=== PATIENT | female | born 1985 ===

== ENCOUNTER 2024-10-15 10:06 | Outpatient (AMB) | payer MEDICAID, SELFPAY ==
--- NOTE | 2024-10-15 10:27 | A.SPINEOV_ITS ---
Vital Signs 10/15/24 10:37 Height 5 ft Weight 273 lb BMI 53.3 Intake Visit Reasons: LBP Intake Note: Ms. Varela is here today c/o low back pain that radiates down the right leg. Transportation [employer] Internship Required: No Allergies Penicillins Allergy (Severe, Verified 10/15/24 10:38) Hives tramadol Allergy (Severe, Verified 10/15/24 10:38) Vomiting Physical Exam Vital Signs: BMI result Body Mass Index 53.3 Assessment & Plan Assessment & Plan (1) Degeneration of lumbar intervertebral disc: Code(s): M51.369 - Other intervertebral disc degeneration, lumbar region without mention of lumbar back pain or lower extremity pain Category: Medical Plan Dear Dr. Colindres, Thank you for referring Flaca to our office today. She is a pleasant 38-year-old female who comes in today for evaluation of severe low back pain and shooting pain into her bilateral lower extremities. She reports this has been ongoing since about 2018, denies any known inciting initial incident for the pain. She reports that she was informed that she had a disc herniation back in 2018, for which she was offered surgery by Dr. Cole at [facility]. She reports that unfortunately despite surgical attempts to solve her problem, she continued to have the same pain that she had prior to surgery. She now states that the pain has worsened to the point where she is in constant 10/10 pain throughout the day. When asked which is worse her back pain or leg pain, she states they are both severe and feel like they are all part of the same pain. When describing her pain she runs her hand over her low back, and down the posterior aspect of her right leg terminating near the mid gastrocnemius. She also reports that she has left lateral thigh pain that feels like it starts in her left hip and shoots down her left lateral thigh. She denies any numbness/tingling/burning associated with the pain She states that remaining in one position for too long (e.g. sitting for a prolonged period of time) will worsen her pain until she makes a positional change. She is unable to identify anything that helps to alleviate her pain. She has been to physical therapy multiple times in an effort to treat this problem, however PT seems to only worsen her pain. She did attempt cortisone injections at [facility] in the past, and states that they were not helpful at all for her pain. She is currently taking Tylenol, ibuprofen, and gabapentin in an effort to help treat her pain, but states she gets little to no relief from these medications. She denies any saddle anesthesia or bowel/bladder incontinence. PMH: Migraines with aura, GERD, HSV 1, hidradenitis suppurativa, PTSD, anxiety, history of L4-[address] Cole. Recent surgery 09/18/2024 to remove a segment of hidradenitis suppurativa from her right inner thigh. Social hx: The patient smokes 1/2 pack cigarettes per day. Denies any other substance use. Medications: Albuterol, betamethasone, cholecalciferol, clobetasol, diclofenac, Depakote, doxepin, fluticasone, guaifenesin, hydrocortisone, hydroxyzine, lidocaine patches, naratriptan, pantoprazole, prazosin, magnesium oxide, vitamin B2, sennosides, triamcinolone, ibuprofen, meloxicam, cyclobenzaprine. Allergies: PCN, Tramadol Physical exam: The patient has about 4/5 strength with right-sided iliopsoas testing. The rest of her strength testing is 5/5, however she does elicit pain to full strength testing on examination. She has no significant sensational deficits on exam. Her reflexes are 2+ intact diffusely. She ambulates very slowly, but does not appear to have an antalgic or spastic gait. (-) bilateral straight leg raise, (-) Richardson's, (-) clonus. Imaging review: MRI of the lumbar spine completed here at [facility] shows disc degeneration at L4-5 with Modic endplate changes. There is moderate-severe bilateral foraminal stenosis at this level. There is evidence of a previous surgical defect at L4-5. Impression: Flaca is a pleasant 38-year-old female who comes in today for evaluation of low back pain and shooting pain into her bilateral lower extremities, right-sided worse than left. She has a pertinent past medical history of previous lumbar spine surgery at L4-5 back in 2018. Her symptoms did not resolve or improve after surgery. I sent her for a set of flexion/extension x-rays to evaluate for any listhesis or movement of the L4-5 segment during this visit. It does not appear that this segment is mobile. My initial thought is that a lumbar decompression at L4-5 may help to relieve the compression on the exiting nerve roots at this level and help to mitigate some of her leg symptoms, however given that she has a component of severe low back pain I think that lumbar fusion at L4-5 may be more appropriate, even though the patient is fairly young for this procedure. I would like to review her case with the attending neurosurgeon Dr. Hunt, and will call her next week with a surgical decision. Thank you for allowing us to care for your patient. The total time spent with this visit with this patient was 45 minutes reviewing history, physical exam, MRI imaging review, and implementation of treatment plan or further diagnostic testing Demario Hunt MD,PhD [facility] Orders: Orders XR lumbar spine 4V min Today M54.50 - Low back pain, unspecified Coding Level of Care Code New Pt Level 4 (11423) Diagnoses Degeneration of lumbar intervertebral disc M51.369
[2024-10-15 10:37] VITALS: BMI 53.3
--- OUTSIDE RECORDS SUMMARY | 2024-10-15 11:01 | XMS_ITS | Encounter Summary ---
Author Organization [facility], Address [address] [place] [address] Phone Care Team Providers Care Clear Coat Sprayer Name Role Phone Naa Colindres MD Primary Care Provider [phone] Encounter Details Date Type Department Care Team (Late st Contact Info) Description 12/08/2022 Documentation Only [facility], - Megan [address] [facility] [address] [place] [address] Lis Mcdonald, OFFICE MACHINE MECHANIC [address] [place] [address] [phone] Social History Tobacco Use Types Packs/Day Years Used Date Smoking Tobacco: Never Assessed Comments Unknown Sex and Gender Information Value Date Recorded Sex Assigned at Not on file Legal Sex Female 3:16 PM EDT Gender Identity Not on file Sexual Orientation Not on file documented as of this encounter Plan of Treatment Not on file documented as of this encounter Visit Diagnoses Not on filedocumented in this encounter Care Teams Clear Coat Sprayer Relationship Specialty Start Date End Date Naa Colindres MD [address] [place] [address] PCP - General Family Medicine 03/17/23 documented as of this encounter"
== END 2024-10-15 11:11 | disposition home or self-care (01) ==
LOC: HO.HNS 10:09
PROVIDERS: PCP Family Medicine; Referring Provider Family Medicine; Visit Provider Physician Assistant
DX: M51.369 Other intervertebral disc degeneration, lumbar region without mention of lumbar back pain or lower extremity pain (principal)
CPT/HCPCS: 99204

== ENCOUNTER 2024-10-15 10:06 | Outpatient (REF) | payer MEDICAID, SELFPAY ==
--- NOTE | ~2024-10-15 | XR_ITS ---
EXAMINATION: XR LUMBAR SPINE 4 OR MORE VIEWS HISTORY: M54.50 - Low back pain, unspecified COMPARISON: There are no prior studies for comparison. FINDINGS: AP, and neutral, flexion, and extension lateral views of the lumbar spine are submitted. Osseous mineralization is normal. Five nonrib-bearing lumbar vertebral bodies are identified, maintaining normal height without evidence of fracture or spondylolisthesis. There is mild rotatory levoscoliosis. There is moderate degenerative disc disease at the L4-5 level with disc space narrowing. Anterior spurring is also seen at this level. The remaining intervertebral disc spaces are maintained. There is no abnormal motion with flexion or extension. The visualized paraspinal soft tissues are unremarkable. XR/XR lumbar spine 4V min IMPRESSION: Mild rotatory levoscoliosis. Moderate degenerative disc disease at L4-5. No abnormal motion with flexion or extension. Electronically signed by: Tariq Garcia MD 10/16/2024 07:18 AM EDT
== END 2024-10-15 10:07 | disposition home or self-care (01) ==
LOC: HO.HOSX 10:06
PROVIDERS: PCP Family Medicine; Referring Provider Family Medicine; Visit Provider Physician Assistant
DX: M51.360 Other intervertebral disc degeneration, lumbar region with discogenic back pain only (principal)
CPT/HCPCS: 72110; 99212

== ENCOUNTER → 2024-10-15 11:14 | Outpatient (BNV) | payer MEDICAID, SELFPAY | PROVIDERS: PCP Family Medicine; Referring Provider Family Medicine; Visit Provider Radiology Diagnostic Radiology | DX: M51.360 Other intervertebral disc degeneration, lumbar region with discogenic back pain only (principal) | CPT/HCPCS: 72110 ==

== ENCOUNTER → 2024-11-27 11:31 | Outpatient (BNV) | payer MEDICAID, SELFPAY | PROVIDERS: Admitting Provider Neurological Surgery; Visit Provider Internal Medicine | DX: Z01.810 Encounter for preprocedural cardiovascular examination (principal) | CPT/HCPCS: 93010 ==

== ENCOUNTER 2024-12-11 06:20 | Inpatient (IN) | payer MEDICAID, SELFPAY ==
--- NOTE | 2024-11-27 | ECG_ITS ---
Test Reason : PREOP Blood Pressure : */* mmHG Vent. Rate : 68 BPM Atrial Rate : 68 BPM P-R Int : 128 ms QRS Dur : 86 ms QT Int : 398 ms P-R-T Axes : 16 66 35 degrees QTcB Int : 423 ms Normal sinus rhythm Normal ECG No previous ECGs available Referred By: Natali Adames Electronically Signed By: RAYMON MANRIQUEZ
[2024-11-27 10:21] VITALS: BP 119/72; PULSE 80; RESP 20; O2SAT 98; BMI 37.9
--- NOTE | 2024-11-27 10:44 | HO.ANESPROP2 ---
Documented by User: Natali Adames NP 11/28/24 10:04 HPI - Anesthesia Eval Consult details Narrative: 39 yr old female for L4-5 Oblique Lumbar Interbody Fusion. No CP/SOB; activity limited 2/2 back pain. No recent illness. Asthma: well-controlled, prn albuterol. H/O PTSD 2/2 restraint on face, anticipate difficulty masking/emergence from anesthesia PMFSH Active Problems Active Problems: All Active Problems Degeneration of lumbar intervertebral disc (Acute) Lumbago (Acute) Past Medical History Medical History Hidradenitis suppurativa Asthma Fibromyalgia Peptic ulcer Depression PTSD (post-traumatic stress disorder) Anxiety GERD (gastroesophageal reflux disease) Migraines Functional capacity: independent ambulation Patient : No Family History Family history of problems with anesthesia: No Surgical History Surgical History History of esophagogastroduodenoscopy (EGD) H/O colonoscopy History of surgery on lower extremity History of back surgery History of Problems with Anesthesia: No Social History Social History Are you a primary career information specialist to a significant other at home: No Do you 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 If so, by whom?: No Spiritual Healthcare Practices: no Episcopal Healthcare Practices: no Cultural Healthcare Practices: no Are you DNR?: No Advance Directives: No (states mother is primary contact) Advance Directives on File: No Patient : No FDLMP: 11/18/24 : No Poor oral hygiene: No Meds Allergies Allergy/AdvReac Type Severity Reaction Status Date / Time Penicillins Allergy Severe Hives Verified 10/15/24 10:38 tramadol Allergy Severe Vomiting Verified 10/15/24 10:38 Home Medications ?Medication ?Instructions ?Recorded ?Confirmed ?Last Taken ?Type albuterol sulfate 90 mcg/actuation 2 puff inhalation Q6H PRN wheezing 11/26/24 11/26/24 Unknown History aerosol inhaler (Ventolin HFA) cholecalciferol (vitamin D3) 125 125 mcg PO DAILY 11/26/24 11/26/24 Unknown History mcg (5,000 unit) capsule cyclobenzaprine 10 mg tablet 10 mg PO BEDTIME 11/26/24 11/26/24 Unknown History divalproex 250 mg tablet,delayed 500 mg PO BEDTIME 11/26/24 11/26/24 Unknown History release doxepin 10 mg capsule 10 mg PO BEDTIME 11/26/24 11/26/24 Unknown History gabapentin 300 mg capsule 600 mg PO TID 11/26/24 11/27/24 Unknown History hydroxyzine pamoate 25 mg capsule 25 mg PO TID PRN Anxiety 11/26/24 11/26/24 Unknown History ibuprofen 800 mg tablet 800 mg PO Q8H PRN Pain 11/26/24 11/27/24 10/17/24 History meloxicam 7.5 mg tablet 7.5 mg PO DAILY 11/26/24 11/27/24 10/17/24 History pantoprazole 40 mg tablet,delayed 40 mg PO QAM 11/26/24 11/26/24 Unknown History release prazosin 1 mg capsule 1 mg PO BEDTIME 11/26/24 11/26/24 Unknown History rizatriptan 10 mg disintegrating 10 mg PO ONCE PRN Migraine Headache 11/26/24 11/26/24 Unknown History tablet topiramate 100 mg tablet 100 mg PO BEDTIME 11/26/24 11/26/24 Unknown History Exam Height,Weight and Vital Signs: Height 5 ft 11 in Weight 123.377 kg Last Vital Signs Pulse 80 11/27/24 10:21 Resp 20 11/27/24 10:21 BP 119/72 11/27/24 10:21 Pulse Ox 98 11/27/24 10:21 O2 Del Method Room Air 11/27/24 10:21 Pertinent Lab Results Pertinent Lab Results: Lab Results 11/27/24 11/27/24 Range/Units 11:19 11:29 WBC 9.8 (4.8-10.8) X10*3/uL RBC 4.60 (4.20-5.50) X10*6/uL Hgb 14.4 (12.0-16.0) g/dl Hct 42.9 (37.0-47.0) % MCV 93.3 (80.0-98.0) fL MCH 31.3 (27.0-33.0) pg MCHC 33.6 (31.0-35.0) g/dl RDW 13.3 (11.0-16.0) % Plt Count 325 (160-400) X10*3/uL MPV 12.1 (9.4-12.3) fL Absolute Nucleated RBC 0.000 (0.0-0.012) X10*3/uL Nucleated RBC % (auto) 0.0 (0.0-0.2) /100WBC Sodium 142 (135-145) mmol/L Potassium 4.3 (3.3-5.1) mmol/L Chloride 107 (96-108) mmol/L Carbon Dioxide 28 (22-29) mmol/L Anion Gap 11 L (12-20) BUN 10 (9-16) mg/dL Creatinine 0.69 (0.5-1.4) mg/dL Estim Creat Clear Calc 157.1 Estimated GFR > 60 Random Glucose 94 (60-115) mg/dL Estimat Average Glucose 108 mg/dL Hemoglobin A1c % 5.4 (<6.0) % Calcium 9.3 (8.4-10.2) mg/dL Blood Type A Negative Antibody Screen NEGATIVE Narrative Narrative: EKG 11/27/24 Vent. Rate : 68 BPM Atrial Rate : 68 BPM P-R Int : 128 ms QRS Dur : 86 ms QT Int : 398 ms P-R-T Axes : 16 66 35 degrees QTcB Int : 423 ms Normal sinus rhythm Normal ECG No previous ECGs available Airway Mallampati Class: III TM Dist: >3cm Neck ROM: Full Loose/Missing/Broken Teeth: Lower (right molar, wisdom M) Heart: RRR Lungs: clear to auscultation b/l Assessment and Plan Final Anesthetic Review Family History of Problems with Anesthesia: No History of Problems with Anesthesia: No Documented by User: Karin Churchill MD 12/11/24 07:28 PMFSH Past Medical History Medical History Hidradenitis suppurativa Asthma Fibromyalgia Peptic ulcer Depression PTSD (post-traumatic stress disorder) Anxiety GERD (gastroesophageal reflux disease) Migraines Surgical History Surgical History History of esophagogastroduodenoscopy (EGD) H/O colonoscopy History of surgery on lower extremity History of back surgery Social History Social History Are you a primary career information specialist to a significant other at home: No Do you 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 If so, by whom?: No Spiritual Healthcare Practices: no Episcopal Healthcare Practices: no Cultural Healthcare Practices: no Are you DNR?: No Advance Directives: No (states mother is primary contact) Advance Directives on File: No Patient : No FDLMP: 11/18/24 : No Poor oral hygiene: No Meds Allergies Allergy/AdvReac Type Severity Reaction Status Date / Time Penicillins Allergy Severe Hives Verified 10/15/24 10:38 tramadol Allergy Severe Vomiting Verified 10/15/24 10:38 Home Medications ?Medication ?Instructions ?Recorded ?Confirmed ?Last Taken ?Type albuterol sulfate 90 mcg/actuation 2 puff inhalation Q6H PRN wheezing 11/26/24 11/26/24 Unknown History aerosol inhaler (Ventolin HFA) cholecalciferol (vitamin D3) 125 125 mcg PO DAILY 11/26/24 11/26/24 Unknown History mcg (5,000 unit) capsule cyclobenzaprine 10 mg tablet 10 mg PO BEDTIME 11/26/24 11/26/24 Unknown History divalproex 250 mg tablet,delayed 500 mg PO BEDTIME 11/26/24 11/26/24 Unknown History release doxepin 10 mg capsule 10 mg PO BEDTIME 11/26/24 11/26/24 Unknown History gabapentin 300 mg capsule 600 mg PO TID 11/26/24 11/27/24 Unknown History hydroxyzine pamoate 25 mg capsule 25 mg PO TID PRN Anxiety 11/26/24 11/26/24 Unknown History ibuprofen 800 mg tablet 800 mg PO Q8H PRN Pain 11/26/24 11/27/24 10/17/24 History meloxicam 7.5 mg tablet 7.5 mg PO DAILY 11/26/24 11/27/24 10/17/24 History pantoprazole 40 mg tablet,delayed 40 mg PO QAM 11/26/24 11/26/24 Unknown History release prazosin 1 mg capsule 1 mg PO BEDTIME 11/26/24 11/26/24 Unknown History rizatriptan 10 mg disintegrating 10 mg PO ONCE PRN Migraine Headache 11/26/24 11/26/24 Unknown History tablet topiramate 100 mg tablet 100 mg PO BEDTIME 11/26/24 11/26/24 Unknown History Exam Airway Loose/Missing/Broken Teeth: No Assessment and Plan Assessment Anesthesia Assessment: Anesthesia Plan Discussed and Chart Reviewed Final Anesthetic Review NPO: Yes ASA Class: II Final Preanesthetic Review: Meds/Allgs Chart Reviewed, Consent Obtained/Reviewed and Anes Risks/Benef Reviewed Patient Risk: Low Procedure Risk: Intermediate Anesthetic Plan Anesthetic Plan: GA Disposition: Standard PACU
[2024-11-27 12:03] LABS: Hematocrit 42.9 % (37.0-47.0); Hemoglobin 14.4 g/dl (12.0-16.0); Mean Corpuscular HGB Conc 33.6 g/dl (31.0-35.0); Mean Corpuscular Hemoglobin 31.3 pg (27.0-33.0); Mean Corpuscular Volume 93.3 fL (80.0-98.0); NRBC Abs Auto 0.000 X10*3/uL (0.0-0.012); NRBC Pct Auto 0.0 /100WBC (0.0-0.2); Platelet Count 325 X10*3/uL (160-400); Red Blood Count 4.60 X10*6/uL (4.20-5.50); White Blood Count 9.8 X10*3/uL (4.8-10.8)
[2024-11-27 12:26] LABS: Hemoglobin A1C 132.4258 umol/L; Total Hemoglobin (HGBA1C) 3741.1756 umol/L
[2024-11-27 12:29] LABS: Anion Gap 11 (12-20); Blood Urea Nitrogen 10 mg/dL (9-16); Calcium 9.3 mg/dL (8.4-10.2); Carbon Dioxide 28 mmol/L (22-29); Chloride 107 mmol/L (96-108); Creatinine Clr Calc Pharmacy 157.1; Estimated Glomerular Filt Rate > 60; Potassium 4.3 mmol/L (3.3-5.1); Sodium 142 mmol/L (135-145)
[2024-12-11] VITALS (17 sets, daily range): BP systolic 100–146; BP diastolic 52–94; PULSE 70–87; RESP 16–20; TEMP 36.2–36.8; O2SAT 93–99; BMI 38.1
--- NOTE | ~2024-12-11 | FL_ITS ---
EXAMINATION: FL GUIDANCE ONLY HISTORY: L4-5 OLIF COMPARISON: Correlation is made with plain films of the lumbar spine dated 10/15/2024. TECHNIQUE: Fluoroscopy time: 1.51 minutes. Cumulative Dose: 110.593 mGy. DAP: 40.816 mGym2 Images: 3. FINDINGS: Discopathy spot films of the lumbar spine demonstrate posterior fusion of L4 and L5 with pedicle screws, spinal stabilization rods, and an intervertebral spacer. FL/FL guidance in OR IMPRESSION: Fluoroscopy during procedure. Please see procedure report for additional information. Electronically signed by: Tariq Garcia MD 12/11/2024 10:24 AM EDT
--- OUTSIDE RECORDS SUMMARY | 2024-12-11 06:24 | XMS_ITS | Encounter Summary ---
Author Organization [employer] Address [address] [facility] [address] [place] [address] Care Team Providers Care Heel Lift Gouger Name Role Phone Naa Colindres MD Primary Care Provider [phone] Reason for Visit * Reason Comments Med Change Request Encounter Details Date Type Department Care Team (Late st Contact Info) Description 03/31/2023 Refill [facility] [address] [place] [address] Naa Colindres MD [address] [place] [address] Fibromyalgia Social History Tobacco Use Types Packs/Day Years Used Date Smoking Tobacco: Every Day Cigarettes Depression Answer Date Recorded Patient Health Questionnaire-9 Score 24 09/24/2022 Housing Stability Answer Date Recorded What is your housing situation today? I have kathleen garcia 03/01/[address] you li ve. Do you have problems with any of the following? None of the above 03/01/2023 Food Insecurity Answer Date Recorded Within the past 12 months, y ou worried that your food would run out before you got money to buy more: Often true 03/01/2023 Within the past 12 months,th e food you bought just didn't last and you didn't have enough money to get more: Often true Transportation Answer Date Recorded In the past 12 months, has l ack of transportation kept you from medical appts, meetings, work or from getting things needed for daily living? No 03/01/2023 Utilities Answer Date Recorded In the past 12 months, has t he electric, gas, oil or water company threatened to shut off services in your home? No 03/01/2023 Depression Answer Date Recorded Patient Health Questionnaire-2 Score 6 09/24/2022 Comments No Sex and Gender Information Value Date Recorded Sex Assigned at Female 08/26/2022 3:32 PM EDT Legal Sex Female 3:28 PM EDT Gender Identity Female 08/26/2022 3:32 PM EDT Sexual Orientation Straight 08/26/2022 3: 32 PM EDT documented as of this encounter Plan of Treatment Upcoming Encounters Date Type Department Care Team (Late st Contact Info) Description 12/25/2024 8:30 AM EDT Clinical Support [facility] N[facility] [address] [place] [address] Annabel Lopez, RD [address] [place] [address] 01/25/2025 2:00 PM EDT Office Visit [facility] MED[facility] [address] [place] [address] Jodi Miller MD [address] [place] [address] documented as of this encounter Visit Diagnoses Diagnosis Fibromyalgia Unspecified myalgia and myositis documented in this encounter Additional Health Concerns Assessment Noted Time PHQ-9 Depression Total Score: 24 023 10:06 AM EDT documented as of this encounter Care Teams Heel Lift Gouger Relationship Specialty Start Date End Date Naa Colindres MD [address] [place] [address] PCP - General Family Medicine 09/03/22 documented as of this encounter
--- OUTSIDE RECORDS SUMMARY | 2024-12-11 06:24 | XMS_ITS | Encounter Summary ---
Author Organization [facility], Address [address] [place] [address] Phone Care Team Providers Care Trimmer Press Clippings Name Role Phone Naa Colindres MD Primary Care Provider [phone] Encounter Details Date Type Department Care Team (Late st Contact Info) Description 12/08/2022 Documentation Only [facility], - Megan [address] [facility] [address] [place] [address] Lis Mcdonald, CANE FLUME FEEDING MACHINE OPERATOR [address] [place] [address] [phone] Social History Tobacco Use Types Packs/Day Years [...] on filedocumented in this encounter Care Teams Trimmer Press Clippings Relationship Specialty Start Date End Date Naa Colindres MD [address] [place] [address] PCP - General Family Medicine 03/17/23 documented as of this encounter
--- OUTSIDE RECORDS SUMMARY | 2024-12-11 06:24 | XMS_ITS | Clinical Summary ---
Author Organization [facility] Address [address] [place] [phone] Phone Care Team Providers Care Pediatric Nurse Practitioner Name Role Phone Naa Colindres MD Primary Care Provider Allergies Active Allergy Reactions Criticality Noted Date Comments Penicillins Hives Medium 04/24/2017 Tramadol GI Upset Low 06/17/2017 Medications * This document contains information received from the source organization and may not represent a complete record from that organization. lidocaine (LIDODERM) 5 % Place 2 patches onto the skin daily. Remove & Discard patch within 12 hours or as directed by 60 patch 04/29/20 17 Active ibuprofen (ADVIL,MOTRIN) 800 MG tablet Take 800 mg by mouth 2 (two) times a day. Active diclofenac sodium (VOLTAREN) 1 % Gel Apply 2 g topically 4 (four) times a day as needed (back/leg pain). Active albuterol 90 mcg/actuation inhaler Inhale 2 puffs into the lungs every 4 (four) hours. 1 Inhaler 06/01/19 20 Active hydrocortisone 1 % ointmentIndication s:Vaginitis and vulvovaginitis Apply small amount to affected area twice daily as needed itching 28 g 09/18/19 20 Active sucralfate (CARAFATE) 1 gram tablet Take 1 tablet by mouth 4 (four) times a day. 11/20/19 22 Active fluticasone propionate (FLONASE) 50 mcg/actuation nasal spray SPRAY 1 SPRAY BY INTRANASAL ROUTE EVERY DAY 12/12/19 22 Active butalbital-acetami nophen-caffeine (FIORICET, ESGIC) 50-325-40 mg per tablet Take 1 tablet by mouth every 6 (six) hours as needed for headache. 20 tablet 05/18/19 23 Active metoclopramide HCl (REGLAN) 10 MG tablet Take 1 tablet (10 mg total) by mouth 4 (four) times a day as needed (headache). 12 tablet 05/21/19 23 Active hydrOXYzine (VISTARIL) 25 MG capsule Take 25 mg by mouth nightly at bedtime. 09/04/19 23 Active prazosin (MINIPRESS) 1 MG capsule Take 1 mg by mouth. 09/04/19 23 Active omeprazole (PRILOSEC) 20 MG capsule TAKE 1 CAPSULE TWICE A DAY BY ORAL ROUTE DIRECTED 09/24/19 22 Active PEG 400-propylene glycol (SYSTANE) 0.4-0.3 % Drop INSTILL 1-2 DROPS INTO EACH EYE 4 TIMES PER DAY 07/02/19 23 Active nicotine (NICODERM CQ) 14 mg/24 hr APPLY 1 PATCH DAILY TO SKIN 08/29/19 23 Active valACYclovir (VALTREX) 500 MG tablet Take 500 mg by mouth as needed. 09/04/19 23 Active clobetasol (TEMOVATE) 0.05 % cream APPLY A THIN LAYER TO THE AFFECTED AREA(S) ONCE DAILY 08/11/19 23 Active ondansetron (ZOFRAN-ODT) 8 MG disintegrating tabletIndications: Intractable migraine without aura and with status migrainosus Take 1 tablet (8 mg total) by mouth every 8 (eight) hours as needed for nausea. 20 tablet 5 09/17/19 23 Active ascorbic acid, vitamin C, (VITAMIN C) 500 MG tablet Take 500 mg by mouth daily. Active SUMAtriptan (IMITREX) 50 MG tablet Take 50 mg by mouth once as needed for migraine. Can repeat dose in 2 hours if needed. Do not exceed 2 doses in a 24 hour period. Max dose 200mg/ day Active gabapentin (NEURONTIN) 300 MG capsule Take 300 mg by mouth 3 (three) times a day. 600 mg in am, 600 mg afternoon, 300 mg evening Active meloxicam (MOBIC) 7.5 MG tablet TAKE 1 TABLET (7.5 MG) BY MOUTH IN THE MORNING 07/25/19 24 Active docusate sodium (COLACE) 100 MG capsule TAKE 1 CAPSULE BY MOUTH TWICE A DAY 60 capsule 6 05/14/20 24 Active cholecalciferol (VITAMIN D3) 5,000 unit capsule Take 1 capsule (5,000 Units total) by mouth daily. 90 capsule 1 07/27/19 25 Active Additional Information Patient not taking.Reported on 10/15/2024 celecoxib (CELEBREX) 200 MG capsule take 1 capsule by mouth 2 times daily. Active cyclobenzaprine (FLEXERIL) 10 MG tablet take 1 tablet by mouth everyday at bedtime Active doxepin (SINEQUAN) 10 MG capsule Take 10 mg by mouth. 05/14/20 24 Active ibuprofen (ADVIL,MOTRIN) 800 MG tablet Take 1 tablet (800 mg total) by mouth every 6 (six) hours as needed for pain (specific location in comments). 30 tablet 09/19/19 25 Active oxyCODONE 5 MG immediate release tablet Take 1 tablet (5 mg total) by mouth every 4 (four) hours as needed for pain (specific location in comments). Partial fill ok 15 tablet 09/19/19 25 Active cholecalciferol (VITAMIN D3) 5,000 unit capsuleIndications :Chronic right-sided low back pain with right-sided sciatica,Vitamin D insufficiency,Troc hanteric bursitis of left hip,Chronic fatigue,NSAID long-term use Take 1 capsule (5,000 Units total) by mouth daily. 90 capsule 1 10/03/19 25 Active divalproex (DEPAKOTE) [address] tabletIndications: Intractable migraine without aura and with status migrainosus Take 1 tablet (250 mg total) by mouth nightly at bedtime. 30 tablet 10/03/19 25 Active topiramate (TOPAMAX) 100 MG tabletIndications: Intractable migraine without aura and with status migrainosus,PTSD (post-traumatic stress disorder) Take 1 tablet (100 mg total) by mouth nightly at bedtime. 30 tablet 11 10/03/19 25 Active rizatriptan (MAXALT-SEARCH ENGINE OPTIMIZER) 10 MG disintegrating tabletIndications: Intractable migraine without aura and with status migrainosus Take 1 tablet (10 mg total) by mouth as needed for migraine. May repeat in 2 hours if needed. Do not exceed 20mg in a day. 9 tablet 11 10/03/19 25 Active triamcinolone acetonide 0.1 % ointment Apply topically 2 (two) times a day. 60 g 10/03/19 25 Active clindamycin (CLEOCIN T) 1 % lotion Apply topically 2 (two) times a day. APPLY TO AFFECTED AREA 60 mL 11 10/03/19 25 Active lidocaine 5 % ointmentIndication s:Vulvar lesion,Foreign body in right foot, initial encounter Apply to affected area 3-4 times a day as needed. 35.44 g 10/03/19 25 Active betamethasone, augmented, (DIPROLENE) 0.05 % ointment Apply topically 2 (two) times a day. Apply to inflamed lesions in armpit or groin. Use for no more than 5 days per month. 45 g 3 10/03/19 25 Active chlorhexidine (HIBICLENS) 4 % external liquid Apply topically daily. Use wash daily in shower on areas of HS lesions 236 mL 3 10/03/19 25 Active secukinumab (COSENTYX PEN, 2 PENS,) 150 mg/mL subcutaneous pen injection Inject 2 mL (300 mg total) under the skin every 14 (fourteen) days. 4 mL 10/03/19 25 Active clindamycin (CLEOCIN) 300 MG capsule Take 1 capsule (300 mg total) by mouth 3 (three) times a day. 120 capsule 5 10/03/19 25 Active lidocaine-prilocai ne (EMLA) cream Apply topically as needed (for surgical site). Apply to surgical derooing site 1 hour before procedure and cover with saran wrap 30 g 10/03/19 25 Active acetaminophen (TYLENOL) 500 MG tablet Take 2 tablets (1,000 mg total) by mouth every 8 (eight) hours as needed for pain (specific location in comments). 30 tablet 10/03/19 25 Active HYDROcodone-acetam inophen (NORCO) 5-325 mg per tablet TAKE 1 TABLET BY MOUTH AT BEDTIME FOR 5 DAYS 10/06/19 25 Active galcanezumab-gnlm (EMGALITY SYRINGE) 120 mg/mL subcutaneous syringeIndications :Intractable migraine without aura and with status migrainosus Inject 1 mL (120 mg total) under the skin every 30 (thirty) days. 1 mL 11 10/16/19 25 Active Active Problems Problem Noted Date Diagnosed Date Trochanteric bursitis of left hip 07/25/2024 Patchy loss of hair 07/25/2024 NSAID long-term use 07/25/2024 Assessment & Plan (07/25/2024 3:00 PM EDT): Take the lowest dose, with least frequency, for shortest time. Remember to take it always with food. Favor topical over oral preparations. Trichomoniasis 07/17/2024 Overview (07/17/2024): With sxs, test pos at PCP's from last week Assessment & Plan (07/17/2024 2:59 PM EST): Discussed, Rx sent 7 days metronidazole Vitamin D deficiency, unspecified 09/23/2023 Assessment & Plan (09/23/2023 7:39 AM EDT): Serum level requested to guide proper dosing of vitamin D supplementation. Fibromyalgia 09/21/2023 Assessment & Plan (07/25/2024 3:01 PM EDT): We discussed the diagnosis of fibromyalgia, its natural history, and treatment. Specifically, we discussed that treatment requires many interventions and recognition that we are often unable to get patients completely pain free. Management of fibromyalgia requires patient engagement to address any underlying depression, anxiety, or sleep disorder. Further, patients are encouraged to engage in regular physical activity. Some studies have suggested that Darío Chi is effective. Other physical activity may including water-based aerobics, walking, biking, gentle yoga, swimming, Pilates etc. In terms of pharmacotherapy, there are many options, including tricyclic antidepressants, duloxetine, gabapentin or pregabalin, and cyclobenzaprine as well as other similar medications to those listed. In this case, the patient might try to focus on nonpharmacologic modalities such as mindfulness approach as described in the book written by Dr Gautam King Full catastrophe living due to multiple medications intolerances and polypharmacy. Assessment & Plan (09/23/2023 7:38 AM EDT): We discussed the diagnosis of fibromyalgia, its natural history, and treatment. Specifically, we discussed that treatment requires many interventions and recognition that we are often unable to get patients completely pain free. Management of fibromyalgia requires patient engagement to address any underlying depression, anxiety, or sleep disorder. Further, patients are encouraged to engage in regular physical activity. Some studies have suggested that Darío Chi is effective. Other physical activity may including water-based aerobics, walking, biking, gentle yoga, swimming, Pilates etc. In terms of pharmacotherapy, there are many options, including tricyclic antidepressants, duloxetine, gabapentin or pregabalin, and cyclobenzaprine as well as other similar medications to those listed. In this case, the patient might try to focus on nonpharmacologic modalities such as mindfulness approach as described in the book written by Dr Gautam King Full catastrophe living due to multiple medications intolerances and polypharmacy. Class 2 severe obesity due t o excess calories with serious comorbidity and body mass index (BMI) of 37.0 to 37.9 in adult 09/21/2023 Assessment & Plan (09/23/2023 7:39 AM EDT): Continue diligent portion control particularly in view of gaining 3 pounds from 265 on 05/31/2022 up to 268 today. Limit concentrated sugars, saturated fats and calories in the diet. Keep well-hydrated. If unable to achieve expected goal consider formal dietary/nutritional support. Chronic fatigue 09/21/2023 Assessment & Plan (07/25/2024 3:01 PM EDT): Balance rest and activity. Keep well-hydrated. Avoid falls, injuries, overuse, sick contacts. Keep up-to-date on age-appropriate screenings and preventive strategies. Continue gentle, regular exercise routine. Follow principles of sleep hygiene. Work on complete smoking cessation. Keep engaged in regular hobbies/favorite activities. Assessment & Plan (09/23/2023 7:40 AM EDT): Balance rest and activity. Keep well-hydrated. Avoid falls, injuries, overuse, sick contacts. Keep up-to-date on age-appropriate screenings and preventive strategies. Continue gentle, regular exercise routine. Follow principles of sleep hygiene. Work on complete smoking cessation. Keep engaged in regular hobbies/favorite activities. Gastroesophageal reflux disease without esophagi tis 05/31/2022 Assessment & Plan (09/23/2023 7:35 AM EDT): Avoid late, large, spicy meals. Keep headboard elevated at 45 angle for nighttime. Carefully continue sucralfate 1 tablet 4 times daily and omeprazole 20 mg daily as prescribed. Follow-up with PCP and segmental wall installer as scheduled Assessment & Plan (06/01/2022 10:38 AM EST): Avoid late, large, spicy meals. Keep headboard elevated at 45 angle for nighttime. With history of stomach ulcers and ongoing cigarette smoking she is at an increased risk for another GI bleed therefore I urged her to limit or avoid if possible frequent and high doses of NSAIDs use. Favor topical over the oral products with addition of nonpharmacologic measures such as warmth, gentle massage, gentle stretching etc. Hidradenitis suppurativa 02/08/2022 Assessment & Plan (07/25/2024 3:01 PM EDT): Continue Cosentyx 300 mg every 14 days as prescribed by treating electronic warfare operator at [facility] & close follow-up as scheduled. Assessment & Plan (09/23/2023 7:31 AM EDT): Continue Cosentyx 300 mg every 14 days as prescribed by treating electronic warfare operator at [facility] & close follow-up as scheduled. Assessment & Plan (06/01/2022 10:38 AM EST): Continue close follow-up with treating electronic warfare operator as scheduled. Chronic neck pain 01/22/2022 Assessment & Plan (01/22/2022 11:34 PM EDT): Use warm pack versus warm shower prior to gentle ROM and muscle stretching exercises as tolerated. She may benefit from warm packs followed by topical products such as Arnica, Biofreeze, Aspercreme, Voltaren, Blue emu etc. versus medicated patches such as Salonpas or IcyHot patch 2-3 times daily and if needed at bedtime x 3 weeks Chronic right-sided low back pain with right-terra ed sciatica 01/22/2022 Assessment & Plan (07/25/2024 3:01 PM EDT): Due to her reported love of swimming in her teens I suggested her warm pool therapy [facility] in [place] versus [facility] versus [facility]. Due to her overwhelming headache, facial and right-sided body weakness she is afraid of continuing pool therapy worrying about possible seizure disorder. Gentle, regular core muscle strengthening exercises after warm pack or warm shower in chair or on the yoga mat Assessment & Plan (09/23/2023 7:28 AM EDT): Due to her reported love of swimming in her teens I suggested her warm pool therapy [facility] in [place] versus [facility] versus [facility]. Due to her overwhelming headache, facial and right-sided body weakness she is afraid of continuing pool therapy worrying about possible seizure disorder. Gentle, regular core muscle strengthening exercises after warm pack or warm shower in chair or on the yoga mat Assessment & Plan (06/01/2022 10:32 AM EST): Due to her reported love of swimming in her teens I suggested her warm pool therapy [facility] in [place] versus [facility] versus [facility]. Due to her overwhelming headache, facial and right-sided body weakness she is afraid of continuing pool therapy worrying about possible seizure disorder. Gentle, regular core muscle strengthening exercises after warm pack or warm shower in chair or on the yoga mat Assessment & Plan (01/22/2022 11:26 PM EDT): On clinical exam exhibits today signs of possible radiculopathy with positive straight leg raise test despite reassuring lumbar spine MRI from 02/23/2021. Due to her reported love of swimming in her teens I suggested her warm pool therapy [facility] in [place] versus [facility] versus [facility] Intractable migraine with aura without status mi grainosus 01/22/2022 Assessment & Plan (07/25/2024 3:01 PM EDT): Continue keeping a diary of her headaches, episodes of shooting pains and accompanying/modifying factors, severity of pain, location, length of episode and her way of managing it. Continue close follow-up with neurologist as scheduled. Assessment & Plan (09/23/2023 7:29 AM EDT): Continue keeping a diary of her headaches, episodes of shooting pains and accompanying/modifying factors, severity of pain, location, length of episode and her way of managing it. Continue close follow-up with neurologist as scheduled. Assessment & Plan (06/01/2022 10:34 AM EST): I have previously asked her to keep a diary of her headaches, episodes of shooting pains and accompanying/modifying factors, severity of pain, location, length of episode and her way of managing it. I requested release of most recent PCP evaluations for review. She would benefit from formal neurological evaluation and work-up Assessment & Plan (01/22/2022 11:28 PM EDT): I have asked her to keep a diary of her headaches, episodes of shooting pains and accompanying/modifying factors, severity of pain, location, length of episode and her way of managing it. If symptoms appear improved would suggest formal neurological evaluation and work-up History of stomach ulcers 01/22/2022 Assessment & Plan (01/22/2022 11:29 PM EDT): I reviewed with her need for working on complete smoking cessation EMBER that puts her at an increased risk of bleeding from stomach or duodenal ulcers. Avoid spicy and acidic food products. Optimize her stress management strategies. Vitamin D insufficiency 01/22/2022 Assessment & Plan (07/25/2024 2:51 PM EDT): Found with low vitamin D at 26 (30-60) on labs from 01/22/2022-needs vitamin D supplementation to bring it into sufficient range: 40-45 ng/ml. Assessment & Plan (06/01/2022 10:30 AM EST): Found with low vitamin D at 26 (30-60) on labs from 01/22/2022-needs vitamin D supplementation to bring it into sufficient range: 40-45 ng/ml. Assessment & Plan (01/22/2022 11:23 PM EDT): Serum level requested to make sure that she does not have insufficiency that would require additional supplementation to bring it into optimal range: 40-45 ng/ml. Tobacco dependence 12/01/2020 Assessment & Plan (07/25/2024 3:00 PM EDT): I have spent at least 3 minutes on encouraging her to work on complete smoking cessation by reducing number of cigarettes smoked daily by focusing on her goal to improve her health every possible way. I have reviewed with her that ongoing cigarette smoking increases her risk of developing lung cancer, bladder cancer, cervical cancer, stroke and heart attack to name a few. She would benefit from cigarette smoking cessation specialist advice. I provided her with free telephonic service for cigarette smoking cessation: [id number] Assessment & Plan (09/23/2023 7:27 AM EDT): I have spent at least 3 minutes on encouraging her to work on complete smoking cessation by reducing number of cigarettes smoked daily by focusing on her goal to improve her health every possible way. I have reviewed with her that ongoing cigarette smoking increases her risk of developing lung cancer, bladder cancer, cervical cancer, stroke and heart attack to name a few. She would benefit from cigarette smoking cessation specialist advice. I provided her with free telephonic service for cigarette smoking cessation: [id number]-[id number]-NOW Assessment & Plan (06/01/2022 10:41 AM EST): I have spent at least 3 minutes on encouraging her to work on complete smoking cessation by reducing number of cigarettes smoked daily by focusing on her goal to improve her health every possible way. She admitted that she was not ready on initial visit but today is willing to reconsider efforts on complete cigarette smoking cessation. Have reviewed with her that ongoing cigarette smoking increases her risk of developing lung cancer, bladder cancer, cervical cancer, stroke and heart attack to name a few. She would benefit from cigarette smoking cessation specialist advice. Assessment & Plan (01/22/2022 11:31 PM EDT): I have spent at least 3 minutes on encouraging her to work on complete smoking cessation by reducing number of cigarettes smoked daily by focusing on her goal to improve her health every possible way. She admits that she is not ready at the moment but I encouraged her to reconsider that approach explained to her that it increases her risk of developing lung cancer, bladder cancer, cervical cancer, stroke and heart attack to name a few. She would benefit from cigarette smoking cessation specialist advice. HNP (herniated nucleus pulposus), lumbar 019 Lumbosacral radiculopathy at L4 09/19/2018 High risk human papilloma cervical smear 018 Overview (07/18/2017): 2018, with negative PAP. Needs cotesting in 1 year Assessment & Plan (09/18/2019 9:53 AM EDT): Advised patient she is overdue for repeat cotesting. She does not believe repeat screening was done at PCP/[facility]. We will add her to recall list when resuming normal office scheduling. PTSD (post-traumatic stress disorder) 04/28/2017 Assessment & Plan (01/22/2022 11:29 PM EDT): Very close follow-up with personal psychotherapist Resolved Problems Problem Noted Date Diagnosed Date Resolved Date Tinnitus of left ear 05/31/2022 025 Assessment & Plan (06/01/2022 10:35 AM EST): Keep a diary of episodes with modifying factors. If increasing frequency and/or severity of episodes consider formal ENT specialist consultation Right facial numbness 05/31/20222024 Assessment & Plan (06/01/2022 10:36 AM EST): Track severity, length, pending symptoms and frequency of episodes to look for patterns. Weakness 05/31/2022 09/14/2024 Assessment & Plan (06/01/2022 10:42 AM EST): May need formal evaluation to discern true weakness from weakness secondary to pain. Vulvar ulcer 02/01/2022 12/17/2022 Overview (02/01/2022): Pain and a blister noted for 1 week. Exam reveals a tiny 1 to 2 mm very painful ulceration or erosion upper inner left Assessment & Plan (02/01/2022 5:37 PM EDT): HSV test sent, possible this represents herpes so Valtrex prescription was sent in. Discussed that if this is positive, it is not always known when HSV was actually acquired as 1 can have a first episode months to even years after acquisition. Pain of right mastoid 01/22/20222024 Assessment & Plan (01/22/2022 11:24 PM EDT): Mostly occurring with abduction of her right arm and right elbow extension? Referred pain. Obesity due to excess calories 01/22/2022 06/01/2022 Class 2 severe obesity due t o excess calories with serious comorbidity and body mass index (BMI) of 36.0 to 36.9 in adult 01/22/2022 Assessment & Plan (06/01/2022 10:27 AM EST): Focus on diligent portion control since she has gained 13 pounds since initial visit on 01/22/2022: From 252 lbs up to 265 lbs today . Limit concentrated sugars, saturated fats and calories in the diet. Keep well-hydrated. If unable to achieve expected goal consider formal dietary/nutritional support. Assessment & Plan (01/22/2022 11:36 PM EDT): Diligent portion control. Limit concentrated sugars, saturated fats and calories in the diet. Keep well-hydrated. If unable to achieve expected goal consider formal dietary/nutritional support. Pelvic pain 12/01/2020 12/17/2022 Left ovarian cyst 12/01/2020 02/01/2022 Overview (12/01/2020): 09/01/2020 [facility] US shows a 2cm simple left PARA-ovarian cyst Assessment & Plan (02/01/2022 5:35 PM EDT): Not seen on subsequent ultrasound Assessment & Plan (12/01/2020 2:20 PM EDT): 09/01/2020 [facility] US shows a 2cm simple left PARA-ovarian cyst Not something that generally needs followup if asymptomatic Right lower quadrant pain 12/24/2018 Assessment & Plan (12/24/2018 8:07 PM EDT): C/O recent RLQ pain x 2 wks. Feels like cramping pain but is not just when she has menses. Does not feel worse with movement or sex. Not tender to touch. Denies N/V/D/C, fever/chills. Does have a h/o ovarian cyst. A: New onset RLQ pain Mild tenderness with bimanual, no guarding, no CMT P: D/t H/o ovarian cyst and tenderness, will order Pelvic U/S Vaginal odor 08/11/2018 12/17/2022 Assessment & Plan (12/24/2018 8:03 PM EDT): Warren c/o vaginal odor and increased yellow discharge for 2 wks. Was sexually active with her bf, who she has just broken up with d/t infidelity Wants to be tested for STI A: Bacterial Vaginosis At risk for STI P: Rx Metrogel for BV STI testing ordered Vulvar lesion 08/11/2018 12/17/2022 Dysmenorrhea 06/17/2017 09/14/2024 Abnormal uterine bleeding (AUB) 06/17/2017 09/14/2024 Weight gain 06/17/2017 09/14/2024 Severe major depression with out psychotic features 04/25/2017 04/26/2017 Severe major depression 04/25/201704/15 Encounters Date Type Department Care Team Description 11/08/2024 Orders Only [facility] [address] [place] [id number] ProviderWojciech MD 10/15/2024 2:00 PM EDT Office Visit [facility] [address] [place] [address] Sundar Vázquez MD Intractable migraine without aura and with status migrainosus (Primary Dx); Bilateral hand numbness 10/15/2024 Telephone [facility] [address] [place] [address] Sundar Vázquez MD 10/11/2024 [facility]ill [facility] [facility] [address] [place] [id number] Marie Nixon MD Med Change Request 09/18/2024 4:00 PM EDT Office Visit [facility] [address] [place] [id number] Marie Nixon MD Hidradenitis suppurativa (Primary Dx); Alopecia areata 09/18/2024 Refill [facility] [address] [place] [id number] Oliva Nieto, manager of software development Refill 09/17/2024 Documentation [facility] [address] [place] [id number] Gilbert Meyer [facility] 09/14/2024 11:00 AM EDT Office Visit [facility] [address] [place] [address] [place] [phone] Jennifer Locke MD No problem, feared complaint unfounded (Primary Dx) from Last 3 Months Immunizations Immunization Administration Dates Next Due Influenza Quadrivalent Preservative Free IM 02/13,04/25/2018,04/28/2017 Influenza Quadrivalent w/ Preservative IM 2016 Rho (D) Immune Globulin 09/12/2019 Tdap 09/21/2017 Family History Medical History Relation Comments No Known Problems Daughter No Known Problems Father No Known Problems Mother Relation Status Comments Daughter Father Mother Alive Social History Tobacco Use Types Packs/Day Years Used Date Smoking Tobacco: Every Day Cigarettes 0.3 8.6 Started: 2016 Smokeless Tobacco: Never Alcohol Use Standard Drinks/Week Comments No 0 (1 standard drink = 0.6 oz pur e alcohol) Education Answer Date Recorded Are you interested in more education? Not on padma e 09/10/2022 Are you concerned about learning? Not on file 09/10/2022 No 09/10/2022 No 09/10/2022 Digital Access Answer Date Recorded No 10/08/2022 No 10/08/2022 Reliable internet access at home? Not on file 10/08/2022 Device with a working camera? 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 Not on file Not on file Not on file Last Filed Vital Signs Vital Sign Reading Time Taken Comments Blood Pressure 130/76 09/14/2024 11:01 AM EDT Pulse 83 07/25/2024 2:28 PM EDT Temperature 36.6 C (97.8 F) 08/16/2023 4:09 PM EDT Respiratory Rate 18 08/02/2023 9:45 AM EDT Oxygen Saturation 96% 07/25/2024 2:28 PM EDT Inhaled Oxygen Concentration - - Weight 120.7 kg (266 lb) 09/14/2024 11:01 AM EDT Height 180.3 cm (5' 11 ) 09/14/2024 11:01 AM EDT Body Mass Index 37.1 09/14/2024 11:01 AM EDT Plan of Treatment Upcoming Encounters Date Type Department Care Team (Late st Contact Info) Description 01/03/2025 1:15 PM EDT Office Visit [facility] [address] [facility] [address] [place] [address] Marie Nixon MD [address] [place] [address] [email or web address] 01/28/2025 10:00 AM EDT Office Visit [facility] [address] [place] [address] Nancy Baptiste MD [address] [facility], [address] [place] [address] [email or web address] 04/15/2025 2:00 PM EST Office Visit [facility] [address] [place] [address] Sundar Vázquez MD [address] [place] [address], [address] [place] [address] [email or web address] Health Maintenance Due Date Last Done Comments VALPROIC ACID (DEPAKENE) LEVEL 1984 DEPRESSION SCREENING 1996 PNEUMOCOCCAL VACCINES (0-49 years) (1 of 2 - PCV) 10/17/2003 COVID-19 VACCINE ( season) 2024 06/02/2021, 10/23/2020, 10/02/2020 MAMMOGRAM 2024 PAP SMEAR 02/17/2025 02/17/2022, 06/2017, 06/17/2017 SMOKING Hx and SMOKELESS TOBACCO SCREENING 07/25/2025 07/25/2024 SCREENING FOR DIABETES 07/26/2027 07/25/2024, 2023 Adult Td,Tdap Booster 09/22/2027 09/21/2017 HEPATITIS C SCREENING Completed 08/06/2024 , 09/21/2023, 12/09/2022, Additional history exists HIV ONE-TIME SCREENING (18-65 YEARS) Completed 08/06/2024 HEPATITIS A VACCINES Aged Out No long er eligible based on patient's age to complete this topic HIB VACCINES Aged Out No longer eligi ble based on patient's age to complete this topic MENINGOCOCCAL VACCINES (ACWY) Aged Out No longer eligible based on patient's age to complete this topic MENINGOCOCCAL VACCINES (B) Aged Out N o longer eligible based on patient's age to complete this topic Medical Devices Not on file Procedures Procedure Name Priority Date/Time Associated Diagnosis Comments EXTERNAL EEG/EMG/ENG Routine 11/08/2024 3:16 PM EDT DERMATOPATHOLOGY Routine 09/18/2024 12:0 0 AM EDT HEPATITIS C ANTIBODY, QUALITATIVE Routine 08/06/2024 2:09 PM EDT Vaginal irritation PAP TEST Routine 02/17/2022 12:00 AM EDT from Last 3 Months or Most Recently Relevant to Health Maintenance Results * Outside Neurology (11/08/2024 3:16 PM EDT) Anatomical Region Laterality Modality Other us Historical Provider NEUROLOGY ORDERABLES Priscilla zarate Result * Dermatopathology (09/18/2024 12:00 AM EDT) 09/18/2024 09/19/2024 Narrative [facility] - 09/20/2024 4:05 PM EDT CASE: [id number] PATIENT: WARREN VARELA Date: 1985 Sex: Female [facility] Department of Pathology [address] [place], [place] [address]IA License No.: [id number] Coremaker: Dr. Polo Leone M.D., Ph.D. Physician: MARIE NIXON MD Procedure Date: 09/18/2024 Pathologist: Morenita Singh M.D. PATHOLOGIC DIAGNOSIS: A. SKIN, RIGHT THIGH, EXCISION: Dermal fibrosis with chronic inflammation with sinus tract formation, consistent with hidradenitis suppurativa in the appropriate clinical setting. CLINICAL DATA: History: Hidradenitis suppurativa. Operation: Excision. Clinical Diagnosis: See above. TISSUE SUBMITTED: A/1. Skin, R thigh GROSS DESCRIPTION: The specimen is received in 1 part, labeled with the patient's name and medical record number. Part A received in formalin labeled Skin, R thigh consists of multiple irregular brown skin excisions (ranging from 0.9 x 0.2 cm, excised to a depth of 0.4 cm-1.7 x 1.0 cm, excised to a depth of 0.3 cm). The fragments are inked and serially sectioned to reveal linares-white edematous soft tissue. Group Director Experience sections are submitted. A1: 2 fragments. Dictated by: Shazia Hurley By his/her signature below, the senior physician certifies that he/she personally conducted a microscopic examination ( gross only exam if so stated) of the described specimen(s) and rendered or confirmed the diagnosis(es) related thereto. Final Diagnosis by Morenita Singh M.D., Electronically signed on September at 04:05:14PM us Marie Nixon MD PATHOLOGY ORDERABLES Priscilla l Result [facility] [address] [place] [id number] * Hepatitis C antibody, qualitative (08/06/2024 2:09 PM EDT) HCV NON-REACTIV E NON-REACTI VE [facility] Blood 08/06/2024 2:09 PM EDT 08/06/2024 2:13 PM EDT Aurea Graf [facility] BLOOD ORDERABLE S Final Result Performing Organization Address [facility] Co de Phone Number [address] [address] * Pap Smear (02/17/2022 12:00 AM EDT) 02/17/2022 02/18/2022 9:4 8 AM EDT Narrative SEE NARRATIVE - 02/24/2022 12:53 PM EDT [address] [address] Watershed Engineer: Chrystal Hartley MD IT DATA ARCHITECT Cytology Report FINAL DIAGNOSIS A. PAP SMEAR (SUREPATH) CE: SPECIMEN ADEQUACY: Satisfactory for evaluation; transformation zone present. INTERPRETATION: NEGATIVE FOR INTRAEPITHELIAL LESION OR MALIGNANCY. Electronically Signed Out By: JANNETTE Mart(ASCP) The Pap test is a screening test primarily for squamous cancers and precursors and has associated false-negative and false-positive results. New technologies such as liquid-based preparations may decrease but will not eliminate all false-negative results. Regular sampling and follow-up of unexplained clinical signs and symptoms are recommended to minimize false negative results. PROCEDURES/ADDENDA HPV Testing (Requested) Ordered Date: 02/18/2022 A. PAP SMEAR (SUREPATH) CE: Human Papilloma Virus Test Negative for high-risk human papillomavirus types 16, 18, 45 and the Other high risk probe set (Includes 31, 33, 35, 39, 51, 52, 56, 58, 59, 66, 68) by ORDISSIMO Onclarity HR-HPV analysis. Clinical correlation is advised. This HPV test was performed at [facility], [address] [place] [address]. This test has been FDA approved for SurePath cervical cytology specimens. The accuracy and precision of this test for all other specimen sources has been verified in the Cytopathology Laboratory of the [facility] and has not been cleared or approved by the U.S. Food and Drug Administration. Clinical correlation is advised. CLINICAL HISTORY Date of Last Menstrual Period: 01-31-2022 Other Clinical Conditions: Screening Pap SPECIMEN SOURCE A: PAP SMEAR (SUREPATH) CE Patient Name: WARREN VARELA : 1985 (Age: 36) Sex: F Institution: [facility] Location: [facility] Date of Collection: 02/17/2022 Date of Reported: 02/24/2022 12:53 Results to: Rinku Waterman MD Rinku Waterman MD CYTOLOGY ORDERABLES Final Result SEE NARRATIVE from Last 3 Months or Most Recently Relevant to Health Maintenance Insurance [facility] [address] [place] [address] [place] [address] [place] [address] [place] [address] C3 A[employer] [facility] C3 ACO Advance Directives For more information, please contact: [phone] (9AM - 5PM [facility], Tuesday-Tuesday) * Full Code (Latest Code Status on File) Date Activated Date Inactivated Comments 07/28/2023 1:27 PM Question Answer Comments Code Status Confirmed With: Patient * Full Code (Presumed) Date Activated Date Inactivated Comments 09/19/2018 6:01 PM 09/20/2018 3:00 PM * Full Code (Presumed) Date Activated Date Inactivated Comments 04/25/2017 6:46 PM 04/28/2017 5:50 PM Care Teams Pediatric Nurse Practitioner Relationship Specialty Start Date End Date Naa Colindres MD [address] [place] [address] [email or web address] PCP - General Family Medicine 08/16/23 Additional Source Comments The information contained in this document represents components of the legal health record. It is not the complete legal health record.[facility]
[2024-12-11 06:55] LABS: UPreg QC Valid YES
--- NOTE | 2024-12-11 07:03 | MHC.SHP ---
Pre-Procedural Eval Section A - 24 Hr Update-Section A only Date of Service: 12/11/24 The patient is an INPATIENT: No Changes since office visit: No Cold of Flu in the past 2 weeks, No New Medical Problems, No Changes in Medication and No Patient answered all questions The patient has been examined within 24 hours of the surgical procedure. The History & Physical has been completed within 30 days and I have reviewed it.: No Section B - Complete if H&P > 30 days Chief Complaint: S/P L4-5 OLIF Allergies: Allergies Allergy/AdvReac Type Severity Reaction Status Date / Time Penicillins Allergy Severe Hives Verified 10/15/24 10:38 tramadol Allergy Severe Vomiting Verified 10/15/24 10:38 Review of Systems Sugical H&P ROS: Negative: Constitution, Cardiovascular, Respiratory, Neurological, Psychiatric, Hem-Onc, Allergic/Immunologic, Gastrointestinal, Genitourinary, Musculoskeletal, Integumentary, Endocrine and Eyes/Ears/Nose/Throat Exam Surgical H&P Exam: Normal: HEENT, Normal: Heart, Normal: Lungs, Normal: Extremities, Normal: Abdomen, Normal: Skin and Normal: Neurological (awake, alert,oriented x 3 ) Plan Diagnosis/Plan: Unchanged L4-5 oblique lumbar interbody fusion Time Spent With Patient Time: Total time managing care of this patient today _5___ minutes.
--- NOTE | 2024-12-11 07:03 | PHA.MEDREC ---
Pharmacy Consult ? Medication Reconciliation Pharmacy has completed the medication reconciliation. Reviewed med rec done by nursing.
[2024-12-11] MEDS: vancomycin/NS 2,000 MG/500 ML PLAST..BAG 250 MG IV (07:27)
[2024-12-11] MEDS: Lactated Ringers 1,000 ML 100 ML IVCONT (07:27)
--- NOTE | 2024-12-11 09:50 | P.OP_ITS ---
Operative Note Operative Note Date of Service: 12/11/24 Narrative: Preop Diagnosis: 1.) Lumbar degenerative disc disease L4-5 2.) Chronic back pain and radiculopathy Procedure: 1) L4-5 discectomy, arthrodesis and implantation cage through an anterolateral, retroperitoneal approach 2) L4-5 posterior instrumented fusion 3) allograft 4) Injection of 10 cc of Exparel at the transverse process for a muscular erector spinae block and additional Exparel in paravertebral tissue for postop management Consent Informed Consent was obtained for this operation. I have explained the nature, purpose and benefits of the operation. I have discussed the risks and benefit of the operation including possible complications or adverse events with patient/family. Alternative(s) were discussed with the patient with their relative benefits and risks as well as the consequences of not accepting the operation were included in obtaining consent. Surgeon: ALANIS SARMIENTO MD, PHD Procedure Assisted By: roni Mccallum Description of Procedure This patient is suffering from intractable low back pain. She had a previous lumbar decompression done another institution. Imaging reviews severe degenerative disc disease L4-5 with a near collapse of the disc space. The patient was offered an oblique lumbar interbody fusion L4-5. The procedure and complications were explained. The patient was consented. The patient was brought to the operating room and endotracheally intubated. The patient was turned in a lateral position with the left side up. Prep and drape was done followed by timeout. A small incision was made in the left lower abdominal quadrant. The muscle fascia was opened after which the 3 muscle layer was split to enter the retroperitoneal space. Dilators were docked in the anterior one third of the L4- 5 disc space followed by a retractor. The retractor was opened. The L4-5 disc space was exposed. An annulotomy was done after which an elevator Hadley was used to release the disc material from its endplates and to perforate the contralateral side. A partial discectomy was done. An 7 mm, 8 mm and 10 mm with 6 degree lordosis height trial implant was inserted. The discectomy was completed. The endplates were prepared. An 10 x 45 mm with 6 degree lordosis 4 web cage filled with allograft was inserted into the disc space under fluoroscopic guidance. This resulted in judaism of the disc height. The retractor was removed. Hemostasis was done. The incision was closed in 2 layers. Steri-Strips used to approximate incision. An OpSite with Tegaderm was used to cover the incision. This marked first part of the procedure. The patient was turned prone on the Regino spine table. 2C arms were installed for fluoroscopy. Prep and drape was done followed by a second timeout. Injection of 10 cc of Exparel at the bilateral L4 transverse processi for a muscular erector spinae block. Two paramedian incisions were made lateral from the L4 and L5 pedicles. The muscle fascia was opened after which the muscle layer was split bluntly to expose the posterolateral gutter. The following steps were taken. A pediguard tap was used to create a transpedicular trajectory into the vertebral body. A K wire was placed. A specially designed instrument was advanced over the K wire to decorticate the posterolateral gutter in preparation for the posterolateral fusion. A pedicle screw was advanced over the K wire and the K wire was removed. The steps were done for the bilateral L4 and L5 pedicles. A total of 4 screws were placed with a diameter of 6.5 x 45 mm. Pedicle screws were connected with 50 mm matthew bilaterally and locked down with locking caps. The extension towers w ere removed. The posterolateral gutter was filled with allograft to complete the posterolateral L4-5 fusion Hemostasis was done and the incision was closed in 2 layers. Steri-Strips were used to approximate the incision. An OpSite with tegaderm was used to cover the incision. All sponge and needle counts were correct. Patient was extubated and transferred in stable is to recovery room. Anesthesia: General Estimated Blood Loss (ml): 25 Duration of Surgery: 2 hours Complications: None Postoperative Plan: Admit to inpatient for clinical observation
[2024-12-11] MEDS: oxyCODONE HCl Immed Release 5 MG TABLET 10 MG PO ×3 (12:33→22:44)
[2024-12-12 03:05] VITALS: BP 103/52; PULSE 80; RESP 20; TEMP 36.6; O2SAT 97
[2024-12-12] MEDS: oxyCODONE HCl Immed Release 5 MG TABLET 10 MG PO ×2 (04:31→10:13)
[2024-12-12 07:30] VITALS: BP 96/52; PULSE 68; RESP 18; TEMP 36; O2SAT 98
[2024-12-12 08:37] VITALS: PULSE 68; O2SAT 98
--- NOTE | 2024-12-12 09:07 | HO.POSTANES ---
Post Anesthesia Evaluation Post Anesthesia Evaluation Date of Service: 12/12/24 Vital Signs: Vital Signs Temp Pulse Resp BP Pulse Ox O2 Del Method 12/12/24 08:37 68 98 12/12/24 07:30 96.8 F 68 18 96/52 L 98 Room Air 12/12/24 03:05 97.8 F 80 20 103/52 L 97 Room Air Anesthesia: General Mental Status: Awake Pain Control: Satisfactory Nausea/Vomiting: None Hydration: Adequate Anesthesia-Related Issues: No Anes. Related Issues
--- NOTE | 2024-12-12 09:22 | MHC.CM.PN ---
pt lives alone her mother is staying with her temporarily, pt to be dcd with killian avery per physical therapy receoeoemdation pt is dcd today
--- NOTE | 2024-12-12 09:46 | HO.NEURO.PN ---
Neurosurgery Operative Note Date of Service: 12/12/24 Narrative: Postop day 1. L4-5 oblique lumbar interbody fusion Patient reports back pain, no lower extremity symptoms. She has been up out of bed, she has been voiding and tolerating a diet. No abdominal pain, nausea vomiting etc.. Afebrile, vital signs stable Physical exam: Patient is awake alert oriented no acute distress, she is able to independently sit up at the edge of the bed while we examined her. Her wounds are clean and dry no signs of hematoma. Abdomen is obese soft nondistended nontender. Lower extremity strength is full. Impression: Postop day 1. L4-5 oblique lumbar interbody fusion, clinically doing well, patient reports pain in her back but to observation she is able to sit up at the edge of the bed independently it looks very comfortable in the plan will be to discharge her home today. She needs to see physical therapy before she had leads but I do not anticipate this being a problem. We can coordinate services for her if needed. Patient seen at bedside with Dr. Hunt.
--- NOTE | 2024-12-12 09:48 | W.MHC.F2F ---
Service Date Service Date: 12/12/24 Encounter Date of encounter: 12/12/24 Reasons for Services Signs and symptoms assessed: Evaluation of postoperative lumbar fusion. Reason for penitentiary: neurological assessment, wound care and postoperative assessment and/or care Reason for physical therapy: home safety and mobility, therapeutic exercises and gait/transfer training Homebound: Leaving the home is medically contraindicated at this time without the asist of a device and/or another person due th the listed conditions above and below. Reason homebound: unsteady gait / fall risk, pain with ambulation and pain with transfers Certification: Based on the above findings, I certify that this patient is confined to the home and needs intermittent penitentiary care, physical therapy and/or speech therapy, or continues to need occupational therapy. The patient is under my care, and I have initiated the establishment of the plan of care. The patient will be followed by a physician who will periodically review the plan of care. Time Spent With Patient Time: Total time managing care of this patient today __6__ minutes.
--- NOTE | 2024-12-12 09:49 | P.DS_ITS ---
DS: Providers Provider Date of Service: 12/11/24 Date of admission: 12/11/24 06:20 Date of discharge: 12/12/24 Primary care physician: None Physician Admitting clinician: Chuckie Hunt DS: Diagnosis Discharge Diagnosis (1) Degeneration of lumbar intervertebral disc: Status: Acute DS: Summary Hospital Course Hospital Course: Patient was admitted for elective lumbar fusion surgery. Underwent a procedure without complication. The patient was transferred to the postoperative care unit and then subsequently up to the 3rd floor where she would be going to recovery. Patient was dealing with postoperative pain which was treated with IV Dilaudid, oxycodone, Robaxin, IV Tylenol as well as IV Toradol. She got the 1st postoperative night without any significant issues other than just trying to manage pain control. She is allowed to get up move around, had no major issues there other than just pain with mobilization. Neurologically intact. Voiding okay and tolerating a diet. Patient was seen on postop day 1. And felt to be safe to be discharged and was sent home in stable condition. Patient was given discharge instructions and activity guidelines postoperatively. She will follow up in the office in 3 weeks. She may require VNA or PT services at home to assist with mobilization and postoperative care. Time Attestation Total time managing care of this patient today: 6 mintues. Discharge Coordination Time (in mins): 5 Quality: Safe Use of Opioids Does Pt have an Active Cancer Diagnosis on the Problem List?: No Quality: Stroke Does the patient have a stroke diagnosis?: No Physical Exam Vital Signs: Vital Signs: Last Vital Signs Temp 96.8 F 12/12/24 07:30 Pulse 68 12/12/24 08:37 Resp 18 12/12/24 07:30 BP 96/52 L 12/12/24 07:30 Pulse Ox 98 12/12/24 08:37 O2 Del Method Room Air 12/12/24 07:30 O2 Flow Rate 4 12/11/24 10:35 BMI result Body Mass Index 38.1 Discharge Plan Discharge Anticipated Discharge Date/Time: 12/12/24 09:51 Patient Disposition: Home Health Service Discharge Diagnosis: Status post lumbar fusion L4-5 Referrals: [facility] [Other] - 1 Week Physician,None [Primary Care Provider, Medical] - 1 Week Discharge Medications: New oxycodone 5 mg tablet See Rx Instructions .ROUTE .COMPLEX PRN (Reason: pain) Qty: 40 0RF Rx Instructions: 1-2 tabs po q4 hours prn pain; Partial Fill upon patient request. docusate sodium [Colace] 100 mg capsule 100 mg PO BID Qty: 20 0RF cyclobenzaprine 10 mg tablet 10 mg PO Q8H Qty: 30 2RF Continued divalproex 250 mg tablet,delayed release (DR/EC) 500 mg PO BEDTIME ibuprofen 800 mg tablet 800 mg PO Q8H PRN (Reason: Pain) prazosin 1 mg capsule 1 mg PO BEDTIME doxepin 10 mg capsule 10 mg PO BEDTIME meloxicam 7.5 mg tablet 7.5 mg PO DAILY rizatriptan 10 mg tablet,disintegrating 10 mg PO ONCE PRN (Reason: Migraine Headache) pantoprazole 40 mg tablet,delayed release (DR/EC) 40 mg PO QAM albuterol sulfate [Ventolin HFA] 90 mcg/actuation HFA aerosol inhaler 2 puff inhalation Q6H PRN (Reason: wheezing) topiramate 100 mg tablet 100 mg PO BEDTIME cholecalciferol (vitamin D3) 125 mcg (5,000 unit) capsule 125 mcg PO DAILY gabapentin 300 mg capsule 600 mg PO TID hydroxyzine pamoate 25 mg Capsule 25 mg PO TID PRN (Reason: Anxiety) Discontinued cyclobenzaprine 10 mg tablet 10 mg PO BEDTIME Discharge Orders: Discharge Order (Routine); Ordered 12/12/24 Ordered By: Alberto Peacock Diet: Advance to usual diet Activity on Discharge: As tolerated Stand Alone Forms: Patient Portal Discharge page Print Language: Estonian Activity Restrictions/Additional Instructions: After your spinal surgery we ask you to observe the following restrictions/guidelines: Activity: It is normal to feel some discomfort as you increase your activity, but that will improve with time. We ask you avoid heavy lifting or acitivities that cause pain. As a general rule, 8lbs is a safe limit for lifting right after surgery. Walk as much as you feel comfortable but not to exhaustion. You will feel extra tired the first few days after surgery. Stay well hydrated. It is OK to walk up and down stairs You may return to driving when you are off narcotics (such as vicodin, oxycodone, dilaudid, etc), and you are back to normal functional capacity. If you have any concerns please check with office before driving. Return to work is specific to each patient and each surgery, so please speak with your doctor/PA at first follow up. Please bring paperwork such as FMLA at that time if you need it filled out. Medications: For optimum pain control, it is best to start with a combination of 500 mg of Tylenol every 4 hours with 600 mg of Motrin every 8 hours, and use narcotics as needed in between for breakthrough pain. We will give you a short supply of narcotics after surgery (usually one weeks worth). If you need more please call the office but do not use more than prescribed. You will need to give our office 48 hours notice if you need narcotics refilled and we do not fill narcotics on weekends or evenings. If you are on a narcotic, it is a good idea to take a stool softener such as colace or senna to avoid constipation If you take blood thinner such as aspirin, Plavix, Coumadin, Effient, Eliquis etc for conditions such as Afib, DVT, Pulmonary embolus, coronary disease, stents etc please speak with your surgeon about specific details as to when you can resume these medications. You can resume NSAIDs on post op day 1 (eg: Motrin, Naproxen, etc). Follow up: Please call the office, , after surgery to arrange a 3 week follow up for wound check. Wound Care: You may remove your dressing on the first day after surgery. ?You may ?leave open to air. Please do not remove the steri strips underneath. they will fall off on their own in one week. IT IS NORMAL FOR THE WOUND TO OOZE OR BE BLOODY FOR A FEW DAYS AFTER SURGERY. ?IF THIS HAPPENS JUST PLACE NEW DRESSING OVER IT TO AVOID STAINING CLOTHES. You may shower on post op day # 1 We ask that you do not let the water soak the wound. If it does get wet, just towel dry lightly. Please do not scrub your incision or place any type of chemical/ointment on the wound. No tub baths, pools or jacuzzis for one month. If you have any leaking or redness from your wound, or fevers, please call office Care Plan Goals: Discharge home Health Concerns: None Plan of Treatment: Discharge home Assessment: Stable
== END 2024-12-12 10:58 | disposition home health service (06) | DRG 304 ==
LOC: HO.SSSA 06:22 → HO.S3 10:27
PROVIDERS: Admitting Provider Neurological Surgery; PCP Family Medicine; Visit Provider Neurological Surgery
PROC: 0SG00A0 Fusion of Lumbar Vertebral Joint with Interbody Fusion Device, Anterior Approach, Anterior Column, Open Approach (ICD-10-PCS; principal; 2024-12-11 07:30)
DX: M51.16 Intervertebral disc disorders with radiculopathy, lumbar region (principal); Z79.899 Other long term (current) drug therapy
CPT/HCPCS: 36415; 80048; 81025; 83036; 85027; 86850; 86900; 86901; 93005; 97162; 97530; C1713; C1889; J0131; J0665; J0666; J1100; J1171; J1885; J2003; J2250; J2405; J2704; J3010; J3373; J3374; L8699

== ENCOUNTER → 2024-12-11 06:20 | Outpatient (BNV) | payer MEDICAID, SELFPAY | PROVIDERS: Admitting Provider Neurological Surgery; Visit Provider Neurological Surgery | DX: M51.369 Other intervertebral disc degeneration, lumbar region without mention of lumbar back pain or lower extremity pain (principal); Z48.89 Encounter for other specified surgical aftercare | CPT/HCPCS: 20930; 22558; 22612; 22840; 22853; 99024; 99499; G0180 ==

== ENCOUNTER 2024-12-20 14:00 | Outpatient (AMB) | payer MEDICAID, SELFPAY ==
--- NOTE | 2024-12-20 13:59 | HO.SPINEOV ---
Intake Visit Reasons: Wound check Intake Note: Ms. Varela is here today for a wound check after surgery. Doughnut Batter Mixer Required: No Allergies Penicillins Allergy (Severe, Verified 10/15/24 10:38) Hives tramadol Allergy (Severe, Verified 10/15/24 10:38) Vomiting Assessment & Plan Assessment & Plan (1) Lumbago: Code(s): M54.50 - Low back pain, unspecified Category: Medical Plan Procedure: L4-5 GREG Thayer is a pleasant 39 y/o female who comes in today as an acute postop add on visit after calling the clinic to report worsening pain at incision site accompanied by redness and draining. I had her booked same day for evaluation / wound check. She reports that she is concerned that there may be an issue with her lateral incision site, she notices some staining on Steri-Strips. She also reports that she was concerned that the Steri-Strips seem like they are beginning to fall off. In addition to this she wished to discuss her constipation during this visit, stating that since beginning her narcotic pain medication she has had fairly severe constipation despite docusate sodium prescription that was sent in for her by LINDY Peacock. She also was transition to hydromorphone which she states she took 1 dose of and was unable to tolerate as it made her feel intoxicated. She has only been taking the oxycodone, which she is about to be out of. On examination today, the patient ambulates well with the assistance of a walker. Her lateral and posterior incision sites show no signs of drainage, erythema, or edema. Steri-Strips were still sitting over the incision sites, and were removed during this visit. The incisions appear well approximated and well healing. I advised the patient that she can leave her incisions open to air. I sent in a prescription for MiraLax to be taken daily alongside the docusate sodium. I also refilled her docusate sodium in oxycodone prescriptions. I would like to follow up with her again routinely for her 1st postoperative visit. Demario Hunt MD,PhD [facility] Medications: New polyethylene glycol 3350 (Miralax) 17 grams PO DAILY 119 grams 0RF constipation prophylaxis Refilled docusate sodium (Colace) 100 mg PO BID 20 caps 0RF oxycodone 1-2 tabs po q4 hours prn pain; Partial Fill upon patient request. 40 tabs 0RF pain Coding Level of Care Code Global (40667) Diagnoses Lumbago M54.50
--- OUTSIDE RECORDS SUMMARY | 2024-12-20 14:12 | XMS_ITS | Encounter Summary ---
Author Organization [employer] Address [address] [place] [address] Care Team Providers Care Gin Inspector Name Role Phone Naa Colindres MD Primary Care Provider [phone] DavitatumReji Reason for Visit * Reason Comments Med Change Request Encounter Details Date Type Department Care Team (Late st Contact Info) Description 03/31/2023 Refill [facility] [address] [place] [address] Naa Colindres MD [address] [place] [address] Fibromyalgia Social History Tobacco Use Types Packs/Day [...] Description 12/25/2024 8:30 AM EDT Clinical Support [facility] NUTRITION [address] [place] [address] [place] [address] 01/25/2025 2:00 PM EDT Office Visit [facility] MEDICAL [address] [place] [address] Jodi Miller MD [address] [place] [address] documented as of this encounter Visit Diagnoses Diagnosis Fibromyalgia Unspecified myalgia and myositis documented in this encounter Additional Health Concerns Assessment Noted Time PHQ-9 Depression Total Score: 24 023 10:06 AM EDT documented as of this encounter Care Teams Gin Inspector Relationship Specialty Start Date End Date Naa Colindres MD [address] [place] [address] PCP - General Family Medicine 09/03/22 Reji Cedillo 12/12/24 documented as of this encounter
--- OUTSIDE RECORDS SUMMARY | 2024-12-20 14:12 | XMS_ITS | Encounter Summary ---
Author Organization [facility], Address [address] [place] [address] Phone Care Team Providers Care Boat Hoist Operator Helper Name Role Phone Naa Colindres MD Primary Care Provider [phone] Encounter Details Date Type Department Care Team (Late st Contact Info) Description 12/08/2022 Documentation Only [facility], - Megan [facility] [address] [place] [address] Lis Mcdonald, TELEGRAPH REPEATER TECHNICIAN [address] [place] [address] [phone] Social History Tobacco Use Types Packs/Day Years [...] on filedocumented in this encounter Care Teams Boat Hoist Operator Helper Relationship Specialty Start Date End Date Naa Colindres MD [address] [place] [address] PCP - General Family Medicine 03/17/23 documented as of this encounter
--- OUTSIDE RECORDS SUMMARY | 2024-12-20 14:12 | XMS_ITS | Clinical Summary ---
Author Organization [facility] Address [address] [address] Phone Care Team Providers Care Police Liaison Name Role Phone Naa Colindres MD Primary [...] hours or as directed by 60 patch 017 Active ibuprofen (ADVIL,MOTRIN) 800 MG tablet Take 800 mg by mouth 2 (two) times a day. Active diclofenac sodium (VOLTAREN) 1 % Gel Apply 2 g topically 4 (four) times a day as needed (back/leg pain). Active albuterol 90 mcg/actuation inhaler Inhale 2 puffs into the lungs every 4 (four) hours. 1 Inhaler 020 Active hydrocortisone 1 % ointmentIndicatio ns:Vaginitis and vulvovaginitis Apply small amount to affected area twice daily as needed itching 28 g 020 Active sucralfate (CARAFATE) 1 gram tablet Take 1 tablet by mouth 4 (four) times a day. 022 Active fluticasone propionate (FLONASE) 50 mcg/actuation nasal spray SPRAY 1 SPRAY BY INTRANASAL ROUTE EVERY DAY Active butalbital-acetam inophen-caffeine (FIORICET, ESGIC) 50-325-40 mg per tablet Take 1 tablet by mouth every 6 (six) hours as needed for headache. 20 tablet 023 Active metoclopramide HCl (REGLAN) 10 MG tablet Take 1 tablet (10 mg total) by mouth 4 (four) times a day as needed (headache). 12 tablet 023 Active hydrOXYzine (VISTARIL) 25 MG capsule Take 25 mg by mouth nightly at bedtime. 023 Active prazosin (MINIPRESS) 1 MG capsule Take 1 mg by mouth. 023 Active omeprazole (PRILOSEC) 20 MG capsule TAKE 1 CAPSULE TWICE A DAY BY ORAL ROUTE DIRECTED Active PEG 400-propylene glycol (SYSTANE) 0.4-0.3 % Drop INSTILL 1-2 DROPS INTO EACH EYE 4 TIMES PER DAY Active nicotine (NICODERM CQ) 14 mg/24 hr APPLY 1 PATCH DAILY TO SKIN Active valACYclovir (VALTREX) 500 MG tablet Take 500 mg by mouth as needed. Active clobetasol (TEMOVATE) 0.05 % cream APPLY A THIN LAYER TO THE AFFECTED AREA(S) ONCE DAILY 023 Active ondansetron (ZOFRAN-ODT) 8 MG disintegrating tabletIndications :Intractable migraine without aura and with status migrainosus Take 1 tablet (8 mg total) by mouth every 8 (eight) hours as needed for nausea. 20 tablet 5 023 Active ascorbic acid, vitamin C, (VITAMIN C) [...] (7.5 MG) BY MOUTH IN THE MORNING Active docusate sodium (COLACE) 100 MG capsule TAKE 1 CAPSULE BY MOUTH TWICE A DAY 60 capsule 6 Active cholecalciferol (VITAMIN D3) 5,000 unit capsule Take 1 capsule (5,000 Units total) by mouth daily. 90 capsule 1 Active Additional Information Patient not taking.Reported on 10/15/2024 celecoxib (CELEBREX) 200 MG capsule take 1 capsule by mouth 2 times daily. Active cyclobenzaprine (FLEXERIL) 10 MG tablet take 1 tablet by mouth everyday at bedtime Active doxepin (SINEQUAN) 10 MG capsule Take 10 mg by mouth. Active ibuprofen (ADVIL,MOTRIN) 800 MG tablet Take 1 tablet (800 mg total) by mouth every 6 (six) hours as needed for pain (specific location in comments). 30 tablet Active oxyCODONE 5 MG immediate release tablet Take 1 tablet (5 mg total) by mouth every 4 (four) hours as needed for pain (specific location in comments). Partial fill ok 15 tablet Active cholecalciferol (VITAMIN D3) 5,000 unit capsuleIndication s:Chronic right-sided low back pain with right-sided sciatica,Vitamin D insufficiency,Tro chanteric bursitis of left hip,Chronic fatigue,NSAID long-term use Take 1 capsule (5,000 Units total) by mouth daily. 90 capsule 1 Active divalproex (DEPAKOTE) [address] tabletIndications :Intractable migraine without aura and with status migrainosus Take 1 tablet (250 mg total) by mouth nightly at bedtime. 30 tablet Active topiramate (TOPAMAX) 100 MG tabletIndications :Intractable migraine without aura and with status migrainosus,PTSD (post-traumatic stress disorder) Take 1 tablet (100 mg total) by mouth nightly at bedtime. 30 tablet Active rizatriptan (MAXALT-WIND ENERGY SYSTEMS INSTALLER) 10 MG disintegrating tabletIndications :Intractable migraine without aura and with status migrainosus Take 1 tablet (10 mg total) by mouth as needed for migraine. May repeat in 2 hours if needed. Do not exceed 20mg in a day. 9 tablet 11 Active triamcinolone acetonide 0.1 % ointment Apply topically 2 (two) times a day. 60 g Active clindamycin (CLEOCIN T) 1 % lotion Apply topically 2 (two) times a day. APPLY TO AFFECTED AREA 60 mL Active lidocaine 5 % ointmentIndicatio ns:Vulvar lesion,Foreign body in right foot, initial encounter Apply to affected area 3-4 times a day as needed. 35.44 g Active betamethasone, augmented, (DIPROLENE) 0.05 % ointment Apply topically 2 (two) times a day. Apply to inflamed lesions in armpit or groin. Use for no more than 5 days per month. 45 g 3 Active secukinumab (COSENTYX PEN, 2 PENS,) 150 mg/mL subcutaneous pen injection Inject 2 mL (300 mg total) under the skin every 14 (fourteen) days. 4 mL Active clindamycin (CLEOCIN) 300 MG capsule Take 1 capsule (300 mg total) by mouth 3 (three) times a day. 120 capsule 5 Active lidocaine-priloca ine (EMLA) cream Apply topically as needed (for surgical site). Apply to surgical derooing site 1 hour before procedure and cover with saran wrap 30 g Active acetaminophen (TYLENOL) 500 MG tablet Take 2 tablets (1,000 mg total) by mouth every 8 (eight) hours as needed for pain (specific location in comments). 30 tablet Active HYDROcodone-aceta minophen (NORCO) 5-325 mg per tablet TAKE 1 TABLET BY MOUTH AT BEDTIME FOR 5 DAYS Active galcanezumab-gnlm (EMGALITY SYRINGE) 120 mg/mL subcutaneous syringeIndication s:Intractable migraine without aura and with status migrainosus Inject 1 mL (120 mg total) under the skin every 30 (thirty) days. 1 mL 11 06/02/2 025 Active HIBICLENS 4 % external liquid APPLY TOPICALLY DAILY. USE WASH DAILY IN SHOWER ON AREAS OF LESIONS 236 mL 3 025 Active acetaminophen (TYLENOL) 650 MG CR tablet Take 650 mg by mouth every 8 (eight) hours as needed for pain (specific location in comments) (post operative ). 025 Active chlorhexidine (HIBICLENS) 4 % external liquid Apply topically daily. Use wash daily in shower on areas of HS lesions 236 mL 3 025 2024 Discontinued Active Problems Problem Noted Date Diagnosed Date [...] daily as prescribed. Follow-up with PCP and airport baggage screener as scheduled Assessment & Plan (06/01/2022 10:38 [...] every 14 days as prescribed by treating global head advertiser solutions at [facility] & close follow-up as scheduled. Assessment & Plan (09/23/2023 7:31 AM EDT): Continue Cosentyx 300 mg every 14 days as prescribed by treating global head advertiser solutions at [facility] & close follow-up as scheduled. Assessment & Plan (06/01/2022 10:38 AM EST): Continue close follow-up with treating global head advertiser solutions as scheduled. Chronic neck pain 01/22/2022 Assessment [...] suggested her warm pool therapy [facility] [place] versus [facility] versus rust. Due to her overwhelming headache, facial and [...] suggested her warm pool therapy [facility] [place] versus [facility] versus rust. Due to her overwhelming headache, facial and [...] suggested her warm pool therapy [facility] [place] versus [facility] versus rust. Due to her overwhelming headache, facial and [...] suggested her warm pool therapy [facility] [place] versus local [facility] versus local health club Intractable migraine with aura without status mi [...] free telephonic service for cigarette smoking cessation: 8-574-SUGV-NOW Assessment & Plan (09/23/2023 7:27 AM EDT): [...] free telephonic service for cigarette smoking cessation: 2-284-KVCX-NOW Assessment & Plan (06/01/2022 10:41 AM EST): [...] not believe repeat screening was done at [facility] We will add her to recall list [...] Encounters Date Type Department Care Team Description 12/20/2024 10:00 AM EDT Home Care Visit [facility] [address] [place] [phone] Natali Tillman, PT PT HOME VISIT 12/18/2024 2:00 PM EDT Home Care Visit [facility] [address] [place] [phone] Natali Tillman, PT PT HOME VISIT 12/14/2024 1:00 AM EDT Home Care Visit [facility] [address] [place] [phone] Gillian Demarco, PT PT HOME VISIT 12/13/2024 2:00 PM EDT Home Care Visit [facility] [address] [place] [phone] Gillian Demarco, PT PT OASIS START OF CARE (SOC) 12/13/2024 Plan of Care Documentation [facility] [address] [place] [address] 12/13/2024 Home Care Visit [facility] [address] [place] [address] Gillian Demarco, PT TELEPHONE ENCOUNTER 12/13/2024 Home Care Visit [facility] [address] [place] [phone] Gillian Demarco, PT TELEPHONE ENCOUNTER 12/12/2024 Orders Only [facility] [address] [place] [phone] Homehealth, Lenny Mullen MD 12/11/2024 Refill [facility] [address] [address] Silvina Nixon MD Medication Refill 11/08/2024 Orders Only [facility]ine [facility] [address] [place] [address] ProviderWojciech MD 10/15/2024 2:00 PM EDT Office Visit [facility] Neurology [address] [place] [address] Sundar Vázquez MD Intractable migraine without aura and with status migrainosus (Primary Dx); Bilateral hand numbness 10/15/2024 Telephone [facility] [address] [place] [address] Sundar Vázquez MD 10/11/2024 Refill [facility] [address] [place] [address] Silvina Nixon MD Med Change Request from Last 3 Months Immunizations Immunization Administration [...] drink = 0.6 oz pur e alcohol) Home Health Assessment: Transportation Answer Date Recorded Lack of Transportation (Medical) No 12/13/2024 Lack of Transportation (Non-Medical) No 12/13/2024 Patient Unable or Declines to Respond No 12/13/2024 Education Answer Date Recorded Are you interested [...] 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 Not on file Not on file Not on file Last Filed Vital Signs Vital Sign Reading Time Taken Comments Blood Pressure 112/60 12/20/2024 10:17 AM EDT Pulse 71 12/20/2024 10:17 AM EDT Temperature 36.2 C (97.1 F) 12/14/2024 1:03 PM EDT Respiratory Rate 14 12/14/2024 1:03 PM EDT Oxygen Saturation 98% 12/20/2024 10:17 AM EDT Inhaled Oxygen Concentration - - Weight 120.7 kg (266 lb) 09/14/2024 11:01 AM EDT Height 180.3 cm (5' 11 ) 09/14/2024 11:01 AM EDT Body Mass Index 37.1 09/14/2024 11:01 AM EDT Plan of Treatment Upcoming Encounters Date Type Department Care Team (Late st Contact Info) Description 12/25/2024 Home Care Visit [facility] [address] [place], [place] [phone] Natali Tillman, PT [address] [place] [address] [email or web address] 12/27/2024 Home Care Visit [facility] [address] [place], [place] [phone] Natali Tillman, PT [address] [place] [address] [email or web address] 12/31/2024 Home Care Visit [facility] [address] [place], [place] [phone] Natali Tillman, PT [address] [place] [address] [email or web address] 01/03/2025 1:15 PM EDT Office Visit [facility] [address] [place] [address] Silvina Nixon MD [address] [place] [address] [email or web address] 01/04/2025 Home Care Visit [facility] [address] [place] [phone] Natali Tillman, PT [address] [place] [address] [email or web address] 01/28/2025 10:00 AM EDT Office Visit [facility] [address] [place] [address] Nancy Baptiste MD [address] [facility], [address] [place] [address] 04/15/2025 2:00 PM EST Office Visit [facility] Neurology [address] [place] [address] Sundar Vázquez MD [address] [facility], [address]nd [place] [address] Health Maintenance Due Date Last Done Comments VALPROIC ACID (DEPAKENE) LEVEL 1985 DEPRESSION SCREENING 1996 PNEUMOCOCCAL VACCINES (0-49 years) (1 of 2 - PCV) 10/17/2003 COVID-19 VACCINE (2023- season) 2024 06/02/2021, 10/23/2020, 10/02/2020 MAMMOGRAM 2024 PAP SMEAR 02/17/2025 02/17/2022, 0206/2017, 06/17/2017 SMOKING Hx and SMOKELESS TOBACCO SCREENING [...] EXTERNAL EEG/EMG/ENG Routine 11/08/2024 3:16 PM EDT HEPATITIS C ANTIBODY, QUALITATIVE Routine 08/06/2024 2:09 PM EDT Vaginal irritation PAP TEST Routine 02/17/2022 12:00 AM EDT from Last 3 Months or Most Recently Relevant to Health Maintenance Results * Outside Neurology (11/08/2024 3:16 PM EDT) Anatomical Region Laterality Modality Other Historical Provider NEUROLOGY ORDERABLES Priscilla zarate Result * Hepatitis C antibody, qualitative (08/06/2024 2:09 PM EDT) HCV NON-REACTIV E NON-REACTI VE [facility] Blood 08/06/2024 2:09 PM EDT 08/06/2024 2:13 PM EDT us A[facility]a [facility] BLOOD ORDERABLE S Final Result [facility] [address] [place] [address] * Pap Smear (02/17/2022 12:00 AM EDT) 02/17/2022 02/18/2022 9:4 8 AM EDT Narrative SEE NARRATIVE - 02/24/2022 12:53 PM EDT [address] [address] Box Toe Flanger Stitchdowns: Chrystal Hartley MD HOSPITAL EDUCATION COORDINATOR Cytology Report FINAL DIAGNOSIS A. PAP SMEAR [...] 52, 56, 58, 59, 66, 68) by [facility] On[facility] HR-HPV analysis. Clinical correlation is advised. This HPV test was performed at [facility], [address] [place] [address]. This test has been FDA approved for [facility] cervical cytology specimens. The accuracy and precision of this test for all other specimen sources has been verified in the Cytopathology Laboratory of the [facility] and has not been cleared or approved by the U.S. Food and Drug Administration. Clinical correlation is advised. CLINICAL HISTORY Date of Last Menstrual Period: 01-31-2022 Other Clinical Conditions: Screening Pap SPECIMEN SOURCE A: PAP SMEAR (SUREPATH) CE Patient Name: WARREN VARELA : 1985 (Age: 36) Sex: F Institution: [facility] Location: [facility] Date of Collection: 02/17/2022 Date of Reported: 02/24/2022 12:53 Results to: Rinku Waterman MD Rinku Waterman MD CYTOLOGY ORDERABLES Final Result SEE NARRATIVE from Last 3 Months or Most Recently Relevant to Health Maintenance [place] [address] [place] [address] [place] [address] [place] [address] [employer] Advance Directives For more information, please contact: [phone] (9AM - 5PM Yak[facility], Tuesday-Tuesday) * Full Code (Latest Code Status on File) Date Activated Date Inactivated Comments 07/28/2023 1:27 PM Question Answer Comments Code Status Confirmed With: Patient * Full Code (Presumed) Date Activated Date Inactivated Comments 09/19/2018 6:01 PM 09/20/2018 3:00 PM * Full Code (Presumed) Date Activated Date Inactivated Comments 04/25/2017 6:46 PM 04/28/2017 5:50 PM Care Teams Police Liaison Relationship Specialty Start Date End Date Naa Colindres MD [address] [place] [address] [email or web address] PCP - General Family Medicine 08/16/23 Additional Source Comments The information contained in this document represents components of the legal health record. It is not the complete legal health record.[facility]
== END 2024-12-20 14:17 | disposition home or self-care (01) ==
LOC: HO.HNS 14:00
PROVIDERS: PCP Family Medicine; Visit Provider Physician Assistant
DX: M54.50 Low back pain, unspecified (principal)
CPT/HCPCS: 99024

== ENCOUNTER → 2024-12-20 14:00 | Outpatient (BNVA) | payer MEDICAID, SELFPAY | PROVIDERS: PCP Family Medicine; Visit Provider Physician Assistant | DX: M54.50 Low back pain, unspecified (principal) | CPT/HCPCS: 99212 ==

== ENCOUNTER 2025-01-01 13:17 | Outpatient (AMB) | payer MEDICAID, SELFPAY ==
--- NOTE | 2025-01-01 13:22 | HO.SPINEOV ---
Intake Visit Reasons: 1st post op Intake Note: Ms. Varela is here today for her 1st post op. 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 She is still having back discomfort but has for the most part weaned herself off narcotics. She has been taking Tylenol to help with the pain and oxycodone in the evenings. She has tried to increase her activity slowly but was a little hesitant with doing too much. She is having some aches and pains in the front of her legs as well. All things seemed a point in the right direction however, she is able to stand up on her own independently, she is using a walker but appears comfortable. Her wounds have all healed up beautifully. I suspect that she will only continue to improve with time. We discussed activity guidelines, restrictions and expectations. I refilled her oxycodone, sent in his script for 800 mg Motrin as well as gabapentin. We will see her back in 6 weeks with a set of x-rays. Alberto Hunt MD, PhD [facility] Orders: Orders XR lumbar spine 4V min Today M51.369 - Other intervertebral disc degeneration, lumbar region without mention of lumbar back pain or lower extremity pain Medications: New ibuprofen 800 mg PO Q8H 60 tabs 0RF oxycodone Partial Fill upon patient request. 5 mg PO .qhs PRN 10 tabs 0RF pain gabapentin 300 mg PO TID 90 caps 2RF Coding Level of Care Code Global (14686) Diagnoses Degeneration of lumbar intervertebral disc M51.369
--- OUTSIDE RECORDS SUMMARY | 2025-01-01 14:30 | XMS_ITS | Encounter Summary ---
Author Organization [employer] Address [address] [place] [address] Care Team Providers Care Tankman Name Role Phone Naa Colindres MD Primary Care Provider [phone] DavitatumReji Reason for Visit * Reason Comments Med Change Request Encounter Details Date Type Department Care Team (Late st Contact Info) Description 03/31/2023 Refill [facility] MEDICAL [address] [place] [address] Naa Colindres MD [address] [place] [address] Fibromyalgia Social History Tobacco Use Types Packs/Day [...] Care Team (Late st Contact Info) Description 01/25/2025 2:00 PM EDT Office Visit [facility] MED[facility] [address] [place] [address] Jodi Miller MD [address] [place] [address] documented as of this encounter Visit Diagnoses Diagnosis Fibromyalgia Unspecified myalgia and myositis documented in this encounter Additional Health Concerns Assessment Noted Time PHQ-9 Depression Total Score: 24 023 10:06 AM EDT documented as of this encounter Care Teams Tankman Relationship Specialty Start Date End Date Naa Colindres MD [address] [place] [address] PCP - General Family Medicine 09/03/22 Reji Cedillo 12/12/24 12/26/24 documented as of this encounter
--- OUTSIDE RECORDS SUMMARY | 2025-01-01 14:30 | XMS_ITS | Encounter Summary ---
Author Organization [facility], Address [address] [place] [address] Phone Care Team Providers Care Accelerator Operator Name Role Phone Naa Colindres MD Primary Care Provider [phone] Encounter Details Date Type Department Care Team (Late st Contact Info) Description 12/08/2022 Documentation Only [facility], - [address] [facility] [address] [place] [phone] Lis Mcdonald, CIVIL DRAFTING TECHNICIAN [address] [place] [phone] Social History Tobacco Use Types Packs/Day Years [...] on filedocumented in this encounter Care Teams Accelerator Operator Relationship Specialty Start Date End Date Naa Colindres MD [address] [place] [address] PCP - General Family Medicine 03/17/23 documented as of this encounter
--- OUTSIDE RECORDS SUMMARY | 2025-01-01 14:31 | XMS_ITS | Clinical Summary ---
Author Organization [email or web address] Address [address] [address] Phone Care Team Providers Care Unloader Name Role Phone Naa Colindres MD Primary Care Provider [phone] Allergies Active Allergy Reactions Criticality Noted Date [...] nightly at bedtime. 30 tablet Active rizatriptan (MAXALT-KNOBBER) 10 MG disintegrating tabletIndications :Intractable migraine without [...] daily as prescribed. Follow-up with PCP and director inbound sales as scheduled Assessment & Plan (06/01/2022 10:38 [...] every 14 days as prescribed by treating general production worker at [facility] & close follow-up as scheduled. Assessment & Plan (09/23/2023 7:31 AM EDT): Continue Cosentyx 300 mg every 14 days as prescribed by treating general production worker at [facility] & close follow-up as scheduled. Assessment & Plan (06/01/2022 10:38 AM EST): Continue close follow-up with treating general production worker as scheduled. Chronic neck pain 01/22/2022 Assessment [...] suggested her warm pool therapy [facility] [place] versus [facility] versus [facility]. Due to her overwhelming headache, facial and [...] suggested her warm pool therapy [facility] [place] versus [facility] versus [facility]. Due to her overwhelming headache, facial and [...] suggested her warm pool therapy [facility] [place] versus [facility] versus [facility]. Due to her overwhelming headache, facial and [...] suggested her warm pool therapy [facility] [place] versus local [facility] versus local health club Intractable migraine with [...] free telephonic service for cigarette smoking cessation: [id number]-NOW Assessment & Plan (09/23/2023 7:27 AM EDT): [...] free telephonic service for cigarette smoking cessation: [id number] Assessment & Plan (06/01/2022 10:41 AM EST): [...] not believe repeat screening was done at PCP/[facility]. We will add her to recall list [...] Encounters Date Type Department Care Team Description 12/31/2024 11:30 AM EDT Home Care Visit [facility] [address] [place] [phone] Natali Tillman, PT PT HOME VISIT 12/27/2024 11:30 AM EDT Home Care Visit [facility] [address] [place] [phone] Natali Tillman, PT PT HOME VISIT 12/25/2024 2:30 PM EDT Home Care Visit [facility] [address] [place] [phone] Natali Tillman, PT PT HOME VISIT 12/20/2024 10:00 AM EDT Home Care Visit [facility] [address] [place] [phone] Natali Tillman, PT PT HOME VISIT 12/18/2024 2:00 PM EDT Home Care Visit [facility] [address] [place] [phone] Natali Tillman, PT PT HOME VISIT 12/14/2024 1:00 AM EDT Home Care Visit [facility] [address] [place] [phone] Gillian Demarco, PT PT HOME VISIT 12/13/2024 2:00 PM EDT Home Care Visit [facility] [address] [place] [phone] Gillian Demarco, PT PT OASIS START OF CARE (SOC) 12/13/2024 Plan of Care Documentation [facility] [address] [place] [phone] 12/13/2024 Home Care Visit [facility] [address] [place] [phone] Gillian Demarco, PT TELEPHONE ENCOUNTER 12/13/2024 Home Care Visit [facility] [address] [place] [phone] Gillian Demarco, PT TELEPHONE ENCOUNTER 12/12/2024 Orders Only [facility] [address] [place] [phone] Homehealth, Interface MD Sebas 12/11/2024 Refill [facility] [address] [address] Silvina Nixon MD Medication Refill 11/08/2024 Orders Only [facility] [address] [place] [address] ProviderWojciech MD 10/15/2024 2:00 PM EDT Office Visit [facility] Neu[facility] [address] [place] [phone] Sundar Vázquez MD Intractable migraine without aura and with status migrainosus (Primary Dx); Bilateral hand numbness 10/15/2024 Telephone [facility] [address] [place] [phone] Sundar Vázquez MD 10/11/2024 Refill [facility] [address] [address] Silvina Nixon MD Med Change Request from [...] Tobacco: Every Day Cigarettes 0.3 8.6 Started: 2017 Smokeless Tobacco: Never Alcohol Use Standard Drinks/Week [...] 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 file Not on file Not on file Last Filed Vital Signs Vital Sign Reading Time Taken Comments Blood Pressure 128/80 12/31/2024 10:45 AM EDT Pulse 77 12/31/2024 10:45 AM EDT Temperature 36.2 C (97.1 F) 12/14/2024 1:03 PM EDT Respiratory Rate 14 12/14/2024 1:03 PM EDT Oxygen Saturation 99% 12/31/2024 10:45 AM EDT Inhaled Oxygen Concentration - - Weight 120.7 kg (266 lb) 09/14/2024 11:01 AM EDT Height 180.3 cm (5' 11 ) 09/14/2024 11:01 AM EDT Body Mass Index 37.1 09/14/2024 11:01 AM EDT Plan of Treatment Upcoming Encounters Date Type Department Care Team (Late st Contact Info) Description 01/04/2025 9:00 AM EDT Home Care Visit [facility] [address] [place] [phone] Natali Tillman, PT [address] [place] [address] [email or web address] 01/28/2025 10:00 AM EDT Office Visit [facility] Rheumatology [address] [place] [address] Nancy Baptiste MD [address] [place] [address], [address] [place] [address] 04/15/2025 2:00 PM EST Office Visit [facility] Neurology [address] [place] [address] Sundar Vázquez MD [address] [place] [address], [address] [place] [address] [email or web address] Health Maintenance Due Date Last Done Comments [...] Other us Historical Provider NEUROLOGY ORDERABLES Priscilla l Result * Hepatitis C antibody, qualitative (08/06/2024 2:09 PM EDT) HCV NON-REACTIV E NON-REACTI VE [facility] Blood 08/06/2024 2:09 PM EDT 08/06/2024 2:13 PM EDT Aurea Graf [facility] BLOOD ORDERABLE S Final Result Performing Organization Address City/State/[facility] Co de Phone Number [address] [address] * Pap Smear (02/17/2022 12:00 AM EDT) 02/17/2022 02/18/2022 9:4 8 AM EDT Narrative SEE NARRATIVE - 02/24/2022 12:53 PM EDT [address] [address] Qual Research Manager: Chrystal Hartley MD [employer] FLAVORER Cytology Report FINAL DIAGNOSIS A. PAP SMEAR [...] 52, 56, 58, 59, 66, 68) by CYP Design Onclarity HR-HPV analysis. Clinical correlation is advised. This HPV test was performed at [facility], [address] [place] [address]. This test has been FDA approved for [facility] cervical cytology specimens. The accuracy and precision of this test for all other specimen sources has been verified in the Cytopathology Laboratory of the [facility] and has not been cleared or approved by the U.S. Food and Drug Administration. Clinical correlation is advised. CLINICAL HISTORY Date of Last Menstrual Period: 01-31-2022 Other Clinical Conditions: Screening Pap SPECIMEN SOURCE A: PAP SMEAR (SUREPATH) CE Patient Name: WARREN BAIN : 1985 (Age: 36) Sex: F Institution: [facility] Location: [facility] Date of Collection: 02/17/2022 Date of Reported: 02/24/2022 12:53 Results to: Rinku Waterman MD Rinku Waterman MD CYTOLOGY ORDERABLES Final Result SEE NARRATIVE from Last 3 Months or Most Recently Relevant to Health Maintenance Insurance [facility] [address] [place] [address] [place] [address] C[employer] [facility] [address] [place] [address] [place] [address] C[employer] A[employer] Advance Directives For more information, please contact: [phone] (9AM - 5PM [facility], Tuesday-Tuesday) * Full Code (Latest Code Status on File) Date Activated Date Inactivated Comments 07/28/2023 1:27 PM Question Answer Comments Code Status Confirmed With: Patient * Full Code (Presumed) Date Activated Date Inactivated Comments 09/19/2018 6:01 PM 09/20/2018 3:00 PM * Full Code (Presumed) Date Activated Date Inactivated Comments 04/25/2017 6:46 PM 04/28/2017 5:50 PM Care Teams Unloader Relationship Specialty Start Date End Date Naa Colindres MD [address] [place] [address] [email or web address] PCP - General Family Medicine 08/16/23 Additional Source Comments The information contained in this document represents components of the legal health record. It is not the complete legal health record.[facility]
== END 2025-01-01 13:55 | disposition home or self-care (01) ==
LOC: HO.HNS 13:18
PROVIDERS: PCP Family Medicine; Visit Provider Physician Assistant
DX: M51.369 Other intervertebral disc degeneration, lumbar region without mention of lumbar back pain or lower extremity pain (principal)
CPT/HCPCS: 99024

== ENCOUNTER 2025-01-01 13:17 | Outpatient (REF) | payer MEDICAID, SELFPAY | END 2025-01-01 13:18 | disposition home or self-care (01) | LOC: HO.HOSX 13:17 | PROVIDERS: PCP Family Medicine; Visit Provider Physician Assistant | DX: Z48.89 Encounter for other specified surgical aftercare (principal); M51.369 Other intervertebral disc degeneration, lumbar region without mention of lumbar back pain or lower extremity pain; Z98.1 Arthrodesis status | CPT/HCPCS: 99212 ==

== ENCOUNTER 2025-01-26 13:15 | Emergency (ER) | payer MEDICAID, SELFPAY ==
--- OUTSIDE RECORDS SUMMARY | 2025-01-23 11:20 | XMS_ITS | Encounter Summary ---
Author Organization [employer] Address [address] [facility] 7t [place] [address] Care Team Providers Care Research Nurse Practitioner Name Role Phone Naa Colindres MD Primary Care Provider [phone] Reason for Referral * Imaging (Urgent) - Authorized Specialty Diagnoses / Procedures Referred By Contac t Referred To Contact Cardiology Diagnoses Localized swelling of left lower leg Procedures Vascular US lower extremity venous duplex left Naa Colindres MD [address] [place], [place] Phone: tel: fax: [facility] - Radiology [address] [place] [address] Phone: tel: fax: Referral ID Status Reason Start Date Expiration Date Visits Requested Visits Authorized [id number] Authorized Perform Procedure 01/23/2025 01/23/2026 1 1 Encounter Details Date Type Department Care Team (Late st Contact Info) Description 01/23/2025 11:20 AM EDT Office Visit [facility] [address] [place], [place] [phone] Naa Colindres MD [address] [place], [place] Class 2 severe obesity due to [...] with landlord. 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 Has gained 10 lbs since January 03, 2025, with current weight at 283 lbs. Attributes weight gain to fluid retention following surgery. Engaged in physical therapy for rehabilitation. Breastfeeding Peer Counselor recommended use of a heated pool for [...] was incomplete due to living in a snf. Scheduled tosee a administrative medical director on January 25, 2025. Sole income from [employer] for more than a year and a [...] index (BMI) of38.0 to 38.9 in adult ([facility]) - Hemoglobin A1c 489808; Future - Lipid Panel, Standard 77235; Future Localized swelling of left lower leg - D-Dimer, Quantitative [[id number]]; Future - Vascular US lower extremity venous [...] diabetes basedon prior A1c. - Referred to administrative medical director for dietary counseling. Advised to follow up with weight risk management intern for consideration of pharmacotherapy (phentermine). Ordered repeat [...] 11 Hibiclens 4 % external liquid HYDROcodone-acetaminophen ([place]) 5-325 MG tablet Take 2 tablets by [...] (vitamin B2) 100 mg tablet tablet rizatriptan SOCIAL ECONOMIST (Maxalt-SOCIAL ECONOMIST) 10 MG disintegrating tablet sennosides (Senna-Time) 8.6 [...] Description 02/16/2025 9:20 AM EDT Office Visit [facility] MED[facility] [address] [place] [address] Naa Colindres MD [address] [place] [address] 04/02/2025 10:30 AM EST Office Visit [facility] [address] [place] [address] Jodi Miller MD [address] [place] [address] documented as of this encounter Procedures Procedure Name Priority Date/Time Associated Diagnosis Comments D-DIMER, QUANTITATIVE Routine 01/24/2025 11:04 AM EDT Localized swelling of left lower leg HEMOGLOBIN A1C Routine 01/24/2025 11:04 AM EDT Class 2 severe obesity due to excess calories with serious comorbidity and body mass index (BMI) of 38.0 to 38.9 in adult ([facility]) LIPID PANEL, STANDARD Routine 01/24/2025 11:04 AM EDT Class 2 severe obesity due to excess calories with serious comorbidity and body mass index (BMI) of 38.0 to 38.9 in adult ([facility]) documented in this encounter Results * (ABNORMAL) Lipid Panel, Standard 74404 (01/24/2025 11:04 AM EDT) [facility] Cholesterol, Total 209(H) 100 - 199 mg/dL [facility] 1 Triglycerides 165(H) 0 - 149 mg/dL [facility] 1 HDL Cholesterol 53 >39 mg/dL [facility] 1 VLDL Cholesterol Juan 29 5 - 40 mg/dL [facility] 1 LDL Chol Calc (NIH) 127(H) 0 - 99 mg/dL [facility] 1 Blood Venous blood specimen / Unknown 01/24/2025 11:04 AM EDT 01/24/2025 Narrative Resulting Agency Comment Performed at: [address] [place] [address] [id number] Amortization Schedule Clerk: Sunshine Cardozo MD, Phone: [phone] Naa Colindres MD LAB BLOOD ORDERABLES Final Res ult Performing Organization Address [facility] Co de Phone Number [facility] * Hemoglobin A1c [id number] (01/24/2025 11:04 AM EDT) [facility] Hemoglobin A1c 5.6 4.8 - 5.6 % [facility] 1 Comment: Prediabetes: 5.7 - 6.4 Diabetes: >6.4 Glycemic control for adults with diabetes: <7.0 Blood Venous blood specimen / Unknown 01/24/2025 11:04 AM EDT 01/24/2025 Narrative Resulting Agency Comment Performed at: [address] [place] [address] [id number] Amortization Schedule Clerk: Sunshine Cardozo MD, Phone: [phone] Naa Colindres MD LAB BLOOD ORDERABLES Final Res ult Performing Organization Address [facility] Co de Phone Number [facility] 1 * (ABNORMAL) D-Dimer, Quantitative [[id number]] (01/24/2025 11:04 AM EDT) [facility] D-Dimer, Quantitative 0.96(H) 0.00 - 0.49 mg/L FEU [facility] 1 Comment: According to the assay substance abuse specialist's published package insert, a normal (<0.50 mg/L FEU) D-dimer result in conjunction with a non-high clinical probability assessment, excludes deep vein thrombosis (DVT) and pulmonary embolism (PE) with high sensitivity. D-dimer values increase with age and this can make VTE exclusion of an older population difficult. To address this, the [employer], based on best available [...] Agency Comment Performed at: 01 - [facility] [address] [id number] Amortization Schedule Clerk: Sunshine Cardozo MD, Phone: [phone] us Naa Colindres MD LAB BLOOD ORDERABLES Final Res ult [facility] 1 documented in this encounter Visit Diagnoses Diagnosis Class 2 severe obesity due to excess calories with serious comorbidity and body mass index (BMI) of 38.0 to 38.9 in adult (CMS/[facility])- Primary Localized swelling of left lower leg documented in this encounter Additional Health Concerns Assessment Noted Time PHQ-9 Depression Total Score: 24 023 10:06 AM EDT documented as of this encounter Care Teams Research Nurse Practitioner Relationship Specialty Start Date End Date Naa Colindres MD [address] [place] [address] PCP - General Family Medicine 09/03/22 documented as of this encounter
--- OUTSIDE RECORDS SUMMARY | 2025-01-25 14:00 | XMS_ITS | Encounter Summary ---
Author Organization [employer] Address [address] [facility] [address] [place] [address] Care Team Providers Care Deputy Chief Sheriff Name Role Phone Naa Colindres MD Primary Care Provider [phone] Reason for Visit * Reason Comments First Consultation on Weight Management Patient has an A1c done yesterday resulted @ 5.6% Encounter Details Date Type Department Care Team (Late st Contact Info) Description 01/25/2025 2:00 PM EDT Office Visit [facility] MEDICAL [address] [place] [address] Jodi Miller MD [address] [place] [address] Class 2 severe obesity due to excess calories with serious comorbidity and body mass index (BMI) of 36.0 to 36.9 in adult ([facility]) (Primary Dx); BMI 38.0-38.9,adult Social History Tobacco Use Types Packs/Day Years Used Date Smoking Tobacco: Every Day Cigarettes 0.3 19 Smokeless Tobacco: Never Tobacco Cessation:Ready to Q uit: Not Asked; Counseling Given: Not Answered Alcohol Use Standard Drinks/Week Comments Never 0 [...] Sign Reading Time Taken Comments Blood Pressure 112/86 01/25/2025 1:53 PM EDT Pulse 91 01/25/2025 1:53 PM EDT Temperature 36.4 C (97.5 F) 01/25/2025 1:53 PM EDT Respiratory Rate 16 01/25/2025 1:53 PM EDT Oxygen Saturation 98% 01/25/2025 1:53 PM EDT Inhaled Oxygen Concentration - - Weight 124 kg (273 lb) 01/25/2025 1:53 PM EDT Height 180.3 cm (5' 11 ) 01/25/2025 1:53 PM EDT Body Mass Index 38.08 01/25/2025 1:53 PM EDT documented in this encounter Progress Notes * Jodi Miller MD - 01/25/2025 2:00 PM EDT Subjective Flaca Varela is a 39 y.o. female who I am asked to see in consultation for evaluation and treatment of obesity. Patient cites self-image as reasons for wanting to lose weight. Obesity Medicine Specialist Credentials: [id number] expiration date: 05/15/2030 Start Date of Weight Management Program: 01/25/2025 Obesity History Highest adult weight: 283 Current weight: 273 BMI 39 Comorbidities: GERD High cholesterol: LDL 127, TG 165 A1C 5.6 Other Medical History: Migraines: on topiramate; still severe, will be starting emgality. Anxiety Back pain, s/p surgery Hydranenitis suppuritiva History of Weight Loss Efforts Previous Dietary trials currently is eating very healthy: stopped all fast food. Previous medications or surgery trials none but is on topamax for migraines! Behavior Modifications: BH referral initiated no, pt declines, has had had good luck with therapy in the past Nutrition referral initiated yes Exercise Counselling: no Current Eating Habits/Food recall Eating precipitated by stress? yes - Breakfast: eggs, ham; sometimes bread with cheese; coffee with a little sugar Lunch: sometimes skips or has a latish lunch, Tries to get healhty foods when they are out. Tries to get high protein, steak/mashed potatoes as an example. Does bear fruit in the air fryer. Dinner: depends, usually something light. Either cottage cheese and nuts. Drinks tea during the day bangle tea no sugar Does not drink soda. Drinks milk, tho cutting down Other Potential Contributing Factors Use of alcohol: average none drinks/week Use of medications that may cause weight gain none ROS: Having some leg swelling since the back surgery. Objective BP 112/86 (BP Location: Left arm, Patient Position: Sitting, BP Cuff Size: Large adult) Pulse 91 Temp 97.5 ??F (36.4 ??C) Resp 16 Ht 5' 11 (1.803 m) Wt 273 lb (124 kg) LMP 01/09/2025 (Approximate) SpO2 98% BMI 38.08 kg/m?? Visit Vitals BP 112/86 (BP Location: Left arm, Patient Position: Sitting, BP Cuff Size: Large adult) Pulse 91 Temp 97.5 ??F (36.4 ??C) Resp 16 Ht 5' 11 (1.803 m) Wt 273 lb (124 kg) LMP 01/09/2025 (Approximate) SpO2 98% BMI 38.08 kg/m?? OB Status Having periods Smoking Status Every Day BSA 2.49 m?? Waist circumference:54 in Neck Circumfrence:15 Body mass index is 38.08 kg/m??. Physical Exam Lab Review Lab Results Component Value Date HGBA1C 5.6 01/24/2025 No results found for: CHOL No results found for: HDL No results found for: LDLCALC Lab Results Component Value Date TRIG 165 (H) 01/24/2025 No results found for: GLUCOSE , CALCIUM , NA , K , CO2 , CL , BUN , CREATININE Assessment/Plan Obesity with BMI and comorbidities as noted above. 3. Diet interventions: low carb, reduce to 75 grams net carbs Risks of dieting were reviewed, including fatigue, temporary hair loss, gallstone formation, gout, and with very low calorie diets, electrolyte abnormalities, nutrient inadequacies, and loss of lean body mass. Proper food choices reviewed: yes Preparation techniques reviewed: yes Stimulus control to control unhealthy eating: yes Handouts given: fasting, healthy eating plan, and low carb tips emailed 4. Exercise intervention: Informal measures, e.g. taking stairs instead of elevator: no Formal exercise regimen: no 5. Other behavioral treatment: reduce self-blame! 6. Other treatment/medications: Medication: phentermine 8. Follow up: 8 weeks and as needed. Assessment/Plan Diagnoses and all orders for this visit: Class 2 severe obesity due to excess calories with serious comorbidity and body mass index (BMI) of36.0 to 36.9 in adult ([facility]) Comments: reviewed low carb diet in detail, calculating net carbs; briefly discussed intermittent fasting as well. Orders: - phentermine 15 MG capsule; Take 1 capsule (15 mg) by mouth before breakfast. BMI 38.0-38.9,adult Comments: an excellent candidate for phentermine given she is already on topamax. reviewed side effects; monitor BP, will have NV in [place]. Orders: - phentermine 15 MG capsule; Take 1 capsule (15 mg) by mouth before breakfast. * ALFREDO Hauser - 01/25/2025 2:00 PM EDT MD 15 WC 54 documented in this encounter Plan of Treatment Upcoming Encounters Date Type Department Care Team (Late st Contact Info) Description 02/16/2025 9:20 AM EDT Office Visit [facility] MED[facility] [address] [place] [address] Naa Colindres MD [address] [place] [address] 04/02/2025 10:30 AM EST Office Visit [facility] MED[facility] [address] [place] [address] Jodi Miller MD [address] [place] [address] documented as of this encounter Visit Diagnoses Diagnosis Class 2 severe obesity due to excess calories with serious comorbidity and body mass index (BMI) of 36.0 to 36.9 in adult ([facility])- Primary BMI 38.0-38.9,adult documented in this encounter Additional Health Concerns Assessment Noted Time PHQ-9 Depression Total Score: 24 023 10:06 AM EDT documented as of this encounter Care Teams Deputy Chief Sheriff Relationship Specialty Start Date End Date Naa Colindres MD [address] [place] [address] PCP - General Family Medicine 09/03/22 documented as of this encounter
--- NOTE | 2025-01-26 13:18 | ED.GENADULT ---
HPI - General Adult General Chief complaint: Back Pain/Injury Stated complaint: quest dvt sent from [facility] Time Seen by Provider: 01/26/25 13:33 History of Present Illness ED Provider: Rocío NIX narrative: The patient is a 39-year-old woman who had lumbar surgery with Dr. Hunt on December 12. She recovered well from the surgery but over the last several days has developed some swelling of her legs, the left more than the right. A few days ago she went to her primary care doctor's office and was found to have calf circumference discrepancy with the left leg being larger than the right. An outpatient D-dimer test was run which was elevated. The patient was advised to go to an emergency room because of this. Yesterday evening she went to the emergency room at [facility]. At the emergency room there she had a negative left leg DVT ultrasound. She also had a CT pulmonary angiogram that showed no obvious clot although there was some motion artifact. She had also complained of some left upper abdominal pain and so a CT of the abdomen and pelvis was also done. The preliminary reading on the CT of the abdomen and pelvis was negative. She was discharged from the emergency room at [facility] last night with no particular pathology found. This morning the CT of the abdomen and pelvis was over-read with the final reading that was read: Postoperative changes L4/5 level with a small subcutaneous abscess along the paraspinal musculature on the left. Because of this finding the patient was contacted this morning and advised to come to the emergency room here where she had had her surgery. The patient says that she has not had any fevers, sweats, chills recently. She has not had any worsening back pain of the site of her surgery. She has had some ongoing chronic pain since the surgery which she does not feel has changed significantly recently. The patient says that she also has some persistent left upper abdominal pain. She says that she had pain like this over a year ago and had an upper endoscopy. She says that she was told that she has a small hiatal hernia. She says that she has been on medication for stomach acid problems but is not currently on any medications because these prescriptions were not continued. Related Data Home Medications ?Medication ?Instructions ?Recorded ?Confirmed albuterol sulfate 90 mcg/actuation 2 puff inhalation Q6H PRN wheezing 11/26/24 11/26/24 aerosol inhaler (Ventolin HFA) cholecalciferol (vitamin D3) 125 125 mcg PO DAILY 11/26/24 11/26/24 mcg (5,000 unit) capsule divalproex 250 mg tablet,delayed 500 mg PO BEDTIME 11/26/24 11/26/24 release doxepin 10 mg capsule 10 mg PO BEDTIME 11/26/24 11/26/24 gabapentin 300 mg capsule 600 mg PO TID 11/26/24 11/27/24 hydroxyzine pamoate 25 mg capsule 25 mg PO TID PRN Anxiety 11/26/24 11/26/24 ibuprofen 800 mg tablet 800 mg PO Q8H PRN Pain 11/26/24 11/27/24 meloxicam 7.5 mg tablet 7.5 mg PO DAILY 11/26/24 11/27/24 pantoprazole 40 mg tablet,delayed 40 mg PO QAM 11/26/24 11/26/24 release prazosin 1 mg capsule 1 mg PO BEDTIME 11/26/24 11/26/24 rizatriptan 10 mg disintegrating 10 mg PO ONCE PRN Migraine Headache 11/26/24 11/26/24 tablet topiramate 100 mg tablet 100 mg PO BEDTIME 11/26/24 11/26/24 Previous Rx's ?Medication ?Instructions ?Recorded hydromorphone 2 mg tablet 2 mg PO Q6H PRN pain #16 tabs 12/14/24 docusate sodium 100 mg capsule 100 mg PO BID #20 caps 12/20/24 (Colace) polyethylene glycol 3350 17 17 g PO DAILY constipation 12/20/24 gram/dose oral powder (Miralax) prophylaxis #119 grams gabapentin 300 mg capsule 300 mg PO TID #90 caps 01/01/25 ibuprofen 800 mg tablet 800 mg PO Q8H #60 tabs 01/01/25 oxycodone 5 mg tablet 5 mg PO .qhs PRN pain #10 tabs 01/10/25 cyclobenzaprine 10 mg tablet 10 mg PO Q8H #30 tabs 01/15/25 famotidine 40 mg tablet 40 mg PO DAILY #30 tabs 01/26/25 sucralfate 1 gram tablet 1 g PO BID PRN upper abdominal 01/26/25 pain #60 tabs Allergies Allergy/AdvReac Type Severity Reaction Status Date / Time Penicillins Allergy Severe Hives Verified 01/26/25 13:21 tramadol Allergy Severe Vomiting Verified 01/26/25 13:21 Review of Systems Review of Systems: Yes all other systems are reviewed and are negative [facility] Past Medical History Medical History Hidradenitis suppurativa Asthma Fibromyalgia Peptic ulcer Depression PTSD (post-traumatic stress disorder) Anxiety GERD (gastroesophageal reflux disease) Migraines Surgical History History of esophagogastroduodenoscopy (EGD) H/O colonoscopy History of surgery on lower extremity History of back surgery Social History Social History Household Members: None Housing: Apartment Are you a primary medicare sales executive to a significant other at home: No Do you presently have visiting nurse or other home services: No Patient Tobacco Use Status: Current everyday Tobacco user Tobacco use type: Cigarette Cigarettes Per Day: 6 Years Smoked: 20 e-Cigarette/Vaping Use: Currently Using Second Hand Smoke Exposure: No Advance Directives: No Advance Directives Information Provided: No Do you have a plan to hurt others: No Plan service: No Physical Exam ED Vital Signs: Vital Signs - 24 hr 01/26/25 13:19 01/26/25 15:50 Temperature 98.2 F 98.8 F Pulse Rate 124 H 83 Respiratory Rate 18 18 Blood Pressure 134/81 119/70 Pulse Oximetry 98 98 Oxygen Delivery Method Room Air Room Air BMI result Body Mass Index 38.5 Const Other: The patient is awake, alert, pleasant, cooperative. She does not appear in overt distress or seem acutely ill. Orientation/consciousness: patient oriented x3 HENMT Other: The face is symmetrical. ?Mucous membranes moist. Eyes Other: Pupils are round equal, conjunctivae are clear, extraocular movements intact Neck Neck: Yes normal visual inspection, Yes full ROM and Yes no lymphadenopathy Cardio Rate: regular rate Rhythm: regular rhythm Heart sounds: S1 normal heart sound present and S2 normal heart sound present GI Other: Abdomen is soft and not significantly tender. Back/Spine/Pelvis Other: There are well-healed surgical scars in the lower back at around the L4-L5 level. There is no erythema or other signs of infection. There was no particular tenderness in the region of the scars. Skin Other: Skin is pale and unremarkable. Neuro General: patient oriented x3, tone normal, moves all extremities, no focal motor deficits and CN's II-XI intact bilaterally Extrem Other: There may be some mild bilateral lower extremity edema. This is not pitting edema. Feet are well-perfused. Course Course Course Narrative: Rapid medical examination performed in triage by Rosa Hilliard PA-C. Patient is a 39 year old assigned female at presenting to the emergency department with bilateral lower leg pain / swelling s/p spine surgery by Dr. Hunt. Detailed physical exam and review of systems are deferred to the access clinician. Labs ordered. development coach aware. Note: [facility] records printed. Medications Administered Discontinued Medications Generic Name Dose Route Start Last Admin Trade Name Freq PRN Reason Stop Dose Admin Sucralfate 2 gm 01/26/25 15:13 01/26/25 15:49 Sucralfate Oral Suspension 1 Gm/10 Ml Oral.Susp PO 01/26/25 15:14 2 gm ONCE ONE Administration Medical Decision Making Medical Decision Making [facility] Narrative: The patient is a 39-year-old woman who had back surgery about 6 weeks ago. Over the last several days she has developed swelling in her legs, the left more so than the right. Because of this she saw her PCP who ordered an outpatient D-dimer that was elevated. This prompted her to be sent to the emergency room at [facility] yesterday evening where she had a workup that included a negative DVT ultrasound of the left leg and also a CT pulmonary angiogram that showed no pulmonary embolism. In addition she has been complaining of some subacute left upper quadrant abdominal pain and a CT of the abdomen and pelvis has been done. This readings of the CTs last night were negative. This morning there was an over-read of the abdominal CT suggesting the possibility of an abscess in the lower back near the surgical site. This was a subcutaneous abscess, not an epidural abscess. Clinically the patient's history does not suggest that she has any kind of a wound infection or abscess. She has not been complaining of any back pain or particular new discomfort in the region of the surgical site. Additionally she has had no fever, sweats, chills. She has a normal white count and differential today. I contacted Dr. Hunt team about this case. We agreed that this does not seem to represent a definite surgical infection. The patient will therefore be discharged to follow up with Dr. Gilbert espinoza on Tuesday. With regard to the complaints of left upper abdominal pain she will be started on famotidine and sucralfate. Lab Data 01/26/25 Unknown 01/26/25 Unknown Labs: Lab Results 01/26/25 01/26/25 Range/Units 14:58 Unknown WBC 10.2 (4.8-10.8) X10*3/uL RBC 4.32 (4.20-5.50) X10*6/uL Hgb 13.4 (12.0-16.0) g/dl Hct 39.5 (37.0-47.0) % MCV 91.4 (80.0-98.0) fL MCH 31.0 (27.0-33.0) pg MCHC 33.9 (31.0-35.0) g/dl RDW 13.3 (11.0-16.0) % Plt Count 341 (160-400) X10*3/uL MPV 11.7 (9.4-12.3) fL Immature Gran % (Auto) 0.6 H (0.0-0.4) % Neut % (Auto) 71.5 (45-73) % Lymph % (Auto) 21.0 (20-40) % [place] % (Auto) 4.2 (2-11) % Eos % (Auto) 2.3 (0-4) % Baso % (Auto) 0.4 (0-2) % Lymph # (Auto) 2.1 (1.2-4.9) X10*3/uL [place] # (Auto) 0.4 (0.1-1.2) X10*3/uL Eos # (Auto) 0.2 (0.0-0.4) X10*3/uL Baso # (Auto) 0.0 (0.0-0.2) X10*3/uL Abs Immat Gran (auto) 0.06 H (0.00-0.03) X10*3/uL Absolute Neuts (auto) 7.3 (2.0-8.3) x10*3/uL Absolute Nucleated RBC 0.000 (0.0-0.012) X10*3/uL Nucleated RBC % (auto) 0.0 (0.0-0.2) /100WBC ESR 15 (0-20) MM/HR Sodium 140 (135-145) mmol/L Potassium 3.9 (3.3-5.1) mmol/L Chloride 104 (96-108) mmol/L Carbon Dioxide 25 (22-29) mmol/L Anion Gap 15 (12-20) BUN 12 (9-16) mg/dL Creatinine 0.84 (0.5-1.4) mg/dL Estim Creat Clear Calc 130.1 Estimated GFR > 60 Random Glucose 130 H (60-115) mg/dL Lactic Acid 1.7 (0.5-2.0) mmol/L Calcium 9.3 (8.4-10.2) mg/dL Total Bilirubin 0.4 (0.0-1.0) mg/dL AST 55 H (5-31) U/L ALT 101 H (0-31) U/L Alkaline Phosphatase 62 (39-117) U/L C-Reactive Protein 1.06 H (< or = 0.50) mg/dL Total Protein 6.9 (6.5-8.0) g/dL Albumin 4.0 (3.5-5.0) g/dL Lipase 26 (8-78) U/L Discharge Plan Discharge Clinical Impression: Abdominal pain Patient Disposition: Home, Self-Care Additional Instructions: I think it is very unlikely that the findings they were concerned about on the CAT scan you had yesterday represent an actual infection. I have discussed this with Dr. Hunt team. They want you to follow up in their clinic on Tuesday. Please call them early Tuesday morning to arrange this. I think that your abdominal pain may be related to a stomach acid problem. Please take the famotidine tablets once a day as prescribed. In addition you may use the sucralfate tablets up to 3 times a day as needed for discomfort. Some people crush the sucralfate and mix it with water to make a slurry. Some people find this is more effective. Also follow up with your primary care doctor. Return to the emergency room if significantly worse. Prescriptions: New famotidine 40 mg tablet 40 mg PO DAILY Qty: 30 0RF sucralfate 1 gram tablet 1 g PO BID PRN (Reason: upper abdominal pain) Qty: 60 0RF No Action hydromorphone 2 mg tablet 2 mg PO Q6H PRN (Reason: pain) Qty: 16 0RF Rx Instructions: Partial Fill upon patient request. oxycodone 5 mg tablet 5 mg PO .qhs PRN (Reason: pain) Qty: 10 0RF Rx Instructions: Partial Fill upon patient request. cyclobenzaprine 10 mg tablet 10 mg PO Q8H Qty: 30 2RF divalproex 250 mg tablet,delayed release (DR/EC) 500 mg PO BEDTIME ibuprofen 800 mg tablet 800 mg PO Q8H PRN (Reason: Pain) prazosin 1 mg capsule 1 mg PO BEDTIME doxepin 10 mg capsule 10 mg PO BEDTIME meloxicam 7.5 mg tablet 7.5 mg PO DAILY rizatriptan 10 mg tablet,disintegrating 10 mg PO ONCE PRN (Reason: Migraine Headache) pantoprazole 40 mg tablet,delayed release (DR/EC) 40 mg PO QAM albuterol sulfate [Ventolin HFA] 90 mcg/actuation HFA aerosol inhaler 2 puff inhalation Q6H PRN (Reason: wheezing) topiramate 100 mg tablet 100 mg PO BEDTIME cholecalciferol (vitamin D3) 125 mcg (5,000 unit) capsule 125 mcg PO DAILY gabapentin 300 mg capsule 600 mg PO TID hydroxyzine pamoate 25 mg Capsule 25 mg PO TID PRN (Reason: Anxiety) ibuprofen 800 mg tablet 800 mg PO Q8H Qty: 60 0RF gabapentin 300 mg capsule 300 mg PO TID Qty: 90 2RF polyethylene glycol 3350 [Miralax] 17 gram/dose powder 17 g PO DAILY Qty: 119 0RF docusate sodium [Colace] 100 mg capsule 100 mg PO BID Qty: 20 0RF Referrals: Naa Colindres MD [Primary Care Provider, Medical] Chuckie Hunt MD, PhD [Physician, Neuro Spine] Interventions: ED Discharge Assessment Last Done: 01/26/25 15:50 Print Language: [place]
[2025-01-26 13:19] VITALS: BP 134/81; PULSE 124; RESP 18; TEMP 36.8; O2SAT 98; BMI 38.5
--- OUTSIDE RECORDS SUMMARY | 2025-01-26 13:29 | XMS_ITS | Encounter Summary ---
Author Organization [employer] Address [address] [facility] [address] [place] [address] Care Team Providers Care Transmission Line Engineer Name Role Phone Naa Colindres MD Primary Care Provider [phone] DavitatumReji Reason for Visit * Reason Comments Med Change Request Encounter Details Date Type Department Care Team (Late st Contact Info) Description 03/31/2023 Refill [facility] MED[facility] [address] [place] [address] Naa Colindres MD [address] [place] [address] Fibromyalgia Social History Tobacco Use Types Packs/Day [...] Description 02/16/2025 9:20 AM EDT Office Visit [facility] MEDICAL [address] [place] [address] Naa Colindres MD [address] [place] [address] 04/02/2025 10:30 AM EST Office Visit [facility] MEDICAL [address] [place] [address] Jodi Miller MD [address] [place] [address] documented as of this encounter Visit Diagnoses Diagnosis Fibromyalgia Unspecified myalgia and myositis documented in this encounter Additional Health Concerns Assessment Noted Time PHQ-9 Depression Total Score: 24 023 10:06 AM EDT documented as of this encounter Care Teams Transmission Line Engineer Relationship Specialty Start Date End Date Naa Colindres MD [address] [place] [address] PCP - General Family Medicine 09/03/22 Reji Cedillo 12/12/24 12/26/24 documented as of this encounter
--- OUTSIDE RECORDS SUMMARY | 2025-01-26 13:29 | XMS_ITS | Encounter Summary ---
Author Organization [facility] [place], Address [address] [place] [address] Phone Care Team Providers Care Industrial Eng Name Role Phone Naa Colindres MD Primary Care Provider [phone] Encounter Details Date Type Department Care Team (Late st Contact Info) Description 12/10/2022 Documentation Only [facility] [place], [facility] Megan [address] [facility] [address] [place] [phone] Jeffery Tyler MD [address] [place] [address] [place] [phone] Social History Tobacco Use Types Packs/Day Years [...] on filedocumented in this encounter Care Teams Industrial Eng Relationship Specialty Start Date End Date Naa Colindres MD [address] [place] [address] PCP - General Family Medicine 03/17/23 documented as of this encounter
--- OUTSIDE RECORDS SUMMARY | 2025-01-26 13:29 | XMS_ITS | Encounter Summary ---
Author Organization [facility] [place], Address [address] [place] [address] Phone Care Team Providers Care Photogeologist Name Role Phone Naa Colindres MD Primary Care Provider [phone] Encounter Details Date Type Department Care Team (Late st Contact Info) Description 12/08/2022 Documentation Only [facility] [place], - Megan [address] [facility] [address] [place] [address] Lis Mcdonald, EMPLOYEE REPRESENTATIVE [address] [place] [phone] Social History Tobacco Use Types Packs/Day Years [...] on filedocumented in this encounter Care Teams Photogeologist Relationship Specialty Start Date End Date Naa Colindres MD [address] [place] [address] PCP - General Family Medicine 03/17/23 documented as of this encounter
--- OUTSIDE RECORDS SUMMARY | 2025-01-26 13:29 | XMS_ITS | Encounter Summary ---
Author Organization [facility] [place], Address [address] [place] [address] Phone Care Team Providers Care Aerographer Name Role Phone Naa Colindres MD Primary Care Provider [phone] Encounter Details Date Type Department Care Team (Late st Contact Info) Description 12/09/2022 Documentation Only [facility] [place], - Megan [address] [facility] [address] [place] [address] Lis Mcdonald, SWIMMING POOL SERVICE TECHNICIAN [address] [place] [phone] Social History Tobacco Use Types Packs/Day Years [...] on filedocumented in this encounter Care Teams Aerographer Relationship Specialty Start Date End Date Naa Colindres MD [address] [place] [address] PCP - General Family Medicine 03/17/23 documented as of this encounter
--- OUTSIDE RECORDS SUMMARY | 2025-01-26 13:29 | XMS_ITS | Encounter Summary ---
Author Organization [facility] [place], Address [address] [place] [address] Phone Care Team Providers Care Case Management Director Name Role Phone Naa Colindres MD Primary Care Provider [phone] Encounter Details Date Type Department Care Team (Late st Contact Info) Description 12/10/2022 Documentation Only [facility] [place], [facility] [address] [facility] [address] [place] [phone] Jeffery Tyler MD [address] [place] [address] [place] [phone] Social History Tobacco Use Types Packs/Day Years [...] on filedocumented in this encounter Care Teams Case Management Director Relationship Specialty Start Date End Date Naa Colindres MD [address] [place] [address] PCP - General Family Medicine 03/17/23 documented as of this encounter
--- OUTSIDE RECORDS SUMMARY | 2025-01-26 13:29 | XMS_ITS | Encounter Summary ---
Author Organization [facility] [place], Address [address] [place] [address] Phone Care Team Providers Care Draw Off Worker Name Role Phone Naa Colindres MD Primary Care Provider [phone] Encounter Details Date Type Department Care Team (Late st Contact Info) Description 12/09/2022 Documentation Only [facility] [place], [facility] Megan [address] [facility] [address] [place] [address] Jeffery Tyler MD [address] [place] [address] [place] [phone] Social History Tobacco Use Types Packs/Day Years [...] on filedocumented in this encounter Care Teams Draw Off Worker Relationship Specialty Start Date End Date Naa Colindres MD [address] [place] [address] PCP - General Family Medicine 03/17/23 documented as of this encounter
--- OUTSIDE RECORDS SUMMARY | 2025-01-26 13:29 | XMS_ITS | Encounter Summary ---
Author Organization [facility] [place], Address [address] [place] [address] Phone Care Team Providers Care Assembler Camper Name Role Phone Naa Colindres MD Primary Care Provider Encounter Details Date Type Department Care Team (Late st Contact Info) Description 12/10/2022 Documentation Only [facility] [place], [facility] Megan [address] [facility] [address] [place] [phone] Jeffery Tyler MD [address] [place] [address] [place] [phone] Social History Tobacco Use Types Packs/Day Years [...] on filedocumented in this encounter Care Teams Assembler Camper Relationship Specialty Start Date End Date Naa Colindres MD [address] [place] [address] PCP - General Family Medicine 03/17/23 documented as of this encounter
--- OUTSIDE RECORDS SUMMARY | 2025-01-26 13:29 | XMS_ITS | Encounter Summary ---
Author Organization [facility] [place], Address [address] [place] [address] Phone Care Team Providers Care Hospital Admissions Clerk Name Role Phone Naa Colindres MD Primary Care Provider [phone] Encounter Details Date Type Department Care Team (Late st Contact Info) Description 12/09/2022 Documentation Only [facility] [place], - Megan [address] [facility] [address] [place] [address] Lis Mcdonald, BATCH ATTENDANT [address] [place] [phone] Social History Tobacco Use Types Packs/Day Years [...] on filedocumented in this encounter Care Teams Hospital Admissions Clerk Relationship Specialty Start Date End Date Naa Colindres MD [address] [place] [address] PCP - General Family Medicine 03/17/23 documented as of this encounter
--- OUTSIDE RECORDS SUMMARY | 2025-01-26 13:29 | XMS_ITS | Encounter Summary ---
Author Organization [facility] [place], Address [address] [place] [address] Phone Care Team Providers Care Hoop Puncher Name Role Phone Naa Colindres MD Primary Care Provider [phone] Encounter Details Date Type Department Care Team (Late st Contact Info) Description 12/10/2022 Documentation Only [facility] [place], [facility] Megan [address] [facility] [address] [place] [phone] Jeffery Tyler MD [address] [place] [address] [place] [phone] Social History Tobacco Use Types Packs/Day Years [...] on filedocumented in this encounter Care Teams Hoop Puncher Relationship Specialty Start Date End Date Naa Colindres MD [address] [place] [address] PCP - General Family Medicine 03/17/23 documented as of this encounter
--- OUTSIDE RECORDS SUMMARY | 2025-01-26 13:30 | XMS_ITS | Encounter Summary ---
Author Organization [facility] Address [address] [place] [address] Phone Care Team Providers Care Quilt Maker Name Role Phone Tariq Yang MD Primary Care Provider [phone] Tariq Yang MD Unavailable + Taina Patel Primary Care Provider Jo Galan Primary Care Provider [phone] Janneth Waller DO Unavailable [phone] Tariq Yang MD Unavailable + Catalina Borden CANE BURNER Unavailable [email or web address] Brenda Gomez MD Unavailable [phone] Unknown, Unknown Primary Care Provider Lis Lobo NP Primary Care Pro vider Tariq Yang MD Unavailable + Brenda Gomez MD Unavailable [phone] Lsi Long RN Unavailable Naa Colindres MD Primary Care Provider [phone] Encounter Details Date Type Department Care Team (Late st Contact Info) Description 05/30/2017 Ancillary Orders [facility], X-Ray - [address] [place] [address] Piter Kendrick, DO [address] [place] [address] Cervicalgia Social History Tobacco Use Types Packs/Day Years Used Date Smoking Tobacco: Every Day Cigarettes Smokeless Tobacco: Never Comments:Pt refused counseli ng at this time Alcohol Use Standard Drinks/Week Comments No 0 (1 standard drink = 0.6 oz pur e alcohol) Comments Unknown Sex and Gender Information Value Date Recorded Sex Assigned at Female 05/23/2017 9:38 AM EST Legal Sex Female 3:20 PM EDT Gender Identity Female 05/23/2017 9:38 AM EST Sexual Orientation Straight 05/23/2017 9: 38 AM EST documented as of this encounter Plan of Treatment Upcoming Encounters Date Type Department Care Team (Late st Contact Info) Description 04/15/2025 2:00 PM EST Office Visit [facility] Neurology [address] [place] [address] Sundar Vázquez MD [address] [place] [address], 2nd [place] [address] 05/06/2025 9:00 AM EST Office Visit [facility] Rheumatology [address] [place] [address] Nancy Baptiste MD [address] [place] [address], [address] [place] [address] documented as of this encounter Results * XR CERVICAL SPINE 6 0R MORE VIEWS (05/30/2017 1:05 PM EST) Anatomical Region Laterality Modality C-spine Radiographic Nga ging 05/30/2017 1:32 PM EST Impressions 05/30/2017 1:33 PM EST No significant bony abnormality or evidence of instability. POS [id number] Narrative 05/30/2017 1:33 PM EST COMPARISON: None FINDINGS: Frontal, lateral, oblique, AP open mouth, and lateral flexion and extension views were obtained. No vertebral body fracture, subluxation, or evidence of instability. Intervertebral disc spaces are preserved in height. Neural foramina are grossly patent. Prevertebral soft tissues are within normal limits. Procedure Note Jeana Marin MD - 05/30/2017 COMPARISON: None FINDINGS: Frontal, lateral, oblique, AP open mouth, and lateral flexion andextension views were obtained. No vertebral body fracture, subluxation,or evidence of instability. Intervertebral disc spaces are preserved inheight. Neural foramina are grossly patent. Prevertebral soft tissuesare within normal limits. IMPRESSION: No significant bony abnormality or evidence of instability. POS [id number] Piter Kendrick DO IMG XR SPINE Final Result * XR LUMBOSACRAL SPINE MINIMUM 6 VIEWS, INCLUDES BENDING VIEWS (05/30/2017 1:03 PM EST) Anatomical Region Laterality Modality L-spine Radiographic Nga ging 05/30/2017 1:34 PM EST Impressions 05/30/2017 1:35 PM EST Minimal lower lumbar degenerative facet arthropathy without evidence of instability or other significant bony abnormality. POS [id number] Narrative 05/30/2017 1:35 PM EST COMPARISON: None FINDINGS: AP, lateral, oblique, and lateral flexion and extension views were obtained. No vertebral body fracture or subluxation are noted. Intervertebral disc spaces are preserved in height. No gross instability. No spondylolysis apparent. Minimal lower lumbar degenerative facet arthropathy. Procedure Note Jeana Marin MD - 05/30/2017 COMPARISON: None FINDINGS: AP, lateral, oblique, and lateral flexion and extension views wereobtained. No vertebral body fracture or subluxation are noted.Intervertebral disc spaces are preserved in height. No gross instability.No spondylolysis apparent. Minimal lower lumbar degenerative facetarthropathy. IMPRESSION: Minimal lower lumbar degenerative facet arthropathy without evidence ofinstability or other significant bony abnormality. POS [id number] us Piter Kendrick DO IMG XR SPINE Final Result documented in this encounter Visit Diagnoses Diagnosis Cervicalgia Cervicalgia Cervicalgia documented in this encounter Care Teams Quilt Maker Relationship Specialty Start Date End Date Tariq Yang MD [address] [place] [address] PCP - General Internal Medicine 05/30/17 06/01/18 Taina Patel PA [address] [place] [address] PCP - General Unknown Provider Specialty 06/02/18 09/19/18 Jo Galan PA [address] [place] [address] [email or web address] PCP - General 09/20/18 01/21/22 Lucita, MD Lucita PCP - General 01/22/22 01/26/22 Lis Mcdonald NP [address] [place] [phone] [email or web address] PCP - General Family Medicine 01/27/22 08/15/23 Naa Colindres MD [address] [place] [address] PCP - General Family Medicine 08/16/23 Tariq Yang MD [address] [place] [place] [address] [email or web address] Insurance Assigned Provider 09/17/17 10/20/19 Janneth Waller DO [address] [place] [address] [place] [address] Insurance Assigned Provider 10/20/19 03/22/20 Tariq Yang MD [address] [place] [place] [address] [email or web address] Insurance Assigned Provider 03/22/20 10/19/20 Catalina Borden LCSW [address] [place] [phone] [email or web address] [email or web address] Social Work 04/14/20 03/24/23 Brenda Gomez MD [address] [place] [address] [place] [address] [email or web address] Insurance Assigned Provider 10/19/20 06/19/22 Tariq Yang MD [address] [place] [place] [address] [email or web address] Insurance Assigned Provider 06/19/22 08/28/22 Brenda Gomez MD [address] [place] [address] [place] [address] [email or web address] Insurance Assigned Provider 08/28/22 01/22/23 Lis Long RN [address] [place] [address] [email or web address] [employer] Haul Driver 11/11/22 11/28/22 documented as of this encounter Additional Source Comments The information contained in this document represents components of the legal health record. It is not the complete legal health record.[facility]
--- OUTSIDE RECORDS SUMMARY | 2025-01-26 13:30 | XMS_ITS | Encounter Summary ---
Author Organization [facility] Address [address] [place] [address] Phone Care Team Providers Care Coal Handler Name Role Phone Tariq Yang MD Unavailable [phone] Taina Patel Primary Care Provider Jo Galan Primary Care Provider [phone] Janneth Waller DO Unavailable [phone] Tariq Yang MD Unavailable + Catalina Borden LEGAL NURSE CONSULTANT Unavailable [email or web address] Brenda Gomez MD Unavailable [phone] Unknown, Unknown Primary Care Provider Lis Lobo CAPTAIN ROOM SERVICE Primary Care Pro vider Tariq Yang MD Unavailable + Brenda Gomez MD Unavailable [phone] Lis Long RN Unavailable Naa Colindres MD Primary Care Provider [phone] Encounter Details Date Type Department Care Team (Late st Contact Info) Description 07/06/2018 Procedure Pass [facility], [address] [place] [address] Social History Tobacco Use Types Packs/Day Years Used Date Smoking Tobacco: Every Day Cigarettes Smokeless Tobacco: Never Comments:Pt refused counseli ng at this time Alcohol Use Standard Drinks/Week Comments No 0 (1 standard drink = 0.6 oz pur e alcohol) Comments No Sex and Gender Information Value Date Recorded Sex Assigned at Female 05/23/2017 9:38 AM EST Legal Sex Female 3:20 PM EDT Gender Identity Female 05/23/2017 9:38 AM EST Sexual Orientation Straight 05/23/2017 9: 38 AM EST 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 Not on file Not on file Not on file documented as of this encounter Plan of Treatment Upcoming Encounters Date Type Department Care Team (Late st Contact Info) Description 04/15/2025 2:00 PM EST Office Visit [facility] Neurology [address] [place] [address] [place] [address] Sundar Vázquez MD [address] [place] [address], 2[address] [place] [address] [email or web address] 05/06/2025 9:00 AM EST Office Visit [facility] Rheumatology [address] [place] [address] [place] [address] Nancy Baptiste MD [address] [place] [address], [address] [place] [address] [email or web address] documented as of this encounter Visit Diagnoses Not on filedocumented in this encounter Care Teams Coal Handler Relationship Specialty Start Date End Date Taina Patel PA [address] [place] [address] PCP - General Unknown Provider Specialty 06/02/18 09/19/18 Jo Galan PA [address] [place] [address] [email or web address] PCP - General 09/20/18 01/21/22 Unknown, Unknown, PCP - General 01/22/22 01/26/22 Lis Mcdonald NP [address] [place] [phone] [email or web address] PCP - General Family Medicine 01/27/22 08/15/23 Naa Colindres MD [address] [place] [address] [email or web address] PCP - General Family Medicine 08/16/23 Tariq Yang MD [address] [place] [address] [email or web address] Insurance Assigned Provider 09/17/17 10/20/19 Janneth Waller DO [address] [place] [address] [place] [address] Insurance Assigned Provider 10/20/19 03/22/20 Tariq Yang MD [address] [place] [address] Insurance Assigned Provider 03/22/20 10/19/20 Catalina Borden, [address] [address] [email or web address] [email or web address] Social Work 04/14/20 03/24/23 Brenda Gomez MD [address] [place] [address] [place] [address] [email or web address] Insurance Assigned Provider 10/19/20 06/19/22 Tariq Yang MD [address] [place] [address] [email or web address] Insurance Assigned Provider 06/19/22 08/28/22 Brenda Gomez MD [address] [place] [address] [place] [address] [email or web address] Insurance Assigned Provider 08/28/22 01/22/23 Lis Long RN [address] [place] [address] [email or web address] [email or web address] Claim Clinician 11/11/22 11/28/22 documented as of this encounter Additional Source Comments The information contained in this document represents components of the legal health record. It is not the complete legal health record.[facility]
--- OUTSIDE RECORDS SUMMARY | 2025-01-26 13:30 | XMS_ITS | Encounter Summary ---
Author Organization [facility] Address [address] [place] [address] Phone Care Team Providers Care Internet Researcher Name Role Phone Marciacarlos Catalina Masood CHIEF ADMINISTRATIVE OFFICER Unavailable [email or web address] Lis Mcdonald NP Primary Care Pro vider Naa Colindres MD Primary Care Provider Encounter Details Date Type Department Care Team (Latest Contact Info) Description 01/24/2023 Transcribe Orders Virtual Department [address] [place] [address] Alex Oseguera MD [address] [place] [address] [email or web address] Thoracic spine pain (Primary Dx) Social History Tobacco Use Types Packs/Day Years Used Date Smoking Tobacco: Every Day Cigarettes Smokeless Tobacco: Never Alcohol Use Standard Drinks/Week [...] 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 file Not on file Not on file documented as of this encounter Plan of Treatment Upcoming Encounters Date Type Department Care Team (Late st Contact Info) Description 04/15/2025 2:00 PM EST Office Visit [facility] Neurology [address] [place] [address] Sundar Vázquez MD [address] [place] [address], 2[address] [place] [address] 05/06/2025 9:00 AM EST Office Visit [facility] Rheumatology [address] [place] [address] Nancy Baptiste MD [address] [place] [address], [address] [place] [address] [email or web address] documented as of this encounter Results * XR THORACIC SPINE 3 VIEW (02/01/2023 8:40 AM EDT) Anatomical Region Laterality Modality T-spine Computed Radiogr aphy 02/04/2023 10:3 9 PM EDT Impressions 02/04/2023 10:40 PM EDT No significant change in the mild discogenic degenerative changes in the mid to upper thoracic spine. Narrative 02/04/2023 10:40 PM EDT XR THORACIC SPINE 3 VIEW COMPARISON: MRI THORACIC SPINE (NEURO) WITHOUT CONTRAST FINDINGS: ALIGNMENT: No spondylolisthesis. VERTEBRAE: Vertebral body heights preserved. DISCS: Disc height loss and endplate sclerosis and marginal osteophytes in the mid thoracic spine. FACETS: Facets normally aligned. PARASPINAL SOFT TISSUES: Within normal limits. Procedure Note Sha Shelton MD - 02/04/2023 XR THORACIC SPINE 3 VIEW COMPARISON: MRI THORACIC SPINE (NEURO) WITHOUT CONTRAST FINDINGS: ALIGNMENT: No spondylolisthesis. VERTEBRAE: Vertebral body heights preserved. DISCS: Disc height loss and endplate sclerosis and marginal osteophytes inthe mid thoracic spine. FACETS: Facets normally aligned. PARASPINAL SOFT TISSUES: Within normal limits. IMPRESSION: No significant change in the mild discogenic degenerative changes in themid to upper thoracic spine. Alex Oseguera MD IMG XR SPINE Final Result * XR LUMBOSACRAL SPINE 2-3 VIEWS (02/01/2023 8:38 AM EDT) Anatomical Region Laterality Modality L-spine Computed Radiogr aphy 02/04/2023 10:3 7 PM EDT Impressions 02/04/2023 10:39 PM EDT Similar moderate facet predominant lumbar spine degenerative change. Narrative 02/04/2023 10:39 PM EDT XR LUMBOSACRAL SPINE 2-3 VIEWS COMPARISON: MRI LUMBAR SPINE (NEURO) WITH AND WITHOUT CONTRAST ; XR LUMBOSACRAL SPINE 2-3 VIEWS FINDINGS: ALIGNMENT: No spondylolisthesis. VERTEBRAE: Vertebral body heights preserved. DISCS: Disc height loss and endplate sclerosis and marginal osteophytes at L4-5. FACETS: Facet arthropathy L3-S1. PARASPINAL SOFT TISSUES: Constipation. Mild sacroiliac joint bony proliferative change. Procedure Note Sha Shelton MD - 02/04/2023 XR LUMBOSACRAL SPINE 2-3 VIEWS COMPARISON: MRI LUMBAR SPINE (NEURO) WITH AND WITHOUT [id number]; XR LUMBOSACRAL SPINE 2-3 VIEWS FINDINGS: ALIGNMENT: No spondylolisthesis. VERTEBRAE: Vertebral body heights preserved. DISCS: Disc height loss and endplate sclerosis and marginal osteophytes atL4-5. FACETS: Facet arthropathy L3-S1. PARASPINAL SOFT TISSUES: Constipation. Mild sacroiliac joint bonyproliferative change. IMPRESSION: Similar moderate facet predominant lumbar spine degenerative change. Alex Oseguera MD IMG XR SPINE Final Result documented in this encounter Visit Diagnoses Diagnosis Thoracic spine pain- Primary Pain in thoracic spine Thoracic spine pain Pain in thoracic spine Thoracic spine pain Pain in thoracic spine documented in this encounter Care Teams Internet Researcher Relationship Specialty Start Date End Date Lis Mcdonald NP [address] [place] [address] [email or web address] PCP - General Family Medicine 01/27/22 08/15/23 Naa Colindres MD [address] [place] [address] [email or web address] PCP - General Family Medicine 08/16/23 Catalina Borden, CHIEF ADMINISTRATIVE OFFICER [address] [place] [address] i[employer] Social Work 04/14/20 03/24/23 documented as of this encounter Additional Source Comments The information contained in this document represents components of the legal health record. It is not the complete legal health record.[facility]
--- OUTSIDE RECORDS SUMMARY | 2025-01-26 13:30 | XMS_ITS | Encounter Summary ---
Author Organization [facility] Address [address] [place] [address] Phone Care Team Providers Care Cash Teller Name Role Phone Jo Galan Primary Care Provider [phone] Catalina Borden CAT TENDER Unavailable [email or web address] Brenda Gomez MD Unavailable [phone] Unknown, Unknown Primary Care Provider Lis Lobo BLADDER CLEANER Primary Care Pro vider Tariq Yang MD Unavailable [phone] Brenda Gomez MD Unavailable [phone] Lis Long RN Unavailable Naa Colindres MD Primary Care Provider + [phone] Reason for Referral * MRI/CAT Scan - Closed Specialty Diagnoses / Procedures Referred By Contac t Referred To Contact Radiology Diagnoses Intervertebral disc disorder with radiculopathy of lumbar region Procedures MRI Lumbar Spine Piter Kendrick DO Phone: tel: fax: [email or web address]:[email or web address] Referral ID Status Reason Start Date Expiration Date Visits Re quested Visits Authorized [id number] Closed 02/03/2021 11/20/2021 1 1 Encounter Details Date Type Department Care Team (Latest Contact Info) Description 02/03/2021 Transcribe Orders Virtual Department [address] [place] [address] Piter Kendrick, DO [address] [place] [address] [email or web address] Intervertebral disc disorder with radiculopathy of lumbar region (Primary Dx) Social History Tobacco Use Types [...] 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 Not on file Not on file documented as of this encounter Plan of Treatment Upcoming Encounters Date Type Department Care Team (Late st Contact Info) Description 04/15/2025 2:00 PM EST Office Visit [facility] Neurology [address] [place] [address] Sundar Vázquez MD [address] [place] [address], [address] [place] [address] 05/06/2025 9:00 AM EST Office Visit [facility] Rheumatology [address] [place] [address] Nancy Baptiste MD [address] [place] [address], [address] [place] [address] documented as of this encounter Results * MRI LUMBAR SPINE (NEURO) WITH AND WITHOUT CONTRAST (02/23/2021 2:27 PM EDT) Anatomical Region Laterality Modality L-spine Magnetic Resonan ce 02/23/2021 2:03 PM EDT Impressions 02/23/2021 2:36 PM EDT Interval L4-5 laminectomy and resolved small disc herniation. No new disc herniation, canal or neural foraminal stenosis. Narrative 02/23/2021 2:36 PM EDT COMPARISON: 07/17/2018. TECHNIQUE: Exam performed on a 1.5 Toshia high-field MRI scanner. Sagittal T1, T2 and STIR, axial T1 and T2 sequences were obtained with and without gadolinium. MRI LUMBAR SPINE FINDINGS: Mild decrease in the L4-5 disc space narrowing with persistent disc desiccation. No compression fractures. No malalignment. New mild degenerative endplate marrow edema at L4-5. No destructive or suspicious bone lesions. Conus terminates at T12-L1. Interval posterior subcutaneous scarring at L4-5. Additional findings: No incidental findings of concern. L1-L2: Unremarkable. L2-L3: Unremarkable. L3-L4: Stable mild facet arthropathy. L4-L5: Interval right hemilaminectomy. The small central disc herniation is no longer identified. There is postoperative posterior annulus enhancement and stable disc bulging. Stable mild facet arthropathy. L5-S1: Stable mild facet arthropathy. Procedure Note Ubaldo Baez MD - 02/23/2021 COMPARISON: 07/17/2018. TECHNIQUE: Exam performed on a 1.5 Toshia high-field MRI scanner. SagittalT1, T2 and STIR, axial T1 and T2 sequences were obtained with and withoutgadolinium. MRI LUMBAR SPINE FINDINGS: Mild decrease in the L4-5 disc space narrowing with persistent discdesiccation. No compression fractures. No malalignment. New milddegenerative endplate marrow edema at L4-5. No destructive or suspiciousbone lesions. Conus terminates at T12-L1. Interval posterior subcutaneousscarring at L4-5. Additional findings: No incidental findings of concern. L1-L2: Unremarkable. L2-L3: Unremarkable. L3-L4: Stable mild facet arthropathy. L4-L5: Interval right hemilaminectomy. The small central disc herniationis no longer identified. There is postoperative posterior annulusenhancement and stable disc bulging. Stable mild facet arthropathy. L5-S1: Stable mild facet arthropathy. IMPRESSION: Interval L4-5 laminectomy and resolved small disc herniation. No new discherniation, canal or neural foraminal stenosis. us Piterflor Kendrick DO IMG MR XSPECIALTY Final Resu lt documented in this encounter Visit Diagnoses Diagnosis Intervertebral disc disorder with radiculopathy of lumbar region- Primary Intervertebral disc disorder with radiculopathy of lumbar region documented in this encounter Care Teams Cash Teller Relationship Specialty Start Date End Date Jo Galan PA [address] [place] [address] [email or web address] PCP - General 09/20/18 01/21/22 Unknown, Lucita, PCP - General 01/22/22 01/26/22 Lis Mcdonald NP [address] [place] [address] [email or web address] PCP - General Family Medicine 01/27/22 08/15/23 Naa Colindres MD [address] [place] [address] PCP - General Family Medicine 08/16/23 Catalina Borden, CAT TENDER [address] [place] [address] [facility] Social Work 04/14/20 03/24/23 Brenda Gomez MD [address] [place] [address] [place] [address] [email or web address] Insurance Assigned Provider 10/19/20 06/19/22 Tariq Yang MD [address] [place] [address] [email or web address] Insurance Assigned Provider 06/19/22 08/28/22 Brenda Gomez MD [address] [place], [place] [address] [address] [email or web address] Insurance Assigned Provider 08/28/22 01/22/23 Lis Long RN [address] [place] [address] [email or web address] 11/11/22 11/28/22 documented as of this encounter Additional Source Comments The information contained in this document represents components of the legal health record. It is not the complete legal health record.[facility]
--- OUTSIDE RECORDS SUMMARY | 2025-01-26 13:30 | XMS_ITS | Encounter Summary ---
Author Organization [facility] Address [address] [place] [address] Phone Care Team Providers Care Warehousing Technician Name Role Phone Jo Galan Primary Care Provider [phone] Catalina Borden ADULT NURSE PRACTITIONER Unavailable [email or web address] Brenda Gomez MD Unavailable [phone] Unknown, Unknown Primary Care Provider Lis Lobo RESTAURANT MANAGER Primary Care Pro vider Tariq Yang MD Unavailable [phone] Brenda Gomez MD Unavailable [phone] Lis Long RN Unavailable Naa Colindres MD Primary Care Provider + [phone] Encounter Details Date Type Department Care Team (Late st Contact Info) Description 02/03/2021 Procedure Pass [address] [place] [address] Social History Tobacco Use Types Packs/Day Years [...] 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 Not on file Not on file documented as of this encounter Plan of Treatment Upcoming Encounters Date Type Department Care Team (Late st Contact Info) Description 04/15/2025 2:00 PM EST Office Visit [facility] Neurology [address] [place] [address] Sundar Vázquez MD [address] [place] [address], [address]nd [place] [address] 05/06/2025 9:00 AM EST Office Visit [facility] Rheumatology [address] [place] [address] Nancy Baptiste MD [address] [place] [address], [address] [place] [address] [email or web address] documented as of this encounter Visit Diagnoses Not on filedocumented in this encounter Care Teams Warehousing Technician Relationship Specialty Start Date End Date Jo Galan PA [address] [place] [address] [email or web address] PCP - General 09/20/18 01/21/22 Unknown, Lucita, PCP - General 01/22/22 01/26/22 Lis Mcdonald NP [address] [place] [address] [email or web address] PCP - General Family Medicine 01/27/22 08/15/23 Naa Colindres MD [address] [place] [address] PCP - General Family Medicine 08/16/23 Catalina Borden LCSW [address] [place] [address] [email or web address] Work 04/14/20 03/24/23 Brenda Gomez MD [address] [place] [address] [place] [address] [email or web address] Insurance Assigned Provider 10/19/20 06/19/22 Tariq Yang MD [address] [place] [address] [email or web address] Insurance Assigned Provider 06/19/22 08/28/22 Brenda Gomez MD [address] [place] [address] [place] [address] [email or web address] Insurance Assigned Provider 08/28/22 01/22/23 Lis Long RN [address] [place] [address] [employer] Warm In Worker 11/11/22 11/28/22 documented as of this encounter Additional Source Comments The information contained in this document represents components of the legal health record. It is not the complete legal health record.[facility]
--- OUTSIDE RECORDS SUMMARY | 2025-01-26 13:30 | XMS_ITS | Encounter Summary ---
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 file Not on file Not on file documented as of this encounter Plan of Treatment Upcoming Encounters Date Type Department Care Team (Late st Contact Info) Description 04/15/2025 2:00 PM EST Office Visit [facility] Neurology [address] [place] [address] Sundar Vázquez MD [address] [place] [address], 2[address] [place] [address] [email or web address] 05/06/2025 9:00 AM EST Office Visit [facility] Rheumatology [address] [place] [address] Nancy Baptiste MD [address] [place] [address], [address] [place] [address] [email or web address] documented as of this encounter Visit Diagnoses Diagnosis Foreign body in right foot, subsequent encounter- Primary documented in this encounter Care Teams School Treasurer Relationship Specialty Start Date End Date Lis Mcdonald NP [address] [place] [phone] [email or web address] PCP - General Family Medicine 01/27/22 08/15/23 Naa Colindres MD [address] [place] [address] [email or web address] PCP - General Family Medicine 08/16/23 documented as of this encounter Additional Source Comments The information contained in this document represents components of the legal health record. It is not the complete legal health record.[facility]
--- OUTSIDE RECORDS SUMMARY | 2025-01-26 13:30 | XMS_ITS | Encounter Summary ---
Author Organization [facility] Address [address] [place] [address] Phone Care Team Providers Care Sash Clamp Operator Name Role Phone Tariq Yang MD Primary Care Provider [phone] Tariq Yang MD Unavailable + Taina Patel Primary Care Provider Jo Galan Primary Care Provider [phone] Janneth Waller DO Unavailable + [phone] Tariq Yang MD Unavailable + Catalina Borden MANUFACTURING ENGINEERING TECHNICIAN Unavailable [email or web address] Brenda Gomez MD Unavailable + Unknown, Unknown Primary Care Provider Lis Lobo NP Primary Care Pro vider Tariq Yang MD Unavailable + Brenda Gomez MD Unavailable [phone] Lis Long RN Unavailable Naa Colindres MD Primary Care Provider [phone] Encounter Details Date Type Department Care Team (Late st Contact Info) Description 02/28/2018 Procedure Pass [facility], [facility] - [address] [place] [address] Social History Tobacco Use Types Packs/Day Years [...] 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 file Not on file Not on file documented as of this encounter Plan of Treatment Upcoming Encounters Date Type Department Care Team (Late st Contact Info) Description 04/15/2025 2:00 PM EST Office Visit [facility] Neurology [address] [place] [address] [place] [address] Sundar Vázquez MD [address] [place] [address], 2[address] [place] [address] 05/06/2025 9:00 AM EST Office Visit [facility] Rheumatology [address] [place] [address] [place] [address] Nancy Baptiste MD [address] [place] [address], [address] [place] [address] documented as of this encounter Visit Diagnoses Not on filedocumented in this encounter Care Teams Sash Clamp Operator Relationship Specialty Start Date End Date Tariq Yang MD [address] [place] [address] PCP - General Internal Medicine 05/30/17 06/01/18 Taina Patel PA [address] [place] [address] PCP - General Unknown Provider Specialty 06/02/18 09/19/18 Jo Galan PA [address] [place] [address] [email or web address] PCP - General 09/20/18 01/21/22 Unknown, MD Lucita PCP - General 01/22/22 01/26/22 Lis Mcdonald NP [address] [place] [address] [email or web address] PCP - General Family Medicine 01/27/22 08/15/23 Naa Colindres MD [address] [place] [address] [email or web address] PCP - General Family Medicine 08/16/23 Tariq Yang MD [address] [place] [address] [email or web address] Insurance Assigned Provider 09/17/17 10/20/19 Janneth Waller DO [address] [place], [place] [address], [place] Insurance Assigned Provider 10/20/19 03/22/20 Tariq Yang MD [address] [place] [address] [email or web address] Insurance Assigned Provider 03/22/20 10/19/20 Catalina Borden L[address] [address] [email or web address] Social Work 04/14/20 03/24/23 Brenda Gomez MD [address] [place] [address] [place] [address] [email or web address] Insurance Assigned Provider 10/19/20 06/19/22 Tariq Yang MD [address] [place] [address] [place] [address] [email or web address] Insurance Assigned Provider 06/19/22 08/28/22 Brenda Gomez MD [address] [place] [address] [place] [address] [email or web address] Insurance Assigned Provider 08/28/22 01/22/23 Lis Long, FLAVIA [address] [place] [address] [email or web address] [facility] Director Behavioral Health 11/11/22 11/28/22 documented as of this encounter Additional Source Comments The information contained in this document represents components of the legal health record. It is not the complete legal health record.[facility]
--- OUTSIDE RECORDS SUMMARY | 2025-01-26 13:30 | XMS_ITS | Clinical Summary ---
Author Organization [facility] Address [address] [address] Phone Care Team Providers Care [email or web address] Android Developer Name Role Phone Naa Colindres MD Primary [...] directed by 60 patch 04/29/20 17 Active diclofenac sodium (VOLTAREN) 1 % Gel [...] for headache. 20 tablet 05/18/19 23 Active hydrOXYzine (VISTARIL) 25 MG capsule [...] Active nicotine (NICODERM CQ) 14 mg/24 hr 08/29/19 23 Active valACYclovir (VALTREX) 500 MG [...] DAY 60 capsule 6 05/14/20 24 Active cyclobenzaprine (FLEXERIL) 10 MG tablet take [...] fill ok 15 tablet 09/19/19 25 Active Additional Information Patient taking differently:5 mg OralEvery 6 hours PRN, pain (specific location in comments), Partial fill ok, Reported on 01/03/2025 cholecalciferol (VITAMIN D3) 5,000 unit capsuleIndications :Chronic [...] at bedtime. 30 tablet 10/03/19 25 Active rizatriptan (MAXALT-LUMBER STRAIGHTENER) 10 MG disintegrating tabletIndications: Intractable migraine without aura and with status migrainosus Take 1 tablet (10 mg total) by mouth as needed for migraine. May repeat in 2 hours if needed. Do not exceed 20mg in a day. 9 tablet 10/03/19 25 Active triamcinolone acetonide 0.1 % ointment Apply topically 2 (two) times a day. 60 g 10/03/19 25 Active clindamycin (CLEOCIN T) 1 % lotion Apply topically 2 (two) times a day. APPLY TO AFFECTED AREA 60 mL 10/03/19 25 Active lidocaine 5 % ointmentIndication s:Vulvar lesion,Foreign body in right foot, initial encounter Apply to affected area 3-4 times a day as needed. 35.44 g 10/03/19 25 Active betamethasone, augmented, (DIPROLENE) 0.05 % ointment Apply topically 2 (two) times a day. Apply to inflamed lesions in armpit or groin. Use for no more than 5 days per month. 45 g 10/03/19 25 Active secukinumab (COSENTYX PEN, 2 PENS,) 150 mg/mL subcutaneous pen injection Inject 2 mL (300 mg total) under the skin every 14 (fourteen) days. 4 mL 10/03/19 Active Additional Information Patient taking differently:300 mg Subcutaneous Every 14 days,Indications: 01/03/25 on hold due to surgery, Reported on 01/03/2025 clindamycin (CLEOCIN) 300 MG capsule Take 1 capsule (300 mg total) by mouth 3 (three) times a day. 120 capsule 10/03/19 25 Active lidocaine-prilocai ne (EMLA) cream [...] HYDROcodone-acetam inophen (NORCO) 5-325 mg per tablet Take 2 tablets by mouth every 6 (six) hours as needed. 10/06/19 25 Active galcanezumab-gnlm (EMGALITY SYRINGE) 120 mg/mL subcutaneous syringeIndications :Intractable migraine without aura and with status migrainosus Inject 1 mL (120 mg total) under the skin every 30 (thirty) days. 1 mL 10/16/19 25 Active HIBICLENS 4 % external liquid APPLY TOPICALLY DAILY. USE WASH DAILY IN SHOWER ON AREAS OF LESIONS 236 mL 3 12/13/19 25 Active tiZANidine (ZANAFLEX) 4 MG tablet Take 4 mg by mouth nightly at bedtime as needed. 12/11/19 25 Active ibuprofen (ADVIL,MOTRIN) 800 MG tablet Take 800 mg by mouth 2 (two) times a day. Discontin ued(Dupli niles order) metoclopramide HCl (REGLAN) 10 MG tablet Take 1 tablet (10 mg total) by mouth 4 (four) times a day as needed (headache). 12 tablet 05/21/19 Discontin ued(No longer taking) cholecalciferol (VITAMIN D3) 5,000 unit capsule Take 1 capsule (5,000 Units total) by mouth daily. 90 capsule 1 07/27/19 Discontin ued(No longer taking) celecoxib (CELEBREX) 200 MG capsule take 1 capsule by mouth 2 times daily. Discontin ued(No longer taking) acetaminophen (TYLENOL) 650 MG CR tablet Take 650 mg by mouth every 8 (eight) hours as needed for pain (specific location in comments) (post operative ). 12/14/19 Discontin ued(No longer taking) Active Problems Problem Noted Date Diagnosed Date Use of opiates for therapeutic purposes 01/04/20 Assessment & Plan (01/03/2025 2:07 PM EDT): Take exactly as prescribed, try to limit frequency by employing non-for pharmacologic measures such as topical creams, warm packs, patches, regular relaxation/mediation/positive imagery sessions etc. Build up regular exercise routine up to the goal of 30-45 minutes daily. Monitor for increasing shortness of breath, reduced respiratory drive, increasing constipation Class 2 severe obesity due t o excess calories with serious comorbidity and body mass index (BMI) of 38.0 to 38.9 in adult 01/03/2025 Trochanteric bursitis of left hip 07/25/2024 Patchy loss of hair 07/25/2024 NSAID long-term use 07/25/2024 Assessment & Plan (01/03/2025 2:07 PM EDT): Take the lowest dose, with least frequency, for shortest time. Remember to take it always with food. Favor topical over oral preparations. Assessment & Plan (07/25/2024 3:00 PM EDT): [...] D supplementation. Fibromyalgia 09/21/2023 Assessment & Plan (01/03/2025 2:06 PM EDT): We discussed the diagnosis of [...] medications intolerances and polypharmacy. Assessment & Plan (07/25/2024 3:01 PM EDT): [...] without esophagi tis 05/31/2022 Assessment & Plan (01/03/2025 2:07 PM EDT): Avoid late, large, spicy meals. Keep headboard elevated at 45 angle for nighttime. Carefully continue sucralfate 1 tablet 4 times daily and omeprazole 20 mg daily as prescribed. Follow-up with PCP and applied exercise physiologist as scheduled Assessment & Plan (09/23/2023 7:35 AM EDT): Avoid late, large, spicy meals. Keep headboard elevated at 45 angle for nighttime. Carefully continue sucralfate 1 tablet 4 times daily and omeprazole 20 mg daily as prescribed. Follow-up with PCP and applied exercise physiologist as scheduled Assessment & Plan (06/01/2022 10:38 [...] etc. Hidradenitis suppurativa 02/08/2022 Assessment & Plan (01/03/2025 2:06 PM EDT): Continue Cosentyx 300 mg every 14 days as prescribed by treating preservative filler machine operator at [facility] & close follow-up as scheduled. Assessment & Plan (07/25/2024 3:01 PM EDT): Continue Cosentyx 300 mg every 14 days as prescribed by treating preservative filler machine operator at [facility] & close follow-up as scheduled. Assessment & Plan (09/23/2023 7:31 AM EDT): Continue Cosentyx 300 mg every 14 days as prescribed by treating preservative filler machine operator at [facility] & close follow-up as scheduled. Assessment & Plan (06/01/2022 10:38 AM EST): Continue close follow-up with treating preservative filler machine operator as scheduled. Chronic neck pain 01/22/2022 [...] right-terra ed sciatica 01/22/2022 Assessment & Plan (01/03/2025 2:06 PM EDT): Due to her reported love of swimming in her teens I suggested her warm pool therapy [facility] [place] versus [facility] versus [facility]. Due to her overwhelming headache, facial and right-sided body weakness she is afraid of continuing pool therapy worrying about possible seizure disorder. Gentle, regular core muscle strengthening exercises after warm pack or warm shower in chair or on the yoga mat Assessment & Plan (07/25/2024 3:01 PM EDT): Due to her reported love of swimming in her teens I suggested her warm pool therapy [facility] [place] versus [facility] versus [facility]. Due to her overwhelming headache, facial and [...] suggested her warm pool therapy [facility] [place] versus [facility] versus [facility]. Due to her overwhelming headache, facial and [...] suggested her warm pool therapy [facility] [place] versus [facility] versus [facility]. Due to her overwhelming headache, facial and [...] suggested her warm pool therapy [facility] [place] versus [facility] versus [facility] Intractable migraine with aura without status mi grainosus 01/22/2022 Assessment & Plan (01/03/2025 2:07 PM EDT): Continue keeping a diary of her headaches, episodes of shooting pains and accompanying/modifying factors, severity of pain, location, length of episode and her way of managing it. Continue close follow-up with neurologist as scheduled. Assessment & Plan (07/25/2024 3:01 PM EDT): [...] Vitamin D insufficiency 01/22/2022 Assessment & Plan (01/03/2025 2:06 PM EDT): Found with low vitamin D at 26 (30-60) on labs from 01/22/2022-needs vitamin D supplementation to bring it into sufficient range: 40-45 ng/ml. Assessment & Plan (07/25/2024 2:51 PM EDT): [...] free telephonic service for cigarette smoking cessation: 6-456-OYNO-NOW Assessment & Plan (09/23/2023 7:27 AM EDT): [...] free telephonic service for cigarette smoking cessation: 1-036-DLDA-NOW Assessment & Plan (06/01/2022 10:41 AM EST): [...] believe repeat screening was done at [facility] We will add her to recall list [...] of 36.0 to 36.9 in adult 01/22/2022 4 Assessment & Plan (06/01/2022 10:27 AM EST): [...] Encounters Date Type Department Care Team Description 01/04/2025 9:00 AM EDT Home Care Visit [facility] [address] [place] [address] Natali Tillman, PT PT OASIS DISCHARGE NON VISIT/TELEPHONE 01/03/2025 2:30 PM EDT Office Visit [facility] [address] [place] [address] Nancy Baptiste MD Chronic right-sided low back pain with right-sided sciatica (Primary Dx); Fibromyalgia; Vitamin D insufficiency; Hidradenitis suppurativa; Intractable migraine with aura without status migrainosus; Gastroesophageal reflux disease without esophagitis; NSAID long-term use; Use of opiates for therapeutic purposes; Tobacco dependence; Class 2 severe obesity due to excess calories with serious comorbidity and body mass index (BMI) of 38.0 to 38.9 in adult 12/31/2024 11:30 AM EDT [facility] [address] [place] [address] Natali Tillman, PT PT HOME VISIT 12/27/2024 11:30 AM EDT [facility] [address] [place] [address] Natali Tillman, PT PT HOME VISIT 12/25/2024 2:30 PM EDT Home [facility] [address] [place] [address] Natali Tillman, PT PT HOME VISIT 12/20/2024 10:00 AM EDT Home [facility] Visit [facility] [address] [place] [address] aNtali Tillman, PT PT HOME VISIT 12/18/2024 2:00 PM EDT [facility] [address] [place] [address] Natali Tillman, PT PT HOME VISIT 12/14/2024 1:00 AM EDT Home [facility] Visit [facility] [address] [place] [address] Gillian Demarco, PT PT HOME VISIT 12/13/2024 2:00 PM EDT Home Care Visit [facility] [address] [place] [phone] Gillian Demarco, PT PT OASIS START OF CARE (SOC) 12/13/2024 Plan of Care Documentation [facility] [address] [place] [phone] 12/13/2024 Home Care Visit [facility] [address] [place] [phone] Gillian Demarco, PT TELEPHONE ENCOUNTER 12/13/2024 Home Care Visit [facility] [address] [place] [phone] Gillian Demarco, PT TELEPHONE ENCOUNTER 12/12/2024 Orders Only [facility] [address] [place] [phone] Homehealth, Interface ProviderMD 12/11/2024 Refill [facility] [address] [address] Silvina Nixon MD Medication Refill 11/08/2024 Orders Only [facility] [address] [place] [address] Provider, MD Wojciech from Last 3 Months Immunizations Immunization Administration [...] Date Smoking Tobacco: Every Day Cigarettes 0.3 8.7 Started: 2016 Smokeless Tobacco: Never Alcohol Use Standard Drinks/Week Comments No 0 (1 standard drink = 0.6 oz pur e alcohol) Home Health Assessment: Transportation Answer Date Recorded Lack of Transportation (Medical) No 01/04/2025 Lack of Transportation (Non-Medical) No 01/04/2025 Patient Unable or Declines to Respond No 01/04/2025 Education Answer Date Recorded Are you interested [...] 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 file Not on file Last Filed Vital Signs Vital Sign Reading Time Taken Comments Blood Pressure 120/68 01/03/2025 2:27 PM EDT Pulse 88 01/03/2025 2:27 PM EDT Temperature 36.2 C (97.1 F) 12/14/2024 1:03 PM EDT Respiratory Rate 14 12/14/2024 1:03 PM EDT Oxygen Saturation 98% 01/03/2025 2:27 PM EDT Inhaled Oxygen Concentration - - Weight 123.8 kg (273 lb) 01/03/2025 2:27 PM EDT Height 180.3 cm (5' 11 ) 01/03/2025 2:27 PM EDT Body Mass Index 38.08 01/03/2025 2:27 PM EDT Plan of Treatment Upcoming Encounters Date Type Department Care Team (Late st Contact Info) Description 04/15/2025 2:00 PM EST Office Visit [facility] [address] [place] [address] [place] [address] Sundar Vázquez MD [address] [place] [address], [address] [place] [address] 05/06/2025 9:00 AM EST Office Visit [facility] [address] [place] [address] Nancy Baptiste MD [address] [facility], [address] [place] [address] [email or web address] Health Maintenance Due Date Last Done Comments VALPROIC ACID (DEPAKENE) LEVEL 1984 DEPRESSION SCREENING 1996 PNEUMOCOCCAL VACCINES (0-49 years) (1 of 2 - PCV) 10/17/2003 MAMMOGRAM 2024 INFLUENZA VACCINE (#1) 2024 9, 04/25/2018, 05/04/2017, Additional history exists COVID-19 VACCINE ( season) 2025 06/02/2021, 10/23/2020, 10/02/2020 PAP SMEAR 02/17/2025 02/17/2022, 06/2017, 06/17/2017 SMOKING Hx and SMOKELESS TOBACCO SCREENING 01/03/2026 01/03/2025 SCREENING FOR DIABETES 07/26/2027 07/25/2024, 2023 Adult [...] PM EDT) HCV NON-REACTIV E NON-REACTI VE [facility] Blood 08/06/2024 2:09 PM EDT 08/06/2024 2:13 PM EDT [facility] BLOOD ORDERABLE S Final Result Performing Organization Address City/State/[facility] Co de Phone Number [address] [address] * Pap Smear (02/17/2022 12:00 AM EDT) 02/17/2022 02/18/2022 9:4 8 AM EDT Narrative SEE NARRATIVE - 02/24/2022 12:53 PM EDT [address] [address] Reel Repairer: Chrystal Hartley MD LABOR[facility] Cytology Report FINAL DIAGNOSIS A. PAP SMEAR [...] 52, 56, 58, 59, 66, 68) by [place] [facility] HR-HPV analysis. Clinical correlation is advised. This HPV test was performed at [facility], [address] [place] [address]. This test has been FDA approved for [facility] cervical cytology specimens. The accuracy and precision of this test for all other specimen sources has been verified in the Cytopathology Laboratory of the [facility] and has not been cleared or approved by the U.S. Food and Drug Administration. Clinical correlation is advised. CLINICAL HISTORY Date of Last Menstrual Period: 01-31-2022 Other Clinical Conditions: Screening Pap SPECIMEN SOURCE A: PAP SMEAR (SUREPATH) CE Patient Name: WARREN VARELA : 1985 (Age: 36) Sex: F Institution: [facility] Location: [facility] Date of Collection: 02/17/2022 Date of Reported: 02/24/2022 12:53 Results to: Rinku Waterman MD Rinku Waterman MD CYTOLOGY ORDERABLES Final Result SEE NARRATIVE from Last 3 Months or Most Recently Relevant to Health Maintenance Insurance [facility] [address] [place] [address] [address] C3 ACO Advance Directives For more information, please contact: [phone] (9AM - 5PM [facility], Tuesday-Tuesday) * Full Code (Latest Code Status on File) Date Activated Date Inactivated Comments 07/28/2023 1:27 PM Question Answer Comments Code Status Confirmed With: Patient * Full Code (Presumed) Date Activated Date Inactivated Comments 09/19/2018 6:01 PM 09/20/2018 3:00 PM * Full Code (Presumed) Date Activated Date Inactivated Comments 04/25/2017 6:46 PM 04/28/2017 5:50 PM Care Teams J2Ee Android Developer Relationship Specialty Start Date End Date Naa Colindres MD [address] [place] [address] [email or web address] PCP - General Family Medicine 08/16/23 Additional Source Comments The information contained in this document represents components of the legal health record. It is not the complete legal health record.[facility]
--- OUTSIDE RECORDS SUMMARY | 2025-01-26 13:30 | XMS_ITS | Encounter Summary ---
Author Organization [employer] Address [address] [place] [address] Care Team Providers Care Color Control Supervisor Name Role Phone Naa Colindres MD Primary Care Provider [phone] [employer] Encounter Details Date Type Department Care Team (Late st Contact Info) Description 2024 Orders Only [facility] [address] [place] [address] Naa Colindres MD [address] [place] [address] Social History Tobacco Use Types Packs/Day Years [...] Description 02/16/2025 9:20 AM EDT Office Visit [facility] MEDICAL [address] [place] [address] Naa Colindres MD [address] [place] [address] 04/02/2025 10:30 AM EST Office Visit [facility] MEDICAL [address] [place] [address] Jodi Miller MD [address] [place] [address] documented as of this encounter Procedures Procedure Name Priority Date/Time Associated Diagnosis Comments XR LUMBAR SPINE COMPLETE 4+ VIEWS Routine 10/15/2024 9:58 AM EDT documented in this encounter Results * XR Lumbar Spine Complete 4+ Views (10/15/2024 9:58 AM EDT) Anatomical Region Laterality Modality Spine, L-spine Radiographic Nga ging us Naa Colindres MD IMG XR PROCEDURES Final Result documented in this encounter Visit Diagnoses Not on filedocumented in this encounter Additional Health Concerns Assessment Noted Time PHQ-9 Depression Total Score: 24 023 10:06 AM EDT documented as of this encounter Care Teams Color Control Supervisor Relationship Specialty Start Date End Date Naa Colindres MD [address] [place] [address] PCP - General Family Medicine 09/03/22 Reji Cedillo 12/12/24 12/26/24 documented as of this encounter
--- OUTSIDE RECORDS SUMMARY | 2025-01-26 13:30 | XMS_ITS | Encounter Summary ---
Author Organization [facility] Address [address] [place] [address] Phone Care Team Providers Care Financial Planning Assistant Name Role Phone Tariq Yang MD Primary Care Provider [phone] Tariq Yang MD Unavailable + Taina Patel PA Primary Care Provider Jo Galan Primary Care Provider +50 Janneth Waller DO Unavailable + 61 Tariq Yang MD Unavailable + Catalina Borden COMMERCIAL CONSTRUCTION SUPERINTENDENT Unavailable [email or web address] Brenda Gomez MD Unavailable + Unknown, Unknown Primary Care Provider Lis Lobo PATIENT ADVOCATE Primary Care Pro vider Tariq Yang MD Unavailable + Brenda Gomez MD Unavailable +03 Lis Long RN Unavailable Naa Colindres MD Primary Care Provider [phone] Encounter Details Date Type Department Care Team (Latest Contact Info) Description 10/20/2017 Ancillary Orders Virtual Department [address] [place] [address] Kendrick Piter Lenora, DO [address] [place] [address] [email or web address] Social History Tobacco Use Types Packs/Day Years [...] 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 on file Not on file Not on file documented as of this encounter Plan of Treatment Upcoming Encounters Date Type Department Care Team (Late st Contact Info) Description 04/15/2025 2:00 PM EST Office Visit [facility] Neurology [address] [place] [address] Sundar Vázquez MD [address] [place] [address], 2nd [place] [address] 05/06/2025 9:00 AM EST Office Visit [facility] Rheumatology [address] [place] [address] Nancy Baptiste MD [address] [place] [address], [address] [place] [address] documented as of this encounter Results * MRI LUMBAR SPINE (NEURO) WITHOUT CONTRAST (11/04/2017 2:19 PM EDT) Anatomical Region Laterality Modality L-spine Magnetic Resonan ce 11/04/2017 3:10 PM EDT Impressions 11/04/2017 3:19 PM EDT 1. Right subarticular disc extrusion at L4-L5. POS - [id number] Narrative 11/04/2017 3:19 PM EDT EXAM: MRI LUMBAR SPINE (NEURO) WITHOUT CONTRAST COMPARISON: Radiographs of the lumbar spine on May 30, 2017 HISTORY: MRI LUMBAR SPINE TECHNIQUE: Exam performed on a 1.5 Toshia high-field MRI scanner. Magnetic resonance imaging of the lumbar spine was performed WITHOUT injected contrast using standard department protocols. Sagittal T1, T2 and STIR, axial T1 and T2 sequences were obtained. FINDINGS: ALIGNMENT: Anatomic alignment is maintained. No anterior or posterior subluxations. VERTEBRAL BODIES: Vertebral body heights are maintained. Bone marrow signal pattern is within normal limits. INTERVERTEBRAL DISCS: Desiccation changes of L4-L5 disc without significant loss of height. Remainder discs show normal height and signal intensity. SPINAL CORD/CONUS: Included spinal cord has normal caliber and signal characteristics. The conus terminates normally at lower L1. Axial images were obtained from L2-L3 through L5-S1. Level by level analysis yields the following: L2-3: No disc herniation. No significant canal or neuroforaminal stenosis. L3-4: No disc herniation. No significant canal or neuroforaminal stenosis. L4-5: Right subarticular disc extrusion indents the anterior thecal sac and contacts the right L5 traversing nerve root. No significant canal or neuroforaminal stenosis. L5-S1: No disc herniation. No significant canal or neuroforaminal stenosis. OTHERS:Visualized portions of the retroperitoneal structures are grossly unremarkable. Posterior paraspinal soft tissues are unremarkable. Procedure Note Blanche Hart MD - 11/04/2017 EXAM: MRI LUMBAR SPINE (NEURO) WITHOUT CONTRAST COMPARISON: Radiographs of the lumbar spine on May 30, 2017 HISTORY: MRI LUMBAR SPINE TECHNIQUE: Exam performed on a 1.5 Toshia high-field MRI scanner. Magneticresonance imaging of the lumbar spine was performed WITHOUT injectedcontrast using standard department protocols. Sagittal T1, T2 and STIR,axial T1 and T2 sequences were obtained. FINDINGS: ALIGNMENT: Anatomic alignment is maintained. No anterior or posteriorsubluxations. VERTEBRAL BODIES: Vertebral body heights are maintained. Bone marrowsignal pattern is within normal limits. INTERVERTEBRAL DISCS: Desiccation changes of L4-L5 disc withoutsignificant loss of height. Remainder discs show normal height and signalintensity. SPINAL CORD/CONUS: Included spinal cord has normal caliber and signalcharacteristics. The conus terminates normally at lower L1. Axial images were obtained from L2-L3 through L5-S1. Level by levelanalysis yields the following: L2-3: No disc herniation. No significant canal or neuroforaminalstenosis. L3-4: No disc herniation. No significant canal or neuroforaminalstenosis. L4-5: Right subarticular disc extrusion indents the anterior thecal sacand contacts the right L5 traversing nerve root. No significant canal orneuroforaminal stenosis. L5-S1: No disc herniation. No significant canal or neuroforaminalstenosis. OTHERS:Visualized portions of the retroperitoneal structures are grosslyunremarkable. Posterior paraspinal soft tissues are unremarkable. IMPRESSION: 1. Right subarticular disc extrusion at L4-L5. POS - [id number] Piter Kendrick DO IMG MR XSPECIALTY Final Resu lt documented in this encounter Visit Diagnoses Diagnosis Lumbar radiculopathy Thoracic or lumbosacral neuritis or radiculitis, unspecified Lumbar radiculopathy Thoracic or lumbosacral neuritis or radiculitis, unspecified documented in this encounter Care Teams Financial Planning Assistant Relationship Specialty Start Date End Date Tariq Yang MD [address] [place] [address] PCP - General Internal Medicine 05/30/17 06/01/18 Taina Patel PA [address] [place] [address] PCP - General Unknown Provider Specialty 06/02/18 09/19/18 Jo Galan PA [address] [place] [address] [email or web address] PCP - General 09/20/18 01/21/22 Unknown, MD Lucita PCP - General 01/22/22 01/26/22 Lis Mcdonald NP [address] [place] [address] [email or web address] PCP - General Family Medicine 01/27/22 08/15/23 Naa Colindres MD [address] [place] [address] [email or web address] PCP - General Family Medicine 08/16/23 Tariq Yang MD [address] [place] [address] [email or web address] Insurance Assigned Provider 09/17/17 10/20/19 Janneth Waller DO [address] [place] [address] [place] [address] Insurance Assigned Provider 10/20/19 03/22/20 Tariq Yang MD [address] [place] [address] [email or web address] Insurance Assigned Provider 03/22/20 10/19/20 Catalina Borden, [address] [address] [email or web address] [facility] Social Work 04/14/20 03/24/23 Brenda Gomez MD [address] [place] [address] [place] [address] [email or web address] Insurance Assigned Provider 10/19/20 06/19/22 Tariq Yang MD [address] [place] [address] [email or web address] Insurance Assigned Provider 06/19/22 08/28/22 Brenda Gomez MD [address] [place], [place] [address] [address] [email or web address] Insurance Assigned Provider 08/28/22 01/22/23 Lis Long RN [address] [place] [address] [email or web address] Representative 11/11/22 11/28/22 documented as of this encounter Additional Source Comments The information contained in this document represents components of the legal health record. It is not the complete legal health record.[facility]
--- OUTSIDE RECORDS SUMMARY | 2025-01-26 13:30 | XMS_ITS | Encounter Summary ---
Author Organization [employer] Address [address] [place] [address] Care Team Providers Care Model And Mold Maker Name Role Phone Naa Colindres MD Primary Care Provider [phone] [employer] Encounter Details Date Type Department Care Team (Late st Contact Info) Description 04/20/2023 Orders Only [facility] [address] [place] [address] Naa Colindres MD [address] [place] [address] Social History Tobacco Use Types Packs/Day Years [...] Description 02/16/2025 9:20 AM EDT Office Visit [facility] MEDICAL [address] [place] [address] Naa Colindres MD [address] [place] [address] 04/02/2025 10:30 AM EST Office Visit [facility] MEDICAL [address] [place] [address] Jodi Miller MD [address] [place] [address] documented as of this encounter Procedures Procedure Name Priority Date/Time Associated Diagnosis Comments SURESWAB(R), VAGINOSIS/VAGINITIS PLUS Routine 06/23/2023 5:08 PM EST URINALYSIS, COMPLETE, WITH REFLEX TO CULTURE Routine 06/22/2023 2:[address] ABDOMEN PELVIS W CONTRAST Routine 04/03/2023 XR FOOT 3+ VIEWS RIGHT Routine 04/03/2023 documented in this encounter Results * SureSwab??, Vaginosis/Vaginitis Plus (06/23/2023 5:08 PM EST) Bacterial Vaginosis NEGATIVE (NEG) [facility] Comment: No bacterial vaginosis targets by PCR detected in this patient's sample. Note: This assay uses real time finisher fiberglass boat parts-mediated amplification (TMA) for detection and quantification of ribosomal RNA from bacteria associated with bacterial vaginosis (BV), including Lactobacillus (L. gasseri, L. crispatus, and L. jensenii), Gardnerella vaginalis, and Atopobium vaginae. Gato Species Group NEGATIVE (NEG) [facility] Comment: No gato species group (C. albicans, C. tropicalis, C. parapsilosis, C. dubliniensis) targets by PCR detected in this patient's sample. Gato Glabrata NEGATIVE (NEG) [facility] Comment:No Gato glabrata targets by PCR detected in this patient's sample. Trichomonas Vaginalis NEGATIVE (NEG) [facility] Comment: No Trichomonas vaginalis targets by PCR detected in this patient's sample. Note: This assay uses real time finisher fiberglass boat parts-mediated amplification (TMA) for detection and quantification of ribosomal RNA from organisms associated with Gato species group (C. albicans, C. tropicalis, C. parapsilosis, C. dubliniensis), Gato glabrata, and Trichomonas vaginalis. C.Trachomatis Amp Probe NEGATIVE (NEG) [facility] Comment: No Chlamydia Trachomatis RNA detected in this patient's sample (REFERENCE RANGE/NORMAL VALUE: NOT DETECTED) Note: This test uses finisher fiberglass boat parts- mediated amplification method to detect rRNA from C. Trachomatis N.Gonorrhoeae Amp Probe NEGATIVE (NEG) [facility] Comment: No Neisseria Gonorrhoeae RNA detected in this patient's sample (REFERENCE RANGE/NORMAL VALUE: NOT DETECTED) NOTE: This test uses finisher fiberglass boat parts-mediated amplification method to detect rRNA from N.Gonorrhoeae. A negative result does not preclude infection. In the case of a negative urine result, testing of an endocervical(female) or urethral (male) specimen is recommended if there is high clinical suspicion of infection. Due to very high sensitivity of Nucleic Acid Amplification Test, false positive results may occur. Therefore, specimen handling is extremely important. In patients in whom the disease is unlikely, additional sample for testing should be considered after an initial positive result. The performance characteristics of this test have not been evaluated in children. The Aptima Combo2 assay is not intended for the evaluation of suspected sexual abuse or for other medico-legal indications. The ordering provider should assess if the patient had consensual sex without risk of sexual abuse. Consult the [facility] if needed. Contact phone number . Therapeutic failure or success cannot be determined with the Aptima Combo2 assay since nucleic acid may persist following appropriate antimicrobial therapy. The Centers for Disease Control and Prevention (CDC) recommends confirmatory retesting using culture or a different nucleic acid amplification test when positive results occur, if indicated. Testing performed or reported by [facility], a Service of [facility], [address] [place] [address] [place] [address] Ulysses Cordova MD, Pocket Assembler CLIA# [id number] 06/23/2023 5:08 PM EST 06/23/2023 7:14 PM EST [facility] BODY FLUIDS AND STOOL S ORDERABLES Final Result [facility] [address] [place] [address] * Urinalysis, Complete, with Reflex to Culture (06/22/2023 2:28 PM EST) Appear/Color LIGHT YELLOW [facility] Comment:CLEAR Sp. [place] 1.021 (1.002-1. 030) [facility] Urine PH 5.5 (5.0-8.0) [facility] Urine Albumin NEGATIVE (NEG) [facility] Urine Glucose NEGATIVE (NEG) [facility] Urine Ketones [facility]GATIVE (NEG) [facility] Urine Bilirubin NEGATIVE (NEG) [facility] Urine Hemoglobn NEGATIVE (NEG) [facility] Urine Nitrite NEGATIVE (NEG) [facility] Urine Leukocyte NEGATIVE (NEG) [facility] Urobilinogen NORMAL (NORM) MG/DL [facility] Urine WBCs 1 (0-5) /HPF [facility] Urine RBCs 1 (0-3) /HPF [facility] Mucus SLIGHT /LPF [facility] Squamous Epith 3 (0-8) /HPF [facility] Clarity CLEAR (CLEAR) [facility] Culture Indication CULTURE NOT INDICATED [facility] Comment: Testing performed or reported by [facility], a Service of [facility], [address] [place] [address] Ulysses Cordova MD, Pocket Assembler CLIA# [id number] 06/22/2023 2:28 PM EST 06/22/2023 2:30 PM EST [facility] URINE ORDERABLES Priscilla l Result [facility] [address] [place] [address] * XR Foot 3+ Views Right (04/03/2023) Anatomical Region Laterality Modality Lower Extremities, Foot Right Radiogra phic Imaging Naa Colindres MD IMG XR PROCEDURES Edited Resul t - Final * CT Abdomen Pelvis w/ Contrast (04/03/2023) Anatomical Region Laterality Modality Body, Pelvis, Abdomen Computed T omography Naa Colindres MD IMG CT PROCEDURES Final Result documented in this encounter Visit Diagnoses Not on filedocumented in this encounter Additional Health Concerns Assessment Noted Time PHQ-9 Depression Total Score: 24 023 10:06 AM EDT documented as of this encounter Care Teams Model And Mold Maker Relationship Specialty Start Date End Date Naa Colindres MD [address] [place] [address] PCP - General Family Medicine 09/03/22 Reji Cedillo 12/12/24 12/26/24 documented as of this encounter
--- OUTSIDE RECORDS SUMMARY | 2025-01-26 13:30 | XMS_ITS | Encounter Summary ---
Author Organization [facility] Address [address] [place] [phone] Phone Care Team Providers Care Scenic Arts Supervisor Name Role Phone Tariq Yang MD Primary Care Provider [phone] Tariq Yang MD Unavailable + Taina Patel Primary Care Provider Jo Galan Primary Care Provider +76 Janneth Waller DO Unavailable + 25 Tariq Yang MD Unavailable + Catalina Borden TOURIST AGENT Unavailable [email or web address] Brenda Gomez MD Unavailable + Unknown, Unknown Primary Care Provider Lis Lobo NP Primary Care Pro vider Tariq Yang MD Unavailable + Brenda Gomez MD Unavailable +26 Lis Long RN Unavailable Naa Colindres MD Primary Care Provider [phone] Encounter Details Date Type Department Care Team (Late st Contact Info) Description 10/20/2017 Procedure Pass [facility], [facility] - [address] [place] [address] Social History Tobacco Use Types Packs/Day Years [...] 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 file Not on file Not on file documented as of this encounter Plan of Treatment Upcoming Encounters Date Type Department Care Team (Late st Contact Info) Description 04/15/2025 2:00 PM EST Office Visit [facility] Neurology [address] [place] [address] [place] [address] Sundar Vázquez MD [address] [place] [address], 2nd [place] [address] 05/06/2025 9:00 AM EST Office Visit [facility] Rheumatology [address] [place] [address] [place] [address] Nancy Baptiste MD [address] [place] [address], [address] [place] [address] documented as of this encounter Visit Diagnoses Not on filedocumented in this encounter Care Teams Scenic Arts Supervisor Relationship Specialty Start Date End Date Tariq Yang MD [address] [place] [address] PCP - General Internal Medicine 05/30/17 06/01/18 Taina Patel PA [address] [place] [address] PCP - General Unknown Provider Specialty 06/02/18 09/19/18 Jo Galan PA [address] [place] [address] [email or web address] PCP - General 09/20/18 01/21/22 Unknown, MD Lucita PCP - General 01/22/22 01/26/22 Lis Mcdonald NP [address] [place] [address] [email or web address] PCP - General Family Medicine 01/27/22 08/15/23 Naa Colindres MD [address] [place] [address] [email or web address] PCP - General Family Medicine 08/16/23 Tariq Yang MD [address] [place] [address] [email or web address] Insurance Assigned Provider 09/17/17 10/20/19 Janneth Waller DO [address] [place], [place] [address], [place] Insurance Assigned Provider 10/20/19 03/22/20 Tariq Yang MD [address] [place] [address] [email or web address] Insurance Assigned Provider 03/22/20 10/19/20 Catalina Borden [address] [address] [email or web address] Social Work 04/14/20 03/24/23 Brenda Gomez MD [address] [place] [address] [place] [address] [email or web address] Insurance Assigned Provider 10/19/20 06/19/22 Tariq Yang MD [address] [place] [address] [place] [address] [email or web address] Insurance Assigned Provider 06/19/22 08/28/22 Brenda Gomez MD [address] [place] [address] [place] [address] [email or web address] Insurance Assigned Provider 08/28/22 01/22/23 Lis Long, FLAVIA [address] [place] [address] [email or web address] [facility] Consolidator 11/11/22 11/28/22 documented as of this encounter Additional Source Comments The information contained in this document represents components of the legal health record. It is not the complete legal health record.[facility]
--- OUTSIDE RECORDS SUMMARY | 2025-01-26 13:30 | XMS_ITS | Encounter Summary ---
Author Organization [facility] Address [address] [place] [address] Phone Care Team Providers Care Electrical Continuity Inspector Name Role Phone Marciacarlos Catalina Masood ORNAMENT STITCHER Unavailable [email or web address] Lis Mcdonald NP Primary Care Pro vider Brenda Gomez MD Unavailable [phone] Naa Colindres MD Primary Care Provider [phone] Encounter Details Date Type Department Care Team (Latest Contact Info) Description 01/06/2023 Transcribe Orders Virtual Department [address] [place] [address] Piter Kendrick, DO [address] [place] [address] [email or web address] Right shoulder pain, unspecified chronicity (Primary Dx) Social History Tobacco Use Types [...] 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 Not on file Not on file documented as of this encounter Plan of Treatment Upcoming Encounters Date Type Department Care Team (Late st Contact Info) Description 04/15/2025 2:00 PM EST [facility] Visit [facility] Neurology [address] [place] [address] [place] [address] Sundar Vázquez MD [address] [place] [address], 2nd [place] [address] 05/06/2025 9:00 AM EST Office Visit [facility] Rheumatology [address] [place] [address] [place] [address] Nancy Baptiste MD [address] [place] [address], [address] [place] [address] documented as of this encounter Results * XR SHOULDER 2 VIEWS (RIGHT) (02/02/2023 8:18 AM EDT) Anatomical Region Laterality Modality Shoulder Right Computed Radiogr aphy 02/05/2023 1:21 AM EDT Impressions 02/05/2023 1:22 AM EDT Mild glenohumeral joint space narrowing with marginal spurring. Narrative 02/05/2023 1:22 AM EDT XR SHOULDER 2 OR MORE VIEWS (RIGHT) COMPARISON: None FINDINGS: BONE: No acute fracture or dislocation. GLENOHUMERAL JOINT: Mild joint space narrowing. ACROMIOCLAVICULAR JOINT: Joint spaces preserved. OTHER: Partially visualized cervical spine degenerative change. Procedure Note Sha Shelton MD - 02/05/2023 XR SHOULDER 2 OR MORE VIEWS (RIGHT) COMPARISON: None FINDINGS: BONE: No acute fracture or dislocation. GLENOHUMERAL JOINT: Mild joint space narrowing. ACROMIOCLAVICULAR JOINT: Joint spaces preserved. OTHER: Partially visualized cervical spine degenerative change. IMPRESSION: Mild glenohumeral joint space narrowing with marginal spurring. Piter Kendrick DO IMG XR UPPER EXTREMITY Final Result documented in this encounter Visit Diagnoses Diagnosis Right shoulder pain, unspecified chronicity- Primary documented in this encounter Care Teams Electrical Continuity Inspector Relationship Specialty Start Date End Date Lis Mcdonald NP [address] [place] [phone] [email or web address] PCP - General Family Medicine 01/27/22 08/15/23 Naa Colindres MD [address] [place] [address] PCP - General Family Medicine 08/16/23 Catalina Borden, [address] [address] [employer] Social Work 04/14/20 03/24/23 Brenda Gomez MD [address] [place] [address] [place] [address] [email or web address] Assigned Provider 08/28/22 01/22/23 documented as of this encounter Additional Source Comments The information contained in this document represents components of the legal health record. It is not the complete legal health record.[facility]
--- OUTSIDE RECORDS SUMMARY | 2025-01-26 13:30 | XMS_ITS | Encounter Summary ---
Author Organization [facility], Address [address] [place] [address] Phone Care Team Providers Care Operations Specialists Name Role Phone Naa Colindres MD Primary Care Provider [phone] Encounter Details Date Type Department Care Team (Late st Contact Info) Description 12/09/2022 Documentation Only [facility], [facility] Megan [address] [facility] [address] [place] [address] Jeffery Tyler MD [address] [place] [address] [place] [phone] Social History Tobacco Use Types Packs/Day Years [...] on filedocumented in this encounter Care Teams Operations Specialists Relationship Specialty Start Date End Date Naa Colindres MD [address] [place] [address] PCP - General Family Medicine 03/17/23 documented as of this encounter
--- OUTSIDE RECORDS SUMMARY | 2025-01-26 13:30 | XMS_ITS | Encounter Summary ---
Author Organization [facility], Address [address] [place] [address] Phone Care Team Providers Care Warehouse Lead Name Role Phone Naa Colindres MD Primary Care Provider [phone] Encounter Details Date Type Department Care Team (Late st Contact Info) Description 12/09/2022 Documentation Only [facility], [facility] Megan [address] [facility] [address] [place] [address] Jeffery Tyler MD [address] [place] [address] [place] [id number] Social History Tobacco Use Types Packs/Day Years [...] on filedocumented in this encounter Care Teams Warehouse Lead Relationship Specialty Start Date End Date Naa Colindres MD [address] [place] [address] PCP - General Family Medicine 03/17/23 documented as of this encounter
--- OUTSIDE RECORDS SUMMARY | 2025-01-26 13:31 | XMS_ITS | Encounter Summary ---
Author Organization [facility] Address [address] [place] [address] Phone Care Team Providers Care Director Of Acquisitions Name Role Phone Jo Galan Primary Care Provider [phone] Tariq Yang MD Unavailable +[phone] Catalina Borden BLEACHING SUPERVISOR Unavailable [email or web address] Brenda Gomez MD Unavailable [phone] Unknown, Unknown Primary Care Provider Lis Lobo NP Primary Care Pro vider Tariq Yang MD Unavailable +[phone] Brenda Gomez MD Unavailable [phone] Lis Long RN Unavailable Naa Colindres MD Primary Care Provider + [phone] Encounter Details Date Type Department Care Team (Late st Contact Info) Description 06/16/2020 Ancillary Orders Virtual Department [address] [place] [address] Milena Armendariz NP [address] [place] [phone] [email or web address] Pain in thoracic spine; Cervicalgia Social History Tobacco Use Types Packs/Day [...] 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 Neurology [address] [place] [address] [place] [address] Sundar Vázquez MD [address] [place] [address], 2nd [place] [address] [email or web address] 05/06/2025 9:00 AM EST Office Visit [facility] Rheumatology [address] [place] [address] [place] [address] Nancy Baptiste MD [address] [place] [address], [address] [place] [address] [email or web address] documented as of this encounter Results * XR THORACIC SPINE 3 VIEW (07/14/2020 3:46 PM EST) Anatomical Region Laterality Modality T-spine Computed Radiogr aphy 07/14/2020 3:57 PM EST Impressions 07/14/2020 4:00 PM EST Minor scoliosis with trace spurring. No compression deformity or other source of pain detected. Narrative 07/14/2020 4:00 PM EST AP, lateral, and swimmer's views of the thoracic spine obtained. Despite swimmer's view the cervicothoracic junction is not well seen in lateral projection but appears unremarkable in AP projection. There is some mild scoliosis convex left apex T4- 5 disc space. No prominent spurring with some minor mid to lower thoracic spurring present. No compression deformity. No bony destructive lesions or paraspinous soft tissue swelling suggested. Procedure Note Miquel Ribeiro MD - 07/14/2020 AP, lateral, and swimmer's views of the thoracic spine obtained. Despiteswimmer's view the cervicothoracic junction is not well seen in lateralprojection but appears unremarkable in AP projection. There is some mildscoliosis convex left apex T4-5 disc space. No prominent spurring withsome minor mid to lower thoracic spurring present. No compressiondeformity. No bony destructive lesions or paraspinous soft tissue swellingsuggested. IMPRESSION: Minor scoliosis with trace spurring. No compression deformity or othersource of pain detected. us Milena Armendariz SERGING MACHINE OPERATOR AUTOMATIC IMG XR SPINE Final Result * XR CERVICAL SPINE 4-5 VIEWS (07/14/2020 3:45 PM EST) Anatomical Region Laterality Modality C-spine Computed Radiogr aphy 07/14/2020 3:48 PM EST Impressions 07/14/2020 3:57 PM EST No specific source of the pain is detected. Narrative 07/14/2020 3:57 PM EST Cervical spine 5 views. Compared May 30, 2017. Vertebral body height and alignment appear maintained. No progressive disc height loss. The lordosis is more accentuated than on prior study. No scoliosis. C1-2 alignment preserved. No significant hypertrophic changes of facets. Neuroforamina appear patent. C1-2 alignment appears preserved in density appears intact. Procedure Note Miquel Ribeiro MD - 07/14/2020 Cervical spine 5 views. Compared May 30, 2017. Vertebral body heightand alignment appear maintained. No progressive disc height loss. Thelordosis is more accentuated than on prior study. No scoliosis. C1-2alignment preserved. No significant hypertrophic changes of facets.Neuroforamina appear patent. C1-2 alignment appears preserved in densityappears intact. IMPRESSION: No specific source of the pain is detected. us Milena Sanz Kala SERGING MACHINE OPERATOR AUTOMATIC IMG XR SPINE Final Result documented in this encounter Visit Diagnoses Diagnosis Pain in thoracic spine Cervicalgia Cervicalgia Pain in thoracic spine documented in this encounter Care Teams Director Of Acquisitions Relationship Specialty Start Date End Date Jo Galan PA [address] [place] [address] [email or web address] PCP - General 09/20/18 01/21/22 Unknown, Lucita, PCP - General 01/22/22 01/26/22 Lis Mcdonald NP [address] [place] [address] [email or web address] PCP - General Family Medicine 01/27/22 08/15/23 Naa Colindres MD [address] [place] [address] PCP - General Family Medicine 08/16/23 Tariq Yang MD [address] [place] [phone] Insurance Assigned Provider 03/22/20 10/19/20 Catalina Borden, BLEACHING SUPERVISOR [address] [place] [address] [employer] Social Work 04/14/20 03/24/23 Brenda Gomez MD [address] [place] [address] [place]. [place], [place] [email or web address] Insurance Assigned Provider 10/19/20 06/19/22 Tariq Yang MD [address] [place] [address] [place] [address] Insurance Assigned Provider 06/19/22 08/28/22 Brenda Gomez MD [address] [place] [address] [place] [address] [email or web address] Assigned Provider 08/28/22 01/22/23 Lis Long RN [address] [place] [address] iC[employer] Physical Optics Teacher 11/11/22 11/28/22 documented as of this encounter Additional Source Comments The information contained in this document represents components of the legal health record. It is not the complete legal health record.[facility]
--- OUTSIDE RECORDS SUMMARY | 2025-01-26 13:31 | XMS_ITS | Encounter Summary ---
Author Organization [facility] Address [address] [place] [address] Phone Care Team Providers Care Bottle Gauger Name Role Phone Jo Galan Primary Care Provider [phone] Tariq Yang MD Unavailable +[phone] Catalina Borden COMPUTER VIDEO GAME DESIGNER Unavailable dadalabar Brenda Gomez MD Unavailable [phone] Unknown, Unknown Primary Care Provider Lis Lobo PIPELINE EXECUTIVE Primary Care Pro vider Tariq Yang MD Unavailable +[phone] Brenda Gomez MD Unavailable [phone] Lis Long RN Unavailable Naa Colindres MD Primary Care Provider + [phone] Encounter Details Date Type Department Care Team (Latest Contact Info) Description 07/31/2020 Ancillary Orders Virtual Department 30 [place] [address] Piter Kendrick DO [address] [place] [address] [email or web address] Cervical radiculopathy Social History Tobacco Use Types Packs/Day [...] 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 Not on file Not on file documented as of this encounter Plan of Treatment Upcoming Encounters Date Type Department Care Team (Late st Contact Info) Description 04/15/2025 2:00 PM EST Office Visit [facility] Neurology [address] [place] [address] Sundar Vázquez MD [address] [place] [address], 2nd [place] [address] [email or web address] 05/06/2025 9:00 AM EST Office Visit [facility] Rheumatology [address] [place] [address] Nancy Baptiste MD [address] [place] [address], [address] [place] [address] [email or web address] documented as of this encounter Visit Diagnoses Diagnosis Cervical radiculopathy Brachial neuritis or radiculitis nos documented in this encounter Care Teams Bottle Gauger Relationship Specialty Start Date End Date Jo Galan PA [address] [place] [address] [email or web address] PCP - General 09/20/18 01/21/22 Unknown, Lucita, PCP - General 01/22/22 01/26/22 Lis Mcdonald NP [address] [place] [address] [place] [address] [email or web address] PCP - General Family Medicine 01/27/22 08/15/23 Naa Colindres MD [address] [place] [address] [email or web address] PCP - General Family Medicine 08/16/23 Tariq Yang MD [address] [place] [address] [email or web address] Insurance Assigned Provider 03/22/20 10/19/20 Catalina Borden LCSW [address] [place] [address] iCMP Social Work 04/14/20 03/24/23 Brenda Gomez MD [address] [place] [address] [place] [address] [email or web address] Insurance Assigned Provider 10/19/20 06/19/22 Tariq Yang MD [address] [place] [address] [email or web address] Insurance Assigned Provider 06/19/22 08/28/22 Brenda Gomez MD [address] [place] [address] [place] [address] [email or web address] Insurance Assigned Provider 08/28/22 01/22/23 Lis Long, RN [address] [place] [address] iCMP Compounding Scaler 11/11/22 11/28/22 documented as of this encounter Additional Source Comments The information contained in this document represents components of the legal health record. It is not the complete legal health record.[facility]
--- OUTSIDE RECORDS SUMMARY | 2025-01-26 13:31 | XMS_ITS | Encounter Summary ---
Author Organization [facility] Address [address] [place] [address] Phone Care Team Providers Care Licensed Occupational Therapy Assistant Name Role Phone Jo Galan Primary Care Provider [phone] Tariq Yang MD Unavailable +[phone] Catalina Borden ADMISSION LIAISON Unavailable dadalabar Brenda Gomez MD Unavailable [phone] Unknown, Unknown Primary Care Provider Lis Lobo WINDOWS ADMINISTRATOR Primary Care Pro vider Tariq Yang MD Unavailable +[phone] Brenda Gomez MD Unavailable [phone] Lis Long RN Unavailable Naa Colindres MD Primary Care Provider + [phone] Encounter Details Date Type Department Care Team (Latest Contact Info) Description 07/30/2020 Ancillary Orders Virtual Department [address] [place] [address] Piter Kendrick, DO [address] [place] [address] [email or web address] Cervical radiculitis; Lumbar radiculopathy Social History Tobacco Use Types [...] 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 Not on file Not on file documented as of this encounter Plan of Treatment Upcoming Encounters Date Type Department Care Team (Late st Contact Info) Description 04/15/2025 2:00 PM EST Office Visit [facility] Neurology [address] [place] [address] [place] [address] Sundar Vázquez MD [address] [place] [address], 2[address] [place] [address] [email or web address] 05/06/2025 9:00 AM EST Office Visit [facility] Rheumatology [address] [place] [address] [place] [address] Nancy Baptiste MD [address] [place] [address], [address] [place] [address] [email or web address] documented as of this encounter Visit Diagnoses Diagnosis Cervical radiculitis Brachial neuritis or radiculitis nos Lumbar radiculopathy Thoracic or lumbosacral neuritis or radiculitis, unspecified documented in this encounter Care Teams Licensed Occupational Therapy Assistant Relationship Specialty Start Date End Date Jo Galan PA [address] [place] [address] [email or web address] PCP - General 09/20/18 01/21/22 Unknown, Lucita, PCP - General 01/22/22 01/26/22 Lis Mcdonald JUSTINE [address] [place] [address] [email or web address] PCP - General Family Medicine 01/27/22 08/15/23 Naa Colindres MD [address] [place] [address] [email or web address] PCP - General Family Medicine 08/16/23 Tariq Yang MD [address] [place] [address] [email or web address] Insurance Assigned Provider 03/22/20 10/19/20 Catalina Borden LCSW [address] [place] [phone] [email or web address] iCMP Social Work 04/14/20 03/24/23 Brenda Gomez MD [address] [place] [address] [place] [address] [email or web address] Insurance Assigned Provider 10/19/20 06/19/22 Tariq Yang MD [address] [place] [address] [email or web address] Insurance Assigned Provider 06/19/22 08/28/22 Brenda Gomez MD [address] [place] [address] [place] [address] [email or web address] Insurance Assigned Provider 08/28/22 01/22/23 Lis Long RN [address] [place] [address] [email or web address] iCMP Software Engineering Manager 11/11/22 11/28/22 documented as of this encounter Additional Source Comments The information contained in this document represents components of the legal health record. It is not the complete legal health record.[facility]
--- OUTSIDE RECORDS SUMMARY | 2025-01-26 13:31 | XMS_ITS | Encounter Summary ---
Author Organization [facility] Address [address] [place] [address] Phone Care Team Providers Care Automation Sales Manager Name Role Phone Jo Galan Primary Care Provider [phone] Tariq Yang MD Unavailable +20 Catalina Borden ENTRY WRITER Unavailable dadalabtiffany Brenda Gomez MD Unavailable [phone] Unknown, Unknown Primary Care Provider Lis Lobo SERVICES CLERK Primary Care Pro vider Tariq Yang MD Unavailable +58 Brenda Gomez MD Unavailable [phone] Lis Long RN Unavailable Naa Colindres MD Primary Care Provider + [phone] Encounter Details Date Type Department Care Team (Late st Contact Info) Description 09/18/2020 Transcribe Orders [facility] [address] [place] [address] Brenda Gomez MD [address] [place], [place] [email or web address] Social History Tobacco Use Types Packs/Day Years [...] 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 Not on file Not on file documented as of this encounter Plan of Treatment Upcoming Encounters Date Type Department Care Team (Late st Contact Info) Description 04/15/2025 2:00 PM EST Office Visit [facility] Neurology [address] [place] [address] [place] [address] Sundar Vázquez MD [address] [place] [address], 2[address] [place] [address] [email or web address] 05/06/2025 9:00 AM EST Office Visit [facility] Rheumatology [address] [place] [address] [place] [address] Nancy Baptiste MD [address] [place] [address], [address] [place] [address] [email or web address] documented as of this encounter Visit Diagnoses Not on filedocumented in this encounter Care Teams Automation Sales Manager Relationship Specialty Start Date End Date Jo Galan PA [address] [place] [address] [email or web address] PCP - General 09/20/18 01/21/22 Unknown, Lucita, PCP - General 01/22/22 01/26/22 Lis Mcdonald NP [address] [place] [address] [place] [address] [email or web address] PCP - General Family Medicine 01/27/22 08/15/23 Naa Colindres MD [address] [place] [address] PCP - General Family Medicine 08/16/23 Tariq Yang MD [address] [place] [address] [email or web address] Insurance Assigned Provider 03/22/20 10/19/20 Catalina Borden LCSW [address] [place] [phone] iCMP Social Work 04/14/20 03/24/23 Brenda Gomez MD [address] [place] [address] [place] [address] [email or web address] Insurance Assigned Provider 10/19/20 06/19/22 Tariq Yang MD [address] [place] [address] [email or web address] Insurance Assigned Provider 06/19/22 08/28/22 Brenda Gomez MD [address] [place] [address] [place] [address] [email or web address] Insurance Assigned Provider 08/28/22 01/22/23 Lis Long, RN [address] [place] [address] iC[employer] Offshore Wind Operations Manager 6/29/23 7/16/23 documented as of this encounter Additional Source Comments The information contained in this document represents components of the legal health record. It is not the complete legal health record.[facility]
--- OUTSIDE RECORDS SUMMARY | 2025-01-26 13:31 | XMS_ITS | Encounter Summary ---
Author Organization [facility] Address [address] [place] [address] Phone Care Team Providers Care Tufter Operator Name Role Phone Tariq Yang MD Primary Care Provider [phone] Tariq Yang MD Unavailable + Taina Patel PA Primary Care Provider Jo Galan Primary Care Provider [phone] Janneth Waller DO Unavailable + [phone] Tariq Yang MD Unavailable + Catalina Borden PARK LANDSCAPE ARCHITECT Unavailable [email or web address] Brenda Gomez MD Unavailable + Unknown, Unknown Primary Care Provider Lis Lobo NP Primary Care Pro vider Tariq Yang MD Unavailable + Brenda Gomez MD Unavailable +[phone] Lis Long RN Unavailable Naa Colindres MD Primary Care Provider [phone] Encounter Details Date Type Department Care Team (Late st Contact Info) Description 02/28/2018 Ancillary Orders Virtual Department [address] [place] [address] Kendrick Piter C, DO [address] [place] [address] [email or web address] Neck pain; Paresthesia; Gait instability; Difficulty walking Social History Tobacco Use Types Packs/Day Years [...] 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 Not on file Not on file documented as of this encounter Plan of Treatment Upcoming Encounters Date Type Department Care Team (Late st Contact Info) Description 04/15/2025 2:00 PM EST Office Visit [facility] Neurology [address] [place] [address] Sundar Vázquez MD [address] [place] [address], 2nd [place] [address] 05/06/2025 9:00 AM EST Office Visit [facility] Rheumatology [address] [place] [address] [place] [address] Nancy Baptiste MD [address] [place] [address], [address] [place] [address] documented as of this encounter Results * MRI CERVICAL SPINE (NEURO) FOCUS WITHOUT CONTRAST (04/20/2018 10:51 AM EST) Anatomical Region Laterality Modality C-spine Magnetic Resonan ce 04/20/2018 12:0 6 PM EST Impressions 04/21/2018 10:24 PM EST Multilevel mild predominantly bony degenerative changes. No evidence of nerve impingement. No high-grade spinal canal stenosis. POS - [id number] Edited by: Lashay Barr on 04/20/2018 1:17 PM Narrative 04/21/2018 10:24 PM EST HISTORY: See above. COMPARISON: None CORRELATION: Radiography 05/30/2017 TECHNIQUE: Exam performed on a 1.5 Toshia high-field MRI scanner. Sagittal T1, T2 and STIR, axial T2* gradient echo and 3-D bright fluid sequences were obtained. FINDINGS: Exam mildly limited by motion artifact. No definite cord signal abnormality. No compression deformities. No bone marrow changes suspicious for infection or malignancy. Chronic straightening of the normal cervical lordosis. Stable posterior inclination and irregularity of the tip of the odontoid. Atlantoaxial distance is within normal limits. Mild synovial hypertrophy results in posterior bulging of the transverse ligament without mass effect on the cord or high-grade narrowing of the foramen magnum. C2-3: No significant disc bulging, neural foraminal narrowing, or spinal canal stenosis. C3-4: No significant disc bulging, neural foraminal narrowing, or spinal canal stenosis. Mild facet arthropathy on the left. C4-5: No significant disc bulging. Minimal bilateral uncovertebral spurring and mild bilateral facet arthropathy. No significant neural foraminal narrowing or spinal canal stenosis. C5-6: No significant disc bulging. Mild bilateral uncovertebral spurring and mild to moderate right and mild left facet arthropathy. No significant neural foraminal narrowing or spinal canal stenosis. C6-7: Minimal disc bulging. Mild bilateral uncovertebral spurring and mild bilateral facet arthropathy. No significant neural foraminal narrowing or spinal canal stenosis. C7-T1: No significant disc bulging. Mild facet arthropathy. No significant neural foraminal narrowing or spinal canal stenosis. Hypertrophy of the adenoid tissues where there are tiny bright T2 signal areas which could represent retention cysts. Hypertrophy of the soft palate results in narrowing of the nasopharyngeal airway. Procedure Note Lc Sweeney MD - 04/21/2018 HISTORY: See above. COMPARISON: None CORRELATION: Radiography 05/30/2017 TECHNIQUE: Exam performed on a 1.5 Toshia high-field MRI scanner. SagittalT1, T2 and STIR, axial T2* gradient echo and 3-D bright fluid sequenceswere obtained. FINDINGS: Exam mildly limited by motion artifact. No definite cord signal abnormality. No compression deformities. No bonemarrow changes suspicious for infection or malignancy. Chronicstraightening of the normal cervical lordosis. Stable posterior inclination and irregularity of the tip of the odontoid.Atlantoaxial distance is within normal limits. Mild synovial hypertrophyresults in posterior bulging of the transverse ligament without masseffect on the cord or high-grade narrowing of the foramen magnum. C2-3: No significant disc bulging, neural foraminal narrowing, or spinalcanal stenosis. C3-4: No significant disc bulging, neural foraminal narrowing, or spinalcanal stenosis. Mild facet arthropathy on the left. C4-5: No significant disc bulging. Minimal bilateral uncovertebralspurring and mild bilateral facet arthropathy. No significant neuralforaminal narrowing or spinal canal stenosis. C5-6: No significant disc bulging. Mild bilateral uncovertebral spurringand mild to moderate right and mild left facet arthropathy. Nosignificant neural foraminal narrowing or spinal canal stenosis. C6-7: Minimal disc bulging. Mild bilateral uncovertebral spurring andmild bilateral facet arthropathy. No significant neural foraminalnarrowing or spinal canal stenosis. C7-T1: No significant disc bulging. Mild facet arthropathy. Nosignificant neural foraminal narrowing or spinal canal stenosis. Hypertrophy of the adenoid tissues where there are tiny bright T2 signalareas which could represent retention cysts. Hypertrophy of the softpalate results in narrowing of the nasopharyngeal airway. IMPRESSION: Multilevel mild predominantly bony degenerative changes. No evidence ofnerve impingement. No high-grade spinal canal stenosis. POS - [id number] Edited by: Lashay Barr on 04/20/2018 1:17 PM Piter Kendrick DO IMG MR XSPECIALTY Final Resu lt documented in this encounter Visit Diagnoses Diagnosis Neck pain Cervicalgia Paresthesia Disturbance of skin sensation Gait instability Abnormality of gait Difficulty walking Difficulty in walking Neck pain Cervicalgia Paresthesia Disturbance of skin sensation Gait instability Abnormality of gait Difficulty walking Difficulty in walking documented in this encounter Care Teams Tufter Operator Relationship Specialty Start Date End Date Tariq Yang MD [address] [place] [address] [place] [address] [email or web address] PCP - General Internal Medicine 05/30/17 06/01/18 Taina Patel PA [address] [place] [address] [place], [place] PCP - General Unknown Provider Specialty 06/02/18 09/19/18 Jo Galan PA [address] [place] [address] [place] [address] [email or web address] PCP - General 09/20/18 01/21/22 Lucita, MD Lucita PCP - General 01/22/22 01/26/22 Lis Mcdonald NP [address] [place] [address] [place] [address] [email or web address] PCP - General Family Medicine 01/27/22 08/15/23 Naa Colindres MD [address] [place] [address] [email or web address] PCP - General Family Medicine 08/16/23 Tariq Yang MD [address] [place] [address] [email or web address] Insurance Assigned Provider 09/17/17 10/20/19 Janneth Waller DO [address] [place] [address] [place] [address] Insurance Assigned Provider 10/20/19 03/22/20 Tariq Yang MD [address] [place] [address] [email or web address] Insurance Assigned Provider 03/22/20 10/19/20 Catalina Borden LCSW [address] [place] [address] [email or web address] Work 04/14/20 03/24/23 Brenda Gomez MD [address] [place] [address] [place] [address] [email or web address] Insurance Assigned Provider 10/19/20 06/19/22 Tariq Yang MD [address] [place], [place] [address] [address] [email or web address] Insurance Assigned Provider 06/19/22 08/28/22 Brenda Gomez MD [address] [place] [address] [place] [address] [email or web address] Insurance Assigned Provider 08/28/22 01/22/23 Lis Long, FLAVIA [address] [place] [address] [email or web address] [email or web address] Expert 11/11/22 11/28/22 documented as of this encounter Additional Source Comments The information contained in this document represents components of the legal health record. It is not the complete legal health record.[facility]
--- OUTSIDE RECORDS SUMMARY | 2025-01-26 13:31 | XMS_ITS | Encounter Summary ---
Author Organization [facility] Address [address] [place] [address] Phone Care Team Providers Care Infant Nanny Name Role Phone Tariq Yang MD Unavailable [phone] Taina Patel PA Primary Care Provider Jo Galan Primary Care Provider [phone] Alicia Waller DO Unavailable [phone] Tariq Yang MD Unavailable + Catalina Borden SAMPLER PICKUP Unavailable dadalabtiffany Brenda Gomez MD Unavailable +[phone] Unknown, Unknown Primary Care Provider Lis Lobo OPERATOR GROUND BASED AIR DEFENCE Primary Care Pro vider Tariq Yang MD Unavailable + Brenda Gomez MD Unavailable [phone] Lis Long RN Unavailable Naa Colindres MD Primary Care Provider [phone] Encounter Details Date Type Department Care Team (Latest Contact Info) Description 06/02/2018 Transcribe Orders [address] [place] [address] Claudia Richardson PA [address] [facility] [address] [place] [address] [email or web address] Hidradenitis suppurativa (Primary Dx) Social History Tobacco Use Types [...] 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 Not on file Not on file documented as of this encounter Plan of Treatment Upcoming Encounters Date Type Department Care Team (Late st Contact Info) Description 04/15/2025 2:00 PM EST Office Visit [facility] Neurology [address] [place] [address] Sundar Vázquez MD [address] [place] [address], 2nd [place] [address] 05/06/2025 9:00 AM EST Office Visit [facility] Rheumatology [address] [place] [address] Nancy Baptiste MD [address] [facility], [address] [place] [address] documented as of this encounter Results * (ABNORMAL) Comprehensive metabolic panel (06/02/2018 11:26 AM EST) SODIUM 141 133 - 146 mmol/L [facility] POTASSIUM 4.7 3.3 - 5.1 mmol/L [facility] CHLORIDE 105 96 - 108 mmol/L [facility] CO2 25 21 - 35 mmol/L [facility] BUN 17 6 - 19 mg/dL [facility] CREATININE 0.80 0.5 - 1.5 mg/dL [facility] GLUCOSE 95 70 - 99 mg/dL [facility] ALBUMIN 3.7(L) 3.9 - 4.8 g/dL [facility] TOTAL PROTEIN 6.4(L) 6.5 - 8.0 g/dL [facility] CALCIUM 9.5 8.4 - 10.3 mg/dL [facility] ALKALINE PHOSPHATASE 47 39 - 117 U/L [facility] TOTAL BILIRUBIN <0.2 0.0 - 1.2 mg/dL [facility] AST 15 0 - 37 U/L [facility] ALT 15 0 - 40 U/L [facility] GLOBULIN 2.7 1 - 4.8 g/dL [facility] EGFR 97 >59 mL/min/1.7 3m2 [facility] Comment:If patient is black, multiply result by 1.159. Estimated glomerular filtration rate calculated using the CKD-EPI equation. ANION GAP 16 10 - 20 mmol/L [facility] Blood 06/02/2018 11:2 6 AM EST 06/02/2018 11:31 AM EST us Claudia [facility] BLOOD ORDERABLES Final R esult Performing Organization Address City/State/[facility] Co de Phone Number [address] [address] * (ABNORMAL) CBC and differential (06/02/2018 11:26 AM EST) WBC 8.48 3.40 - 11.20 K/uL [facility] RBC 4.30 3.80 - 4.80 M/uL [facility] HGB 13.4 12.0 - 15.0 g/dL [facility] HCT 39.8 36.0 - 46.0 % [facility] PLT 260 130 - 400 K/uL [facility] MCV 92.6 79.0 - 98.0 fL [facility] MCH 31.2 27.0 - 34.8 pg [facility] MCHC 33.7 31.5 - 36.0 g/dL [facility] RDW 13.2 10.8 - 14.6 % [facility] MPV 12.5(H) 9.4 - 12.4 fl [facility] NRBC 0.00 0.00 /100 WBCs [facility] ABSOLUTE NRBC 0.00 0.00 K/uL [facility] DIFF METHOD Auto [facility] NEUTS 57.3 45.30 - 77.70 % [facility] LYMPHS 30.1 12.30 - 39.70 % [facility] MONOS 6.6 4.10 - 12.80 % [facility] EOS 5.0 0 - 7.2 % [facility] BASOS 0.6 0 - 2.80 % [facility] Granulocytes, immature (%) 0.4 0.0 - 0.9 % [facility] ABSOLUTE NEUTS 4.87 1.40 - 7.70 K/uL [facility] ABSOLUTE LYMPHS 2.55 0.60 - 3.20 K/uL [facility] ABSOLUTE MONOS 0.56 0.11 - 0.59 K/uL [facility] ABSOLUTE EOS 0.42 0.01 - 0.50 K/uL [facility] ABSOLUTE BASOS 0.05 0.00 - 0.08 K/uL [facility] Granulocytes, immature 0.03 0.00 - 0.05 K/uL [facility] Blood 06/02/2018 11:2 6 AM EST 06/02/2018 11:31 AM EST Claudia [facility] BLOOD ORDERABLES Final R esult [address] [address] * Hepatitis A antibody, total (06/02/2018 11:26 AM EST) HAV TOTAL AB Negative Negative [facility] Blood 06/02/2018 11:2 6 AM EST 06/02/2018 11:31 AM EST Claudia [facility] BLOOD ORDERABLES Final R esult [address] [address] * Hepatitis B surface antibody (06/02/2018 11:26 AM EST) HBV SURFACE ANTIBODY Negative [facility] Comment: Unvaccinated: Negative Vaccinated: Positive Blood 06/02/2018 11:2 6 AM EST 06/02/2018 11:31 AM EST Claudia [facility] BLOOD ORDERABLES Final R esult [address] [address] * Hepatitis B core antibody, total (06/02/2018 11:26 AM EST) HEP B CORE AB, TOT Negative Negative [facility] Blood 06/02/2018 11:2 6 AM EST 06/02/2018 11:31 AM EST Claudia [facility] BLOOD ORDERABLES Final R esult Performing Organization Address City/[facility]/ZIP Co de Phone Number [address] [address] * Hepatitis C antibody, qualitative (06/02/2018 11:26 AM EST) HCV Negative Negative [facility] Comment: This is a screening test and should be confirmed with molecular testing Blood 06/02/2018 11:2 6 AM EST 06/02/2018 11:31 AM EST Claudia [facility] BLOOD ORDERABLES Final R esult Performing Organization Address City/[facility] Co de Phone Number [address] [address] * Hepatitis B surface antigen (06/02/2018 11:26 AM EST) HBV SURFACE ANTIGEN Negative Negative [facility] Blood 06/02/2018 11:2 6 AM EST 06/02/2018 11:31 AM EST us Claudia [facility] BLOOD ORDERABLES Final R esult [address] [address] documented in this encounter Visit Diagnoses Diagnosis Hidradenitis suppurativa- Primary Hidradenitis documented in this encounter Care Teams Infant Nanny Relationship Specialty Start Date End Date Taina Patel PA [address] [place] [address] PCP - General Unknown Provider Specialty 06/02/18 09/19/18 Jo Galan PA [address] [place] [address] [email or web address] PCP - General 09/20/18 01/21/22 Unknown, MD Lucita PCP - General 01/22/22 01/26/22 Lis Mcdonald NP [address] [place] [address] [email or web address] PCP - General Family Medicine 01/27/22 08/15/23 Naa Colindres MD [address] [place] [address] [email or web address] PCP - General Family Medicine 08/16/23 Tariq Yang MD [address] [place] [address] [email or web address] Insurance Assigned Provider 09/17/17 10/20/19 Alicia Waller DO [address] [place] [address] [place] [address] Insurance Assigned Provider 10/20/19 03/22/20 Tariq Yang MD [address] [place] [address] [email or web address] Insurance Assigned Provider 03/22/20 10/19/20 Catalina Borden LCSW [address] [place] [address] iCMP Social Work 04/14/20 03/24/23 Brenda Gomez MD [address] [place] [address] [place] [address] [email or web address] Insurance Assigned Provider 10/19/20 06/19/22 Tariq Yang MD [address] [place] [address] [email or web address] Insurance Assigned Provider 06/19/22 08/28/22 Brenda Gomez MD [address] [place] [address] [place] [address] [email or web address] Insurance Assigned Provider 08/28/22 01/22/23 Lis Long, RN [address] [place] [address] iCMP Histologic Technician 11/11/22 11/28/22 documented as of this encounter Additional Source Comments The information contained in this document represents components of the legal health record. It is not the complete legal health record.[facility]
--- OUTSIDE RECORDS SUMMARY | 2025-01-26 13:31 | XMS_ITS | Encounter Summary ---
Author Organization [facility] Address [address] [facility] [address] [place] [address] Phone Care Team Providers Care Quality Director Name Role Phone Jo Galan Primary Care Provider [phone] Catalina Borden GRADER PATROL Unavailable dadalabtiffany Brenda Gomez MD Unavailable [phone] Unknown, Unknown Primary Care Provider Lis Lobo NP Primary Care Pro vider Tariq Yang MD Unavailable [phone] Brenda Gomez MD Unavailable [phone] Lis Long RN Unavailable Naa Colindres MD Primary Care Provider [phone] Encounter Details Date Type Department Care Team (Latest Contact Info) Description 11/21/2020 Transcribe Orders Virtual Department [address] [place] [address] Lis Mcdonald NP [address] [place] [address] [email or web address] Pain of upper abdomen (Primary Dx) Social History Tobacco Use Types [...] 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 Not on file Not on file documented as of this encounter Plan of Treatment Upcoming Encounters Date Type Department Care Team (Late st Contact Info) Description 04/15/2025 2:00 PM EST Office Visit [facility] Neurology [address] [place] [address] Sundar Vázquez MD [address] [place] [address], 2nd [place] [address] [email or web address] 05/06/2025 9:00 AM EST Office Visit [facility] Rheumatology [address] [place] [address] Nancy Baptiste MD [address] [place] [address], [address] [place] [address] [email or web address] documented as of this encounter Visit Diagnoses Diagnosis Pain of upper abdomen- Primary documented in this encounter Care Teams Quality Director Relationship Specialty Start Date End Date Jo Galan PA [address] [place] [address] [email or web address] PCP - General 09/20/18 01/21/22 Unknown, Lucita, PCP - General 01/22/22 01/26/22 Lis Mcdonald NP [address] [place] [address] [place] [address] [email or web address] PCP - General Family Medicine 01/27/22 08/15/23 Naa Colindres MD [address] [place] [address] PCP - General Family Medicine 08/16/23 Catalina Borden, [address] [address] [email or web address] [facility] Social Work 04/14/20 03/24/23 Brenda Gomez MD [address] [place] [address] [place] [address] [email or web address] Insurance Assigned Provider 10/19/20 06/19/22 Tariq Yang MD [address] [place] [address] Insurance Assigned Provider 06/19/22 08/28/22 Brenda Gomez MD [address] [place] [address] [place] [address] [email or web address] Insurance Assigned Provider 08/28/22 01/22/23 Lis Long, FLAVIA [address] [place] [address] iCM Cuff Presser 11/11/22 11/28/22 documented as of this encounter Additional Source Comments The information contained in this document represents components of the legal health record. It is not the complete legal health record.[facility]
--- OUTSIDE RECORDS SUMMARY | 2025-01-26 13:31 | XMS_ITS | Encounter Summary ---
Author Organization [facility] Address [address] [place] [address] [place] [address] Phone Care Team Providers Care Fruit Sorter Name Role Phone Jo Galan Primary Care Provider [phone] Tariq Yang MD Unavailable [phone] Catalina Boredn FOOD TECHNOLOGIST Unavailable [email or web address] Brenda Gomez MD Unavailable [phone] Unknown, Unknown Primary Care Provider Lis Lobo NP Primary Care Pro vider Tariq Yang MD Unavailable [phone] Brenda Gomez MD Unavailable [phone] Lis Long RN Unavailable Naa Colindres MD Primary Care Provider [phone] Encounter Details Date Type Department Care Team (Late st Contact Info) Description 06/19/2020 Transcribe Orders Virtual Department [address] [place] [address] Alma Delia Marks, JUSTINE [address] [facility] [place] [address] Travel within last 14 days (Primary Dx) Social History Tobacco Use Types [...] 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 Not on file Not on file documented as of this encounter Plan of Treatment Upcoming Encounters Date Type Department Care Team (Late st Contact Info) Description 04/15/2025 2:00 PM EST Office Visit [facility] Neurology [address] [place] [address] Sundar Vázquez MD [address] [place] [address], 2nd [place] [address] [email or web address] 05/06/2025 9:00 AM EST Office Visit [facility] Rheumatology [address] [place] [address] Nancy Baptiste MD [address] [place] [address], [address] [place] [address] [email or web address] documented as of this encounter Results * COVID-19 PCR Order (06/20/2020 7:50 AM EST) COVID Testing Status Specimen received in analyzing lab. Results should be available within [address] [facility] Symptomatic? NO [facility] 06/20/2020 7:50 AM EST 06/20/2020 10:26 AM EST us Alma Delia Marks CHIEF JAILER BODY FLUIDS AND STOOLS ORDER CHEKO Final Result [facility] [address] [place] [address] [facility] [address] [place] [address] documented in this encounter Visit Diagnoses Diagnosis Travel within last 14 days- Primary documented in this encounter Care Teams Fruit Sorter Relationship Specialty Start Date End Date Jo Galan PA [address] [place] [address] [place], [place] [email or web address] PCP - General 09/20/18 01/21/22 Unknown, Lucita, PCP - General 01/22/22 01/26/22 Lis Mcdonald NP [address] [place] [address] [email or web address] PCP - General Family Medicine 01/27/22 08/15/23 Naa Colindres MD [address] [place] [address] PCP - General Family Medicine 08/16/23 Tariq Yang MD [address] [place] [address] [place] [address] Insurance Assigned Provider 03/22/20 10/19/20 Catalina Borden, [address] [address] [email or web address] i[employer] Social Work 04/14/20 03/24/23 Brenda Gomez MD [address] [place] [address] [place] [address] [email or web address] Insurance Assigned Provider 10/19/20 06/19/22 Tariq Yang MD [address] [place], [place] [address] [address] [email or web address] Insurance Assigned Provider 06/19/22 08/28/22 Brenda Gomez MD [address] [place] [address] [place] [address] [email or web address] Insurance Assigned Provider 08/28/22 01/22/23 Lis Long RN [address] [place] [address] [email or web address] iC[employer] Audience Development Manager 11/11/22 11/28/22 documented as of this encounter Additional Source Comments The information contained in this document represents components of the legal health record. It is not the complete legal health record.[facility]
--- OUTSIDE RECORDS SUMMARY | 2025-01-26 13:33 | XMS_ITS | Encounter Summary ---
Author Organization [employer] Address [address] [place] [address] Care Team Providers Care Assistant Health Educator Name Role Phone Naa Colindres MD Primary Care Provider [phone] Encounter Details Date Type Department Care Team (Latest Contact Info) Description 01/23/2025 Travel Social History Tobacco Use Types Packs/Day Years Used Date Smoking Tobacco: Every Day Cigarettes 0.3 19 Smokeless Tobacco: Never Alcohol Use Standard Drinks/Week Comments Never 0 (1 standard drink = 0.6 oz pur e alcohol) Depression Answer Date Recorded Patient Health Questionnaire-9 Score 24 09/24/2022 Housing Stability Answer Date Recorded What is your housing situation today? I have kathleendebbi garcia 03/01/[address] you [...] Description 02/16/2025 9:20 AM EDT Office Visit [facility] MEDICAL [address] [place] [address] Naa Colindres MD [address] [place] [address] 04/02/2025 10:30 AM EST Office Visit [facility] MEDICAL [address] [place] [address] Jodi Miller MD [address] [place] [address] documented as of this encounter Visit Diagnoses Not on filedocumented in this encounter Additional Health Concerns Assessment Noted Time PHQ-9 Depression Total Score: 24 023 10:06 AM EDT documented as of this encounter Care Teams Assistant Health Educator Relationship Specialty Start Date End Date Naa Colindres MD [address] [place] [address] PCP - General Family Medicine 09/03/22 documented as of this encounter
--- OUTSIDE RECORDS SUMMARY | 2025-01-26 13:33 | XMS_ITS | Encounter Summary ---
Author Organization [employer] Address [address] [facility] 7t [place] [address] Care Team Providers Care Draughtsman Name Role Phone Naa Colindres MD Primary Care Provider [phone] Encounter Details Date Type Department Care Team (Late st Contact Info) Description 01/25/2025 Results Follow-Up [facility] MEDICAL [address] [place] [address] Naa Colindres MD 70 [place], [place] D-Dimer, Quantitative [[id number]], Hemoglobin A1c 636301, Lipid Panel, Standard [address] Social History Tobacco Use Types Packs/Day Years [...] Description 02/16/2025 9:20 AM EDT Office Visit [facility] MEDICAL [address] [place] [address] Naa Colindres MD 70 [place] [address] 04/02/2025 10:30 AM EST Office Visit [facility] MEDICAL [address] [place] [address] Jodi Miller MD [address] [place] [address] documented as of this encounter Visit Diagnoses Not on filedocumented in this encounter Additional Health Concerns Assessment Noted Time PHQ-9 Depression Total Score: 24 023 10:06 AM EDT documented as of this encounter Care Teams Draughtsman Relationship Specialty Start Date End Date Naa Colindres MD 70 [place] [address] PCP - General Family Medicine 09/03/22 documented as of this encounter
--- OUTSIDE RECORDS SUMMARY | 2025-01-26 13:34 | XMS_ITS | Encounter Summary ---
Author Organization [facility] Address [address] [place] [address] Phone Care Team Providers Care Rampman Name Role Phone Jo Galan Primary Care Provider [phone] Catalina Borden CIGAR TOBACCO REHANDLER Unavailable [email or web address] Brenda Gomez MD Unavailable [phone] Unknown, Unknown Primary Care Provider Lis Lobo EXTERIOR INTERIOR SPECIALIST Primary Care Pro vider Tariq Yang MD Unavailable [phone] Brenda Gomez MD Unavailable [phone] Lis Long RN Unavailable Naa Colindres MD Primary Care Provider + [phone] Reason for Referral * MRI/CAT Scan - Closed Specialty Diagnoses / Procedures Referred By Michael t Referred To Contact Radiology Diagnoses Radiculopathy, cervical region Procedures MRI Thoracic Spine Piter Kendrick DO Phone: tel: fax: [email or web address]:[email or web address] Referral ID Status Reason Start Date Expiration Date Visits Re quested Visits Authorized [id number] Closed 10/15/2021 10/15/2022 1 1 * MRI/CAT Scan - Closed Specialty Diagnoses / Procedures Referred By Michael dubon Referred To Contact Radiology Diagnoses Radiculopathy, cervical region Procedures MRI Cervical Spine Piter Kendirck DO Phone: tel: fax: [email or web address] Referral ID Status Reason Start Date Expiration Date Visits Re quested Visits Authorized [id number] Closed 10/15/2021 10/15/2022 1 1 Encounter Details Date Type Department Care Team (Latest Contact Info) Description 10/08/2021 Transcribe Orders Virtual Department 30 [place] [address] Piter Kendrick DO [address] [place] [address] [email or web address] Radiculopathy, cervical region (Primary Dx) Social History Tobacco Use [...] 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 Not on file Not on file documented as of this encounter Plan of Treatment Upcoming Encounters Date Type Department Care Team (Late st Contact Info) Description 04/15/2025 2:00 PM EST Office Visit [facility] Neurology 22 [place] [address] Sundar Vázquez MD [address] [id number] [email or web address] 05/06/2025 9:00 AM EST Office Visit [facility] Rheumatology [address] [place] [address] Nancy Baptiste MD [address] [facility], [address] [place] [address] [email or web address] Scheduled Orders Name Type Priority Associated Diagnoses Orde r Schedule MRI Thoracic Spine Imaging Routine Radiculopathy, cervical region Expected: 10/08/2021, Expires: 10/08/2022 documented as of this encounter Results * MRI CERVICAL SPINE (BONE) WITHOUT CONTRAST (10/23/2021 10:47 AM EDT) Anatomical Region Laterality Modality C-spine Magnetic Resonan ce 10/24/2021 9:03 PM EDT Impressions 10/24/2021 9:05 PM EDT No significant cervical spine degenerative change, foraminal stenosis, or spinal canal stenosis. Narrative 10/24/2021 9:05 PM EDT MRI CERVICAL SPINE (BONE) WITHOUT CONTRAST TECHNIQUE: Multi-sequence, multi-planar MRI of the cervical spine was performed without intravenous contrast. COMPARISON: None FINDINGS: CERVICAL SPINE: Alignment and Vertebrae: Normal alignment. No compression fracture. Marrow: No bone marrow replacing lesion. Discs and Endplates: Normal intervertebral disc heights and signal. Spinal Cord: No spinal cord compression or signal abnormality. Soft Tissue: Normal. No prevertebral edema. Findings by level: C2-C3: Normal. No spinal or foraminal stenosis. C3-C4: Normal. No spinal or foraminal stenosis. C4-C5: Normal. No spinal or foraminal stenosis. C5-C6: Normal. No spinal or foraminal stenosis. C6-C7: Normal. No spinal or foraminal stenosis. C7-T1: Normal. No spinal or foraminal stenosis. Procedure Note Bony Dupree MD - 10/24/2021 MRI CERVICAL SPINE (BONE) WITHOUT CONTRAST TECHNIQUE: Multi-sequence, multi-planar MRI of the cervical spine was performedwithout intravenous contrast. COMPARISON: None FINDINGS: CERVICAL SPINE: Alignment and Vertebrae: Normal alignment. No compression fracture. Marrow: No bone marrow replacing lesion. Discs and Endplates: Normal intervertebral disc heights and signal. Spinal Cord: No spinal cord compression or signal abnormality. Soft Tissue: Normal. No prevertebral edema. Findings by level: C2-C3: Normal. No spinal or foraminal stenosis. C3-C4: Normal. No spinal or foraminal stenosis. C4-C5: Normal. No spinal or foraminal stenosis. C5-C6: Normal. No spinal or foraminal stenosis. C6-C7: Normal. No spinal or foraminal stenosis. C7-T1: Normal. No spinal or foraminal stenosis. IMPRESSION: No significant cervical spine degenerative change, foraminal stenosis, orspinal canal stenosis. Piter Kendrick DO IMG MR XSPECIALTY Final Resu lt documented in this encounter Visit Diagnoses Diagnosis Radiculopathy, cervical region- Primary Brachial neuritis or radiculitis nos Radiculopathy, cervical region Brachial neuritis or radiculitis nos documented in this encounter Care Teams Rampman Relationship Specialty Start Date End Date Jo Galan PA [address] [place] [address] [email or web address] PCP - General 09/20/18 01/21/22 Unknown, Lucita, PCP - General 01/22/22 01/26/22 Lis Mcdonald NP [address] [place] [address] [email or web address] PCP - General Family Medicine 01/27/22 08/15/23 Naa Colindres MD [address] [place] [address] PCP - General Family Medicine 08/16/23 Catalina Borden LCSW [address] [place] [address] [email or web address] iCMP Social Work 04/14/20 03/24/23 Brenda Gomez MD [address] [place] [address] [place] [address] [email or web address] Insurance Assigned Provider 10/19/20 06/19/22 Tariq Yang MD [address] [place] [address] [email or web address] Insurance Assigned Provider 06/19/22 08/28/22 Brenda Gomez MD [address] [place] [address] [place] [address] [email or web address] Insurance Assigned Provider 08/28/22 01/22/23 Lis Long, FLAVIA [address] [place] [address] iCMP Winding Department Supervisor 11/11/22 11/28/22 documented as of this encounter Additional Source Comments The information contained in this document represents components of the legal health record. It is not the complete legal health record.[facility]
--- OUTSIDE RECORDS SUMMARY | 2025-01-26 13:35 | XMS_ITS | Encounter Summary ---
Author Organization [facility] Address [address] [place] [address] Phone Care Team Providers Care Sales Assistant Name Role Phone Catalina Borden FLOOR COVERING LAYER Unavailable [email or web address] Brenda Gomez MD Unavailable [phone] Lis Mcdonald NP Primary Care Pro vider Tariq Yang MD Unavailable [phone] Brenda Gomez MD Unavailable [phone] Lis Long RN Unavailable Naa Colindres MD Primary Care Provider + [phone] Encounter Details Date Type Department Care Team (Latest Contact Info) Description 03/17/2022 Transcribe Orders [facility] [address] [address] Annmarie Paul PA-C [address], 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 file Not on file Not on file documented as of this encounter Plan of Treatment Upcoming Encounters Date Type Department Care Team (Late st Contact Info) Description 04/15/2025 2:00 PM EST Office Visit [facility] Neurology [address] [place] [address] Sundar Vázquez MD [address] [place] [address], 2nd [place] [address] [email or web address] 05/06/2025 9:00 AM EST Office Visit [facility] Rheumatology [address] [place] [address] Nancy Baptiste MD [address] [place] [address], [address] [place] [address] [email or web address] documented as of this encounter Results * TSH (03/17/2022 9:55 AM EDT) [facility] TSH 3.27 0.27 - 4.20 uIU/mL [facility] Blood 03/17/2022 9:55 AM EDT 03/17/2022 9:59 AM EDT us Annmarie Paul PA-C LAB BLOOD ORDERABLES Final Resu lt [facility] [address] [place] [address] * Lipase (03/17/2022 9:55 AM EDT) LIPASE 27 16 - 63 U/L [facility] Blood 03/17/2022 9:55 AM EDT 03/17/2022 9:59 AM EDT us Annmarie Paul PA-C LAB BLOOD ORDERABLES Final Resu lt Performing Organization Address City/[facility]/ZIP Co de Phone Number [address] [address] * C-Reactive Protein (03/17/2022 9:55 AM EDT) C REACTIVE PROTEIN <3.0 0.0 - 4.0 mg/L [facility] Blood 03/17/2022 9:55 AM EDT 03/17/2022 9:59 AM EDT us Annmarie Paul PA-C LAB BLOOD ORDERABLES Final Resu lt Performing Organization Address City/[facility]/ZIP Co de Phone Number [address] [address] * (ABNORMAL) Comprehensive metabolic panel (03/17/2022 9:55 AM EDT) SODIUM 139 133 - 146 mmol/L [facility] POTASSIUM 4.3 3.3 - 5.1 mmol/L [facility] CHLORIDE 106 96 - 108 mmol/L [facility] CO2 19(L) 21 - 35 mmol/L [facility] BUN 14 6 - 19 mg/dL [facility] CREATININE 0.60 0.5 - 1.5 mg/dL [facility] GLUCOSE 90 70 - 99 mg/dL [facility] ALBUMIN 4.2 3.9 - 4.8 g/dL [facility] TOTAL PROTEIN 7.0 6.5 - 8.0 g/dL [facility] CALCIUM 9.4 8.4 - 10.3 mg/dL [facility] ALKALINE PHOSPHATASE 57 39 - 117 U/L [facility] TOTAL BILIRUBIN 0.2 0.0 - 1.2 mg/dL [facility] AST 21 0 - 37 U/L [facility] ALT 22 0 - 40 U/L [facility] GLOBULIN 2.8 1 - 4.8 g/dL [facility] EGFR 118 >59 mL/min/1.7 3m2 [facility] Comment:Estimated glomerular filtration rate calculated using the CKD-EPI refit equation. ANION GAP 18 10 - 20 mmol/L [facility] Blood 03/17/2022 9:55 AM EDT 03/17/2022 9:59 AM EDT us Annmarie Paul PA-C LAB BLOOD ORDERABLES Final Resu lt Performing Organization Address City/[facility]/ZIP Co de Phone Number [address] [address] * (ABNORMAL) CBC (03/17/2022 9:55 AM EDT) WBC 12.57(H) 4.00 - 11.00 K/uL [facility] RBC 4.79 3.72 - 5.30 M/uL [facility] HGB 15.0 10.6 - 15.5 g/dL [facility] HCT 44.9 32.0 - 45.0 % [facility] PLT 332 140 - 430 K/uL [facility] MCV 93.7 78.0 - 97.0 fL [facility] MCH 31.3 25.0 - 33.0 pg [facility] MCHC 33.4 32.0 - 36.0 g/dL [facility] RDW 13.8 11.0 - 16.0 % [facility] MPV 12.8 8.4 - 12.8 fl [facility] Blood 03/17/2022 9:55 AM EDT 03/17/2022 9:59 AM EDT us Annmarie Paul PA-C LAB BLOOD ORDERABLES Final Resu lt Performing Organization Address City/[facility]/ZIP Co de Phone Number [address] [address] * Immunoglobulin A (03/17/2022 9:55 AM EDT) IgA 195 70 - 400 mg/dL [facility] Blood 03/17/2022 9:55 AM EDT 03/17/2022 9:59 AM EDT us Annmarie Paul PA-C LAB BLOOD ORDERABLES Final Resu lt Performing Organization Address City/[facility]/ZIP Co de Phone Number [facility] [address] [place] [address] * Tissue transglutaminase IgA (03/17/2022 9:55 AM EDT) TTG IGA ANTIBODY <1.2 <4.0 (Negative) U/mL [facility] Blood 03/17/2022 9:55 AM EDT 03/17/2022 9:59 AM EDT us Annmarie Paul PA-C LAB BLOOD ORDERABLES Final Resu lt [facility] [address] [place] [address] documented in this encounter Visit Diagnoses Diagnosis Rectal bleeding- Primary Hemorrhage of rectum and anus Constipation, unspecified constipation type Abdominal pain, left upper quadrant documented in this encounter Care Teams Sales Assistant Relationship Specialty Start Date End Date Lis Mcdonald NP [address] [place], [place] [email or web address] PCP - General Family Medicine 01/27/22 08/15/23 Naa Colindres MD [address] [place], [place] PCP - General Family Medicine 08/16/23 Catalina Borden LCSW [address] [place] [address] [employer] Social Work 04/14/20 03/24/23 Brenda Gomez MD [address] [place] [address] [place] [address] [email or web address] Assigned Provider 10/19/20 06/19/22 Tariq Yang MD [address] [place] [address] [email or web address] Insurance Assigned Provider 06/19/22 08/28/22 Brenda Gomez MD [address] [place] [address] [place] [address] [email or web address] Insurance Assigned Provider 08/28/22 01/22/23 Lis Long RN [address] [place] [address] [email or web address] iC[employer] Digital Analytics Manager 11/11/22 11/28/22 documented as of this encounter Additional Source Comments The information contained in this document represents components of the legal health record. It is not the complete legal health record.[facility]
--- OUTSIDE RECORDS SUMMARY | 2025-01-26 13:35 | XMS_ITS | Encounter Summary ---
Author Organization Located Within [facility] Address [address] [address] Phone Care Team Providers Care Ad Terminal Makeup Operator Name Role Phone Catalina Borden ELEVATOR MECHANIC Unavailable [email or web address] Brenda Gomez MD Unavailable [phone] Lis Mcdonald NP Primary Care Pro vider Tariq Yang MD Unavailable [phone] Brenda Gomez MD Unavailable [phone] Lis Long RN Unavailable Naa Colindres MD Primary Care Provider + [phone] Encounter Details Date Type Department Care Team (Latest Contact Info) Description 04/20/2022 Transcribe Orders Virtual Department 30 [place] [address] Lis Mcdonald NP [address] [place] [address] [email or web address] Chronic cough (Primary Dx) Social History Tobacco Use Types [...] 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 Not on file Not on file documented as of this encounter Plan of Treatment Upcoming Encounters Date Type Department Care Team (Late st Contact Info) Description 04/15/2025 2:00 PM EST Office Visit [facility] Neurology [address] [place] [address] Sundar Vázquez MD [address] [place] [address], 2nd [place] [address] [email or web address] 05/06/2025 9:00 AM EST Office Visit [facility] Rheumatology [address] [place] [address] Nancy Baptiste MD [address] [place] [address], [address] [place] [address] [email or web address] documented as of this encounter Results * Pulmonary Function Test Reason for Exam: Cough; Type of PFT Test: Spirometry with bronchodilator, DLCO, Lung Volumes; Performing Location: [facility] (09/02/2022 7:47 AM EDT) FEV1 3.04 liters FVC 3.74 liters FEV1/FVC 81 % TLC 5.02 liters DLCO 16.1 ml/mmHg sec Anatomical Region Laterality Modality Other Impressions 09/02/2022 7:47 AM EDT PULMONARY FUNCTION STUDIES IMPRESSION: Normal spirometry without airflow limitation or significant postbronchodilator change. Mild restrictive physiology which could be intra- or extrathoracic in etiology. Mildly impaired diffusion capacity which can be secondary to anemia, emphysema, pulmonary vascular disease, interstitial lung disease, pulmonary edema, and/or body habitus. The mild restrictive physiology with proportional mild diffusion impairment (which corrects to normal when adjusted for alveolar volume) suggest these findings could be secondary to body habitus. Pulmonary function studies were performed on this 36 y.o. female for evaluation of chronic cough. Review of the medical record reveals that the patient is a current smoker. Prior pulmonary function studies are not available for comparison. SPIROMETRY: The FEV1 is mildly impaired at 3.04 L or 79% predicted. The FVC is normal at 3.74 L or 80% predicted. The FEV1/FVC ratio is normal at 81%. After the administration of a bronchodilator agent, there is no significant change. FLOW-VOLUME LOOPS: Evaluation of the flow-volume loops reveals normal morphology of both the inspiratory and expiratory limbs with no significant difference when comparing the tracings performed pre- and post-bronchodilator. LUNG VOLUME MEASUREMENTS BY PLETHYSMOGRAPHY: The total lung capacity is mildly impaired at 5.02 L or 76% predicted. The functional residual capacity is normal at 2.93 L or 86% predicted. DIFFUSION CAPACITY: The diffusion capacity is mildly impaired at 16.1 mL/mmHg sec or 63% predicted. The mild diffusion impairment corrects to normal when adjusted for alveolar volume. Resting oxygen saturation is 99% on room air. Lis Mcdonald FURNITURE MOVER DRIVER PFT ORDERABLES F inal Result documented in this encounter Visit Diagnoses Diagnosis Chronic cough- Primary Cough Chronic cough Cough documented in this encounter Care Teams Ad Terminal Makeup Operator Relationship Specialty Start Date End Date Lis Mcdonald NP [address] [place] [address] [email or web address] PCP - General Family Medicine 01/27/22 08/15/23 Naa Colindres MD [address] [place] [address] PCP - General Family Medicine 08/16/23 Catalina Borden, ELEVATOR MECHANIC [address] [place] [address] iCMP Social Work 04/14/20 03/24/23 Brenda Gomez MD [address] [place] [address] [place] [address] [email or web address] Insurance Assigned Provider 10/19/20 06/19/22 Tariq Yang MD [address] [place] [address] [place] [address] [email or web address] Insurance Assigned Provider 06/19/22 08/28/22 Brenda Gomez MD [address] [place] [address] [place] [address] [email or web address] Insurance Assigned Provider 08/28/22 01/22/23 Lis Long, FLAVIA [address] [place] [address] [email or web address] Sports Information Director 11/11/22 11/28/22 documented as of this encounter Additional Source Comments The information contained in this document represents components of the legal health record. It is not the complete legal health record.[facility]
--- OUTSIDE RECORDS SUMMARY | 2025-01-26 13:35 | XMS_ITS | Encounter Summary ---
Author Organization [facility] Address [address] [place] [address] Phone Care Team Providers Care Enterprise Software Engineer Name Role Phone Jo Galan Primary Care Provider [phone] Catalina Borden SHIP PILOT DISPATCHER Unavailable [email or web address] Brenda Gomez MD Unavailable [phone] Unknown, Unknown Primary Care Provider Lis Lobo SKY CAP Primary Care Pro vider Tariq Yang MD Unavailable [phone] Brenda Gomez MD Unavailable [phone] Lis Long RN Unavailable Naa Colindres MD Primary Care Provider + [phone] Encounter Details Date Type Department Care Team (Late st Contact Info) Description 07/18/2021 Procedure Pass [facility], Ct Scan - [address] [id number] Social History Tobacco Use Types Packs/Day Years [...] 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 Wish to be (Past 1 Month) No 022 2:29 PM Nadja Paris RN 2. Non-Specific Active Suici nohemi Thoughts (Past 1 Month) No 07/18/2021 2:29 PM Dariel Paris RN 6. Suicidal Behavior (Lifetime) No 2:29 PM Nadja Paris RN documented as of this encounter Plan of Treatment Upcoming Encounters Date Type Department Care Team (Late st Contact Info) Description 04/15/2025 2:00 PM EST Office Visit [facility] Neurology [address] [place] [address] Sundar Vázquez MD [address] [place] [address], 2nd [place] [address] 05/06/2025 9:00 AM EST Office Visit [facility] Rheumatology [address] [place] [address] Nancy Baptiste MD [address] [place] [address], [address] [place] [address] documented as of this encounter Visit Diagnoses Not on filedocumented in this encounter Care Teams Enterprise Software Engineer Relationship Specialty Start Date End Date Jo Galan PA [address] [place] [address] [email or web address] PCP - General 09/20/18 01/21/22 Unknown, MD Lucita PCP - General 01/22/22 01/26/22 Lis Mcdonald NP [address] [place] [address] [email or web address] PCP - General Family Medicine 01/27/22 08/15/23 Naa Colindres MD [address] [place] [address] [email or web address] PCP - General Family Medicine 08/16/23 Catalina Borden LCSW [address] [place] [address] [email or web address] iCMP Social Work 04/14/20 03/24/23 Brenda Gomez MD [address] [place] [address] [place] [address] [email or web address] Insurance Assigned Provider 10/19/20 06/19/22 Tariq Yang MD [address] [place] [address] [email or web address] Insurance Assigned Provider 06/19/22 08/28/22 Brenda Gomez MD [address] [place] [address] [place] [address] [email or web address] Insurance Assigned Provider 08/28/22 01/22/23 Lis Long RN [address] [place] [address] iCMP Confectionery Cooker 11/11/22 11/28/22 documented as of this encounter Additional Source Comments The information contained in this document represents components of the legal health record. It is not the complete legal health record.[facility]
--- OUTSIDE RECORDS SUMMARY | 2025-01-26 13:35 | XMS_ITS | Encounter Summary ---
Author Organization [facility], Address [address] [place] [address] Phone Care Team Providers Care Oil Well Driller Name Role Phone Naa Colindres MD Primary Care Provider [phone] Encounter Details Date Type Department Care Team (Late st Contact Info) Description 12/13/2022 Documentation Only [facility], [facility] Megan [address] [facility] [address] [place] [address] Jeffery Tyler MD [address] [place] [address] [place] [id number] Social History Tobacco Use Types Packs/Day Years [...] on filedocumented in this encounter Care Teams Oil Well Driller Relationship Specialty Start Date End Date Naa Colindres MD [address] [place] [address] PCP - General Family Medicine 03/17/23 documented as of this encounter
--- OUTSIDE RECORDS SUMMARY | 2025-01-26 13:35 | XMS_ITS | Encounter Summary ---
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 Not on file Not on file documented as of this encounter Plan of Treatment Upcoming Encounters Date Type Department Care Team (Late st Contact Info) Description 04/15/2025 2:00 PM EST Office Visit [facility] Neurology [address] [place] [address] Sundar Vázquez MD [address] [place] [address], 2[address] [place] [address] 05/06/2025 9:00 AM EST Office Visit [facility] Rheumatology [address] [place] [address] Nancy Baptiste MD [address] [place] [address], [address] [place] [address] documented as of this encounter Visit Diagnoses Not on filedocumented in this encounter Care Teams Sole Rounder Relationship Specialty Start Date End Date Lis Mcdonald NP [address] [place] [address] [email or web address] PCP - General Family Medicine 01/27/22 08/15/23 Naa Colindres MD [address] [place] [address] PCP - General Family Medicine 08/16/23 documented as of this encounter Additional Source Comments The information contained in this document represents components of the legal health record. It is not the complete legal health record.[facility]
--- OUTSIDE RECORDS SUMMARY | 2025-01-26 13:35 | XMS_ITS | Encounter Summary ---
Author Organization [facility] Address [address] [place] [address] [place] [address] Phone Care Team Providers Care Smoking Tobacco Cutter Operator Name Role Phone Catalina Borden SAWMILL WORKER Unavailable [email or web address] Brenda Gomez MD Unavailable [phone] Lis Mcdonald CLAY BURNER Primary Care Pro vider Tariq Yang MD Unavailable [phone] Brenda Gomez MD Unavailable [phone] Lis Long RN Unavailable Naa Colindres MD Primary Care Provider + [phone] Encounter Details Date Type Department Care Team (Late st Contact Info) Description 03/05/2022 Transcribe Orders [facility] [address] [place] [address] Quinton Morales MD [address] [facility], [address] [place], [place] [phone] [email or web address] Social History Tobacco Use Types Packs/Day Years [...] 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 Not on file Not on file documented as of this encounter Plan of Treatment Upcoming Encounters Date Type Department Care Team (Late st Contact Info) Description 04/15/2025 2:00 PM EST Office Visit [facility] Neurology [address] [place] [address] Sundar Vázquez MD [address] [place] [address], 2nd [place] [address] 05/06/2025 9:00 AM EST Office Visit [facility] Rheumatology [address] [place] [address] Nancy Baptiste MD [address] [place] [address], [address] [place] [address] documented as of this encounter Visit Diagnoses Not on filedocumented in this encounter Care Teams Smoking Tobacco Cutter Operator Relationship Specialty Start Date End Date Lis Mcdonald NP [address] [place] [address] [email or web address] PCP - General Family Medicine 01/27/22 08/15/23 Naa Colindres MD [address] [place] [address] PCP - General Family Medicine 08/16/23 Catalina Borden, SAWMILL WORKER [address] [place] [address] [email or web address] iCMP Social Work 04/14/20 03/24/23 Brenda Gomez MD [address] [place] [address] [place] [address] [email or web address] Assigned Provider 10/19/20 06/19/22 Tariq Yang MD [address] [place] [address] [place] [address] [email or web address] Insurance Assigned Provider 06/19/22 08/28/22 Brenda Gomez MD [address] [place] [address] [place] [address] [email or web address] Assigned Provider 08/28/22 01/22/23 Lis Long, RN [address] [place] [address] [email or web address] Edge Inker Uppers 11/11/22 11/28/22 documented as of this encounter Additional Source Comments The information contained in this document represents components of the legal health record. It is not the complete legal health record.[facility]
--- OUTSIDE RECORDS SUMMARY | 2025-01-26 13:35 | XMS_ITS | Encounter Summary ---
Author Organization [facility], Address [address] [place] [address] Phone Care Team Providers Care Bill Poster Installer Name Role Phone Naa Colindres MD Primary Care Provider [phone] Encounter Details Date Type Department Care Team (Late st Contact Info) Description 12/10/2022 Documentation Only [facility], [facility] Megan [address] [facility] [address] [place] [phone] Jeffery Tyler MD [address] [place] [address] [place] [phone] Social History Tobacco Use Types Packs/Day Years [...] on filedocumented in this encounter Care Teams Bill Poster Installer Relationship Specialty Start Date End Date Naa Colindres MD [address] [place] [address] PCP - General Family Medicine 03/17/23 documented as of this encounter
--- OUTSIDE RECORDS SUMMARY | 2025-01-26 13:35 | XMS_ITS | Encounter Summary ---
Author Organization [facility] Address [address] [place] [address] Phone Care Team Providers Care Wood And Wood Products Factory Worker Name Role Phone Catalina Borden INTERNATIONAL STUDENT COUNSELOR Unavailable [email or web address] Brenda Gomez MD Unavailable [phone] Lis Mcdonald PLANT SCIENTIST Primary Care Pro vider Tariq Yang MD Unavailable [phone] Brenda Gomez MD Unavailable [phone] Lis Long RN Unavailable Naa Colindres MD Primary Care Provider [phone] Encounter Details Date Type Department Care Team (Late st Contact Info) Description 05/19/2022 Procedure Pass [facility], Ct Scan - [facility] [address] [place] [address] Social History Tobacco Use Types Packs/Day Years [...] 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 Wish to be (Past 1 Month) No 023 11:34 AM Nadja Paris RN 2. Non-Specific Active Suici nohemi Thoughts (Past 1 Month) No 05/21/2022 11:34 AM Sa pineda Paris RN 6. Suicidal Behavior (Lifetime) No 11:34 AM Nadja Paris RN documented as of this encounter Plan of Treatment Upcoming Encounters Date Type Department Care Team (Late st Contact Info) Description 04/15/2025 2:00 PM EST Office Visit [facility] Neurology [address] [place] [address] Sundar Vázquez MD [address] [place] [address], 2nd [place] [address] [email or web address] 05/06/2025 9:00 AM EST Office Visit [facility] Rheumatology [address] [place] [address] Nancy Baptiste MD [address] [place] [address], [address] [place] [address] documented as of this encounter Visit Diagnoses Not on filedocumented in this encounter Care Teams Wood And Wood Products Factory Worker Relationship Specialty Start Date End Date Lis Mcdonald NP [address] [place] [address] [email or web address] PCP - General Family Medicine 01/27/22 08/15/23 Naa Colindres MD [address] [place] [address] [email or web address] PCP - General Family Medicine 08/16/23 Catalina Borden LCSW [address] [place] [address] [email or web address] iCMP Social Work 04/14/20 03/24/23 Brenda Gomez MD [address] [place] [address] [place] [address] [email or web address] Assigned Provider 10/19/20 06/19/22 Tariq Yang MD [address] [place] [address] [place] [address] [email or web address] Insurance Assigned Provider 06/19/22 08/28/22 Brenda Gomez MD [address] [place] [address] [place] [address] [email or web address] Insurance Assigned Provider 08/28/22 01/22/23 Lis Long, FLAVIA [address] [place] [address] [email or web address] iCM Silverware Assembler 11/11/22 11/28/22 documented as of this encounter Additional Source Comments The information contained in this document represents components of the legal health record. It is not the complete legal health record.[facility]
--- OUTSIDE RECORDS SUMMARY | 2025-01-26 13:35 | XMS_ITS | Clinical Summary ---
Author Organization [employer] Address [address] [place] [address] [address] [place] [address] Care Team Providers Care Store Deli Manager Name Role Phone Naa Colindres MD Primary Care Provider [phone] Allergies Active Allergy Reactions Criticality Noted Date Comments Penicillins Hives Medium 04/24/2017 Tramadol Low 06/17/2017 Other reaction(s): GI Upset Medications betamethasone, augmented, (Diprolene) 0.05 % ointment 06/17/19 23 Active Hibiclens 4 % external liquid 02/09/20 22 Active cholecalciferol (Vitamin D-3) 125 MCG (5000 UT) capsule Take 125 mcg by mouth Once per day. 06/09/19 23 Active Diclofenac Sodium 1 % gel Apply 2 g topically if needed in the morning, at noon, in the evening, and at bedtime. Active lidocaine (Lidoderm) 5 % patch 08/11/19 23 Active magnesium oxide (Mag-Ox) 400 MG tablet Take 1 tablet by mouth Once per day. 05/21/19 23 Active naratriptan (Amerge) 2.5 MG tablet 08/04/19 23 Active Systane Ultra 0.4-0.3 % solution 07/02/19 23 Active riboflavin (vitamin B2) 100 mg tablet tablet 05/21/19 23 Active triamcinolone (Kenalog) 0.1 % ointment 03/07/20 22 Active hydrOXYzine pamoate (Vistaril) 25 MG capsuleIndication s:PTSD (post-traumatic stress disorder),Nightma res,Anxiety Take 1 capsule (25 mg) by mouth every 8 (eight) hours if needed for anxiety. 30 capsule 09/04/19 23 Active clobetasol (Temovate) 0.05 % creamIndications: Alopecia areata, unspecified APPLY A THIN LAYER TO THE AFFECTED AREA(S) ONCE DAILY 60 g 11 03/03/20 23 Active hydrocortisone 2.5 % lotionIndications :Alopecia areata, unspecified,Hidra denitis suppurativa APPLY TOPICALLY TWICE A DAY 59 mL 11 03/03/20 23 Active rizatriptan SENIOR MARKETING ASSOCIATE (Maxalt-SENIOR MARKETING ASSOCIATE) 10 MG disintegrating tabletIndications :Migraine without aura and without status migrainosus, not intractable 09/17/19 23 Active polyethylene glycol, PEG, 3350 (Miralax) 17 g packetIndications :History of constipation Take 17g po pack in 8oz water for up to 7 days. 7 packet 07/05/19 24 Active cyclobenzaprine (Flexeril) 10 MG tabletIndications :Lumbosacral radiculopathy at L4 TAKE 1 TABLET BY MOUTH EVERYDAY AT BEDTIME 20 tablet 05/14/20 Active clindamycin (Cleocin T) 1 % lotionIndications :Hidradenitis suppurativa APPLY TO AFFECTED AREA TWICE A DAY 60 mL 11 05/14/20 24 Active clindamycin (Cleocin T) 1 % lotionIndications :Hidradenitis suppurativa Apply topically 2 times daily. to affected area 60 mL 11 05/14/20 24 Active guaiFENesin (Mucinex) 600 MG 12 hr tabletIndications :Congestion of paranasal sinus Take 2 tablets (1,200 mg) by mouth 2 times daily. Do not crush, chew, or split. 120 tablet 11 05/14/20 24 2024 Active prazosin (Minipress) 1 MG capsuleIndication s:PTSD (post-traumatic stress disorder),Nightma res Take 1 capsule (1 mg) by mouth at bedtime. 90 capsule 05/14/20 24 Active cyclobenzaprine (Flexeril) 10 MG tabletIndications :Lumbosacral radiculopathy at L4 Take 1 tablet (10 mg) by mouth at bedtime. 90 tablet 05/14/20 24 Active sennosides (Senna-Time) 8.6 MG tabletIndications :Constipation, unspecified constipation type Take 1 tablet (8.6 mg) by mouth 2 times daily. 15 tablet 05/14/20 24 Active albuterol (ProAir HFA) 108 (90 Base) MCG/ACT inhaler Inhale 2 puffs every 6 (six) hours if needed for wheezing. 18 g 11 05/25/19 25 2025 Active divalproex (Depakote) 250 MG EC tabletIndications :Mood disorder (CMS/HCC) TAKE 2 TABLETS (500 MG) BY MOUTH AT BEDTIME. 180 tablet 1 06/12/19 25 Active acetaminophen (Tylenol 8 Hour) 650 MG ER tabletIndications :Chronic left-sided thoracic back pain Take 1 tablet (650 mg) by mouth every 8 (eight) hours if needed for mild pain. Do not crush, chew, or split. 90 tablet 1 06/14/19 25 Active pantoprazole (ProtoNix) 40 MG EC tabletIndications :Gastroesophageal reflux disease without esophagitis TAKE 1 TABLET (40 MG) BY MOUTH BEFORE BREAKFAST 90 tablet 08/17/19 25 Active clindamycin (Cleocin) 300 MG capsule Take 1 capsule by mouth every 6 (six) hours during the day. 08/20/19 25 Active fluconazole (Diflucan) 150 MG tablet Take 1 tablet by mouth Once per day. 07/13/19 25 Active lidocaine-priloca ine (Emla) 2.5-2.5 % cream Apply 1 Application. topically 1 (one) time if needed for mild pain. 08/15/19 25 Active metroNIDAZOLE (Flagyl) 500 MG tablet Take 1 tablet by mouth in the morning and 1 tablet in the evening. 08/07/19 25 Active ondansetron ODT (Zofran-ODT) 8 MG disintegrating tablet Take 1 tablet by mouth every 8 (eight) hours if needed for nausea. 07/15/19 25 Active terconazole (Terazol 3) 0.8 % vaginal cream Insert 1 applicator into the vagina at bedtime. 08/07/19 25 Active topiramate (Topamax) 100 MG tablet Take 100 mg by mouth at bedtime. 06/11/19 25 Active fluticasone (Flonase) 50 MCG/ACT nasal sprayIndications: Allergic rhinitis, unspecified seasonality, unspecified trigger ADMINISTER 2 SPRAYS INTO EACH NOSTRIL ONCE PER DAY. 48 mL 1 09/04/19 25 Active doxepin (SINEquan) 10 MG capsuleIndication s:PTSD (post-traumatic stress disorder) TAKE 1 CAPSULE (10 MG) BY MOUTH AT BEDTIME. TO HELP STAY ASLEEP 90 capsule 11/10/19 25 2024 Active gabapentin (Neurontin) 300 MG capsuleIndication s:Mood disorder (CMS/HCC) TAKE 1 CAPSULE BY MOUTH 3 TIMES A DAY CAN INCREASE MORNING AND EVENING DOSES TO 2 CAPS IF NEEDED 150 capsule 12/13/19 25 Active HYDROcodone-aceta minophen ([place]) 5-325 MG tablet Take 2 tablets by mouth every 6 (six) hours if needed. 10/06/19 25 Active phentermine 15 MG capsuleIndication s:Class 2 severe obesity due to excess calories with serious comorbidity and body mass index (BMI) of 36.0 to 36.9 in adult (CMS/HCC),BMI 38.0-38.9,adult Take 1 capsule (15 mg) by mouth before breakfast. 30 capsule 2 01/26/20 25 2024 Active pseudoephedrine (Sudafed) 30 MG tabletIndications :Congestion of paranasal sinus Take 1 tablet (30 mg) by mouth every 4 (four) hours if needed for congestion for up to 10 days. 30 tablet 05/14/20 24 2024 Discontinued cyclobenzaprine (Flexeril) 5 MG tabletIndications :Chronic right-sided low back pain with right-sided sciatica Take 1 tablet (5 mg) by mouth if needed at bedtime for muscle spasms for up to 21 days. 21 tablet 09/04/19 25 2024 Discontinued meloxicam (Mobic) 7.5 MG tabletIndications :Chronic right-sided low back pain with right-sided sciatica Take 1 tablet (7.5 mg) by mouth Once per day. 90 tablet 10/06/19 25 2024 cyclobenzaprine (Flexeril) 5 MG tabletIndications :Chronic right-sided low back pain with right-sided sciatica TAKE 1 TABLET (5 MG) BY MOUTH IF NEEDED AT BEDTIME FOR MUSCLE SPASMS FOR UP TO 21 DAYS. 21 tablet 01/01/20 25 2024 Discontinued Active Problems Problem Noted Date Diagnosed Date Loan albicans infection 03/12/2024 Assessment & Plan (03/12/2024 9:22 PM EDT): Pt states knows her vag discharge is yeast infection has had before and fluconazole always works well, clears it. Also recommended to let ER know tomorrow when she goes there for evaluation of her flare of hidrandentis lesions along inner thighs and states she will do so. Advised kris bottle with warm water to dilute urine when toileting and help with gentle perineal hygiene, avoid refined processed sugary foods and avoid smoking, stay well hydrated with water. E rx to her pharmacy as requested. History of constipation 07/05/2023 Assessment & Plan (07/18/2023 3:16 PM EST): Continues to endorse chronic constipation. Taking miralax which helps pass stools. Awaiting referral to GI, placed urgently in March? Per pt, unable to schedule as updated referral is needed to be re-faxed over to [facility]. Will send another message to referrals to refax this order and notify patient when this has been done, ok to leave VM. Reviewed constipation can be common SE of meds such as gabapentin. Encouraged incr fiber and fluids. Recommending evaluation by GI. Assessment & Plan (07/05/2023 5:05 PM EST): Discussed trial miralax and fiber supplement. Discussed indications on when to seek care in person ie- not passing stools/gas/worsening pain/vomiting etc.. Schedule with GI phone number provided. Foreign body in right foot 07/05/2023 Assessment & Plan (07/18/2023 3:30 PM EST): Foreign body (glass) to R foot since 05/07. Seen in ED and office unable to remove FB. Has appointment with surgery 07/22/23. On going pain to sole of right foot, very sensitive. Exacerbating other chronic pain nerve pain to R side of body. Denies fevers/redness/swelling to site of FB. Reviewed tylenol dosing as needed up to three times a day. Reviewed ibuprofen as needed, take with food to avoid GI symptoms, do not take with other NSAIDs, avoid regular usage. Incr dose of gabapentin as ordered. Assessment & Plan (07/18/2023 3:11 PM EST): Foreign body (glass) to R foot since 05/07. Seen in ED and office unable to remove FB. Has appointment with surgery 07/22/23. On going pain to sole of right foot, very sensitive. Exacerbating other chronic pain nerve pain to R side of body. Denies fevers/redness/swelling to site of FB. Reviewed tylenol dosing as needed up to three times a day. Reviewed ibuprofen as needed, take with food to avoid GI symptoms, do not take with other NSAIDs, avoid regular usage. Incr dose of gabapentin as ordered. Today patient reported improved pain relief with increase of gabapentin, its taking the edge off . Reports currently taking Gabapentin 600 mg in the morning, 300 mg afternoon and evening. Aware to continue to monitor site for signs of infection ie- incr pain/redness/purulent drainage/fevers etc. Assessment & Plan (07/05/2023 5:02 PM EST): Referral to surgery pending. Discussed monitor and seek care for signs of infection ie- incr redness/swelling/pain/drainage/fevers. Okay to soak in warm water and antibacterial soap mix BID. Nausea and vomiting 07/05/2023 Extreme poverty 02/25/2023 Sheltered homelessness 09/03/2022 Chronic migraine with aura 09/03/2022 Nightmares 09/03/2022 Anxiety 09/03/2022 Oral herpes 09/03/2022 Gastroesophageal reflux disease without esophagi tis 05/31/2022 Overview (09/03/2022): Last Assessment & Plan: Avoid late, large, spicy meals. Keep headboard [...] as warmth, gentle massage, gentle stretching etc. Right facial numbness 05/31/2022 Overview (09/03/2022): Last Assessment & Plan: Track severity, length, pending symptoms and frequency of episodes to look for patterns. Tinnitus of left ear 05/31/2022 Overview (09/03/2022): Last Assessment & Plan: Keep a diary of episodes with modifying factors. If increasing frequency and/or severity of episodes consider formal ENT specialist consultation Hidradenitis suppurativa 02/08/2022 Overview (09/03/2022): Last Assessment & Plan: Continue close follow-up with treating mellowing machine operator as scheduled. Assessment & Plan (03/12/2024 9:19 PM EDT): Emphasized importance of getting any flares addressed right away d/t risk of infection/scarring and pt plans to go to [place] [facility] tomorrow as can't get in immediately with her treating mellowing machine operator. Also she will followup with her pharmacy about apparent delay in receipt of this month's dose of her Cosentyx. No fevers and Flaca states she will call her derm office tomorrow to try to move up her next appointment. States her derm is trying to get her in with a surgeon who is willing to revise the scarred areas on her inner thighs. Pt agrees to f/up with PCP after ER visit and status of her derm followup. Chronic right-sided low back pain with right-terra ed sciatica 01/22/2022 Overview (09/03/2022): Last Assessment & Plan: Use warm pack versus warm shower prior to gentle ROM and muscle stretching exercises as tolerated. She may benefit from warm packs followed by topical products such as Arnica, Biofreeze, Aspercreme, Voltaren, Blue emu etc. versus medicated patches such as Salonpas or IcyHot patch 2-3 times daily and if needed at bedtime x 3 weeks Last Assessment & Plan: Due to her reported love of swimming in her teens I suggested her warm pool therapy [facility] in [place] versus local [employer] versus local health club. Due to her overwhelming headache, facial and right-sided body weakness she is afraid of continuing pool therapy worrying about possible seizure disorder. Gentle, regular core muscle strengthening exercises after warm pack or warm shower in chair or on the yoga mat Assessment & Plan (03/12/2024 9:16 PM EDT): Very complex pt with multiple chronic and painful health conditions, has support of her aunt for transportation citing recent car trouble. Plans to be seen in [place] ER tomorrow for re evaluation of her back pain and also hidradenitis s. Flare, not sure if needs inner thigh areas drained again prior to being able to f/up with her mellowing machine operator. Encouraged to discuss pain management medical office assistant consult with her PCP if indicated; patient has a very long list of medications which we attempted to review and reconcile with her this evening but she expressed was not willing to finish - nearly completed including reconciling all outside medications for medication and prescribing safety. Given her polypharmacy and multiple severe chronic health concerns, discussed that it would be for her benefit to be seen in person with her PCP and derm on a regular basis, pt states she agrees. No further questions or concerns at visit conclusion. Class 2 severe obesity due t o excess calories with serious comorbidity and body mass index (BMI) of 36.0 to 36.9 in adult 01/22/2022 Assessment & Plan (07/05/2023 4:59 PM EST): Referred to nutrition, scheduling to reach out to patient. Pelvic pain 12/01/2020 HNP (herniated nucleus pulposus), lumbar 019 Lumbosacral radiculopathy at L4 09/19/2018 High risk human papilloma cervical smear 018 Overview (09/03/2022): 2018, with negative PAP. Needs cotesting in 1 year Last Assessment & Plan: Advised patient she is overdue for repeat cotesting. She does not believe repeat screening was done at [facility]. We will add her to recall list when resuming normal office scheduling. Dysmenorrhea 06/17/2017 PTSD (post-traumatic stress disorder) 04/28/2017 Overview (09/03/2022): Last Assessment & Plan: Very close follow-up with personal psychotherapist Resolved Problems Problem Noted Date Diagnosed Date Resolved Date Diabetes due to undrl condit ion w oth diabetic neuro comp 05/23/2023 01/23/2025 Weakness 05/31/2022 09/03/2022 Overview (09/03/2022): Last Assessment & Plan: May need formal evaluation to discern true weakness from weakness secondary to pain. Vulvar ulcer 02/01/2022 09/03/2022 Overview (09/03/2022): Pain and a blister noted for 1 week. Exam reveals a tiny 1 to 2 mm very painful ulceration or erosion upper inner left Last Assessment & Plan: HSV test sent, possible this represents herpes so Valtrex prescription was sent in. Discussed that if this is positive, it is not always known when HSV was actually acquired as 1 can have a first episode months to even years after acquisition. History of stomach ulcers 01/22/2022 Overview (09/03/2022): Last Assessment & Plan: I reviewed with her need for working on complete smoking cessation EMBER that puts her at an increased risk of bleeding from stomach or duodenal ulcers. Avoid spicy and acidic food products. Optimize her stress management strategies. Intractable migraine with au ra without status migrainosus 01/22/2022 09/03/2022 Overview (09/03/2022): Last Assessment & Plan: I have previously asked her to keep a diary of her headaches, episodes of shooting pains and accompanying/modifying factors, severity of pain, location, length of episode and her way of managing it. I requested release of most recent PCP evaluations for review. She would benefit from formal neurological evaluation and work-up Pain of right mastoid 01/22/20222022 Overview (09/03/2022): Last Assessment & Plan: Mostly occurring with abduction of her right arm and right elbow extension? Referred pain. Vitamin D insufficiency 01/22/202208/15 Overview (09/03/2022): Last Assessment & Plan: Found with low vitamin D at 26 (30-60) on labs from 01/22/2022-needs vitamin D supplementation to bring it into sufficient range: 40-45 ng/ml. Tobacco dependence 12/01/2020 Overview (09/03/2022): Last Assessment & Plan: I have spent at least 3 minutes [...] benefit from cigarette smoking cessation specialist advice. Right lower quadrant pain 12/24/2018 Overview (09/03/2022): Last Assessment & Plan: C/O recent RLQ pain x 2 wks. [...] will order Pelvic U/S Vaginal odor 08/11/2018 09/03/2022 Overview (09/03/2022): Last Assessment & Plan: Flaca c/o vaginal odor and increased yellow discharge for 2 wks. Was sexually active with her bf, who she has just broken up with d/t infidelity Wants to be tested for STI A: Bacterial Vaginosis At risk for STI P: Rx Metrogel for BV STI testing ordered Weight gain 06/17/2017 09/03/2022 Encounters Date Type Department Care Team Description 01/25/2025 2:00 PM EDT Office Visit [address] [address] Jodi Miller MD Class 2 severe obesity due to excess calories with serious comorbidity and body mass index (BMI) of 36.0 to 36.9 in adult ([facility]) (Primary Dx); BMI 38.0-38.9,adult 01/25/2025 Results Follow-Up [address] [address] Naa Colindres MD D-Dimer, Quantitative [[id number]], Hemoglobin A1c 658731, Lipid Panel, Standard [id number] 01/23/2025 11:20 AM EDT Office Visit [address] [address] Naa Colindres MD Class 2 severe obesity due to excess calories with serious comorbidity and body mass index (BMI) of 38.0 to 38.9 in adult ([facility]) (Primary Dx); Localized swelling of left lower leg 01/23/2025 Travel 12/31/2024 Telephone [facility] [address] [place] [address] Ophelia Hurley LPN Rash 12/31/[address] [address] Ashly Diamond MD Chronic right-sided low back pain with right-sided sciatica 12/26/2024 Patient Outreach [facility] () Department [address] [phone] Reji Cedillo 12/19/2024 Patient Outreach [facility] () Department [address] [place], [place] [phone] Reji Cedillo c3 care management 12/14/2024 Telephone [facility] MED[facility] [address] [place] [address] Naa Colindres MD [facility] 12/12/2024 Patient Outreach [facility] () Department [address] [place] [address] Reji Cedillo 12/12/2024 Patient Outreach [facility] () Department [address] [place], [place] [phone] Reji Cedillo c3 care management 12/11/2024 Refill [facility] [address] [place] [address] Danny Freeman NP Mood disorder ([facility]) (Primary Dx) 11/12/2024 3:30 PM EDT Clinical Support [facility] NUTRITION [address] [place] [address] Class 2 severe obesity due to excess calories with serious comorbidity and body mass index (BMI) of 38.0 to 38.9 in adult ([facility]/HCC) 11/12/2024 Travel 11/09/2024 Refill [facility] [address] [place] [address] Naa Colindres MD PTSD (post-traumatic stress disorder) from Last 3 Months Immunizations Immunization Administration Dates Next Due Influenza injectable quadriv alent IIV4 with preservative 05/04/2017 Influenza injectable quadriv alent preservative free 02/27/2019,04/25/2018,04/28/2017 Rho(D)-IG 09/12/2019 Tdap 09/21/2017 Family History Medical History Relation Name Comments Cancer Maternal Grandfather Cancer Mother's Brother Relation Name Status Comments Maternal Grandfather Mother's Brother Social History Tobacco Use Types Packs/Day Years [...] your housing situation today? I have kathleen radha 03/01/[address] you li [...] Orientation Straight 08/26/2022 3: 32 PM EDT Last Filed Vital Signs Vital Sign Reading [...] Mass Index 38.08 01/25/2025 1:53 PM EDT Plan of Treatment Upcoming Encounters Date Type Department Care Team (Late st Contact Info) Description 02/16/2025 9:20 AM EDT Office Visit [facility] MED[facility] [address] [place] [address] Naa Colindres MD [address] [place] [address] 04/02/2025 10:30 AM EST Office Visit [facility] MED[facility] [address] [place] [address] Jodi Miller MD [address] [place] [address] Health Maintenance Due Date Last Done Comments Alcohol/Substance Use Screening 1996 Family Planning (PISQ) 10/17/1999 HPV Vaccines (1 - 3-dose series) 10/17/1999 Hepatitis B Vaccines (1 of 3 - 19+ 3-dose series) 10/17/2003 09/21/2023 Pneumococcal Vaccine: Pediatrics (0 to 5 Years) and At-Risk Patients (6 to 49) Years (1 of 2 - PCV) 10/17/2003 Pap Smear 2005 Cervical Cancer Screening 2014 HPV/Cotest 2014 Depression Monitoring 03/27/2023 09/24/2022, 023 SDOH Screening 02/04/2024 02/03/2023 Mammogram 2024 COVID-19 Vaccine ( season) 2025 06/02/2021, 10/23/2020, 10/02/2020 Influenza Vaccine (#1) 2025 9, 04/25/2018, 05/04/2017, Additional history exists Disability Screening 05/25/2025 05/25/2024 Tobacco Screening 01/25/2026 01/25/2025 DTaP/Tdap/Td Vaccines (2 - Td or Tdap) 09/22/2027 09/21/2017 Lipid Panel 01/24/2030 01/24/2025 Zoster Vaccines (1 of 2) 2034 RSV Patients and Patients Aged 60 years or older (1 - 1-dose 75+ series) 10/17/2059 Hepatitis C Screening Completed 12/09/2022 HIV Screening Completed 09/21/2023, 05/0 12/2023, 12/09/2022 HIB Vaccines Aged Out No longer eligi ble based on patient's age to complete this topic Hepatitis A Vaccines Aged Out No long er eligible based on patient's age to complete this topic IPV Vaccines Aged Out No longer eligi ble based on patient's age to complete this topic Meningococcal B Vaccine Aged Out No l onger eligible based on patient's age to complete this topic Meningococcal Vaccine Aged Out No mendy jhonny eligible based on patient's age to complete this topic RSV under 20 months Aged Out No longe r eligible based on patient's age to complete this topic Rotavirus Vaccines Aged Out No longer eligible based on patient's age to complete this topic Procedures Procedure Name Priority Date/Time Associated Diagnosis Comments LIPID PANEL, STANDARD Routine 01/24/2025 11:04 AM EDT Class 2 severe obesity due to excess calories with serious comorbidity and body mass index (BMI) of 38.0 to 38.9 in adult ([facility]) HEMOGLOBIN A1C Routine 01/24/2025 11:04 AM EDT Class 2 severe obesity due to excess calories with serious comorbidity and body mass index (BMI) of 38.0 to 38.9 in adult ([facility]) D-DIMER, QUANTITATIVE Routine 01/24/2025 11:04 AM EDT Localized swelling of left lower leg AMB REFERRAL TO OPHTHALMOLOGY Routine 10/30/2024 Dry eye syndrome of bilateral lacrimal glands HIV 1/2 ANTIGEN/ANTIBODY, FOURTH GENERATION W/RFL Routine 09/21/2023 9:58 AM EDT from Last 3 Months or Most Recently Relevant to Health Maintenance Results * (ABNORMAL) D-Dimer, Quantitative [[id number]] (01/24/2025 11:04 AM EDT) D-Dimer, Quantitative 0.96(H) 0.00 - 0.49 mg/L FEU [facility] 1 Comment: According to the assay consulting networking engineer's published package insert, a normal (<0.50 mg/L FEU) D-dimer result in conjunction with a non-high clinical probability assessment, excludes deep vein thrombosis (DVT) and pulmonary embolism (PE) with high sensitivity. D-dimer values increase with age and this can make VTE exclusion of an older population difficult. To address this, the [employer], based on best available [...] 01/24/2025 Narrative Resulting Agency Comment Performed at: [facility] [id number] Visitor Services Information Assistant: Sunshine Cardozo MD, Phone: [phone] us Naa Colindres MD LAB BLOOD ORDERABLES Final Res ult [facility] 1 * Hemoglobin A1c [id number] (01/24/2025 11:04 AM EDT) Pathologist [facility] Hemoglobin A1c 5.6 4.8 - 5.6 % [facility] 1 Comment: Prediabetes: 5.7 - 6.4 Diabetes: >6.4 Glycemic control for adults with diabetes: <7.0 Blood Venous blood specimen / Unknown 01/24/2025 11:04 AM EDT 01/24/2025 Narrative Resulting Agency Comment Performed at: - [facility] [address] [address] [id number] Visitor Services Information Assistant: Sunshine Cardozo MD, Phone: [phone] Naa Colindres MD LAB BLOOD ORDERABLES Final Res ult [facility] 1 * (ABNORMAL) Lipid Panel, Standard 29716 (01/24/2025 11:04 AM EDT) Cholesterol, Total 209(H) 100 - 199 mg/dL [facility] 1 Triglycerides 165(H) 0 - 149 mg/dL [facility] 1 HDL Cholesterol 53 >39 mg/dL [facility] 1 VLDL Cholesterol Juan 29 5 - 40 mg/dL [facility] 1 LDL Chol Calc (NIH) 127(H) 0 - 99 mg/dL [facility] 1 Blood Venous blood specimen / Unknown 01/24/2025 11:04 AM EDT 01/24/2025 Narrative Resulting Agency Comment Performed at: - [facility] [id number] Visitor Services Information Assistant: Sunshine Cardozo MD, Phone: [phone] Naa Colindres MD LAB BLOOD ORDERABLES Final Res ult Performing Organization Address City/[facility]/ZIP Co de Phone Number [facility] 1 * Referral to Ophthalmology (10/30/2024) Naa Colindres MD OUTPATIENT REFERRAL ORDERABLES Final Result * HIV-1/2 Antigen and Antibodies, Fourth Generation, with Reflexes (09/21/2023 9:58 AM EDT) Blood Venous blood specimen / Unknown Naa Colindres MD LAB BLOOD ORDERABLES Final Res ult from Last 3 Months or Most Recently Relevant to Health Maintenance Insurance Care Teams Store Deli Manager Relationship Specialty Start Date End Date Naa Colindres MD [address] [place] [address] PCP - General Family Medicine 09/03/22
--- OUTSIDE RECORDS SUMMARY | 2025-01-26 13:35 | XMS_ITS | Encounter Summary ---
Author Organization [facility], Address [address] [place] [address] Phone Care Team Providers Care Radiology Nurse Name Role Phone Naa Colindres MD Primary Care Provider [phone] Encounter Details Date Type Department Care Team (Late st Contact Info) Description 03/02/2023 Documentation Only [facility], [facility] Megan [address] [facility] [address] [place] [phone] Jeffery Tyler MD [address] [place] [address] [place] [phone] Social History Tobacco Use Types Packs/Day Years [...] on filedocumented in this encounter Care Teams Radiology Nurse Relationship Specialty Start Date End Date Naa Colindres MD [address] [place] [address] PCP - General Family Medicine 03/17/23 documented as of this encounter
--- OUTSIDE RECORDS SUMMARY | 2025-01-26 13:35 | XMS_ITS | Encounter Summary ---
Author Organization [facility] Address [address] [place] [address] Phone Care Team Providers Care Client Account Manager Name Role Phone Catalina Borden LEGAL CONTRACTS SPECIALIST Unavailable [email or web address] Brenda Gomez MD Unavailable [phone] Lis Mcdonald CERTIFIED PROFESSIONAL CODER Primary Care Pro vider Tariq Yang MD Unavailable [phone] Brenda Gomez MD Unavailable [phone] Lis Long RN Unavailable Naa Colindres MD Primary Care Provider + [phone] Encounter Details Date Type Department Care Team (Latest Contact Info) Description 04/14/2022 Transcribe Orders Virtual Department [address] [place] [address] Piter Kendrick, DO [address] [place] [address] [email or web address] Left hip pain (Primary Dx) Social History Tobacco Use [...] 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 Not on file Not on file documented as of this encounter Plan of Treatment Upcoming Encounters Date Type Department Care Team (Late st Contact Info) Description 04/15/2025 2:00 PM EST Office Visit [facility] Neurology [address] [place] [address] [place] [address] Sundar Vázquez MD [address] [place] [address], 2nd [place] [address] 05/06/2025 9:00 AM EST Office Visit [facility] Rheumatology [address] [place] [address] Nancy Baptiste MD [address] [place] [address], [address] [place] [address] [email or web address] documented as of this encounter Visit Diagnoses Diagnosis Left hip pain- Primary Pain in joint, pelvic region and thigh documented in this encounter Care Teams Client Account Manager Relationship Specialty Start Date End Date Lis Mcdonald NP [address] [place] [address] [email or web address] PCP - General Family Medicine 01/27/22 08/15/23 Naa Colindres MD [address] [place] [address] PCP - General Family Medicine 08/16/23 Catalina Bordne, LEGAL CONTRACTS SPECIALIST [address] [place] [address] [email or web address] iCMP Social Work 04/14/20 03/24/23 Brenda Gomez MD [address] [place] [address] [place] [address] [email or web address] Insurance Assigned Provider 10/19/20 06/19/22 Tariq Yang MD [address] [place] [address] [place] [address] [email or web address] Insurance Assigned Provider 06/19/22 08/28/22 Brenda Gomez MD [address] [place] [place] [address] [place] [address] [email or web address] Insurance Assigned Provider 08/28/22 01/22/23 Lis Long, RN [address] [place] [address] [email or web address] [facility] Machine Printer 11/11/22 11/28/22 documented as of this encounter Additional Source Comments The information contained in this document represents components of the legal health record. It is not the complete legal health record.[facility]
--- OUTSIDE RECORDS SUMMARY | 2025-01-26 13:35 | XMS_ITS | Encounter Summary ---
Author Organization [facility], Address [address] [place] [address] Phone Care Team Providers Care Drip Molder Name Role Phone Naa Colindres MD Primary Care Provider [phone] Encounter Details Date Type Department Care Team (Late st Contact Info) Description 12/10/2022 Documentation Only [facility], [facility] Megan [address] [facility] [address] [place] [phone] Jeffery Tyler MD [address] [place] [address] [place] [phone] Social History Tobacco Use Types Packs/Day Years [...] on filedocumented in this encounter Care Teams Drip Molder Relationship Specialty Start Date End Date Naa Colindres MD [address] [place] [address] PCP - General Family Medicine 03/17/23 documented as of this encounter
--- OUTSIDE RECORDS SUMMARY | 2025-01-26 13:35 | XMS_ITS | Encounter Summary ---
Author Organization [facility] Address [address] [address] Phone Care Team Providers Care Supervisor Screen Printing Name Role Phone Catalina Borden TRADING SPECIALIST Unavailable [email or web address] Brenda Gomez MD Unavailable [phone] Lis Mcdonald NP Primary Care Pro vider Tariq Yang MD Unavailable [phone] Brenda Gomez MD Unavailable [phone] Lis Long RN Unavailable Naa Colindres MD Primary Care Provider + [phone] Encounter Details Date Type Department Care Team (Late st Contact Info) Description 05/21/2022 Transcribe Orders [facility] Neurology [address] [place] [address] Lis Mcdonald NP [address] [place] [address] [email or web address] Social History Tobacco Use Types Packs/Day Years [...] 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 Wish to be (Past 1 Month) No 023 11:34 AM Nadja Paris RN 2. Non-Specific Active Suici nohemi Thoughts (Past 1 Month) No 05/21/2022 11:34 AM Sa pineda Paris RN 6. Suicidal Behavior (Lifetime) No 3 11:34 AM Nadja Paris RN documented as of this encounter Plan of Treatment Upcoming Encounters Date Type Department Care Team (Late st Contact Info) Description 04/15/2025 2:00 PM EST Office Visit [facility] Neurology [address] [place] [address] Sundar Vázquez MD [address] [place] [address], 2nd [place] [address] 05/06/2025 9:00 AM EST Office Visit [facility] Rheumatology [address] [place] [address] Nancy Baptiste MD [address] [place] [address], [address] [place] [address] documented as of this encounter Visit Diagnoses Not on filedocumented in this encounter Care Teams Supervisor Screen Printing Relationship Specialty Start Date End Date Lis Mcdonald NP [address] [place] [email or web address] PCP - General Family Medicine 01/27/22 08/15/23 Naa Colindres MD [address] [place] [address] PCP - General Family Medicine 08/16/23 Catalina Borden, TRADING SPECIALIST [address] [place] [phone] [email or web address] iCMP Social Work 04/14/20 03/24/23 Brenda Gomez MD [address] [place] [address] [place] [address] [email or web address] Insurance Assigned Provider 10/19/20 06/19/22 Tariq Yang MD [address] [place] [address] [email or web address] Insurance Assigned Provider 06/19/22 08/28/22 Brenda Gomez MD [address] [place] [address] [place] [address] [email or web address] Insurance Assigned Provider 08/28/22 01/22/23 Lis Long, RN [address] [place] [address] [employer]CM Dairy Farm Supervisor 11/11/22 11/28/22 documented as of this encounter Additional Source Comments The information contained in this document represents components of the legal health record. It is not the complete legal health record.[facility]
--- OUTSIDE RECORDS SUMMARY | 2025-01-26 13:35 | XMS_ITS | Encounter Summary ---
Author Organization [facility], Address [address] [place] [address] Phone Care Team Providers Care Morals Squad Police Officer Name Role Phone Naa Colindres MD Primary Care Provider [phone] Encounter Details Date Type Department Care Team (Late st Contact Info) Description 12/15/2022 Documentation Only [facility], [facility] Megan [address] [facility] [address] [place] [phone] Jeffery Tyler MD [address] [place] [address] [place] [phone] Social History Tobacco Use Types Packs/Day Years [...] on filedocumented in this encounter Care Teams Morals Squad Police Officer Relationship Specialty Start Date End Date Naa Colindres MD [address] [place] [address] PCP - General Family Medicine 03/17/23 documented as of this encounter
--- OUTSIDE RECORDS SUMMARY | 2025-01-26 13:35 | XMS_ITS | Encounter Summary ---
Author Organization [facility] Address [address] [place] [address] Phone Care Team Providers Care Ship Liner Name Role Phone Tariq Yang MD Unavailable [phone] Taina Patel PA Primary Care Provider Jo Galan Primary Care Provider [phone] Janneth Waller DO Unavailable [phone] Tariq Yang MD Unavailable + Catalina Borden ENGINEERING FACULTY Unavailable [email or web address] Brenda Gomez MD Unavailable [phone] Unknown, Unknown Primary Care Provider Lis Lobo LINE CLEARANCE FOREMAN Primary Care Pro vider Tariq Yang MD Unavailable + Brenda Gomez MD Unavailable [phone] Lis Long RN Unavailable Naa Colindres MD Primary Care Provider [phone] Encounter Details Date Type Department Care Team (Late st Contact Info) Description 09/19/2018 Procedure Pass OR Admitting Dept - Virtual Department [address] [place] [address] Social History Tobacco Use Types Packs/Day Years [...] 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 Not on file Not on file documented as of this encounter Plan of Treatment Upcoming Encounters Date Type Department Care Team (Late st Contact Info) Description 04/15/2025 2:00 PM EST Office Visit [facility] Neurology [address] [place] [address] [place] [address] Sundar Vázquez MD [address] [place] [address], 2nd [place] [address] [email or web address] 05/06/2025 9:00 AM EST Office Visit [facility] Rheumatology [address] [place] [address] [place] [address] Nancy Baptiste MD [address] [place] [address], [address] [place] [address] [email or web address] documented as of this encounter Visit Diagnoses Not on filedocumented in this encounter Care Teams Ship Liner Relationship Specialty Start Date End Date Taina Patel PA [address] [place] [address] PCP - General Unknown Provider Specialty 06/02/18 09/19/18 Jo Galan PA [address] [place] [address] [email or web address] PCP - General 09/20/18 01/21/22 Unknown, Unknown, PCP - General 01/22/22 01/26/22 Lis Mcdonald NP [address] [place] [address] [email or web address] PCP - General Family Medicine 01/27/22 08/15/23 Naa Colindres MD [address] [place] [address] [email or web address] PCP - General Family Medicine 08/16/23 Tariq Yang MD [address] [place] [address] [email or web address] Insurance Assigned Provider 09/17/17 10/20/19 Janneth Waller DO [address] [place] [address] [place] [address] Insurance Assigned Provider 10/20/19 03/22/20 Tariq Yang MD [address] [place] [phone] Insurance Assigned Provider 03/22/20 10/19/20 Catalina Borden, [address] [address] [email or web address] iCMP Social Work 04/14/20 03/24/23 Brenda Gomez MD [address] [place] [address] [place] [address] [email or web address] Insurance Assigned Provider 10/19/20 06/19/22 Tariq Yang MD [address] [place] [address] [email or web address] Insurance Assigned Provider 06/19/22 08/28/22 Brneda Gomez MD [address] [place] [address] [place] [address] [email or web address] Insurance Assigned Provider 08/28/22 01/22/23 Lis Long RN [address] [place] [address] [email or web address] iCMP All Source Intelligence 11/11/22 11/28/22 documented as of this encounter Additional Source Comments The information contained in this document represents components of the legal health record. It is not the complete legal health record.[facility]
--- OUTSIDE RECORDS SUMMARY | 2025-01-26 13:35 | XMS_ITS | Encounter Summary ---
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 file Not on file documented as of this encounter Plan of Treatment Upcoming Encounters Date Type Department Care Team (Late st Contact Info) Description 04/15/2025 2:00 PM EST Office Visit [facility] Neurology [address] [place] [address] Sundar Vázqeuz MD [address] [place] [address], 2nd [place] [address] 05/06/2025 9:00 AM EST Office Visit [facility] Rheumatology 22 [place] [address] Nancy Baptiste MD [address] [place] [address], [address] [place] [address] documented as of this encounter Visit Diagnoses Not on filedocumented in this encounter Care Teams Deputy City Clerk Relationship Specialty Start Date End Date Lis Mcdonald NP [address] [place] [address] [email or web address] PCP - General Family Medicine 01/27/22 08/15/23 Naa Colindres MD [address] [place] [address] PCP - General Family Medicine 08/16/23 documented as of this encounter Additional Source Comments The information contained in this document represents components of the legal health record. It is not the complete legal health record.[facility]
--- OUTSIDE RECORDS SUMMARY | 2025-01-26 13:35 | XMS_ITS | Encounter Summary ---
Author Organization [facility], Address [address] [place] [address] Phone Care Team Providers Care Environmental Control Administrator Name Role Phone Naa Colindres MD Primary Care Provider [phone] Encounter Details Date Type Department Care Team (Late st Contact Info) Description 12/16/2022 Documentation Only [facility], [facility] Megan [address] [facility] [address] [place] [phone] Jeffery Tyler MD [address] [place] [address] [place] [phone] Social History Tobacco Use Types Packs/Day Years [...] on filedocumented in this encounter Care Teams Environmental Control Administrator Relationship Specialty Start Date End Date Naa Colindres MD [address] [place] [address] PCP - General Family Medicine 03/17/23 documented as of this encounter
--- OUTSIDE RECORDS SUMMARY | 2025-01-26 13:36 | XMS_ITS | Encounter Summary ---
Author Organization [facility], Address [address] [place] [address] Phone Care Team Providers Care Bargain Table Clerk Name Role Phone Naa Colindres MD Primary Care Provider [phone] Encounter Details Date Type Department Care Team (Late st Contact Info) Description 09/26/2023 Documentation Only [facility], [address] [place] [address] Collette Stacy [address] [place] [phone] Social History Tobacco Use Types Packs/Day Years [...] on filedocumented in this encounter Care Teams Bargain Table Clerk Relationship Specialty Start Date End Date Naa Colindres MD [address] [place] [address] PCP - General Family Medicine 03/17/23 documented as of this encounter
--- OUTSIDE RECORDS SUMMARY | 2025-01-26 13:36 | XMS_ITS | Encounter Summary ---
Author Organization [facility], Address [address] [place] [address] Phone Care Team Providers Care Instructor Correspondence School Name Role Phone Naa Colindres MD Primary Care Provider Encounter Details Date Type Department Care Team (Late st Contact Info) Description 09/22/2023 Documentation Only [facility], [address] [place] [address] Collette Stacy [address] [place] [phone] Social History Tobacco Use Types Packs/Day Years [...] on filedocumented in this encounter Care Teams Instructor Correspondence School Relationship Specialty Start Date End Date Naa Colindres MD [address] [place] [address] PCP - General Family Medicine 03/17/23 documented as of this encounter
--- OUTSIDE RECORDS SUMMARY | 2025-01-26 13:36 | XMS_ITS | Encounter Summary ---
Author Organization [facility], Address [address] [place] [address] Phone Care Team Providers Care Corporate Legal Manager Name Role Phone Naa Colindres MD Primary Care Provider [phone] Encounter Details Date Type Department Care Team (Late st Contact Info) Description 09/22/2023 Documentation Only [facility], [address] [place] [address] Collette Stacy [address] [place] [phone] Social History Tobacco Use Types Packs/Day Years [...] on filedocumented in this encounter Care Teams Corporate Legal Manager Relationship Specialty Start Date End Date Naa Colindres MD [address] [place] [address] PCP - General Family Medicine 03/17/23 documented as of this encounter
--- OUTSIDE RECORDS SUMMARY | 2025-01-26 13:36 | XMS_ITS | Encounter Summary ---
Author Organization [facility] Address [address] [place] [address] Phone Care Team Providers Care Deputy Coroner Investigator Name Role Phone Catalina Borden BUSINESS PARTNER Unavailable [email or web address] Brenda Gomez MD Unavailable [phone] Lis Mcdonald DIRECTOR OF RETAIL MARKETING Primary Care Pro vider Tariq Yang MD Unavailable [phone] Brenda Gomez MD Unavailable [phone] Lis Long RN Unavailable Naa Colindres MD Primary Care Provider + [phone] Encounter Details Date Type Department Care Team (Late st Contact Info) Description 05/18/2022 Procedure Pass [facility] Scan - [facility] [address] [place] [address] Social History Tobacco Use Types Packs/Day Years [...] 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 file Not on file documented as of this encounter Functional Status * Calculated C-SSRS Risk Score (Lifetime/Recent) Answer Date of Assessment Author No Risk Indicated 05/21/2022 11:34 AM Nadja Ratliff RN * [place] Suicide Severity Rating Scale (Screener/Recent Self-Report) Question [...] Description 04/15/2025 2:00 PM EST Office Visit [facility] Neurology [address] [place] [address] Sundar Vázquez MD [address] [place] [address], 2nd [place] [address] [email or web address] 05/06/2025 9:00 AM EST Office Visit [facility] Rheumatology [address] [place] [address] Nancy Baptiste MD [address] [place] [address], [address] [place] [address] documented as of this encounter Visit Diagnoses Not on filedocumented in this encounter Care Teams Deputy Coroner Investigator Relationship Specialty Start Date End Date Lis Mcdonald NP [address] [place] [address] [email or web address] PCP - General Family Medicine 01/27/22 08/15/23 Naa Colindres MD [address] [place] [address] [email or web address] PCP - General Family Medicine 08/16/23 Catalina Borden LCSW [address] [place] [address] [email or web address] iCMP Social Work 04/14/20 03/24/23 Brenda Gomez MD [address] [place] [address] [place] [address] [email or web address] Insurance Assigned Provider 10/19/20 06/19/22 Tariq Yang MD [address] [place] [address] [place] [address] [email or web address] Insurance Assigned Provider 06/19/22 08/28/22 Brenda Gomez MD [address] [place] [address] [place] [address] [email or web address] Insurance Assigned Provider 08/28/22 01/22/23 Lis Long, FLAVIA [address] [place] [address] [email or web address] iCM Christian [employer] Practitioner 11/11/22 11/28/22 documented as of this encounter Additional Source Comments The information contained in this document represents components of the legal health record. It is not the complete legal health record.[facility]
--- OUTSIDE RECORDS SUMMARY | 2025-01-26 13:36 | XMS_ITS | Encounter Summary ---
Author Organization [facility], Address [address] [place] [address] Phone Care Team Providers Care Knockdown Worker Name Role Phone Naa Colindres MD Primary Care Provider [phone] Encounter Details Date Type Department Care Team (Late st Contact Info) Description 09/27/2023 Documentation Only [facility], [address] [place] [address] [address]lette Stacy [address] [place] [phone] Social History Tobacco Use Types Packs/Day Years [...] on filedocumented in this encounter Care Teams Knockdown Worker Relationship Specialty Start Date End Date Naa Colindres MD [address] [place] [address] PCP - General Family Medicine 03/17/23 documented as of this encounter
--- OUTSIDE RECORDS SUMMARY | 2025-01-26 13:36 | XMS_ITS | Encounter Summary ---
Author Organization [employer] Address [address] [facility] [address] 7t [place] [address] Care Team Providers Care Fine Sander Name Role Phone Naa Colindres MD Primary Care Provider [phone] DavicheriReji gaming Encounter Details Date Type Department Care Team (Late st Contact Info) Description 09/29/2023 Orders Only [facility] MEDICAL [address] [place] [address] Naa Colindres MD 70 [place] [address] Foreign body in right foot, subsequent encounter Social History Tobacco Use Types Packs/Day Years [...] Description 02/16/2025 9:20 AM EDT Office Visit [facility] MEDICAL [address] [place] [address] Naa Colindres MD 70 [place] [address] 04/02/2025 10:30 AM EST Office Visit [facility] MEDICAL [address] [place] [address] Jodi Miller MD 73 [place] [address] documented as of this encounter Visit Diagnoses Diagnosis Foreign body in right foot, subsequent encounter documented in this encounter Additional Health Concerns Assessment Noted Time PHQ-9 Depression Total Score: 24 023 10:06 AM EDT documented as of this encounter Care Teams Fine Sander Relationship Specialty Start Date End Date Naa Colindres MD [address] [place] [address] PCP - General Family Medicine 09/03/22 Reji Cedillo 12/12/24 12/26/24 documented as of this encounter
--- OUTSIDE RECORDS SUMMARY | 2025-01-26 13:36 | XMS_ITS | Clinical Summary ---
Author Organization [facility], Address [address] [place] [address] Phone Care Team Providers Care Etl Data Architect Name Role Phone Naa Colindres MD Primary Care Provider [phone] Allergies Active Allergy Reactions Criticality Noted Date Comments Penicillins Hives Medium 04/24/2017 Tramadol GI intolerance Low 06/17/2017 Other reaction(s): GI Upset Medications Cholecalciferol (Vitamin D3) 1.25 MG (48170 UT) capsule Take by mouth Acti ve clindamycin (CLEOCIN) 300 MG capsule Take 300 mg by mouth in the morning and 300 mg in the evening and 300 mg before bedtime. Active divalproex (DEPAKOTE) 250 MG EC tablet Take 250 mg by mouth in the morning and 250 mg in the evening and 250 mg before bedtime. Do not crush, chew, or split.. Active divalproex (DEPAKOTE) 500 MG EC tablet Take 500 mg by mouth in the morning and 500 mg in the evening and 500 mg before bedtime. Do not crush, chew, or split.. Active doxepin (SINEquan) 10 MG capsule Take 10 mg by mouth every night Active FLUoxetine (PROzac) 20 MG capsule Take 20 mg by mouth 1 (one) time each day Active polyethylene glycol (GLYCOLAX) 17 g packet Take 17 g by mouth 1 (one) time each day Active hydrOXYzine (VISTARIL) 25 MG capsule Take 25 mg by mouth 3 (three) times a day if needed for itching Active linaCLOtide (Linzess) 290 MCG capsule Take by mouth Acti ve Magnesium Oxide 400 MG capsule Take by mouth A ctive naratriptan (AMERGE) 2.5 MG tablet Take 2.5 mg by mouth 1 (one) time if needed for migraine May repeat in 4 hours if unresolved. Do not exceed 5 mg in 24 hours. Active nicotine polacrilex (NICORETTE) 4 MG gum Chew 4 mg if needed for smoking cessation Active nicotine (NICODERM CQ) 14 MG/24HR Place 1 patch on the skin 1 (one) time each day at the same time Active omeprazole (PriLOSEC) [address] capsule Take 20 mg by mouth 1 (one) time each day Do not crush or chew. Active ondansetron ODT (ZOFRAN-ODT) 8 MG dispersible tablet Take 8 mg by mouth every 8 (eight) hours if needed for nausea or vomiting Active pantoprazole (PROTONIX) 40 MG EC tablet Take 40 mg by mouth 1 (one) time each day before breakfast Do not crush, chew, or split. Active prazosin (MINIPRESS) 1 MG capsule Take 1 mg by mouth every night Active pregabalin (LYRICA) 150 MG capsule Take 150 mg by mouth in the morning and 150 mg in the evening. Active Brexpiprazole (Rexulti) 1 MG tablet Take by mouth Active ustekinumab (Stelara) injection Inject 90 mg under the skin every 3 (three) months Active topiramate (TOPAMAX) 25 MG tablet Take 25 mg by mouth in the morning and 25 mg in the evening. Active torsemide (DEMADEX) 10 MG tablet Take 1 tablet (10 mg total) by mouth 1 (one) time each day 90 tablet 1 4 Active Active Problems Problem Noted Date Diagnosed Date Prediabetes 03/17/2023 Proteinuria 12/09/2022 Edema 12/09/2022 Vitamin D deficiency 01/22/2022 12/09/2022 Overview (12/09/2022): Last Assessment & Plan: Found with low vitamin D at 26 (30-60) on labs from 01/22/2022-needs vitamin D supplementation to bring it into sufficient range: 40-45 ng/ml. Immunizations Immunization Administration Dates Next Due Influenza, Quadrivalent, Preservative Free 02/27,04/25/2018,04/28/2017 Influenza, Quadrivalent, With Preservative 05/04 Rho (D) Immune Globulin 09/12/2019,09/12/2019 Tdap 09/21/2017 Social History Tobacco Use Types Packs/Day Years Used Date Smoking Tobacco: Never Assessed Comments Unknown Sex and Gender Information Value Date Recorded Sex Assigned at Not on file Legal Sex Female 3:16 PM EDT Gender Identity Not on file Sexual Orientation Not on file Plan of Treatment Health Maintenance Due Date Last Done Comments Hepatitis B Vaccine (1 of 3 - 19+ 3-dose series) 10/17/2003 Pneumococcal Vaccine: Peds ( 0 to 5 Years) and At-Risk Patients (6 to 49 Years) (1 of 2 - PCV) 10/17/2003 Influenza Vaccine (#1) 2025 , 04/25/2018, 05/04/2017, Additional history exists Insurance Medicaid [place] Care Teams Etl Data Architect Relationship Specialty Start Date End Date Naa Colindres MD [address] [place] [address] PCP - General Family Medicine 03/17/23
--- OUTSIDE RECORDS SUMMARY | 2025-01-26 13:36 | XMS_ITS | Encounter Summary ---
Author Organization [facility] Address [address] [address] Phone Care Team Providers Care Inserter Name Role Phone AsherCatalina potts Masood PATHOLOGY LABORATORY AIDE Unavailable [email or web address] Lis Mcdonald NP Primary Care Pro vider Brenda Gomez MD Unavailable [phone] Lis Long RN Unavailable Naa Colindres MD Primary Care Provider [phone] Encounter Details Date Type Department Care Team (Late st Contact Info) Description 11/05/2022 Procedure Pass [facility] Endoscopy Admitting Dept Virtual Department [address] [place] [address] Social History Tobacco Use Types Packs/Day Years [...] 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 Not on file Not on file documented as of this encounter Plan of Treatment Upcoming Encounters Date Type Department Care Team (Late st Contact Info) Description 04/15/2025 2:00 PM EST Office Visit [facility] Neurology [address] [place] [address] Sundar Vázquez MD [address] [place] [address], 2nd [place] [address] 05/06/2025 9:00 AM EST Office Visit [facility] Rheumatology [address] [place] [address] Nancy Baptiste MD [address] [place] [address], [address] [place] [address] [email or web address] documented as of this encounter Visit Diagnoses Not on filedocumented in this encounter Care Teams Inserter Relationship Specialty Start Date End Date Lis Mcdonald NP [address] [place] [address] [email or web address] PCP - General Family Medicine 01/27/22 08/15/23 Naa Colindres MD [address] [place] [address] PCP - General Family Medicine 08/16/23 Catalina Borden, PATHOLOGY LABORATORY AIDE [address] [place] [phone] [email or web address] Social Work 04/14/20 03/24/23 Brenda Gomez MD [address] [place] [address] [place] [address] [email or web address] Insurance Assigned Provider 08/28/22 01/22/23 Lis Long RN [address] [place] [address] [email or web address] [facility] Hospital[facility] Head Sulfide Operator 11/11/22 11/28/22 documented as of this encounter Additional Source Comments The information contained in this document represents components of the legal health record. It is not the complete legal health record.[facility]
--- OUTSIDE RECORDS SUMMARY | 2025-01-26 13:36 | XMS_ITS | Encounter Summary ---
Author Organization [email or web address] Address [address] [facility] [address] [address] 7t [place] [address] Care Team Providers Care Director Name Role Phone Naa Colindres MD Primary Care Provider [phone] DavicheriReji gaming Encounter Details Date Type Department Care Team (Late st Contact Info) Description 05/21/2024 Orders Only [place] [address] [place] [address] Naa Colindres MD 70 [place] [address] Social History Tobacco Use Types Packs/Day Years [...] Description 02/16/2025 9:20 AM EDT Office Visit [facility] MEDICAL 70 [place] [address] Naa Colindres MD 70 [place] [address] 04/02/2025 10:30 AM EST Office Visit [facility] MEDICAL [address] [place] [address] Jodi Miller MD [address] [place] [address] documented as of this encounter Procedures Procedure Name Priority Date/Time Associated Diagnosis Comments XR CHEST 2 VIEWS Routine 05/20/2024 8:52 AM EST documented in this encounter Results * XR Chest 2 Views (05/20/2024 8:52 AM EST) Anatomical Region Laterality Modality Chest Radiographic Nga ging Naa Colindres MD IMG XR PROCEDURES Final Result documented in this encounter Visit Diagnoses Not on filedocumented in this encounter Additional Health Concerns Assessment Noted Time PHQ-9 Depression Total Score: 24 023 10:06 AM EDT documented as of this encounter Care Teams Director Relationship Specialty Start Date End Date Naa Colindres MD 70 [place] [address] PCP - General Family Medicine 09/03/22 Reji Cedillo 12/12/24 12/26/24 documented as of this encounter
--- OUTSIDE RECORDS SUMMARY | 2025-01-26 13:36 | XMS_ITS | Encounter Summary ---
Author Organization [employer] Address 75 [facility] 7t [place] [address] Care Team Providers Care Social Sciences Chair Name Role Phone Naa Colindres MD Primary Care Provider [phone] NguyenReji Reason for Visit * Reason Onset Date Comments Med Refill 05/13/2024 Encounter Details Date Type Department Care Team (Late st Contact Info) Description 05/13/2024 Refill [facility] MEDICAL [address] [place] [address] Naa Colindres MD [address] [place] [address] Alopecia areata, unspecified; Hidradenitis suppurativa; Mood disorder (CMS/HCC); Congestion of paranasal sinus; PTSD (post-traumatic stress disorder); Nightmares; Lumbosacral radiculopathy at L4; Gastroesophageal reflux disease without esophagitis Social History Tobacco Use Types Packs/Day Years [...] PM EDT documented as of this encounter Miscellaneous Notes * Telephone Encounter - Skylar Landeros LPN - 05/15/2024 9:24 AM EST Patient with a scheduled appointment 06/2024 * Telephone Encounter - Danny Freeman NP - 05/14/2024 4:59 PM EST Please contact patient. She has requested a very extensive list of medications. I have filled the ones that I think I can do responsibly, and she will need to f/u with Dr Colindres, who knows her history. Please make sure she has an appt with Dr Colindres soon. Thanks. * Telephone Encounter - Kirstie Gentile MA - 05/14/2024 10:54 AM EST Gabapentin 300mg 30 day supply [facility] Last fill Date: 03/07/2024 Masspat sold Date: 03/13/2024 Last OV: 01/06/24 Next OV: 07/06/2024 Last UTOX: none on file CSA Date: none on file DNF Date: due Sent to covering provider for approval and sending documented in this encounter Plan of Treatment Upcoming Encounters Date Type Department Care Team (Late st Contact Info) Description 02/16/2025 9:20 AM EDT Office Visit [facility] MEDICAL [address] [place] [address] Naa Colindres MD [address] [place] [address] 04/02/2025 10:30 AM EST Office Visit [facility] MEDICAL [address] [place] [address] Jodi Miller MD [address] [place] [address] documented as of this encounter Visit Diagnoses Diagnosis Alopecia areata, unspecified Hidradenitis suppurativa Hidradenitis Mood disorder (CMS/HCC) Unspecified episodic mood disorder Congestion of paranasal sinus PTSD (post-traumatic stress disorder) Posttraumatic stress disorder Nightmares Other dysfunctions of sleep stages or arousal from sleep Lumbosacral radiculopathy at L4 Gastroesophageal reflux disease without esophagitis Esophageal reflux documented in this encounter Additional Health Concerns Assessment Noted Time PHQ-9 Depression Total Score: 24 05/ 023 10:06 AM EDT documented as of this encounter Care Teams Social Sciences Chair Relationship Specialty Start Date End Date Naa Colindres MD [address] [place] [address] PCP - General Family Medicine 09/03/22 Reji Cedillo 12/12/24 12/26/24 documented as of this encounter
--- OUTSIDE RECORDS SUMMARY | 2025-01-26 13:36 | XMS_ITS | Encounter Summary ---
Author Organization [facility], Address [address] [place] [address] Phone Care Team Providers Care Disease Case Manager Name Role Phone Naa Colindres MD Primary Care Provider [phone] Encounter Details Date Type Department Care Team (Late st Contact Info) Description 09/26/2023 Documentation Only [facility], [address] [place] [address] Collette Stacy [address] [place] [phone] Social History Tobacco Use Types Packs/Day Years [...] on filedocumented in this encounter Care Teams Disease Case Manager Relationship Specialty Start Date End Date Naa Colindres MD [address] [place] [address] PCP - General Family Medicine 03/17/23 documented as of this encounter
--- OUTSIDE RECORDS SUMMARY | 2025-01-26 13:36 | XMS_ITS | Encounter Summary ---
Author Organization [facility], Address [address] [place] [address] Phone Care Team Providers Care Industrial Manufacturing Technician Name Role Phone Naa Colindres MD Primary Care Provider [phone] Encounter Details Date Type Department Care Team (Late st Contact Info) Description 09/22/2023 Documentation Only [facility], [address] [place] [address] Collette Stacy [address] [place] [phone] Social History Tobacco Use Types Packs/Day Years [...] filedocumented in this encounter Care Teams Industrial Manufacturing Technician Relationship Specialty Start Date End Date Naa Colindres MD [address] [place] [address] PCP - General Family Medicine 03/17/23 documented as of this encounter
--- OUTSIDE RECORDS SUMMARY | 2025-01-26 13:36 | XMS_ITS | Encounter Summary ---
Author Organization [employer] Address 75 [facility] 7t [place] [address] Care Team Providers Care Outdoor Recreation Specialist Name Role Phone Naa Colindres MD Primary Care Provider [phone] Reji Cedillo Encounter Details Date Type Department Care Team (Late st Contact Info) Description 09/29/2023 Orders Only [facility] MEDICAL 70 [place] [address] [facility] 70 [place] [address] Chronic low back pain with right-sided sciatica, unspecified back pain laterality; Nausea and vomiting, unspecified vomiting type; Gastroesophageal reflux disease without esophagitis Social History [...] Description 02/16/2025 9:20 AM EDT Office Visit [facility] MEDICAL 70 [place] [address] Naa Colindres MD 70 [place] [address] 04/02/2025 10:30 AM EST Office Visit [facility] MEDICAL [address] [place] [address] Jodi Miller MD 73 [place] [address] documented as of this encounter Visit Diagnoses Diagnosis Chronic low back pain with right-sided sciatica, unspecified back pain laterality Nausea and vomiting, unspecified vomiting type Gastroesophageal reflux disease without esophagitis Esophageal reflux documented in this encounter Additional Health Concerns Assessment Noted Time PHQ-9 Depression Total Score: 24 023 10:06 AM EDT documented as of this encounter Care Teams Outdoor Recreation Specialist Relationship Specialty Start Date End Date Naa Colindres MD 70 [place] [address] PCP - General Family Medicine 09/03/22 Reji Cedillo 12/12/24 12/26/24 documented as of this encounter
--- OUTSIDE RECORDS SUMMARY | 2025-01-26 13:36 | XMS_ITS | Encounter Summary ---
Author Organization [employer] Address [address] [facility] [address] 7t [place] [address] Care Team Providers Care Property Inspector Name Role Phone Naa Colindres MD Primary Care Provider [phone] DavicheriReji gaming Encounter Details Date Type Department Care Team (Late st Contact Info) Description 09/26/2023 Orders Only [place] [facility] [address] [place] [address] Naa Colindres MD [address] [place] [address] Social History Tobacco Use Types Packs/Day Years [...] Office Visit [facility] MEDICAL 70 [place] [address] Naa Colindres MD 70 [place] [address] 04/02/2025 10:30 AM EST Office Visit [facility] MEDICAL [address] [place] [address] Jodi Miller MD 73 [place] [address] documented as of this encounter Procedures Procedure Name Priority Date/Time Associated Diagnosis Comments ANTINUCLEAR ANTIBODIES, IFA Routine 09/21/2023 8:56 AM EDT documented in this encounter Results * Antinuclear Antibodies (KYLER), by IFA (09/21/2023 8:56 AM EDT) Naa Colindres MD LAB BLOOD ORDERABLES Final Res ult documented in this encounter Visit Diagnoses Not on filedocumented in this encounter Additional Health Concerns Assessment Noted Time PHQ-9 Depression Total Score: 24 023 10:06 AM EDT documented as of this encounter Care Teams Property Inspector Relationship Specialty Start Date End Date Naa Colindres MD [address] [place] [address] PCP - General Family Medicine 09/03/22 Reji Cedillo 12/12/24 12/26/24 documented as of this encounter
--- OUTSIDE RECORDS SUMMARY | 2025-01-26 13:36 | XMS_ITS | Encounter Summary ---
Author Organization [facility], Address [address] [place] [address] Phone Care Team Providers Care Cloth Brushing And Sueding Supervisor Name Role Phone Naa Colindres MD Primary Care Provider [phone] Encounter Details Date Type Department Care Team (Late st Contact Info) Description 09/22/2023 Documentation Only [facility], [address] [place] [address] Collette Stacy [address] [place] [phone] Social History Tobacco Use Types Packs/Day Years [...] on filedocumented in this encounter Care Teams Cloth Brushing And Sueding Supervisor Relationship Specialty Start Date End Date Naa Colindres MD [address] [place] [id number] PCP - General Family Medicine 03/17/23 documented as of this encounter
--- OUTSIDE RECORDS SUMMARY | 2025-01-26 13:36 | XMS_ITS | Encounter Summary ---
Author Organization [facility] Address [address] [address] Phone Care Team Providers Care Lead Retail Sales Associate Name Role Phone Catalina Borden NATIONAL ACCOUNT REPRESENTATIVE Unavailable [email or web address] Lis Mcdonald NP Primary Care Pro vider Brenda Gomez MD Unavailable [phone] Lis Long RN Unavailable Naa Colindres MD Primary Care Provider [phone] Encounter Details Date Type Department Care Team (Late st Contact Info) Description 08/30/2022 Transcribe Orders [facility] Lab [address] [place] [address] Lis Mcdonald NP [address] [place] [address] [email or web address] Social History Tobacco Use Types Packs/Day Years [...] 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 on file Not on file documented as of this encounter Plan of Treatment Upcoming Encounters Date Type Department Care Team (Late st Contact Info) Description 04/15/2025 2:00 PM EST Office Visit [facility] Neurology [address] [place] [address] Sundar Vázquez MD [address] [place] [address], 2nd [place] [address] 05/06/2025 9:00 AM EST Office Visit [facility] Rheumatology [address] [place] [address] Nancy Baptiste MD [address] [place] [address], [address] [place] [address] documented as of this encounter Visit Diagnoses Not on filedocumented in this encounter Care Teams Lead Retail Sales Associate Relationship Specialty Start Date End Date Lis Mcdonald NP [address] [place] [phone] [email or web address] PCP - General Family Medicine 01/27/22 08/15/23 Naa Colindres MD [address] [place] [address] PCP - General Family Medicine 08/16/23 Catalina Borden, [address] [address] [facility] Social Work 04/14/20 03/24/23 Brenda Gomez MD [address] [place] [address] [email or web address] Insurance Assigned Provider 08/28/22 01/22/23 Lis Long RN [address] [place] [address] [email or web address] Personal Service Workers 11/11/22 11/28/22 documented as of this encounter Additional Source Comments The information contained in this document represents components of the legal health record. It is not the complete legal health record.[facility]
--- OUTSIDE RECORDS SUMMARY | 2025-01-26 13:36 | XMS_ITS | Encounter Summary ---
Author Organization [facility], Address [address] [place] [address] Phone Care Team Providers Care Cq Developer Name Role Phone Naa Colindres MD Primary Care Provider [phone] Encounter Details Date Type Department Care Team (Late st Contact Info) Description 12/13/2022 Documentation Only [facility], [facility] Megan [address] [facility] [address] [place] [address] Jeffery Tyler MD [address] [place] [address] [place] [phone] Social History Tobacco Use Types Packs/Day Years [...] on filedocumented in this encounter Care Teams Cq Developer Relationship Specialty Start Date End Date Naa Colindres MD [address] [place] [address] PCP - General Family Medicine 03/17/23 documented as of this encounter
--- OUTSIDE RECORDS SUMMARY | 2025-01-26 13:36 | XMS_ITS | Encounter Summary ---
Author Organization [facility] Address [address] [place] [address] Phone Care Team Providers Care Director Of Women'S Services Name Role Phone AsherCatalina potts Masood STORE PROMOTER Unavailable [email or web address] Lis Mcdonald NP Primary Care Pro vider Tariq Yang MD Unavailable [phone] Brenda Gomez MD Unavailable [phone] Lis Long RN Unavailable Naa Colindres MD Primary Care Provider [phone] Reason for Referral * MRI/CAT Scan - Closed Specialty Diagnoses / Procedures Referred By Contac t Referred To Contact Radiology Diagnoses Difficulty in walking, not elsewhere classified Procedures MRI Thoracic Spine Piter Kendrick DO Phone: tel: fax: [email or web address] Referral ID Status Reason Start Date Expiration Date Visits Re quested Visits Authorized [id number] Closed 07/20/2022 10/15/2022 1 1 Encounter Details Date Type Department Care Team (Latest Contact Info) Description 07/20/2022 Transcribe Orders Virtual Department [address] [place] [address] Kendrick Piter Lenora, DO [address] [place] [address] [email or web address] Difficulty in walking, not elsewhere classified (Primary Dx) Social History Tobacco Use Types [...] Description 04/15/2025 2:00 PM EST Office Visit [facility] Neurology [address] [place] [address] Sundar Vázquez MD [address] [place] [address], 2nd [place] [address] 05/06/2025 9:00 AM EST Office Visit [facility] Rheumatology [address] [place] [address] Nancy Baptiste MD [address] [place] [address], [address] [place] [address] documented as of this encounter Results * MRI THORACIC SPINE (NEURO) WITHOUT CONTRAST (07/30/2022 11:12 AM EDT) Anatomical Region Laterality Modality T-spine Magnetic Resonan ce 07/31/2022 4:16 PM EDT Impressions 07/31/2022 4:21 PM EDT 1. No central stenosis or foraminal stenosis identified throughout the thoracic spine. 2. Normal size and signal intensity thoracic cord. 3. No abnormality which would explain patient's gait difficulty. Narrative 07/31/2022 4:21 PM EDT MRI THORACIC SPINE (NEURO) WITHOUT CONTRAST History: Back pain with difficulty walking. Question cord lesion or central stenosis affecting thoracic spine. TECHNIQUE: MRI THORACIC SPINE (NEURO) WITHOUT CONTRAST Multi-sequence, multi-planar MRI of the thoracic spine was performed without intravenous contrast. COMPARISON: Correlation made with plain films of the thoracic spine obtained 07/14/2020. FINDINGS: THORACIC SPINE: Alignment and Vertebrae: Mild scoliosis convex left mid to upper thoracic spine. Normal vertebral body height and normal marrow signal. No compression fracture. Marrow: No bone marrow replacing lesion. Discs and Endplates: Normal intervertebral disc heights and signal. Spinal Cord: Mild prominence of central sinus of the mid to caudal thoracic cord, a finding within the range of normal. No cord lesion. Soft Tissue: Normal. No prevertebral edema. Other Findings: None. No incidental abnormality identified affecting paraspinal soft tissues of the chest or upper abdomen. Procedure Note Donavan Willett MD - 07/31/2022 MRI THORACIC SPINE (NEURO) WITHOUT CONTRAST History: Back pain with difficulty walking. Question cord lesion orcentral stenosis affecting thoracic spine. TECHNIQUE: MRI THORACIC SPINE (NEURO) WITHOUT CONTRAST Multi-sequence, multi-planar MRI of the thoracic spine was performedwithout intravenous contrast. COMPARISON: Correlation made with plain films of the thoracic spineobtained 07/14/2020. FINDINGS: THORACIC SPINE: Alignment and Vertebrae: Mild scoliosis convex left mid to upper thoracicspine. Normal vertebral body height and normal marrow signal. Nocompression fracture. Marrow: No bone marrow replacing lesion. Discs and Endplates: Normal intervertebral disc heights and signal. Spinal Cord: Mild prominence of central sinus of the mid to caudalthoracic cord, a finding within the range of normal. No cord lesion. Soft Tissue: Normal. No prevertebral edema. Other Findings: None. No incidental abnormality identified affecting paraspinal soft tissues ofthe chest or upper abdomen. IMPRESSION: 1. No central stenosis or foraminal stenosis identified throughout thethoracic spine. 2. Normal size and signal intensity thoracic cord. 3. No abnormality which would explain patient's gait difficulty. us Piter Kendrick DO IMG MR XSPECIALTY Final Resu lt documented in this encounter Visit Diagnoses Diagnosis Difficulty in walking, not elsewhere classified- Primary Difficulty in walking, not elsewhere classified documented in this encounter Care Teams Director Of Women'S Services Relationship Specialty Start Date End Date Lis Mcdonald NP [address] [place] [address] [email or web address] PCP - General Family Medicine 01/27/22 08/15/23 Naa Colindres MD [address] [place] [address] PCP - General Family Medicine 08/16/23 Catalina Borden LCSW [address] [place] [address] [facility] Social Work 04/14/20 03/24/23 Tariq Yang MD [address] [place] [address] Insurance Assigned Provider 06/19/22 08/28/22 Brenda Gomez MD [address] [place] [address] [place] [address] [email or web address] Insurance Assigned Provider 08/28/22 01/22/23 Lis Long RN [address] [place] [address] iC[employer] Associate Dean Of Women 11/11/22 11/28/22 documented as of this encounter Additional Source Comments The information contained in this document represents components of the legal health record. It is not the complete legal health record.[facility]
--- OUTSIDE RECORDS SUMMARY | 2025-01-26 13:36 | XMS_ITS | Encounter Summary ---
Author Organization [employer] Address [address] 7t [place] [address] Care Team Providers Care Cotton Weigher Name Role Phone Naa Colindres MD Primary Care Provider [phone] DavicheriReji gaming Encounter Details Date Type Department Care Team (Late st Contact Info) Description 09/23/2023 Orders Only [facility] [address] [place] [address] Naa Colindres MD [address] [place] [address] Social History Tobacco Use Types Packs/Day Years [...] Description 02/16/2025 9:20 AM EDT Office Visit [facility] MEDICAL [address] [place] [address] Naa Colindres MD [address] [place] [address] 04/02/2025 10:30 AM EST Office Visit [facility] MEDICAL [address] [place] [address] Jodi Miller MD [address] [place] [address] documented as of this encounter Procedures Procedure Name Priority Date/Time Associated Diagnosis Comments COMPLEMENT COMP C3 + C4 Routine 09/21/19 24 12:42 PM EDT documented in this encounter Results * Complement Components C3 + C4 (09/21/2023 12:42 PM EDT) us Naa Colindres MD LAB BLOOD ORDERABLES Final Res ult documented in this encounter Visit Diagnoses Not on filedocumented in this encounter Additional Health Concerns Assessment Noted Time PHQ-9 Depression Total Score: 24 023 10:06 AM EDT documented as of this encounter Care Teams Cotton Weigher Relationship Specialty Start Date End Date Naa Colindres MD [address] [place] [address] PCP - General Family Medicine 09/03/22 Reji Cedillo 12/12/24 12/26/24 documented as of this encounter
--- OUTSIDE RECORDS SUMMARY | 2025-01-26 13:36 | XMS_ITS | Encounter Summary ---
Author Organization [facility], Address [address] [place] [address] Phone Care Team Providers Care Ammunition Supervisor Name Role Phone Naa Colindres MD Primary Care Provider [phone] Encounter Details Date Type Department Care Team (Late st Contact Info) Description 09/26/2023 Documentation Only [facility], [address] [place] [address] Collette Stacy [address] [place] [phone] Social History Tobacco Use Types Packs/Day Years [...] on filedocumented in this encounter Care Teams Ammunition Supervisor Relationship Specialty Start Date End Date Naa Colindres MD [address] [place] [address] PCP - General Family Medicine 03/17/23 documented as of this encounter
--- OUTSIDE RECORDS SUMMARY | 2025-01-26 13:36 | XMS_ITS | Encounter Summary ---
Author Organization [facility] Address [address] [place] [address] Phone Care Team Providers Care Wood Carver Name Role Phone Catalina Borden WEB DEVELOPMENT INTERN Unavailable [email or web address] Gomez MD Unavailable [phone] Lis Mcdonald BILL POSTER INSTALLER Primary Care Pro vider Tariq Yang MD Unavailable [phone] Brenda Gomez MD Unavailable [phone] Lis Long RN Unavailable Naa Colindres MD Primary Care Provider [phone] Encounter Details Date Type Department Care Team (Late st Contact Info) Description 05/21/2022 Procedure Pass [facility] [address] [place] [address] Social History Tobacco Use Types Packs/Day Years [...] 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 file Not on file Not on file documented as of this encounter Functional Status * Calculated C-SSRS Risk Score (Lifetime/Recent) Answer Date of Assessment Author No Risk Indicated 05/21/2022 11:34 AM Nadja Ratliff RN * [place] Suicide Severity Rating Scale (Screener/Recent Self-Report) Question [...] Description 04/15/2025 2:00 PM EST Office Visit [facility] Neurology [address] [place] [address] Sundar Vázquez MD [address] [place] [address], 2nd [place] [address] [email or web address] 05/06/2025 9:00 AM EST Office Visit [facility] Rheumatology [address] [place] [address] Nancy Baptiste MD [address] [place] [address], [address] [place] [address] documented as of this encounter Visit Diagnoses Not on filedocumented in this encounter Care Teams Wood Carver Relationship Specialty Start Date End Date Lis Mcdonald NP [address] [place] [address] [email or web address] PCP - General Family Medicine 01/27/22 08/15/23 Naa Colindres MD [address] [place] [address] [email or web address] PCP - General Family Medicine 08/16/23 Catalina Borden WEB DEVELOPMENT INTERN [address] [place] [address] [email or web address] Social Work 04/14/20 03/24/23 Brenda Gomez MD [address] [place] [address] [place] [address] [email or web address] Assigned Provider 10/19/20 06/19/22 Tariq Yang MD [address] [place] [address] [email or web address] Insurance Assigned Provider 06/19/22 08/28/22 Brenda Gomez MD [address] [place] [address] [place] [address] [email or web address] Assigned Provider 08/28/22 01/22/23 Lis Long, FLAVIA [address] [place] [address] [email or web address] Coordinator Of Evaluation 11/11/22 11/28/22 documented as of this encounter Additional Source Comments The information contained in this document represents components of the legal health record. It is not the complete legal health record.[facility]
--- OUTSIDE RECORDS SUMMARY | 2025-01-26 13:36 | XMS_ITS | Encounter Summary ---
Author Organization [employer] Address [address] 7t [place] [address] Care Team Providers Care Dial Mounter Name Role Phone Naa Colindres MD Primary Care Provider DavicheriReji gaming Encounter Details Date Type Department Care Team (Late st Contact Info) Description 09/22/2023 Orders Only [facility] [address] [place] [address] Naa Colindres MD [address] [place] [address] Social History Tobacco Use Types Packs/Day Years [...] 9:20 AM EDT Office Visit [facility] MEDICAL [address] [place] [address] Naa Colindres MD [address] [place] [address] 04/02/2025 10:30 AM EST Office Visit [facility] MEDICAL [address] [place] [address] Jodi Miller MD [address] [place] [address] documented as of this encounter Procedures Procedure Name Priority Date/Time Associated Diagnosis Comments HEPATITIS B SURFACE ANTIBODY, QUALITATIVE Routine 09/21/2023 10:36 AM EDT HEMOGLOBIN A1C Routine 09/21/2023 10:36 AM EDT MICROALBUMIN, RANDOM (W CREAT) Routine 09/21/2023 10:32 AM EDT PTH, INTACT Routine 09/21/2023 10:31 AM EDT HIV 1/2 ANTIGEN/ANTIBODY, FOURTH GENERATION W/RFL Routine 09/21/2023 9:58 AM EDT HEPATITIS C ANTIBODY Routine 09/21/2023 9:57 AM EDT CBC WITH AUTO DIFFERENTIAL Routine 09/21/2023 9:56 AM EDT documented in this encounter Results * Hepatitis B Surface Antibody, Qualitative (09/21/2023 10:36 AM EDT) Blood Venous blood specimen / Unknown us Naa Colindres MD LAB BLOOD ORDERABLES Final Res ult * Hemoglobin A1c (09/21/2023 10:36 AM EDT) Blood Venous blood specimen / Unknown Result [place] Naa Colindres MD LAB BLOOD ORDERABLES Final Res ult * Microalbumin, Random Urine w/Creatinine (09/21/2023 10:32 AM EDT) Urine (Urine, Random) Result [place] Naa Colindres MD LAB URINE ORDERABLES Final Res ult * PTH, INTACT (09/21/2023 10:31 AM EDT) Result [place] Naa Colindres MD LAB BLOOD ORDERABLES Final Res ult * HIV-1/2 Antigen and Antibodies, Fourth Generation, with Reflexes (09/21/2023 9:58 AM EDT) Blood Venous blood specimen / Unknown Result [place] Naa Colindres MD LAB BLOOD ORDERABLES Final Res ult * Hepatitis C Ab (09/21/2023 9:57 AM EDT) Blood Result [place] Naa Colindres MD LAB BLOOD ORDERABLES Final Res ult * CBC auto differential (09/21/2023 9:56 AM EDT) Blood Venous blood specimen / Unknown Result [facility] us Naa Colindres MD LAB BLOOD ORDERABLES Final Res ult documented in this encounter Visit Diagnoses Not on filedocumented in this encounter Additional Health Concerns Assessment Noted Time PHQ-9 Depression Total Score: 24 05/2 023 10:06 AM EDT documented as of this encounter Care Teams Dial Mounter Relationship Specialty Start Date End Date Naa Colindres MD [address] [place] [address] PCP - General Family Medicine 09/03/22 Reji Cedillo 12/12/24 12/26/24 documented as of this encounter
--- OUTSIDE RECORDS SUMMARY | 2025-01-26 13:36 | XMS_ITS | Encounter Summary ---
Author Organization [facility] Address [address] [place] [address] [place] [address] Phone Care Team Providers Care Treasury Analyst Name Role Phone Jo Galan Primary Care Provider [phone] Tariq Yang MD Unavailable [phone] Catalina Borden RIM TURNING FINISHER Unavailable [email or web address] Brenda Gomez MD Unavailable [phone] Unknown, Unknown Primary Care Provider Lis Lobo NP Primary Care Pro vider Tariq Yang MD Unavailable [phone] Brenda Gomez MD Unavailable [phone] Lis Long RN Unavailable Naa Colindres MD Primary Care Provider [phone] Encounter Details Date Type Department Care Team (Latest Contact Info) Description 06/03/2020 Transcribe Orders [facility] [address] [place] [phone] Claudia Richardson PA [address] 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 Rheumatology [address] [place] [address] [place] [address] Nancy Baptiste MD [address] [place] [address], [address] [place] [address] [email or web address] documented as of this encounter Results * Quantiferon-TB Gold (06/09/2020 9:22 AM EST) [facility] QuantiFERON-TB Gold Negative Negative [facility] [place] Comment: (NOTE) No interferon-gamma response to M. tuberculosis antigens was detected. Infection with M. tuberculosis is unlikely. A single negative result does not exclude infection with M. tuberculosis. In patients at high risk for M.tuberculosis infection, a second test should be considered in accordance with the 2017 ATS/IDSA/CDC Clinical Practice Guidelines for Diagnosis of Tuberculosis in Adults and Children [Craig SERRA et. al. Clin. Infect. Dis. 2017;64(2):111-115]. The reference range for the 'TB1 Ag minus Nil Result' and 'TB2 Ag minus Nil Result' is an Interferon-gamma level <0.35 IU/mL. TB1 Ag minus Nil 0.00 IU/mL [facility] TB2 Ag minus Nil 0.00 IU/mL [facility] Mitogen minus Nil >10.00 IU/mL [facility] [place] Nil Result 0.02 IU/mL [facility] [place] Blood 06/09/2020 9:22 AM EST 06/09/2020 9:29 AM EST us Claudia ISRAEL LAB BLOOD ORDERABLES Final R esult [facility] [place] [address] [place] [address] * (ABNORMAL) Comprehensive metabolic panel (06/03/2020 10:02 AM EST) SODIUM 141 133 - 146 mmol/L [facility] POTASSIUM 4.3 3.3 - 5.1 mmol/L [facility] CHLORIDE 107 96 - 108 mmol/L [facility] CO2 26 21 - 35 mmol/L [facility] BUN 10 6 - 19 mg/dL [facility] CREATININE 0.60 0.5 - 1.5 mg/dL [facility] GLUCOSE 105(H) 70 - 99 mg/dL [facility] ALBUMIN 3.6(L) 3.9 - 4.8 g/dL [facility] TOTAL PROTEIN 6.7 6.5 - 8.0 g/dL [facility] CALCIUM 9.3 8.4 - 10.3 mg/dL [facility] ALKALINE PHOSPHATASE 58 39 - 117 U/L [facility] TOTAL BILIRUBIN 0.2 0.0 - 1.2 mg/dL [facility] AST 25 0 - 37 U/L [facility] ALT 19 0 - 40 U/L [facility] GLOBULIN 3.1 1 - 4.8 g/dL [facility] EGFR 118 >59 mL/min/1.7 3m2 [facility] Comment:Estimated glomerular filtration rate calculated using the CKD-EPI equation. ANION GAP 12 10 - 20 mmol/L [facility] Blood 06/03/2020 10:0 2 AM EST 06/03/2020 10:05 AM EST us Claudia ISRAEL LAB BLOOD ORDERABLES Final R esult [facility] [address] [place] [address] * (ABNORMAL) CBC and differential (06/03/2020 10:02 AM EST) WBC 13.95(H) 4.00 - 11.00 K/uL [facility] Comment:Note Reference Range updates to all CBC and Differential results. RBC 4.28 3.72 - 5.30 M/uL [facility] HGB 13.7 10.6 - 15.5 g/dL [facility] Comment:Note updated Referen ce Ranges for all CBC and Differential results. HCT 40.8 32.0 - 45.0 % [facility] PLT 296 140 - 430 K/uL [facility] MCV 95.3 78.0 - 97.0 fL [facility] MCH 32.0 25.0 - 33.0 pg [facility] MCHC 33.6 32.0 - 36.0 g/dL [facility] RDW 13.3 11.0 - 16.0 % [facility] MPV 12.5 8.4 - 12.8 fl [facility] NRBC 0.00 0 /100 WBCs [facility] ABSOLUTE NRBC 0.00 0 K/uL [facility] DIFF METHOD Auto [facility] NEUTS 70.7 43.0 - 75.0 % [facility] LYMPHS 19.7 18.2 - 47.4 % [facility] MONOS 5.4 4.00 - 11.00 % [facility] EOS 3.6 0.0 - 8.0 % [facility] BASOS 0.4 0.0 - 2.0 % [facility] Granulocytes, immature (%) 0.2 0.0 - 0.9 % [facility] ABSOLUTE NEUTS 9.86(H) 1.80 - 7.70 K/uL [facility] ABSOLUTE LYMPHS 2.75 1.00 - 3.10 K/uL [facility] ABSOLUTE MONOS 0.75 0.20 - 0.80 K/uL [facility] ABSOLUTE EOS 0.50 0.00 - 0.80 K/uL [facility] ABSOLUTE BASOS 0.06 0.00 - 0.09 K/uL [facility] Granulocytes, immature 0.03 0.00 - 0.05 K/uL [facility] Blood 06/03/2020 10:0 2 AM EST 06/03/2020 10:05 AM EST Claudia ISRAEL LAB BLOOD ORDERABLES Final R esult Performing Organization Address City/[facility]/ZIP Co de Phone Number [address] [address] * Hepatitis B core antibody, total (06/03/2020 10:02 AM EST) HEP B CORE AB, TOT NON-REACTI VE NON-REACTI VE [facility] Blood 06/03/2020 10:0 2 AM EST 06/03/2020 10:05 AM EST Claudia ISRAEL LAB BLOOD ORDERABLES Final R esult Performing Organization Address [facility]/ZIP Co de Phone Number [address] [address] * HEPATITIS A ANTIBODY, TOTAL (06/03/2020 10:02 AM EST) HAV TOTAL AB NON-REACTI VE NON-REACTI VE [facility] Blood 06/03/2020 10:0 2 AM EST 06/03/2020 10:05 AM EST Claudia ISRAEL LAB BLOOD ORDERABLES Final R esult Performing Organization Address City/[facility]/ZIP Co de Phone Number [address] [address] * Hepatitis B surface antibody (06/03/2020 10:02 AM EST) HBV SURFACE ANTIBODY Negative [facility] Comment: Unvaccinated: Negative Vaccinated: Positive Blood 06/03/2020 10:0 2 AM EST 06/03/2020 10:05 AM EST Claudia ISRAEL LAB BLOOD ORDERABLES Final R esult [address] [address] * Hepatitis B surface antigen (06/03/2020 10:02 AM EST) HBV SURFACE ANTIGEN NON-REACTI VE NON-REACTI VE [facility] Blood 06/03/2020 10:0 2 AM EST 06/03/2020 10:05 AM EST Claudia ISRAEL LAB BLOOD ORDERABLES Final R esult Performing Organization Address City/[facility]/ZIP Co de Phone Number [address] [address] * Hepatitis C antibody, qualitative (06/03/2020 10:02 AM EST) HCV NON-REACTIV E NON-REACTI VE [facility] Blood 06/03/2020 10:0 2 AM EST 06/03/2020 10:05 AM EST Claudia ISRAEL LAB BLOOD ORDERABLES Final R esult Performing Organization Address City/[facility] Co de Phone Number [address] [address] documented in this encounter Visit Diagnoses Diagnosis Suppurative hidradenitis- Primary Hidradenitis documented in this encounter Care Teams Treasury Analyst Relationship Specialty Start Date End Date Jo Galan PA [address] [place] [address] [email or web address] PCP - General 09/20/18 01/21/22 Unknown, MD [place]ita PCP - General 01/22/22 01/26/22 Lis Mcdonald NP [address] [place] [address] [email or web address] PCP - General Family Medicine 01/27/22 08/15/23 Naa Colindres MD [address] [place] [address] [email or web address] PCP - General [facility] Medicine 08/16/23 Tariq Yang MD [address] [place] [address] [email or web address] Insurance Assigned Provider 03/22/20 10/19/20 Catalina Borden, [address] [address] [email or web address] i[employer] Social Work 04/14/20 03/24/23 Brenda Gomez MD [address] [place] [address] [place] [address] [email or web address] Insurance Assigned Provider 10/19/20 06/19/22 Tariq Yang MD [address] [place] [address] [email or web address] Insurance Assigned Provider 06/19/22 08/28/22 Brenda Gomez MD [address] [place] [address] [place] [address] [email or web address] Insurance Assigned Provider 08/28/22 01/22/23 Lis Long RN [address] [place] [address] [email or web address] iCMP School Resource Officer 11/11/22 11/28/22 documented as of this encounter Additional Source Comments The information contained in this document represents components of the legal health record. It is not the complete legal health record.[facility]
--- OUTSIDE RECORDS SUMMARY | 2025-01-26 13:36 | XMS_ITS | Encounter Summary ---
Author Organization [facility] Address [address] [place] [address] Phone Care Team Providers Care Roller Man Name Role Phone Tariq Yang MD Unavailable + Jo Galan Primary Care Provider [phone] Janneth Waller DO Unavailable + Tariq Yang MD Unavailable + Catalina Borden VIDEOGRAPHER Unavailable [email or web address] Brenda Gomez MD Unavailable + Unknown, Unknown Primary Care Provider Lis Lobo NP Primary Care Pro vider + Tariq Yang MD Unavailable + Brenda Gomez MD Unavailable [phone] Lis Long RN Unavailable Naa Colindres MD Primary Care Provider + [phone] Reason for Referral * MRI/CAT Scan - Closed Specialty Diagnoses / Procedures Referred By Contfranklin t Referred To Contact Radiology Diagnoses Intervertebral disc disorders with radiculopathy, lumbar region Procedures MRI Lumbar Spine Piter Kendrick DO Phone: tel: fax: [email or web address] Referral ID Status Reason Start Date Expiration Date Visits Re quested Visits Authorized [id number] Closed 01/24/2019 01/25/2020 1 1 Encounter Details Date Type Department Care Team (Latest Contact Info) Description 01/31/2019 Ancillary Orders Virtual Department [address] [place] [address] Piter Kendrick DO [address] [place] [address] [email or web address] Intervertebral disc disorders with radiculopathy, lumbar region Social History Tobacco Use Types Packs/Day Years [...] 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 file Not on file Not on file documented as of this encounter Plan of Treatment Upcoming Encounters Date Type Department Care Team (Late st Contact Info) Description 04/15/2025 2:00 PM EST Office Visit [facility] Neurology [address] [place] [address] Sundar Vázquez MD [address] [place] [address], 2nd [place] [address] 05/06/2025 9:00 AM EST Office Visit [facility] Rheumatology [address] [place] [address] Nancy Baptiste MD [address] [place] [address], [address] [place] [address] [email or web address] Scheduled Orders Name Type Priority Associated Diagnoses Orde r Schedule MRI Lumbar Spine Imaging Routine Intervertebral disc disorders with radiculopathy, lumbar region 1 Occurrences starting 01/31/2019 until 05/02/2019 documented as of this encounter Visit Diagnoses Diagnosis Intervertebral disc disorders with radiculopathy, lumbar region documented in this encounter Care Teams Roller Man Relationship Specialty Start Date End Date Jo Galan PA [address] [place] [phone] [email or web address] PCP - General 09/20/18 01/21/22 Unknown, Unknown, PCP - General 01/22/22 01/26/22 Lis Mcdonald NP [address] [place] [address] [email or web address] PCP - General Family Medicine 01/27/22 08/15/23 Naa Colindres MD [address] [place] [address] [email or web address] PCP - General Family Medicine 08/16/23 Tariq Yang MD [address] [place] [address] [email or web address] Insurance Assigned Provider 09/17/17 10/20/19 Janneth Waller DO [address] [place] [address] [place] [address] Insurance Assigned Provider 10/20/19 03/22/20 Tariq Yang MD [address] [place] [address] [email or web address] Insurance Assigned Provider 03/22/20 10/19/20 Catalina Borden LCSW [address] [place] [phone] [email or web address] iCMP Social Work 04/14/20 03/24/23 Brenda Gomez MD [address] [place] [address] [place] [email or web address] Insurance Assigned Provider 10/19/20 06/19/22 Tariq Yang MD [address] [place] [phone] [email or web address] Insurance Assigned Provider 06/19/22 08/28/22 Brenda Gomez MD [address] [place] [address] [place] [address] [email or web address] Insurance Assigned Provider 08/28/22 01/22/23 Lis Long RN [address] [place] [phone] i[employer] Engineering Consultant 11/11/22 11/28/22 documented as of this encounter Additional Source Comments The information contained in this document represents components of the legal health record. It is not the complete legal health record.[facility]
--- OUTSIDE RECORDS SUMMARY | 2025-01-26 13:36 | XMS_ITS | Encounter Summary ---
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 Not on file Not on file documented as of this encounter Plan of Treatment Upcoming Encounters Date Type Department Care Team (Late st Contact Info) Description 04/15/2025 2:00 PM EST Office Visit [facility] Neurology [address] [place] [address] Sundar Vázquez MD [address] [place] [address], [address] [place] [address] 05/06/2025 9:00 AM EST Office Visit [facility] Rheumatology [address] [place] [address] Nancy Baptiste MD [address] [place] [address], [address] [place] [address] documented as of this encounter Visit Diagnoses Not on filedocumented in this encounter Care Teams Convention Worker Relationship Specialty Start Date End Date Lis Mcdonald NP [address] [place] [phone] [email or web address] PCP - General Family Medicine 01/27/22 08/15/23 Naa Colindres MD [address] [place] [phone] PCP - General Family Medicine 08/16/23 Catalina Borden, [address] [address] iCMP Social Work 04/14/20 03/24/23 Tariq Yang MD [address] [place] [address] Insurance Assigned Provider 06/19/22 08/28/22 Brenda Gomez MD [address] [place] [address] [place] [address] [email or web address] Insurance Assigned Provider 08/28/22 01/22/23 Lis Long RN [address] [place] [address] [email or web address] iCMP Radar Systems Engineer 11/11/22 11/28/22 documented as of this encounter Additional Source Comments The information contained in this document represents components of the legal health record. It is not the complete legal health record.[facility]
--- OUTSIDE RECORDS SUMMARY | 2025-01-26 13:36 | XMS_ITS | Encounter Summary ---
Author Organization [facility], Address [address] [place] [address] Phone Care Team Providers Care Media Promoter Name Role Phone Naa Colindres MD Primary Care Provider [phone] Encounter Details Date Type Department Care Team (Late st Contact Info) Description 09/26/2023 Documentation Only [facility], [address] [place] [address] Collette Stacy [address] [place] [phone] Social History Tobacco Use Types Packs/Day Years [...] on filedocumented in this encounter Care Teams Media Promoter Relationship Specialty Start Date End Date Naa Colindres MD [address] [place] [address] PCP - General Family Medicine 03/17/23 documented as of this encounter
[2025-01-26 14:33] LABS: MANUAL DIFF FLAG NO
[2025-01-26 14:36] LABS: Hematocrit 39.5 % (37.0-47.0); Hemoglobin 13.4 g/dl (12.0-16.0); Imm Gran Abs Auto 0.06 X10*3/uL (0.00-0.03); Imm Gran Pct Auto 0.6 % (0.0-0.4); Lymphocytes Absolute Auto 2.1 X10*3/uL (1.2-4.9); Mean Corpuscular HGB Conc 33.9 g/dl (31.0-35.0); Mean Corpuscular Hemoglobin 31.0 pg (27.0-33.0); Mean Corpuscular Volume 91.4 fL (80.0-98.0); NRBC Abs Auto 0.000 X10*3/uL (0.0-0.012); NRBC Pct Auto 0.0 /100WBC (0.0-0.2); Platelet Count 341 X10*3/uL (160-400); Red Blood Count 4.32 X10*6/uL (4.20-5.50); White Blood Count 10.2 X10*3/uL (4.8-10.8)
[2025-01-26 14:51] LABS: Alanine Aminotransferase 101 U/L (0-31); Albumin Level 4.0 g/dL (3.5-5.0); Alkaline Phosphatase 62 U/L (39-117); Anion Gap 15 (12-20); Aspartate Amino Transferase 55 U/L (5-31); Blood Urea Nitrogen 12 mg/dL (9-16); Calcium 9.3 mg/dL (8.4-10.2); Carbon Dioxide 25 mmol/L (22-29); Chloride 104 mmol/L (96-108); Creatinine Clr Calc Pharmacy 130.1; Estimated Glomerular Filt Rate > 60; Potassium 3.9 mmol/L (3.3-5.1); Sodium 140 mmol/L (135-145); Total Protein 6.9 g/dL (6.5-8.0)
[2025-01-26 15:34] LABS: Lipase 26 U/L (8-78)
[2025-01-26] MEDS: Sucralfate Oral Suspension 1 GM/10 ML ORAL.SUSP 2 GM PO (15:49)
[2025-01-26 15:50] VITALS: BP 119/70; PULSE 83; RESP 18; TEMP 37.1; O2SAT 98
== END 2025-01-26 16:19 | disposition home or self-care (01) ==
PROVIDERS: Physician Assistant Medical; Emergency Provider Emergency Medicine; PCP Family Medicine
DX: R10.12 Left upper quadrant pain (principal); M79.89 Other specified soft tissue disorders
CPT/HCPCS: 36415; 80053; 83605; 83690; 85025; 85652; 86140; 99282; 99283

== ENCOUNTER 2025-01-28 14:23 | Outpatient (AMB) | payer MEDICAID, SELFPAY ==
--- OUTSIDE RECORDS SUMMARY | 2025-01-23 11:20 | XMS_ITS | Encounter Summary ---
Author Organization [employer] Address [address] [facility] 7[address] [place] [address] Care Team Providers Care Hospital Nursing Assistant Name Role Phone Naa Colindres MD Primary Care Provider [phone] Reason for Referral * Imaging (Urgent) - Authorized Specialty Diagnoses / Procedures Referred By Contac t Referred To Contact Cardiology Diagnoses Localized swelling of left lower leg Procedures Vascular US lower extremity venous duplex left Naa Colindres MD [address] [place], [place] Phone: tel: fax: [facility] - Radiology [address] [place] [address] Phone: tel: fax: Referral ID Status Reason Start Date Expiration Date Visits Requested Visits Authorized [id number] Authorized Perform Procedure 01/23/2025 01/23/2026 1 1 Encounter Details Date Type Department Care Team (Late st Contact Info) Description 01/23/2025 11:20 AM EDT Office Visit [facility] [address] [place], [place] [phone] Naa Colindres MD [address] [place], [place] Class 2 severe obesity due to excess calories with serious comorbidity and body mass index (BMI) of 38.0 to 38.9 in adult (CMS/HCC) (Primary Dx); Localized swelling of left lower leg Social History Tobacco Use Types Packs/Day Years Used Date Smoking Tobacco: Every Day Cigarettes 0.3 19 Smokeless Tobacco: Never Alcohol Use Standard Drinks/Week Comments Never 0 (1 standard drink = 0.6 oz pur e alcohol) Depression Answer Date Recorded Patient Health Questionnaire-9 [...] PM EDT documented as of this encounter Last Filed Vital Signs Vital Sign Reading Time Taken Comments Blood Pressure 106/75 01/23/2025 11:22 AM EDT Pulse 101 01/23/2025 11:22 AM EDT Temperature 36.9 C (98.5 F) 01/23/2025 11:22 AM EDT Respiratory Rate 20 01/23/2025 11:22 AM EDT Oxygen Saturation - - Inhaled Oxygen Concentration - - Weight 128 kg (282 lb 6.4 oz) 01/23/2025 11:22 A M EDT Height - - Body Mass Index 39.39 11/12/2024 3:31 PM EDT documented in this encounter Progress Notes * Naa Colindres MD - 01/23/2025 11:20 AM EDT Subjective Flaca Varela is a 39 y.o. female who presents for chronic care management and leg swelling HISTORY OF PRESENT ILLNESS: Flaca underwent back surgery on December 11, 2024. Recovery has been challenging, with increased pain and new symptoms. Over the past several days, developed swelling and pain in both calves, with theleft side more swollen and tense. Reports inability to bend the calves, sensation of hardness, and trembling. Noted that the swelling is more pronounced on one side. Experiences pressure in the legs when walking and when touched. Difficulty with bowel movements since surgery, requiring stool softeners and various laxatives. Continues to have migraines at baseline. Has not been allowed to return to work until March 16, 2025, per previous provider. Has a special accommodation request for a washer and dryer in the apartment due to back condition, but faces resistance from landlord and housing authority. Reports significant stress and emotional distress related to housing situation, including issues with SSI income reporting and communication with landlord. History of living in a longterm and previous accommodation for washer and dryer due to back problems. Has gained 10 lbs since January 03, 2025, with current weight at 283 lbs. Attributes weight gain to fluid retention following surgery. Engaged in physical therapy for rehabilitation. Mailroom Messenger recommended use of a heated pool for back, but unable to access due to financial constraints. History of right-sided sciatica, now with new shooting pain down the left side. Previously tried gabapentin without benefit. Uses oxycodone at night but reports inadequate pain relief and dislikes the side effects. No blood thinners were given after surgery. Surgery lasted nearly 5 hours, longer than expected. Expressed concern about a possible diabetes diagnosis listed in the chart, but states no history ofdiabetes. Had a past kidney evaluation that was incomplete due to living in a longterm. Scheduled tosee a cat skinner on January 25, 2025. Sole income from [employer] for more than a year and a half.Reports feeling depressed and crying nightly due to ongoing housing issues and uncertainty. Main goal is to improve health and push forward with recovery. Current Medications[1] PAST MEDICAL, SURGICAL, SOCIAL AND FAMILY HISTORY: Reviewed and updated MEDICATIONS AND ALLERGIES: Reviewed and updated ROS: Ten system review negative, with the exception of those noted in the HPI and A&P PHYSICAL EXAMINATION: Vitals: Weight 283 lb GENERAL: Well-appearing male in no acute distress. HEENT: No scleral icterus. Moist mucous membranes. No nasal discharge. PULMONARY: Breathing comfortably on room air. MUSCULOSKELETAL: Gait appropriate and symmetric. EXTREMITIES: Warm and well perfused. NEUROLOGIC: Motor function grossly intact. Physical exam: Surgical scars inspected on lower back with evidence of healing. Calves examined; right calf appears more swollen and firm compared to left. Calf circumference measured at 49.5 cm on the right and 51 cm on the left. Ankle dorsiflexion limited by tension and swelling. ASSESSMENT AND PLAN: Diagnoses and all orders for this visit: Class 2 severe obesity due to excess calories with serious comorbidity and body mass index (BMI) of38.0 to 38.9 in adult ([facility]) - Hemoglobin A1c 298753; Future - Lipid Panel, Standard 77260; Future Localized swelling of left lower leg - D-Dimer, Quantitative [[id number]]; Future - Vascular US lower extremity venous duplex left; Future Edema and pain in lower extremities, concern for DVT: - Edema and pain in both calves, with greater swelling on the left, concerning for possible deep vein thrombosis. Differential includes postoperative fluid retention. - Ordered lower extremity ultrasound to evaluate for DVT. Offered D-dimer blood test for screening.Instructed to go to the lab immediately for testing. Will review results prior to next follow-up. Postoperative pain and slow recovery after lumbar fusion surgery: - Persistent pain and slow recovery attributed to normal postoperative course and compensatory changes following lumbar fusion. - Recommended continuation of physical therapy. Advised to avoid use of back brace per surgical team to promote muscle strengthening. Encouraged gradual increase in mobility and activity as tolerated. Scheduled follow-up on March 19, 2025. Weight gain and possible fluid retention: - Weight gain of 10 lbs since January 03, 2025, likely due to postoperative fluid retention. - Will prescribe furosemide (Lasix) for diuresis if DVT is ruled out. Ordered laboratory tests including A1c and lipid panel. Obesity and weight management: - Obesity with current weight of 283 lbs. Goal weight set at 200 lbs. No evidence of diabetes basedon prior A1c. - Referred to cat skinner for dietary counseling. Advised to follow up with weight business management analyst for consideration of pharmacotherapy (phentermine). Ordered repeat A1c and lipid panel for evaluation. Encouraged ongoing weight loss efforts. Diabetes (incorrectly listed in problem list): - Diabetes incorrectly listed in problem list; clarified as not present based on prior A1c and clinical history. - Removed diabetes from problem list. Ordered repeat A1c for confirmation. Housing and special accommodation needs: - Ongoing need for special accommodation (washer and dryer in unit) due to physical limitations post-surgery. - Discussed options for housing and special accommodation requests. Advised to pursue available units and advocate for necessary accommodations. Offered to provide medical documentation as needed forhousing authority. [1] Current Outpatient Medications Medication Sig Dispense Refill acetaminophen (Tylenol 8 Hour) 650 MG ER tablet Take 1 tablet (650 mg) by mouth every 8 (eight) hours if needed for mild pain. Do not crush, chew, or split. 90 tablet 1 albuterol (ProAir HFA) 108 (90 Base) MCG/ACT inhaler Inhale 2 puffs every 6 (six) hours if needed for wheezing. 18 g 11 betamethasone, augmented, (Diprolene) 0.05 % ointment cholecalciferol (Vitamin D-3) 125 MCG (5000 UT) capsule Take 125 mcg by mouth Once per day. clindamycin (Cleocin T) 1 % lotion APPLY TO AFFECTED AREA TWICE A DAY 60 mL 11 clindamycin (Cleocin T) 1 % lotion Apply topically 2 times daily. to affected area 60 mL 11 clindamycin (Cleocin) 300 MG capsule Take 1 capsule by mouth every 6 (six) hours during the day. clobetasol (Temovate) 0.05 % cream APPLY A THIN LAYER TO THE AFFECTED AREA(S) ONCE DAILY 60 g 11 cyclobenzaprine (Flexeril) 10 MG tablet TAKE 1 TABLET BY MOUTH EVERYDAY AT BEDTIME 20 tablet 0 cyclobenzaprine (Flexeril) 10 MG tablet Take 1 tablet (10 mg) by mouth at bedtime. 90 tablet 0 Diclofenac Sodium 1 % gel Apply 2 g topically if needed in the morning, at noon, in the evening, and at bedtime. divalproex (Depakote) 250 MG EC tablet TAKE 2 TABLETS (500 MG) BY MOUTH AT BEDTIME. 180 tablet 1 doxepin (SINEquan) 10 MG capsule TAKE 1 CAPSULE (10 MG) BY MOUTH AT BEDTIME. TO HELP STAY ASLEEP 90capsule 0 fluconazole (Diflucan) 150 MG tablet Take 1 tablet by mouth Once per day. fluticasone (Flonase) 50 MCG/ACT nasal spray ADMINISTER 2 SPRAYS INTO EACH NOSTRIL ONCE PER DAY. 48mL 1 gabapentin (Neurontin) 300 MG capsule TAKE 1 CAPSULE BY MOUTH 3 TIMES A DAY CAN INCREASE MORNING AND EVENING DOSES TO 2 CAPS IF NEEDED 150 capsule 0 guaiFENesin (Mucinex) 600 MG 12 hr tablet Take 2 tablets (1,200 mg) by mouth 2 times daily. Do not crush, chew, or split. 120 tablet 11 Hibiclens 4 % external liquid HYDROcodone-acetaminophen ([place]) 5-325 MG tablet Take 2 tablets by mouth every 6 (six) hours if needed. hydrocortisone 2.5 % lotion APPLY TOPICALLY TWICE A DAY 59 mL 11 hydrOXYzine pamoate (Vistaril) 25 MG capsule Take 1 capsule (25 mg) by mouth every 8 (eight) hours if needed for anxiety. 30 capsule 0 lidocaine (Lidoderm) 5 % patch lidocaine-prilocaine (Emla) 2.5-2.5 % cream Apply 1 Application. topically 1 (one) time if needed for mild pain. magnesium oxide (Mag-Ox) 400 MG tablet Take 1 tablet by mouth Once per day. metroNIDAZOLE (Flagyl) 500 MG tablet Take 1 tablet by mouth in the morning and 1 tablet in the evening. naratriptan (Amerge) 2.5 MG tablet ondansetron ODT (Zofran-ODT) 8 MG disintegrating tablet Take 1 tablet by mouth every 8 (eight) hours if needed for nausea. pantoprazole (ProtoNix) 40 MG EC tablet TAKE 1 TABLET (40 MG) BY MOUTH BEFORE BREAKFAST 90 tablet 0 polyethylene glycol, PEG, 3350 (Miralax) 17 g packet Take 17g po pack in 8oz water for up to 7 days. 7 packet 0 prazosin (Minipress) 1 MG capsule Take 1 capsule (1 mg) by mouth at bedtime. 90 capsule 0 riboflavin (vitamin B2) 100 mg tablet tablet rizatriptan DRAWING TRACER (Maxalt-DRAWING TRACER) 10 MG disintegrating tablet sennosides (Senna-Time) 8.6 MG tablet Take 1 tablet (8.6 mg) by mouth 2 times daily. 15 tablet 0 Systane Ultra 0.4-0.3 % solution terconazole (Terazol 3) 0.8 % vaginal cream Insert 1 applicator into the vagina at bedtime. topiramate (Topamax) 100 MG tablet Take 100 mg by mouth at bedtime. triamcinolone (Kenalog) 0.1 % ointment cyclobenzaprine (Flexeril) 5 MG tablet TAKE 1 TABLET (5 MG) BY MOUTH IF NEEDED AT BEDTIME FOR MUSCLE SPASMS FOR UP TO 21 DAYS. (Patient not taking: Reported on 01/23/2025) 21 tablet 0 No current facility-administered medications for this visit. documented in this encounter Plan of Treatment Upcoming Encounters Date Type Department Care Team (Late st Contact Info) Description 02/16/2025 9:20 AM EDT Office Visit [facility] [address] [place] [address] Naa Colindres MD [address] [place] [address] 04/02/2025 10:30 AM EST Office Visit [facility] [address] [place] [address] Jodi Miller MD [address] [place] [address] documented as of this encounter Procedures Procedure Name Priority Date/Time Associated Diagnosis Comments D-DIMER, QUANTITATIVE Routine 01/24/2025 11:04 AM EDT Localized swelling of left lower leg HEMOGLOBIN A1C Routine 01/24/2025 11:04 AM EDT Class 2 severe obesity due to excess calories with serious comorbidity and body mass index (BMI) of 38.0 to 38.9 in adult ([facility]) LIPID PANEL, STANDARD Routine 01/24/2025 11:04 AM EDT Class 2 severe obesity due to excess calories with serious comorbidity and body mass index (BMI) of 38.0 to 38.9 in adult ([facility]) documented in this encounter Results * (ABNORMAL) Lipid Panel, Standard 61485 (01/24/2025 11:04 AM EDT) [facility] Cholesterol, Total 209(H) 100 - 199 mg/dL [facility] 1 Triglycerides 165(H) 0 - 149 mg/dL [facility] 1 HDL Cholesterol 53 >39 mg/dL [facility] 1 VLDL Cholesterol Juan 29 5 - 40 mg/dL [facility] 1 LDL Chol Calc (NIH) 127(H) 0 - 99 mg/dL [facility] 1 Blood Venous blood specimen / Unknown 01/24/2025 11:04 AM EDT 01/24/2025 Narrative Resulting Agency Comment Performed at: [address] [place] [address] [id number] Power Line Installer: Sunshine Cardozo MD, Phone: [phone] Naa Colindres MD LAB BLOOD ORDERABLES Final Res ult Performing Organization Address [facility] Co de Phone Number [facility] * Hemoglobin A1c [id number] (01/24/2025 11:04 AM EDT) [facility] Hemoglobin A1c 5.6 4.8 - 5.6 % [facility] 1 Comment: Prediabetes: 5.7 - 6.4 Diabetes: >6.4 Glycemic control for adults with diabetes: <7.0 Blood Venous blood specimen / Unknown 01/24/2025 11:04 AM EDT 01/24/2025 Narrative Resulting Agency Comment Performed at: [address] [place] [address] [id number] Power Line Installer: Sunshine Cardozo MD, Phone: [phone] Naa Colindres MD LAB BLOOD ORDERABLES Final Res ult Performing Organization Address [facility] Co de Phone Number [facility] 1 * (ABNORMAL) D-Dimer, Quantitative [[id number]] (01/24/2025 11:04 AM EDT) [facility] D-Dimer, Quantitative 0.96(H) 0.00 - 0.49 mg/L FEU [facility] 1 Comment: According to the assay print producer's published package insert, a normal (<0.50 mg/L FEU) D-dimer result in conjunction with a non-high clinical probability assessment, excludes deep vein thrombosis (DVT) and pulmonary embolism (PE) with high sensitivity. D-dimer values increase with age and this can make VTE exclusion of an older population difficult. To address this, the [employer], based on best available evidence and recent guidelines, recommends that clinicians use age-adjusted D-dimer thresholds in patients greater than 50 years of age with: a) a low probability of PE who do not meet all Pulmonary Embolism Rule Out Criteria, or b) in those with intermediate probability of PE. The formula for an age-adjusted D-dimer cut-off is age/100 . For example, a 60 year old patient would have an age-adjusted cut-off of 0.60 mg/L FEU and an 80 year old 0.80 mg/L FEU. Blood Venous blood specimen / Unknown 01/24/2025 11:04 AM EDT 01/24/2025 Narrative Resulting Agency Comment Performed at: 01 - [facility] [address] [id number] Power Line Installer: Sunshine Cardozo MD, Phone: [phone] us Naa Colindres MD LAB BLOOD ORDERABLES Final Res ult [facility] 1 documented in this encounter Visit Diagnoses Diagnosis Class 2 severe obesity due to excess calories with serious comorbidity and body mass index (BMI) of 38.0 to 38.9 in adult (CMS/[facility])- Primary Localized swelling of left lower leg documented in this encounter Additional Health Concerns Assessment Noted Time PHQ-9 Depression Total Score: 24 023 10:06 AM EDT documented as of this encounter Care Teams Hospital Nursing Assistant Relationship Specialty Start Date End Date Naa Colindres MD [address] [facility] [address] PCP - General Family Medicine 09/03/22 documented as of this encounter
--- OUTSIDE RECORDS SUMMARY | 2025-01-25 14:00 | XMS_ITS | Encounter Summary ---
Author Organization [employer] Address [address] [facility] 7[address] [place] [address] Care Team Providers Care Shoe Repairer Helper Name Role Phone Naa Colindres MD Primary Care Provider [phone] Reason for Visit * Reason Comments First Consultation on Weight Management Patient has an A1c done yesterday resulted @ 5.6% Encounter Details Date Type Department Care Team (Late st Contact Info) Description 01/25/2025 2:00 PM EDT Office Visit [facility] MEDICAL [address] [place] [address] Jodi Miller MD [address] [place] [address] Class 2 severe obesity due to excess calories with serious comorbidity and body mass index (BMI) of 36.0 to 36.9 in adult ([facility]) (Primary Dx); BMI 38.0-38.9,adult Social [...] to lose weight. Obesity Medicine Specialist Credentials: [id number] expiration date: 05/15/2030 Start Date of Weight [...] index (BMI) of36.0 to 36.9 in adult ([facility]) Comments: reviewed low carb diet in detail, calculating net carbs; briefly discussed intermittent fasting as well. Orders: - phentermine 15 MG capsule; Take 1 capsule (15 mg) by mouth before breakfast. BMI 38.0-38.9,adult Comments: an excellent candidate for phentermine given she is already on topamax. reviewed side effects; monitor BP, will have NV in [place]. Orders: - phentermine 15 MG capsule; Take 1 capsule (15 mg) by mouth before breakfast. * ALFREDO Hauser - 01/25/2025 2:00 PM EDT NV 15 WC 54 documented in this encounter Plan of Treatment Upcoming Encounters Date Type Department Care Team (Late st Contact Info) Description 02/16/2025 9:20 AM EDT Office Visit [facility] MED[facility] [address] [place] [address] Naa Colindres MD [address] [place] [address] 04/02/2025 10:30 AM EST Office Visit [facility] MEDICAL [address] [place] [address] Jodi Miller MD [address] [place] [address] documented as of this encounter Visit Diagnoses Diagnosis Class 2 severe obesity due to excess calories with serious comorbidity and body mass index (BMI) of 36.0 to 36.9 in adult ([facility])- Primary BMI 38.0-38.9,adult documented in this encounter Additional Health Concerns Assessment Noted Time PHQ-9 Depression Total Score: 24 023 10:06 AM EDT documented as of this encounter Care Teams Shoe Repairer Helper Relationship Specialty Start Date End Date Naa Colindres MD [address] [place] [address] PCP - General Family Medicine 09/03/22 documented as of this encounter
--- NOTE | 2025-01-28 14:33 | HO.SPINEOV ---
Intake Visit Reasons: ED f/up Intake Note: Ms. Varela is here today for an Ed f/u for post operative changes of the back. Lead Software Tester Required: No Allergies Penicillins Allergy (Severe, Verified 01/26/25 13:21) Hives tramadol Allergy (Severe, Verified 01/26/25 13:21) Vomiting Assessment & Plan Assessment & Plan (1) S/P lumbar spinal fusion: Code(s): Z98.1 - Arthrodesis status Category: Surgical Plan Procedure: L4-5 OLIF Ms. Varela comes in today for a follow up appointment after being seen in the emergency department first at [facility] then here at [facility]. She previously underwent L4-[address] Hunt on 12/11/24. We have been routinely following her for post-op visits since her surgery. She was last seen 01/01 by LINDY Peacock, and appeared to be making satisfactory but slow progress. She reports that last week she had some bilateral lower extremity swelling near the calf, which was worked up by her primary care physician Dr. Colindres. She had elevated D-Dimer and was advised to go to the ED for evaluation to r/o DVT. She states that her Ultrasound of the lower extremity was negative. The [facility] ED obtained CT imaging of her spine, which initially sounds like it appeared WNL, then was submitted for over-read by radiology d/t suspected psoas abscess. We do not have the images here at [facility] and the patient did not bring her CT scan imaging disc with her to this appointment. Her CT read was reviewed by Dr. Hunt after it was sent to him by our ED attending Dr. Alford. Dr. Hunt believes this is simply trauma related to the surgical approach for our oblique lumbar interbody fusion procedure, which is done via a retroperitoneal approach after splitting the 3 muscle layer of the abdomen (external oblique, internal oblique, transversus abdominis). Notably, the CT read called this a transforaminal lumbar interbody fusion (TLIF) which would be completed with different interbody spacers, and is performed exclusively posterior to the spine, therefore no psoas trauma would be expected if this type of fusion was performed. On examination today the patient has no notable neurological deficits. She continues to ambulate with the assistance of a walker, and have some difficulty rising from a seated position. She needs to brace herself on the chair in order to independently without her walker. She walks with a non spastic nonantalgic gait. Her lateral and posterior incision sites are closed and well healed with no signs of dehiscence or drainage. Given that the patient reports continued slow but meaningful progress with her pain, I do not believe that this is an issue requiring further neurosurgical intervention. This is a problem we have encountered before with repeat imaging after our OLIF surgery, and Dr. Hunt feels that exploration of this area via further surgery would only protract the patients healing course. We would like Flaca to keep her follow up appointment in 2-3 weeks so we can continue to follow her and track her progress. She is out of her Oxycodone medication, so I will send in a course of Baclofen to supplement her Gabapentin, as she does still report occasional flare ups of significant pain. I have requested the actual CT images are pulled over to our EMR via [employer] so we can review them. I did check [email or web address] to see if they were uploaded there, but all I can see are her previous L-spine MRIs. Demario Hunt MD,PhD [facility] Coding Level of Care Code Global (22062) Diagnoses S/P lumbar spinal fusion Z98.1
--- OUTSIDE RECORDS SUMMARY | 2025-01-28 19:50 | XMS_ITS | Encounter Summary ---
Author Organization [facility], Address [address] [place] [address] Phone Care Team Providers Care Manager Rn Name Role Phone Naa Colindres MD Primary Care Provider [phone] Encounter Details Date Type Department Care Team (Late st Contact Info) Description 12/09/2022 Documentation Only [facility], [facility] Dr Jane [facility] [address] [place] [phone] Jeffery Tyler MD [address] [place] [address] [place] [phone] Social History Tobacco Use Types Packs/Day Years [...] on filedocumented in this encounter Care Teams Manager Rn Relationship Specialty Start Date End Date Naa Colindres MD [address] [place] [address] PCP - General Family Medicine 03/17/23 documented as of this encounter
--- OUTSIDE RECORDS SUMMARY | 2025-01-28 19:50 | XMS_ITS | Encounter Summary ---
Author Organization [facility], Address [address] [place] [address] Phone Care Team Providers Care Riveter Automobile Brakes Name Role Phone Naa Colindres MD Primary Care Provider [phone] Encounter Details Date Type Department Care Team (Late st Contact Info) Description 12/10/2022 Documentation Only [facility], [facility] Dr Jane [facility] [address] [place] [phone] Jeffery Tyler MD [address] [place] [address] [place] [phone] Social History Tobacco Use Types Packs/Day Years [...] on filedocumented in this encounter Care Teams Riveter Automobile Brakes Relationship Specialty Start Date End Date Naa Colindres MD [address] [place] [address] PCP - General Family Medicine 03/17/23 documented as of this encounter
--- OUTSIDE RECORDS SUMMARY | 2025-01-28 19:50 | XMS_ITS | Encounter Summary ---
Author Organization [facility] Address [address] [place] [address] Phone Care Team Providers Care Fisheries Diver Name Role Phone Tariq Yang MD Unavailable [phone] Taina Patel PA Primary Care Provider Jo Galan Primary Care Provider [phone] Alicia Waller DO Unavailable [phone] Tariq Yang MD Unavailable + Catalina Borden PLANER MILL GRADER Unavailable [email or web address] Brenda Gomez MD Unavailable [phone] Unknown, Unknown Primary Care Provider Lis Lobo GROUND MIXER Primary Care Pro vider Tariq Yang MD Unavailable + Brenda Gomez MD Unavailable [phone] Lis Long RN Unavailable Naa Colindres MD Primary Care Provider [phone] Encounter Details Date Type Department Care Team (Latest Contact Info) Description 06/02/2018 Transcribe Orders [address] [place] [address] Claudia Richardson PA [address] [facility] [address] [place] [address] [email or web address] Hidradenitis suppurativa (Primary Dx) Social History Tobacco [...] 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 Not on file Not on file documented as of this encounter Plan of Treatment Upcoming Encounters Date Type Department Care Team (Late st Contact Info) Description 04/15/2025 2:00 PM EST Office Visit [facility] Neurology [address] [place] [address] Sundar Vázquez MD [address] [place] [address], 2nd [place] [address] 05/06/2025 9:00 AM EST Office Visit [facility] Rheumatology [address] [place] [address] Nancy Baptiste MD [address] [facility], [address] [place] [address] documented as of this encounter Results * (ABNORMAL) Comprehensive metabolic panel (06/02/2018 11:26 AM EST) SODIUM 141 133 - 146 mmol/L [facility] POTASSIUM 4.7 3.3 - 5.1 mmol/L [facility] CHLORIDE 105 96 - 108 mmol/L [facility] CO2 25 21 - 35 mmol/L [facility] BUN 17 6 - 19 mg/dL [facility] CREATININE 0.80 0.5 - 1.5 mg/dL [facility] GLUCOSE 95 70 - 99 mg/dL [facility] ALBUMIN 3.7(L) 3.9 - 4.8 g/dL [facility] TOTAL PROTEIN 6.4(L) 6.5 - 8.0 g/dL [facility] CALCIUM 9.5 8.4 - 10.3 mg/dL [facility] ALKALINE PHOSPHATASE 47 39 - 117 U/L [facility] TOTAL BILIRUBIN <0.2 0.0 - 1.2 mg/dL [facility] AST 15 0 - 37 U/L [facility] ALT 15 0 - 40 U/L [facility] GLOBULIN 2.7 1 - 4.8 g/dL [facility] EGFR 97 >59 mL/min/1.7 3m2 [facility] Comment:If patient is black, multiply result by 1.159. Estimated glomerular filtration rate calculated using the CKD-EPI equation. ANION GAP 16 10 - 20 mmol/L [facility] Blood 06/02/2018 11:2 6 AM EST 06/02/2018 11:31 AM EST us Claudia [facility] BLOOD ORDERABLES Final R esult Performing Organization Address City/State/[facility] Co de Phone Number [address] [address] * (ABNORMAL) CBC and differential (06/02/2018 11:26 AM EST) WBC 8.48 3.40 - 11.20 K/uL [facility] RBC 4.30 3.80 - 4.80 M/uL [facility] HGB 13.4 12.0 - 15.0 g/dL [facility] HCT 39.8 36.0 - 46.0 % [facility] PLT 260 130 - 400 K/uL [facility] MCV 92.6 79.0 - 98.0 fL [facility] MCH 31.2 27.0 - 34.8 pg [facility] MCHC 33.7 31.5 - 36.0 g/dL [facility] RDW 13.2 10.8 - 14.6 % [facility] MPV 12.5(H) 9.4 - 12.4 fl [facility] NRBC 0.00 0.00 /100 WBCs [facility] ABSOLUTE NRBC 0.00 0.00 K/uL [facility] DIFF METHOD Auto [facility] NEUTS 57.3 45.30 - 77.70 % [facility] LYMPHS 30.1 12.30 - 39.70 % [facility] MONOS 6.6 4.10 - 12.80 % [facility] EOS 5.0 0 - 7.2 % [facility] BASOS 0.6 0 - 2.80 % [facility] Granulocytes, immature (%) 0.4 0.0 - 0.9 % [facility] ABSOLUTE NEUTS 4.87 1.40 - 7.70 K/uL [facility] ABSOLUTE LYMPHS 2.55 0.60 - 3.20 K/uL [facility] ABSOLUTE MONOS 0.56 0.11 - 0.59 K/uL [facility] ABSOLUTE EOS 0.42 0.01 - 0.50 K/uL [facility] ABSOLUTE BASOS 0.05 0.00 - 0.08 K/uL [facility] Granulocytes, immature 0.03 0.00 - 0.05 K/uL [facility] Blood 06/02/2018 11:2 6 AM EST 06/02/2018 11:31 AM EST Claudia [facility] B[facility]OD ORDER[facility] Final R esult [address] [address] * Hepatitis A antibody, total (06/02/2018 11:26 AM EST) HAV TOTAL AB Negative Negative [facility] Blood 06/02/2018 11:2 6 AM EST 06/02/2018 11:31 AM EST Claudia [facility] B[facility]OD ORDER[facility]LES Final R esult [address] [address] * Hepatitis B surface antibody (06/02/2018 11:26 AM EST) HBV SURFACE ANTIBODY Negative [facility] Comment: Unvaccinated: Negative Vaccinated: Positive Blood 06/02/2018 11:2 6 AM EST 06/02/2018 11:31 AM EST Claudia [facility] B[facility] ORDER[facility] Final R esult [address] [address] * Hepatitis B core antibody, total (06/02/2018 11:26 AM EST) HEP B CORE AB, TOT Negative Negative [facility] Blood 06/02/2018 11:2 6 AM EST 06/02/2018 11:31 AM EST Claudia [facility] BLOOD ORDERABLES Final R esult Performing Organization Address City/[facility]/ZIP Co de Phone Number [address] [address] * Hepatitis C antibody, qualitative (06/02/2018 11:26 AM EST) HCV Negative Negative [facility] Comment: This is a screening test and should be confirmed with molecular testing Blood 06/02/2018 11:2 6 AM EST 06/02/2018 11:31 AM EST Claudia [facility] BLOOD ORDERABLES Final R esult Performing Organization Address City/[facility] Co de Phone Number [address] [address] * Hepatitis B surface antigen (06/02/2018 11:26 AM EST) HBV SURFACE ANTIGEN Negative Negative [facility] Blood 06/02/2018 11:2 6 AM EST 06/02/2018 11:31 AM EST us Claudia [facility] BLOOD ORDERABLES Final R esult [address] [address] documented in this encounter Visit Diagnoses Diagnosis Hidradenitis suppurativa- Primary Hidradenitis documented in this encounter Care Teams Fisheries Diver Relationship Specialty Start Date End Date Taina Patel PA [address] [place] [address] PCP - General Unknown Provider Specialty 06/02/18 09/19/18 Jo Galan PA [address] [place] [phone] [email or web address] PCP - General 09/20/18 01/21/22 Unknown, MD Lucita PCP - General 01/22/22 01/26/22 Lis Mcdonald NP [address] [place] [address] [email or web address] PCP - General Family Medicine 01/27/22 08/15/23 Naa Colindres MD [address] [place] [address] [email or web address] PCP - General Family Medicine 08/16/23 Tariq Yang MD [address] [place] [address] [email or web address] Insurance Assigned Provider 09/17/17 10/20/19 Alicia Waller DO [address] [place] [address] [place] [address] Insurance Assigned Provider 10/20/19 03/22/20 Tariq Yang MD [address] [place] [address] [email or web address] Insurance Assigned Provider 03/22/20 10/19/20 Catalina Borden LCSW [address] [place] [address] [employer] Social Work 04/14/20 03/24/23 Brenda Gomez MD [address] [place] [address] [place] [address] [email or web address] Insurance Assigned Provider 10/19/20 06/19/22 Tariq Yang MD [address] [place] [address] [email or web address] Insurance Assigned Provider 06/19/22 08/28/22 Brenda Gomez MD [address] [place] [address] [place] [address] [email or web address] Insurance Assigned Provider 08/28/22 01/22/23 Lis Long, RN [address] [place] [phone] [employer] Heel Boom Operator 11/11/22 11/28/22 documented as of this encounter Additional Source Comments The information contained in this document represents components of the legal health record. It is not the complete legal health record.[facility]
--- OUTSIDE RECORDS SUMMARY | 2025-01-28 19:50 | XMS_ITS | Encounter Summary ---
Author Organization [facility] Address [address] [place] [address] Phone Care Team Providers Care Bridge Manager Name Role Phone Tariq Yang MD Unavailable +[phone] Taina Patel Primary Care Provider Jo Galan Primary Care Provider [phone] Janneth Waller DO Unavailable +[phone] Tariq Yang MD Unavailable + Catalina Borden HOSPITAL ADMISSIONS CLERK Unavailable [email or web address] Brenda Gomez MD Unavailable [phone] Unknown, Unknown Primary Care Provider Lis Lobo LINING MAKER Primary Care Pro vider Tariq Yang MD Unavailable + Brenda Gomez MD Unavailable [phone] Lis Long RN Unavailable Naa Colindres MD Primary Care Provider + [phone] Encounter Details Date Type Department Care Team (Late st Contact Info) Description 07/06/2018 Procedure Pass [facility], [address] [place] [address] Social History Tobacco Use Types Packs/Day Years [...] 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 Not on file Not on file documented as of this encounter Plan of Treatment Upcoming Encounters Date Type Department Care Team (Late st Contact Info) Description 04/15/2025 2:00 PM EST Office Visit [facility] Neurology [address] [place] [address] [place] [address] Sundar Vázquez MD [address] [place] [address], 2nd [place] [address] [email or web address] 05/06/2025 9:00 AM EST Office Visit [facility] Rheumatology [address] [place] [address] [place] [address] Nancy Baptiste MD [address] [place] [address], [address] [place] [address] [email or web address] documented as of this encounter Visit Diagnoses Not on filedocumented in this encounter Care Teams Bridge Manager Relationship Specialty Start Date End Date Taina Patel PA [address] [place] [address] PCP - General Unknown Provider Specialty 06/02/18 09/19/18 Jo Galan PA [address] [place] [address] PCP - General 09/20/18 01/21/22 Unknown, Unknown, PCP - General 01/22/22 01/26/22 Lis Mcdonald NP [address] [place] [address] [email or web address] PCP - General Family Medicine 01/27/22 08/15/23 Naa Colindres MD [address] [place] [address] [email or web address] PCP - General Family Medicine 08/16/23 Tariq Yang MD [address] [place] [address] [email or web address] Insurance Assigned Provider 09/17/17 10/20/19 Janneth Waller DO [address] [place] [address] [place] [address] Insurance Assigned Provider 10/20/19 03/22/20 Tariq Yang MD [address] [place] [address] Insurance Assigned Provider 03/22/20 10/19/20 Catalina Borden, [address] [address] [email or web address] iCMP Social Work 04/14/20 03/24/23 Brenda Gomez MD [address] [place] [address] [place] [address] [email or web address] Insurance Assigned Provider 10/19/20 06/19/22 Tariq Yang MD [address] [place] [address] [email or web address] Insurance Assigned Provider 06/19/22 08/28/22 Brenda Gomez MD [address] [place] [address] [place] [address] [email or web address] Insurance Assigned Provider 08/28/22 01/22/23 Lis Long RN [address] [place] [address] [email or web address] iCMP Quality Specialist 11/11/22 11/28/22 documented as of this encounter Additional Source Comments The information contained in this document represents components of the legal health record. It is not the complete legal health record.[facility]
--- OUTSIDE RECORDS SUMMARY | 2025-01-28 19:50 | XMS_ITS | Encounter Summary ---
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 on file Not on file documented as of this encounter Plan of Treatment Upcoming Encounters Date Type Department Care Team (Late st Contact Info) Description 04/15/2025 2:00 PM EST Office Visit [facility] Neurology [address] [place] [address] Sundar Vázquez MD [address] [place] [address], 2nd [place] [address] [email or web address] 05/06/2025 9:00 AM EST Office Visit [facility] Rheumatology [address] [place] [address] Nancy Baptiste MD [address] [place] [address], [address] [place] [address] [email or web address] documented as of this encounter Visit Diagnoses Diagnosis Foreign body in right foot, subsequent encounter- Primary documented in this encounter Care Teams Art Coordinator Relationship Specialty Start Date End Date Lis Mcdonald NP [address] [place] [address] [email or web address] PCP - General Family Medicine 01/27/22 08/15/23 Naa Colindres MD [address] [place] [address] [email or web address] PCP - General Family Medicine 08/16/23 documented as of this encounter Additional Source Comments The information contained in this document represents components of the legal health record. It is not the complete legal health record.[facility]
--- OUTSIDE RECORDS SUMMARY | 2025-01-28 19:50 | XMS_ITS | Encounter Summary ---
Author Organization [facility], Address [address] [place] [address] Phone Care Team Providers Care Manager Competitive Intelligence Name Role Phone Naa Colindres MD Primary Care Provider Encounter Details Date Type Department Care Team (Late st Contact Info) Description 12/08/2022 Documentation Only [facility], - [address] [facility] [address] [place] [phone] Lis Mcdonald, LIDAR SCIENTIST [address] [place] [phone] Social History Tobacco Use Types Packs/Day Years [...] filedocumented in this encounter Care Teams Manager Competitive Intelligence Relationship Specialty Start Date End Date Naa Colindres MD [address] [place] [address] PCP - General Family Medicine 03/17/23 documented as of this encounter
--- OUTSIDE RECORDS SUMMARY | 2025-01-28 19:50 | XMS_ITS | Encounter Summary ---
Author Organization [facility] Address [address] [place] [address] Phone Care Team Providers Care Assistant Store Director Name Role Phone Tariq Yang MD Primary Care Provider [phone] Tariq Yang MD Unavailable + Taina Patel Primary Care Provider Jo Galan Primary Care Provider [phone] Janneth Waller DO Unavailable + [phone] Tariq Yang MD Unavailable + Catalina Borden WIRE PULLER Unavailable [email or web address] Brenda Gomez MD Unavailable + Unknown, Unknown Primary Care Provider Lis Lobo NP Primary Care Pro vider Tariq Yang MD Unavailable + Brenda Gomez MD Unavailable +[phone] Lis Long RN Unavailable Naa Colindres MD Primary Care Provider [phone] Encounter Details Date Type Department Care Team (Late st Contact Info) Description 02/28/2018 Procedure Pass [facility], [facility] - [address] [place] [address] [place] [address] Social History Tobacco Use Types Packs/Day Years [...] 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 Not on file Not on file documented as of this encounter Plan of Treatment Upcoming Encounters Date Type Department Care Team (Late st Contact Info) Description 04/15/2025 2:00 PM EST Office Visit [facility] Neurology [address] [place] [address] [place] [address] Sundar Vázquez MD [address] [place] [address], 2nd [place] [address] 05/06/2025 9:00 AM EST Office Visit [facility] Rheumatology [address] [place] [address] [place] [address] Nancy Baptiste MD [address] [place] [address], [address] [place] [address] documented as of this encounter Visit Diagnoses Not on filedocumented in this encounter Care Teams Assistant Store Director Relationship Specialty Start Date End Date Tariq Yang MD [address] [place] [address] PCP - General Internal Medicine 05/30/17 06/01/18 Taina Patel PA [address] [place] [address] PCP - General Unknown Provider Specialty 06/02/18 09/19/18 Jo Galan PA [address] [place] [address] [email or web address] PCP - General 09/20/18 01/21/22 Unknown, MD Lucita PCP - General 01/22/22 01/26/22 Lis Mcdonald NP [address] [place] [address] [email or web address] PCP - General Family Medicine 01/27/22 08/15/23 Naa Colindres MD [address] [place] [address] [email or web address] PCP - General Family Medicine 08/16/23 Tariq Yang MD [address] [place] [address] [email or web address] Insurance Assigned Provider 09/17/17 10/20/19 Janneth Waller DO [address] [place] [address], [place] Insurance Assigned Provider 10/20/19 03/22/20 Tariq Yang MD [address] [place] [address] [email or web address] Insurance Assigned Provider 03/22/20 10/19/20 Catalina Borden [address] [address] [email or web address] [email or web address] Social Work 04/14/20 03/24/23 Brenda Gomez MD [address] [place] [address] [place] [address] [email or web address] Insurance Assigned Provider 10/19/20 06/19/22 Tariq Yang MD [address] [place] [address] [place] [address] [email or web address] Insurance Assigned Provider 06/19/22 08/28/22 Brenda Gomez MD [address] [place] [address] [place] [address] [email or web address] Insurance Assigned Provider 08/28/22 01/22/23 Lis Long, FLAVIA [address] [place] [address] [email or web address] [facility] Exercise Physiologist 11/11/22 11/28/22 documented as of this encounter Additional Source Comments The information contained in this document represents components of the legal health record. It is not the complete legal health record.[facility]
--- OUTSIDE RECORDS SUMMARY | 2025-01-28 19:50 | XMS_ITS | Encounter Summary ---
Author Organization [employer] Address [address] [facility] 7t [place] [address] Care Team Providers Care Weaver Needle Loom Name Role Phone Naa Colindres MD Primary Care Provider [phone] [email or web address] Reason for Visit * Reason Comments Med Change Request Encounter Details Date Type Department Care Team (Late st Contact Info) Description 03/31/2023 Refill [facility] [address] [place] [address] Naa Colindres MD [address] [place] [address] Fibromyalgia Social History Tobacco Use Types Packs/Day [...] Description 02/16/2025 9:20 AM EDT Office Visit [facility] MEDICAL [address] [place] [address] Naa Colindres MD [address] [place] [address] 04/02/2025 10:30 AM EST Office Visit [facility] MEDICAL [address] [place] [address] Jodi Miller MD [address] [place] [address] documented as of this encounter Visit Diagnoses Diagnosis Fibromyalgia Unspecified myalgia and myositis documented in this encounter Additional Health Concerns Assessment Noted Time PHQ-9 Depression Total Score: 24 023 10:06 AM EDT documented as of this encounter Care Teams Weaver Needle Loom Relationship Specialty Start Date End Date Naa Colindres MD [address] [place] [address] PCP - General Family Medicine 09/03/22 Reji Cedillo 12/12/24 12/26/24 documented as of this encounter
--- OUTSIDE RECORDS SUMMARY | 2025-01-28 19:50 | XMS_ITS | Encounter Summary ---
Author Organization [facility] Address [address] [place] [address] Phone Care Team Providers Care Bight Maker Name Role Phone Tariq Yang MD Unavailable + Taina Patel PA Primary Care Provider Jo Galan Primary Care Provider [phone] Janneth Waller DO Unavailable + 61 Tariq Yang MD Unavailable + Catalina Borden ORE SMELTER Unavailable [email or web address] Brenda Gomez MD Unavailable + Unknown, Unknown Primary Care Provider Lis Lobo HISTOLOGY TECHNICIAN Primary Care Pro vider + Tariq Yang MD Unavailable + Brenda Gomez MD Unavailable +[phone] Lis Long RN Unavailable Naa Colindres MD Primary Care Provider + [phone] Reason for Referral * MRI/CAT Scan - Closed Specialty Diagnoses / Procedures Referred By Contac t Referred To Contact Radiology Diagnoses Chronic right-sided low back pain without sciatica Procedures MRI Lumbar Spine Lakhwinder Cole MD Phone: tel: [email or web address] Referral ID Status Reason Start Date Expiration Date Visits Re quested Visits Authorized [id number] Closed 07/05/2018 07/05/2019 1 1 Encounter Details Date Type Department Care Team ([facility] Contact Info) Description 07/06/2018 Ancillary Orders Virtual Department [address] [place] [address] Lakhwinder Cole MD [address] [place] [address] [email or web address] Chronic right-sided low back pain without sciatica Social History Tobacco Use Types Packs/Day Years [...] 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 Not on file Not on file documented as of this encounter Plan of Treatment Upcoming Encounters Date Type Department Care Team (Late Contact Info) Description 04/15/2025 2:00 PM EST Office Visit [facility] Neurology [address] [place] [address] Sundar Vázquez MD [address] [place] [address], 2nd [place] [address] [email or web address] 05/06/2025 9:00 AM EST Office Visit [facility] Rheumatology [address] [place] [address] Nancy Baptiste MD [address] [place] [address], [address] [place] [address] documented as of this encounter Results * MRI LUMBAR SPINE (NEURO) WITHOUT CONTRAST (07/17/2018 11:28 AM EST) Anatomical Region Laterality Modality L-spine Magnetic Resonan ce 07/17/2018 12:5 7 PM EST Impressions 07/17/2018 1:52 PM EST Compared with 11/04/2017 lumbar spine MRI, increase in size of central, paracentral and subarticular recess disc extrusion at L4-L5. Extruded disc contacts and displaces the traversing L5 nerve roots, right greater than left. There is moderate L4-L5 central canal stenosis. No significant neural foraminal stenosis. No new disc herniation in the lumbar spine. No other levels of canal or neural foraminal stenosis. POS - [id number] Edited by: Lashay Barr on 07/17/2018 1:41 PM Narrative 07/17/2018 1:52 PM EST MRI LUMBAR SPINE (NEURO) WITHOUT CONTRAST, HISTORY: Chronic right-sided low back pain without sciatica Pain from right buttocks down right leg to right ankle. Numbness and tingling several fingers. Decreased sensation right leg. COMPARISON: 11/04/2017 lumbar spine MRI. TECHNIQUE: Exam performed on a 1.5 Toshia high-field MRI scanner. Sagittal T1, T2 and STIR, axial T1 and T2 sequences were obtained. FINDINGS: Bone marrow signal is normal. There is no fracture or bone marrow edema. Lumbar vertebrae are normal in height and alignment. There is degenerative disc desiccation at L4-L5 with diminished central T2 signal, with no significant loss of height. The other intervertebral discs are normal in height and signal. The conus is normal in signal. The colon terminates at the inferior L1 level. Facet joints are normal in alignment. No large synovial cysts identified. There is no prevertebral or paravertebral mass. Evaluation of the individual disc levels as follows: T12-L1: No disc herniation. No significant canal or neuroforaminal stenosis. L1-L2: No disc herniation. No significant canal or neuroforaminal stenosis. L2-L3: No disc herniation. No significant canal or neuroforaminal stenosis. Mild bilateral facet hypertrophy. L3-L4: Mild broad-based disc bulging. No focal disc herniation. No significant canal or neuroforaminal stenosis. Mild bilateral facet hypertrophy. L4-L5: Central, right paracentral and subarticular recess disc extrusion, measured AP diameter 5 mm, CC diameter 15 mm. There is indentation upon the anterior thecal side, disc material contacts the traversing right and left L5 nerves. There is posterior displacement of the L5 traversing nerves, right greater than left. There is no significant neural foraminal stenosis. The exiting L4 nerve roots appear normal. There is moderate central canal stenosis, AP diameter of the canal is 7 mm. There is central clumping of the other coursing nerve roots. Mild bilateral facet hypertrophy. L5-S1: No disc herniation. No significant canal or neural foraminal stenosis. Procedure Note Deanna Grijalva MD - 07/17/2018 MRI LUMBAR SPINE (NEURO) WITHOUT CONTRAST, HISTORY: Chronic right-sided low back pain without sciatica Pain from right buttocks down right leg to right ankle. Numbness andtingling several fingers. Decreased sensation right leg. COMPARISON: 11/04/2017 lumbar spine MRI. TECHNIQUE: Exam performed on a 1.5 Toshia high-field MRI scanner. SagittalT1, T2 and STIR, axial T1 and T2 sequences were obtained. FINDINGS: Bone marrow signal is normal. There is no fracture or bone marrow edema.Lumbar vertebrae are normal in height and alignment. There is degenerativedisc desiccation at L4-L5 with diminished central T2 signal, with nosignificant loss of height. The other intervertebral discs are normal inheight and signal. The conus is normal in signal. The colon terminates at the inferior N4igdgc. Facet joints are normal in alignment. No large synovial cysts identified.There is no prevertebral or paravertebral mass. Evaluation of the individual disc levels as follows: T12-L1: No disc herniation. No significant canal or neuroforaminalstenosis. L1-L2: No disc herniation. No significant canal or neuroforaminalstenosis. L2-L3: No disc herniation. No significant canal or neuroforaminalstenosis. Mild bilateral facet hypertrophy. L3-L4: Mild broad-based disc bulging. No focal disc herniation. Nosignificant canal or neuroforaminal stenosis. Mild bilateral facethypertrophy. L4-L5: Central, right paracentral and subarticular recess disc extrusion,measured AP diameter 5 mm, CC diameter 15 mm. There is indentation uponthe anterior thecal side, disc material contacts the traversing right andleft L5 nerves. There is posterior displacement of the L5 traversingnerves, right greater than left. There is no significant neural foraminalstenosis. The exiting L4 nerve roots appear normal. There is moderatecentral canal stenosis, AP diameter of the canal is 7 mm. There is centralclumping of the other coursing nerve roots. Mild bilateral facethypertrophy. L5-S1: No disc herniation. No significant canal or neural foraminalstenosis. IMPRESSION: Compared with 11/04/2017 lumbar spine MRI, increase in size of central,paracentral and subarticular recess disc extrusion at L4-L5. Extruded disccontacts and displaces the traversing L5 nerve roots, right greater thanleft. There is moderate L4-L5 central canal stenosis. No significantneural foraminal stenosis. No new disc herniation in the lumbar spine. No other levels of canal orneural foraminal stenosis. POS - [id number] Edited by: Lashay Barr on 07/17/2018 1:41 PM Lakhwinder Cole MD IMG MR XSPECIALTY Final R esult documented in this encounter Visit Diagnoses Diagnosis Chronic right-sided low back pain without sciatica Chronic right-sided low back pain without sciatica documented in this encounter Care Teams Bight Maker Relationship Specialty Start Date End Date Taina Patel PA [address] [place] [address] PCP - General Unknown Provider Specialty 06/02/18 09/19/18 Jo Galan PA [address] [place] [address] [email or web address] PCP - General 09/20/18 01/21/22 Unknown, MD Lucita PCP - General 01/22/22 01/26/22 Lis Mcdonald NP [address] [place] [address] [email or web address] PCP - General Family Medicine 01/27/22 08/15/23 Naa Colindres MD [address] [place] [address] [email or web address] PCP - General Family Medicine 08/16/23 Tariq Yang MD [address] [place] [address] Insurance Assigned Provider 09/17/17 10/20/19 Janneth Waller DO [address] [place] [address] [place] [address] Insurance Assigned Provider 10/20/19 03/22/20 Tariq Yang MD [address] [place] [address] Insurance Assigned Provider 03/22/20 10/19/20 Catalina Borden, [address] [address] [email or web address] iCMP Social Work 04/14/20 03/24/23 Brenda Gomez MD [address] [place] [address] [place] [address] [email or web address] Insurance Assigned Provider 10/19/20 06/19/22 Tariq Yang MD [address] [place] [address] [email or web address] Insurance Assigned Provider 06/19/22 08/28/22 Brenda Gomez MD [address] [place] [address] [place] [address] [email or web address] Insurance Assigned Provider 08/28/22 01/22/23 Lis Long, RN [address] [place] [address] [email or web address] [facility] Client Specialist 11/11/22 11/28/22 documented as of this encounter Additional Source Comments The information contained in this document represents components of the legal health record. It is not the complete legal health record.[facility]
--- OUTSIDE RECORDS SUMMARY | 2025-01-28 19:50 | XMS_ITS | Encounter Summary ---
Author Organization [facility], Address [address] [place] [address] Phone Care Team Providers Care Insecticide Mixer Name Role Phone Naa Colindres MD Primary Care Provider Encounter Details Date Type Department Care Team (Late st Contact Info) Description 12/09/2022 Documentation Only [facility], [facility] Dr Jane [facility] [address] [place] [phone] Jeffery Tyler MD [address] [place] [address] [place] [phone] Social History Tobacco Use Types Packs/Day Years [...] on filedocumented in this encounter Care Teams Insecticide Mixer Relationship Specialty Start Date End Date Naa Colindres MD [address] [place] [address] PCP - General Family Medicine 03/17/23 documented as of this encounter
--- OUTSIDE RECORDS SUMMARY | 2025-01-28 19:50 | XMS_ITS | Encounter Summary ---
Author Organization [facility], Address [address] [place] [address] Phone Care Team Providers Care Optical Lens Manufacturing Tech Name Role Phone Naa Colindres MD Primary Care Provider [phone] Encounter Details Date Type Department Care Team (Late st Contact Info) Description 12/10/2022 Documentation Only [facility], [facility] Dr Jane [facility] [address] [place] [phone] Jeffery Tyler MD [address] [place] [address] [place] [phone] Social History Tobacco Use Types Packs/Day Years [...] on filedocumented in this encounter Care Teams Optical Lens Manufacturing Tech Relationship Specialty Start Date End Date Naa Colindres MD [address] [place] [address] PCP - General Family Medicine 03/17/23 documented as of this encounter
--- OUTSIDE RECORDS SUMMARY | 2025-01-28 19:50 | XMS_ITS | Encounter Summary ---
Author Organization [facility], Address [address] [place] [address] Phone Care Team Providers Care Chief Medical Physicist Name Role Phone Naa Colindres MD Primary Care Provider Encounter Details Date Type Department Care Team (Late st Contact Info) Description 12/10/2022 Documentation Only [facility], [facility] Dr Jane [facility] [address] [place] [phone] Jeffery Tyler MD [address] [place] [address] [place] [phone] Social History Tobacco Use Types Packs/Day Years [...] on filedocumented in this encounter Care Teams Chief Medical Physicist Relationship Specialty Start Date End Date Naa Colindres MD [address] [place] [address] PCP - General Family Medicine 03/17/23 documented as of this encounter
--- OUTSIDE RECORDS SUMMARY | 2025-01-28 19:50 | XMS_ITS | Encounter Summary ---
Author Organization [facility] Address [address] [place] [address] Phone Care Team Providers Care Farm Equipment Engine Mechanic Name Role Phone Tariq Yang MD Primary Care Provider [phone] Tariq Yang MD Unavailable + Taina Patel PA Primary Care Provider Jo Galan Primary Care Provider +[phone] Janneth Waller DO Unavailable + 61 Tariq Yang MD Unavailable + Catalina Borden SHIRT CLOSER Unavailable [email or web address] Brenda Gomez MD Unavailable + Unknown, Unknown Primary Care Provider Lis Lobo PARTS SALES MANAGER Primary Care Pro vider Tariq Yang MD Unavailable + Brenda Gomez MD Unavailable +[phone] Lis Long RN Unavailable Naa Colindres MD Primary Care Provider [phone] Encounter Details Date Type Department Care Team (Latest Contact Info) Description 10/20/2017 Ancillary Orders Virtual Department [address] [place] [address] Kendrick Piter Lenora, DO [address] [place] [address] [email or web address] Social History Tobacco Use Types [...] 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 Not on file Not on file documented as of this encounter Plan of Treatment Upcoming Encounters Date Type Department Care Team (Late st Contact Info) Description 04/15/2025 2:00 PM EST Office Visit [facility] Neurology [address] [place] [address] Sundar Vázquez MD [address] [place] [address], 2nd [place] [address] 05/06/2025 9:00 AM EST Office Visit [facility] Rheumatology [address] [place] [address] Nancy Baptiste MD [address] [place] [address], [address] [place] [address] documented as of this encounter Results * MRI LUMBAR SPINE (NEURO) WITHOUT CONTRAST (11/04/2017 2:19 PM EDT) Anatomical Region Laterality Modality L-spine Magnetic Resonan ce 11/04/2017 3:10 PM EDT Impressions 11/04/2017 3:19 PM EDT 1. Right subarticular disc extrusion at L4-L5. POS - [id number] Narrative 11/04/2017 3:19 PM EDT EXAM: MRI [...] subarticular disc extrusion at L4-L5. POS - [id number] Piter Kendrick DO IMG MR XSPECIALTY Final Resu lt documented in this encounter Visit Diagnoses Diagnosis Lumbar radiculopathy Thoracic or lumbosacral neuritis or radiculitis, unspecified Lumbar radiculopathy Thoracic or lumbosacral neuritis or radiculitis, unspecified documented in this encounter Care Teams Farm Equipment Engine Mechanic Relationship Specialty Start Date End Date Tariq Yang MD [address] [place] [address] PCP - General Internal Medicine 05/30/17 06/01/18 Taina Patel PA [address] [place] [address] PCP - General Unknown Provider Specialty 06/02/18 09/19/18 Jo Galan PA [address] [place] [address] [email or web address] PCP - General 09/20/18 01/21/22 Unknown, MD Lucita PCP - General 01/22/22 01/26/22 Lis Mcdonald NP [address] [place] [address] [email or web address] PCP - General Family Medicine 01/27/22 08/15/23 Naa Colindres MD [address] [place] [address] [email or web address] PCP - General Family Medicine 08/16/23 Tariq Yang MD [address] [place] [address] [email or web address] Insurance Assigned Provider 09/17/17 10/20/19 Janneth Waller DO [address] [place] [address] [place] [address] Insurance Assigned Provider 10/20/19 03/22/20 Tariq Yang MD [address] [place] [address] [email or web address] Insurance Assigned Provider 03/22/20 10/19/20 Catalina Borden, [address] [address] [email or web address] [facility] Social Work 04/14/20 03/24/23 Brenda Gomez MD [address] [place] [address] [place] [address] [email or web address] Insurance Assigned Provider 10/19/20 06/19/22 Tariq aYng MD [address] [place] [address] [email or web address] Insurance Assigned Provider 06/19/22 08/28/22 Brenda Gomez MD [address] [place], [place] [address] [address] [email or web address] Insurance Assigned Provider 08/28/22 01/22/23 iLs Long RN [address] [place] [address] [email or web address] i[employer] Choral Teacher 11/11/22 11/28/22 documented as of this encounter Additional Source Comments The information contained in this document represents components of the legal health record. It is not the complete legal health record.[facility]
--- OUTSIDE RECORDS SUMMARY | 2025-01-28 19:50 | XMS_ITS | Encounter Summary ---
Author Organization [facility], Address [address] [place] [address] Phone Care Team Providers Care Magnetic Tape Winder Name Role Phone Naa Colindres MD Primary Care Provider [phone] Encounter Details Date Type Department Care Team (Late st Contact Info) Description 12/10/2022 Documentation Only [facility], [facility] Dr Jane [facility] [address] [place] [phone] Jeffery Tyler MD [address] [place] [address] [place] [phone] Social History Tobacco Use Types Packs/Day Years [...] on filedocumented in this encounter Care Teams Magnetic Tape Winder Relationship Specialty Start Date End Date Naa Colindres MD [address] [place] [address] PCP - General Family Medicine 03/17/23 documented as of this encounter
--- OUTSIDE RECORDS SUMMARY | 2025-01-28 19:50 | XMS_ITS | Encounter Summary ---
Author Organization [facility] Address [address] [place] [address] Phone Care Team Providers Care Online Marketing Strategist Name Role Phone Tariq Yang MD Primary Care Provider [phone] Tariq Yang MD Unavailable + Taina Patel Primary Care Provider Jo Galan Primary Care Provider [phone] Janneth Waller DO Unavailable +[phone] Tariq Yang MD Unavailable + Catalina Borden SPIRAL GEAR GENERATOR Unavailable [email or web address] Brenda Gomez MD Unavailable +[phone] Unknown, Unknown Primary Care Provider Lis Lobo NP Primary Care Pro vider Tariq Yang MD Unavailable + Brenda Gomez MD Unavailable +[phone] Lis Long RN Unavailable Naa Colindres MD Primary Care Provider [phone] Encounter Details Date Type Department Care Team (Late st Contact Info) Description 05/30/2017 Ancillary Orders [facility] X-Ray - [address] [place] [address] Piter Kendrick, DO [address] [place] [address] Cervicalgia Social History Tobacco Use Types Packs/Day [...] EST Office Visit [facility] Neurology [address] [place] [address] Sundar Vázquez MD [address] [place] [address], 2nd [place] [address] 05/06/2025 9:00 AM EST Office Visit [facility] Rheumatology [address] [place] [address] Nancy Baptiste MD [address] [place] [address], [address] [place] [address] documented as of this encounter Results * XR CERVICAL SPINE 6 0R MORE VIEWS (05/30/2017 1:05 PM EST) Anatomical Region Laterality Modality C-spine Radiographic Nga ging 05/30/2017 1:32 PM EST Impressions 05/30/2017 1:33 PM EST No significant bony abnormality or evidence of instability. POS [id number] Narrative 05/30/2017 1:33 PM EST COMPARISON: None [...] bony abnormality or evidence of instability. POS [id number] Piter Kendrick DO IMG XR SPINE Final Result * XR LUMBOSACRAL SPINE MINIMUM 6 VIEWS, INCLUDES BENDING VIEWS (05/30/2017 1:03 PM EST) Anatomical Region Laterality Modality L-spine Radiographic Nga ging 05/30/2017 1:34 PM EST Impressions 05/30/2017 1:35 PM EST Minimal lower lumbar degenerative facet arthropathy without evidence of instability or other significant bony abnormality. POS [id number] Narrative 05/30/2017 1:35 PM EST COMPARISON: None [...] ofinstability or other significant bony abnormality. POS [id number] us Piter Kendrick DO IMG XR SPINE Final Result documented in this encounter Visit Diagnoses Diagnosis Cervicalgia Cervicalgia Cervicalgia documented in this encounter Care Teams Online Marketing Strategist Relationship Specialty Start Date End Date Tariq Yang MD [address] [place] [address] [email or web address] PCP - General Internal Medicine 05/30/17 06/01/18 Taina Patel PA [address] [place] [address] PCP - General Unknown Provider Specialty 06/02/18 09/19/18 Jo Galan PA [address] [place] [address] [email or web address] PCP - General 09/20/18 01/21/22 Lucita, MD Lucita PCP - General 01/22/22 01/26/22 Lis Mcdonald NP [address] [place] [address] [email or web address] PCP - General Family Medicine 01/27/22 08/15/23 Naa Colindres MD [address] [place] [address] [email or web address] PCP - General Family Medicine 08/16/23 Tariq Yang MD [address] [place] [address] [email or web address] Insurance Assigned Provider 09/17/17 10/20/19 Janneth Waller DO [address] [place] [address] [place] [address] Insurance Assigned Provider 10/20/19 03/22/20 Tariq Yang MD [address] [place] [address] [email or web address] Insurance Assigned Provider 03/22/20 10/19/20 Catalina Borden LCSW [address] [place] [address] [email or web address] i[employer] Social Work 04/14/20 03/24/23 Brenda Gomez MD [address] [place] [address] [place] [address] [email or web address] Insurance Assigned Provider 10/19/20 06/19/22 Tariq Yang MD [address] [place] [address] [email or web address] Insurance Assigned Provider 06/19/22 08/28/22 Brenda Gomez MD [address] [place] [address] [place] [address] [email or web address] Insurance Assigned Provider 08/28/22 01/22/23 Lis Long RN [address] [place] [address] [email or web address] iCMP Political Consultant 11/11/22 11/28/22 documented as of this encounter Additional Source Comments The information contained in this document represents components of the legal health record. It is not the complete legal health record.[facility]
--- OUTSIDE RECORDS SUMMARY | 2025-01-28 19:50 | XMS_ITS | Encounter Summary ---
Author Organization [facility] Address [address] [place] [address] Phone Care Team Providers Care Intake Nurse Name Role Phone Tariq Yang MD Primary Care Provider [phone] Tariq Yang MD Unavailable + Taina Patel Primary Care Provider Jo Galan Primary Care Provider +38 Janneth Waller DO Unavailable + 01 Tariq Yang MD Unavailable + Catalina Borden NEIGHBORHOOD PLANNER Unavailable [email or web address] Brenda Gomez MD Unavailable + Unknown, Unknown Primary Care Provider Lis Lobo NP Primary Care Pro vider Tariq Yang MD Unavailable + Brenda Gomez MD Unavailable +21 Lis Long RN Unavailable Naa Colindres MD Primary Care Provider [phone] Encounter Details Date Type Department Care Team (Late st Contact Info) Description 10/20/2017 Procedure Pass [facility], [facility] - [address] [place] [address] Social History Tobacco Use Types Packs/Day Years [...] 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 Not on file Not on file documented as of this encounter Plan of Treatment Upcoming Encounters Date Type Department Care Team (Late st Contact Info) Description 04/15/2025 2:00 PM EST Office Visit [facility] Neurology [address] [place] [address] [place] [address] Sundar Vázquez MD [address] [place] [address], 2nd [place] [address] 05/06/2025 9:00 AM EST Office Visit [facility] Rheumatology [address] [place] [address] [place] [address] Nancy Baptiste MD [address] [place] [address], [address] [place] [address] documented as of this encounter Visit Diagnoses Not on filedocumented in this encounter Care Teams Intake Nurse Relationship Specialty Start Date End Date Tariq Yang MD [address] [place] [address] PCP - General Internal Medicine 05/30/17 06/01/18 Taina Patel PA [address] [place] [address] PCP - General Unknown Provider Specialty 06/02/18 09/19/18 Jo Galan PA [address] [place] [address] [email or web address] PCP - General 09/20/18 01/21/22 Unknown, MD Lucita PCP - General 01/22/22 01/26/22 Lis Mcdonald NP [address] [place] [address] [email or web address] PCP - General Family Medicine 01/27/22 08/15/23 Naa Colindres MD [address] [place] [address] [email or web address] PCP - General Family Medicine 08/16/23 Tariq Yang MD [address] [place] [address] [email or web address] Insurance Assigned Provider 09/17/17 10/20/19 Janneth Waller DO [address] [place], [place] [address], [place] Insurance Assigned Provider 10/20/19 03/22/20 Tariq Yang MD [address] [place] [address] [email or web address] Insurance Assigned Provider 03/22/20 10/19/20 Catalina Borden [address] [address] [email or web address] iCM Social Work 04/14/20 03/24/23 Brenda Gomez MD [address] [place] [address] [place] [address] [email or web address] Insurance Assigned Provider 10/19/20 06/19/22 Tariq Yang MD [address] [place] [address] [place] [address] [email or web address] Insurance Assigned Provider 06/19/22 08/28/22 Brenda Gomez MD [address] [place] [address] [place] [address] [email or web address] Insurance Assigned Provider 08/28/22 01/22/23 Lis Long, FLAVIA [address] [place] [address] [email or web address] [employer] [place] [employer] Lock Tender Chief Operator 11/11/22 11/28/22 documented as of this encounter Additional Source Comments The information contained in this document represents components of the legal health record. It is not the complete legal health record.[facility]
--- OUTSIDE RECORDS SUMMARY | 2025-01-28 19:50 | XMS_ITS | Encounter Summary ---
Author Organization [facility] Address [address] [place] [address] Phone Care Team Providers Care Tire Mold Engraver Name Role Phone Jo Galan Primary Care Provider [phone] Catalina Borden TEMPLE MEAT CUTTER Unavailable [email or web address] Brenda Gomez MD Unavailable [phone] Unknown, Unknown Primary Care Provider Lis Lobo PROCESS SUPERVISOR Primary Care Pro vider Tariq Yang MD Unavailable [phone] Brenda Gomez MD Unavailable [phone] Lis Long RN Unavailable Naa Colindres MD Primary Care Provider [phone] Encounter Details Date Type Department Care Team (Late st Contact Info) Description 02/03/2021 Procedure Pass [address] [place] [address] Social History Tobacco Use Types Packs/Day Years [...] 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 file Not on file documented as of this encounter Plan of Treatment Upcoming Encounters Date Type Department Care Team (Late st Contact Info) Description 04/15/2025 2:00 PM EST Office Visit [facility] Neurology [address] [place] [address] Sundar Vázquez MD [address] [place] [address], 2nd [place] [address] 05/06/2025 9:00 AM EST Office Visit [facility] Rheumatology [address] [place] [address] Nancy Baptiste MD [address] [place] [address], [address] [place] [address] [email or web address] documented as of this encounter Visit Diagnoses Not on filedocumented in this encounter Care Teams Tire Mold Engraver Relationship Specialty Start Date End Date Jo Galan PA [address] [place] [address] [email or web address] PCP - General 09/20/18 01/21/22 Unknown, Lucita, PCP - General 01/22/22 01/26/22 Lis Mcdonald NP [address] [place] [address] [email or web address] PCP - General Family Medicine 01/27/22 08/15/23 Naa Colindres MD [address] [place] [address] [email or web address] PCP - General Family Medicine 08/16/23 Catalina Borden LCSW [address] [place] [address] [email or web address] iCMP Social Work 04/14/20 03/24/23 Brenda Gomez MD [address] [place] [address] [place] [address] [email or web address] Insurance Assigned Provider 10/19/20 06/19/22 Tariq Yang MD [address] [place] [address] [email or web address] Insurance Assigned Provider 06/19/22 08/28/22 Brenda Gomez MD [address] [place] [address] [place] [address] [email or web address] Insurance Assigned Provider 08/28/22 01/22/23 Lis Long RN [address] [place] [address] iCMP Crucible Furnace Tender 11/11/22 11/28/22 documented as of this encounter Additional Source Comments The information contained in this document represents components of the legal health record. It is not the complete legal health record.[facility]
--- OUTSIDE RECORDS SUMMARY | 2025-01-28 19:50 | XMS_ITS | Encounter Summary ---
Author Organization [facility] Address [address] [place] [address] Care Team Providers Care Recreational Aide Name Role Phone Naa Colindres MD Primary Care Provider [phone] [email or web address] Encounter Details Date Type Department Care Team (Late st Contact Info) Description 2024 Orders Only [facility] [address] [place] [address] Naa Colindres MD [address] [place] [address] Social History Tobacco Use Types Packs/Day Years [...] 9:20 AM EDT Office Visit [facility] MEDICAL [address] [place] [address] Naa Colindres MD [address] [place] [address] 04/02/2025 10:30 AM EST Office Visit [facility] MEDICAL [address] [place] [address] Jodi Miller MD [address] [place] [address] documented as of this encounter Procedures Procedure [...] documented as of this encounter Care Teams Recreational Aide Relationship Specialty Start Date End Date Naa Colindres MD [address] [place] [address] PCP - General Family Medicine 09/03/22 Reji Cedillo 12/12/24 12/26/24 documented as of this encounter
--- OUTSIDE RECORDS SUMMARY | 2025-01-28 19:50 | XMS_ITS | Encounter Summary ---
Author Organization [facility] Address [address] [place] [address] Phone Care Team Providers Care Veterinary Epidemiologist Name Role Phone Marciacarlos Catalina Masood BABYSITTER Unavailable [email or web address] Lis Mcdonald NP Primary Care Pro vider Naa Colindres MD Primary Care Provider Encounter Details Date Type Department Care Team (Latest Contact Info) Description 01/24/2023 Transcribe Orders Virtual Department [address] [place] [address] Alex Oseguera MD [address] [place] [address] [email or web address] Thoracic spine pain (Primary Dx) Social History [...] 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] MRI LUMBAR SPINE (NEURO) WITH AND WITHOUT [id number]; XR LUMBOSACRAL SPINE 2-3 VIEWS FINDINGS: ALIGNMENT: [...] spine documented in this encounter Care Teams Veterinary Epidemiologist Relationship Specialty Start Date End Date Lis Mcdonald NP [address] [place] [address] [email or web address] PCP - General Family Medicine 01/27/22 08/15/23 Naa Colindrse MD [address] [place] [address] [email or web address] PCP - General Family Medicine 08/16/23 Catalina Borden, BABYSITTER [address] [place] [address] iCMP Social Work 04/14/20 03/24/23 documented as of this encounter Additional Source Comments The information contained in this document represents components of the legal health record. It is not the complete legal health record.[facility]
--- OUTSIDE RECORDS SUMMARY | 2025-01-28 19:50 | XMS_ITS | Encounter Summary ---
Author Organization [employer] Address [address] 7[address] [place] [address] Care Team Providers Care Handkerchief Presser Name Role Phone Naa Colindres MD Primary Care Provider [phone] DavicheriReji gaming Encounter Details Date Type Department Care Team (Late st Contact Info) Description 04/20/2023 Orders Only [facility] [address] [place] [address] Naa Colindres MD [address] [place] [address] Social History Tobacco Use Types Packs/Day Years [...] 9:20 AM EDT Office Visit [facility] MED[facility] [address] [place] [address] Naa Colindres MD [address] [place] [address] 04/02/2025 10:30 AM EST [facility] Visit [facility] MED[facility] [address] [place] [address] Jodi Miller MD [address] [place] [address] documented as of this encounter Procedures Procedure Name Priority Date/Time Associated Diagnosis Comments SURESWAB(R), VAGINOSIS/VAGINITIS PLUS Routine 06/23/2023 5:08 PM EST URINALYSIS, COMPLETE, WITH REFLEX TO CULTURE Routine 06/22/2023 2:[address] ABDOMEN PELVIS W CONTRAST Routine 04/03/2023 XR FOOT 3+ VIEWS RIGHT Routine 04/03/2023 documented in this encounter Results * SureSwab??, Vaginosis/Vaginitis Plus (06/23/2023 5:08 PM EST) Bacterial Vaginosis NEGATIVE (NEG) [facility] Comment: No bacterial vaginosis targets by PCR detected in this patient's sample. Note: This assay uses real time rock singer-mediated amplification (TMA) for detection and quantification of ribosomal RNA from bacteria associated with bacterial vaginosis (BV), including Lactobacillus (L. gasseri, L. crispatus, and L. jensenii), Gardnerella vaginalis, and Atopobium vaginae. Gato Species Group NEGATIVE (NEG) [facility] Comment: No gato species group (C. albicans, C. tropicalis, C. parapsilosis, C. dubliniensis) targets by PCR detected in this patient's sample. Gato Glabrata NEGATIVE (NEG) [facility] Comment:No Gato glabrata targets by PCR detected in this patient's sample. Trichomonas Vaginalis NEGATIVE (NEG) [facility] Comment: No Trichomonas vaginalis targets by PCR detected in this patient's sample. Note: This assay uses real time rock singer-mediated amplification (TMA) for detection and quantification of ribosomal RNA from organisms associated with Gato species group (C. albicans, C. tropicalis, C. parapsilosis, C. dubliniensis), Gato glabrata, and Trichomonas vaginalis. C.Trachomatis Amp Probe NEGATIVE (NEG) [facility] Comment: No Chlamydia Trachomatis RNA detected in this patient's sample (REFERENCE RANGE/NORMAL VALUE: NOT DETECTED) Note: This test uses rock singer- mediated amplification method to detect rRNA from C. Trachomatis N.Gonorrhoeae Amp Probe NEGATIVE (NEG) [facility] Comment: No Neisseria Gonorrhoeae RNA detected in this patient's sample (REFERENCE RANGE/NORMAL VALUE: NOT DETECTED) NOTE: This test uses rock singer-mediated amplification method to detect rRNA from N.Gonorrhoeae. [...] without risk of sexual abuse. Consult the [facility] if needed. Contact phone number . Therapeutic failure or success cannot be determined with the Aptima Combo2 assay since nucleic acid may persist following appropriate antimicrobial therapy. The Centers for Disease Control and Prevention (CDC) recommends confirmatory retesting using culture or a different nucleic acid amplification test when positive results occur, if indicated. Testing performed or reported by [facility], a Service of [facility], [address] [place] [address] [place] [address] Ulysses Cordova MD, Price Clerk CLIA# [id number] 06/23/2023 5:08 PM EST 06/23/2023 7:14 PM EST [facility] BODY FLUIDS AND STOOL S ORDERABLES Final Result [facility] [address] [place] [address] * Urinalysis, Complete, with Reflex to Culture (06/22/2023 2:28 PM EST) Appear/Color LIGHT YELLOW [facility] Comment:CLEAR Sp. [place] 1.021 (1.002-1. 030) [facility] Urine PH 5.5 (5.0-8.0) [facility] Urine Albumin NEGATIVE (NEG) [facility] Urine Glucose NEGATIVE (NEG) [facility] Urine Ketones NEGATIVE (NEG) [facility] Urine Bilirubin NEGATIVE (NEG) [facility] Urine Hemoglobn NEGATIVE (NEG) [facility] Urine Nitrite NEGATIVE (NEG) [facility] Urine Leukocyte NEGATIVE (NEG) [facility] Urobilinogen NORMAL (NORM) MG/DL [facility] Urine WBCs 1 (0-5) /HPF [facility] Urine RBCs 1 (0-3) /HPF [facility] Mucus SLIGHT /LPF [facility] Squamous Epith 3 (0-8) /HPF [facility] Clarity CLEAR (CLEAR) [facility] Culture Indication CULTURE NOT INDICATED [facility] Comment: Testing performed or reported by [facility], a Service of [facility], [address] [place] [address] Ulysses Cordova MD, Price Clerk CLIA# [id number] 06/22/2023 2:28 PM EST 06/22/2023 2:30 PM EST [facility] URINE ORDERABLES Priscilla l Result [facility] [address] [place] [address] * XR Foot 3+ Views Right (04/03/2023) [...] documented as of this encounter Care Teams Handkerchief Presser Relationship Specialty Start Date End Date Naa Colindres MD [address] [place] [address] PCP - General Family Medicine 09/03/22 Reji Cedillo 12/12/24 12/26/24 documented as of this encounter
--- OUTSIDE RECORDS SUMMARY | 2025-01-28 19:50 | XMS_ITS | Encounter Summary ---
Author Organization [facility], Address [address] [place] [address] Phone Care Team Providers Care Kennel Technician Name Role Phone Naa Colindres MD Primary Care Provider [phone] Encounter Details Date Type Department Care Team (Late st Contact Info) Description 12/09/2022 Documentation Only [facility], - Megan [address] [facility] [address] [place] [address] Lis Mcdonald, CLAM GRADER [address] [place] [phone] Social History Tobacco Use Types Packs/Day Years [...] on filedocumented in this encounter Care Teams Kennel Technician Relationship Specialty Start Date End Date Naa Colindres MD [address] [place] [address] PCP - General Family Medicine 03/17/23 documented as of this encounter
--- OUTSIDE RECORDS SUMMARY | 2025-01-28 19:50 | XMS_ITS | Clinical Summary ---
Author Organization [employer] [facility] Address [address] [address] Phone Care Team Providers Care Parachute Rigger Name Role Phone Naa Colindres MD Primary [...] bedtime. 30 tablet 10/03/19 25 Active rizatriptan (MAXALT-PETROPHYSICAL ENGINEER) 10 MG disintegrating tabletIndications: Intractable migraine without [...] daily as prescribed. Follow-up with PCP and magneto repairer as scheduled Assessment & Plan (09/23/2023 7:35 AM EDT): Avoid late, large, spicy meals. Keep headboard elevated at 45 angle for nighttime. Carefully continue sucralfate 1 tablet 4 times daily and omeprazole 20 mg daily as prescribed. Follow-up with PCP and magneto repairer as scheduled Assessment & Plan (06/01/2022 10:38 [...] every 14 days as prescribed by treating head screen worker at [facility] & close follow-up as scheduled. Assessment & Plan (07/25/2024 3:01 PM EDT): Continue Cosentyx 300 mg every 14 days as prescribed by treating head screen worker at [facility] & close follow-up as scheduled. Assessment & Plan (09/23/2023 7:31 AM EDT): Continue Cosentyx 300 mg every 14 days as prescribed by treating head screen worker at [facility] & close follow-up as scheduled. Assessment & Plan (06/01/2022 10:38 AM EST): Continue close follow-up with treating head screen worker as scheduled. Chronic neck pain 01/22/2022 [...] suggested her warm pool therapy [facility] [place] versus [facility] versus [facility] [employer]. Due to her overwhelming headache, facial and [...] suggested her warm pool therapy [facility] [place] versus [facility] versus [facility] [employer]. Due to her overwhelming headache, facial and [...] suggested her warm pool therapy [facility] [place] versus [facility] versus [facility]. Due to her overwhelming [...] suggested her warm pool therapy [facility] [place] versus [facility] versus [facility]. Due to her overwhelming [...] suggested her warm pool therapy [facility] [place] versus [facility] versus [facility] Intractable migraine with aura [...] free telephonic service for cigarette smoking cessation: [id number] Assessment & Plan (09/23/2023 7:27 AM EDT): [...] free telephonic service for cigarette smoking cessation: [id number]-[id number]-NOW Assessment & Plan (06/01/2022 10:41 AM EST): [...] not believe repeat screening was done at PCP/[facility]. We will add her to recall list [...] 9:00 AM EDT Home [facility] Visit [facility] [address] [place] [address] Natali Tillman, PT PT OASIS DISCHARGE NON VISIT/TELEPHONE 01/03/2025 2:30 PM EDT Office Visit [facility] [address] [place] [address] Nancy Baptiste MD Chronic right-sided low back [...] [facility] [address] [place] [address] Natali Tillman, PT PT HOME VISIT 12/27/2024 11:30 AM EDT [facility] [address] [place] [address] Natali Tillman, PT PT HOME VISIT 12/25/2024 2:30 PM EDT [facility] [address] [place] [address] Natali Tillman, PT PT HOME VISIT 12/20/2024 10:00 AM EDT Home [facility] [address] [place] [address] Natali Tillman, PT PT HOME VISIT 12/18/2024 2:00 PM EDT [facility] [address] [place] [address] Natali Tillman, PT PT HOME VISIT 12/14/2024 1:00 AM EDT Home [facility] [address] [place] [address] Gillian Demarco, PT PT HOME VISIT 12/13/2024 2:00 PM EDT Home Care Visit [facility] [address] [place] [phone] Gillian Demarco, PT PT OASIS START OF CARE (SOC) 12/13/2024 Plan of Care Documentation [facility] [address] [place] [phone] 12/13/2024 Home Care Visit [facility] [address] [place] [phone] Gillian Demarco, PT TELEPHONE ENCOUNTER 12/13/2024 Home Care Visit [facility] [address] [place] [phone] Gillian Demarco, PT TELEPHONE ENCOUNTER 12/12/2024 Orders Only [facility] [address] [place] [phone] Homehealth, Interface ProviderMD 12/11/[address] 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 file Not on file [...] EST Office Visit [facility] [address] [place] [address] [place] [address] Sundar Vázquez MD [address] [place] [address], 2nd [place] [address] 05/06/2025 9:00 AM EST Office Visit [facility] [address] [place] [address] Nancy Baptiste MD [address] [facility], [address] [place] [address] [email or web address] Health Maintenance Due Date Last Done Comments [...] PM EDT) HCV NON-REACTIV E NON-REACTI VE [facility] Blood 08/06/2024 2:09 PM EDT 08/06/2024 2:13 PM EDT [facility] BLOOD ORDERABLE S Final Result Performing Organization Address City/State/[facility] Co de Phone Number [address] [address] * Pap Smear (02/17/2022 12:00 AM EDT) 02/17/2022 02/18/2022 9:4 8 AM EDT Narrative SEE NARRATIVE - 02/24/2022 12:53 PM EDT [address] [address] Bulb Sorter: Chrystal Hartley MD PATENT LAW SPECIALIST Cytology Report FINAL DIAGNOSIS A. PAP SMEAR [...] 52, 56, 58, 59, 66, 68) by NextPotential Onclarity HR-HPV analysis. Clinical correlation is advised. This HPV test was performed at [facility], [address] [place] [address]. This test has been FDA approved for SurePath cervical cytology specimens. The accuracy and precision of this test for all other specimen sources has been verified in the Cytopathology Laboratory of the [facility] and has not been cleared or approved by the U.S. Food and Drug Administration. Clinical correlation is advised. CLINICAL HISTORY Date of Last Menstrual Period: 01-31-2022 Other Clinical Conditions: Screening Pap SPECIMEN SOURCE A: PAP SMEAR (SUREPATH) CE Patient Name: WARREN VARELA : 1985 (Age: 36) Sex: F Institution: [facility] Location: [facility] Date of Collection: 02/17/2022 Date of Reported: 02/24/2022 12:53 Results to: Rinku Waterman MD Rinku Waterman MD CYTOLOGY ORDERABLES Final Result SEE NARRATIVE from Last 3 Months or Most Recently Relevant to Health Maintenance Insurance [facility] [address] [place] [address] [place] [address] C3 ACO Advance Directives For more information, please contact: [phone] (9AM - 5PM [facility], Tuesday-Tuesday) * Full Code (Latest Code Status on File) Date Activated Date Inactivated Comments 07/28/2023 1:27 PM Question Answer Comments Code Status Confirmed With: Patient * Full Code (Presumed) Date Activated Date Inactivated Comments 09/19/2018 6:01 PM 09/20/2018 3:00 PM * Full Code (Presumed) Date Activated Date Inactivated Comments 04/25/2017 6:46 PM 04/28/2017 5:50 PM Care Teams Parachute Rigger Relationship Specialty Start Date End Date Naa Colindres MD [address] [place] [address] [email or web address] PCP - General Family Medicine 08/16/23 Additional Source Comments The information contained in this document represents components of the legal health record. It is not the complete legal health record.[facility]
--- OUTSIDE RECORDS SUMMARY | 2025-01-28 19:50 | XMS_ITS | Encounter Summary ---
Author Organization [facility], Address [address] [place] [address] Phone Care Team Providers Care Photography Professor Name Role Phone Naa Colindres MD Primary Care Provider Encounter Details Date Type Department Care Team (Late st Contact Info) Description 12/09/2022 Documentation Only [facility], [facility] Dr Jane [facility] [address] [place] [phone] Jeffery Tyler MD [address] [place] [address] [place] [phone] Social History Tobacco Use Types Packs/Day Years [...] on filedocumented in this encounter Care Teams Photography Professor Relationship Specialty Start Date End Date Naa Colindres MD [address] [place] [address] PCP - General Family Medicine 03/17/23 documented as of this encounter
--- OUTSIDE RECORDS SUMMARY | 2025-01-28 19:50 | XMS_ITS | Encounter Summary ---
Author Organization [facility] Address [address] [place] [phone] Phone Care Team Providers Care Joint Sealer Name Role Phone Jo Galan Primary Care Provider [phone] Catalina Borden MECHANICAL APPLICATIONS ENGINEER Unavailable [email or web address] Brenda Gomez MD Unavailable [phone] Unknown, Unknown Primary Care Provider Lis Lobo CRISIS CLINICIAN Primary Care Pro vider Tariq Yang MD Unavailable [phone] Brenda Gomez MD Unavailable [phone] Lis Long RN Unavailable Naa Colindres MD Primary Care Provider [phone] Reason for Referral * MRI/CAT Scan - Closed Specialty Diagnoses / Procedures Referred By Contac t Referred To Contact Radiology Diagnoses Intervertebral disc disorder with radiculopathy of lumbar region Procedures MRI Lumbar Spine Piter Kendrick DO Phone: tel: fax: [email or web address] Referral ID Status Reason Start Date Expiration Date Visits Re quested Visits Authorized [id number] Closed 02/03/2021 11/20/2021 1 1 Encounter Details Date Type Department Care Team (Latest Contact Info) Description 02/03/2021 Transcribe Orders Virtual Department [address] [place] [address] Piter Kendrick, DO [address] [place] [address] [email or web address] Intervertebral disc disorder with radiculopathy of lumbar [...] 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 Not on file Not on file documented as of this encounter Plan of Treatment Upcoming Encounters Date Type Department Care Team (Late st Contact Info) Description 04/15/2025 2:00 PM EST Office Visit [facility] Neurology [address] [place] [address] Sundar Vázquez MD [address] [place] [address], 2nd [place] [address] 05/06/2025 9:00 AM EST Office Visit [facility] Rheumatology [address] [place] [address] Nancy Baptiste MD [address] [place] [address], [address] [place] [address] documented as of this encounter Results * [...] region documented in this encounter Care Teams Joint Sealer Relationship Specialty Start Date End Date Jo Galan PA [address] [place] [address] [email or web address] PCP - General 09/20/18 01/21/22 Unknown, Lucita, PCP - General 01/22/22 01/26/22 Lis Mcdonald NP [address] [place] [address] [email or web address] PCP - General Family Medicine 01/27/22 08/15/23 Naa Colindres MD [address] [place] [address] PCP - General Family Medicine 08/16/23 Catalina Borden, MECHANICAL APPLICATIONS ENGINEER [address] [phone] [facility] Social Work 04/14/20 03/24/23 Brenda Gomez MD [address] [place] [address] [place] [address] [email or web address] Insurance Assigned Provider 10/19/20 06/19/22 Tariq Yang MD [address] [place] [address] [email or web address] Insurance Assigned Provider 06/19/22 08/28/22 Brenda Gomez MD [address] [place], [place] [address] [address] [email or web address] Insurance Assigned Provider 08/28/22 01/22/23 Lis Long RN [address] [place] [phone] [email or web address] [facility] 11/11/22 11/28/22 documented as of this encounter Additional Source Comments The information contained in this document represents components of the legal health record. It is not the complete legal health record.[facility]
--- OUTSIDE RECORDS SUMMARY | 2025-01-28 19:50 | XMS_ITS | Encounter Summary ---
Author Organization [facility], Address [address] [place] [address] Phone Care Team Providers Care Casino Cage Cashier Name Role Phone Naa Colindres MD Primary Care Provider [phone] Encounter Details Date Type Department Care Team (Late st Contact Info) Description 12/09/2022 Documentation Only [facility], - Megan [address] [facility] [address] [place] [address] Lis Mcdonald, FELTMAKER AND WEIGHER [address] [place] [phone] Social History Tobacco Use Types Packs/Day Years [...] on filedocumented in this encounter Care Teams Casino Cage Cashier Relationship Specialty Start Date End Date Naa Colindres MD [address] [place] [address] PCP - General Family Medicine 03/17/23 documented as of this encounter
--- OUTSIDE RECORDS SUMMARY | 2025-01-28 19:50 | XMS_ITS | Encounter Summary ---
Author Organization [facility] Address [address] [place] [address] Phone Care Team Providers Care Car Dealer Name Role Phone Marciacarlos Catalina Masood BLADE OPERATOR Unavailable [email or web address] Lis Mcdonald NP Primary Care Pro vider Brenda Gomez MD Unavailable [phone] Naa Colindres MD Primary Care Provider [phone] Encounter Details Date Type Department Care Team (Latest Contact Info) Description 01/06/2023 Transcribe Orders Virtual Department [address] [place] [address] Piter Kendrick, DO [address] [place] [address] [email or web address] Right shoulder pain, unspecified chronicity (Primary Dx) [...] 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 Not on file Not on file documented as of this encounter Plan of Treatment Upcoming Encounters Date Type Department Care Team (Late st Contact Info) Description 04/15/2025 2:00 PM EST Office Visit [facility] Neurology [address] [place] [address] [place] [address] Sundar Vázquez MD [address] [place] [address], 2nd [place] [address] 05/06/2025 9:00 AM EST Office Visit [facility] Rheumatology [address] [place] [address] [place] [address] Nancy Baptiste MD [address] [place] [address], [address] [place] [address] documented as of this encounter Results * [...] Primary documented in this encounter Care Teams Car Dealer Relationship Specialty Start Date End Date Lis Mcdonald NP [address] [place] [phone] [email or web address] PCP - General Family Medicine 01/27/22 08/15/23 Naa Colindres MD [address] [place] [address] PCP - General Family Medicine 08/16/23 Catalina Borden, [address] [address] [email or web address] Social Work 04/14/20 03/24/23 Brenda Gomez MD [address] [place] [address] [place] [address] [email or web address] Insurance Assigned Provider 08/28/22 01/22/23 documented as of this encounter Additional Source Comments The information contained in this document represents components of the legal health record. It is not the complete legal health record.[facility]
--- OUTSIDE RECORDS SUMMARY | 2025-01-28 19:51 | XMS_ITS | Encounter Summary ---
Author Organization [facility] Address [address] [place] [address] Phone Care Team Providers Care Lapeler Name Role Phone Jo Galan Primary Care Provider [phone] Catalina Borden AIRPORT MANAGER Unavailable [email or web address] Brenda Gomez MD Unavailable [phone] Unknown, Unknown Primary Care Provider Lis Lobo ROVING FRAME TENDER Primary Care Pro vider Tariq Yang MD Unavailable [phone] Brenda Gomez MD Unavailable [phone] Lis Long RN Unavailable Naa Colindres MD Primary Care Provider + [phone] Encounter Details Date Type Department Care Team (Late st Contact Info) Description 07/18/2021 Procedure Pass [facility], Ct Scan - [address] [id number] Social History Tobacco Use Types Packs/Day Years [...] 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 Not on file Not on file documented as of this encounter Functional Status * Calculated C-SSRS Risk Score (Lifetime/Recent) Answer Date of Assessment Author No Risk Indicated 07/18/2021 2:29 PM Nadja Jordan RN * Sims Suicide Severity Rating Scale (Screener/Recent Self-Report) Question [...] Description 04/15/2025 2:00 PM EST Office Visit [facility] Neurology [address] [place] [address] Sundar Vázquez MD [address] [place] [address], 2nd [place] [address] 05/06/2025 9:00 AM EST Office Visit [facility] Rheumatology [address] [place] [address] Nancy Baptiste MD [address] [place] [address], [address] [place] [address] documented as of this encounter Visit Diagnoses Not on filedocumented in this encounter Care Teams Lapeler Relationship Specialty Start Date End Date Jo Galan PA [address] [place] [address] [email or web address] PCP - General 09/20/18 01/21/22 Unknown, MD Lucita PCP - General 01/22/22 01/26/22 Lis Mcdonald NP [address] [place] [address] [email or web address] PCP - General Family Medicine 01/27/22 08/15/23 Naa Colindres MD [address] [place] [address] [email or web address] PCP - General Family Medicine 08/16/23 Catalina Borden LCSW [address] [place] [address] [email or web address] iCMP Social Work 04/14/20 03/24/23 Brenda Gomez MD [address] [place] [address] [place] [address] [email or web address] Insurance Assigned Provider 10/19/20 06/19/22 Tariq Yang MD [address] [place] [address] [email or web address] Insurance Assigned Provider 06/19/22 08/28/22 Brenda Gomez MD [address] [place] [address] [place] [address] [email or web address] Insurance Assigned Provider 08/28/22 01/22/23 Lis Long RN [address] [place] [address] iCMP Soil Specialist 11/11/22 11/28/22 documented as of this encounter Additional Source Comments The information contained in this document represents components of the legal health record. It is not the complete legal health record.[facility]
--- OUTSIDE RECORDS SUMMARY | 2025-01-28 19:51 | XMS_ITS | Encounter Summary ---
Author Organization [facility] Address [address] [address] Phone Care Team Providers Care Lab Head Name Role Phone Catalina Borden ORNAMENT STAPLER Unavailable [email or web address] Brenda Gomez MD Unavailable [phone] Lis Mcdonald NP Primary Care Pro vider Tariq aYng MD Unavailable [phone] Brenda Gomez MD Unavailable [phone] Lis Long RN Unavailable Naa Colindres MD Primary Care Provider + [phone] Encounter Details Date Type Department Care Team (Latest Contact Info) Description 04/20/2022 Transcribe Orders Virtual Department 30 [place] [address] Lis Mcdonald NP [address] [place] [address] [email or web address] Chronic cough (Primary Dx) Social History [...] EST Office Visit [facility] Neurology [address] [place] [address] Sundar Vázquez MD [address] [place] [address], 2nd [place] [address] [email or web address] 05/06/2025 9:00 AM EST Office Visit [facility] Rheumatology [address] [place] [address] Nancy Baptiste MD [address] [place] [address], [address] [place] [address] [email or web address] documented as of this encounter Results * Pulmonary Function Test Reason for Exam: Cough; Type of PFT Test: Spirometry with bronchodilator, DLCO, Lung Volumes; Performing Location: [facility] (09/02/2022 7:47 AM EDT) FEV1 [...] is 99% on room air. Lis Mcdonald LOGISTICS PLANNING MANAGER PFT ORDERABLES F inal Result documented in this encounter Visit Diagnoses Diagnosis Chronic cough- Primary Cough Chronic cough Cough documented in this encounter Care Teams Lab Head Relationship Specialty Start Date End Date Lis Mcdonald NP [address] [place] [address] [email or web address] PCP - General Family Medicine 01/27/22 08/15/23 Naa Colindres MD [address] [place] [address] PCP - General Family Medicine 08/16/23 Catalina Borden, ORNAMENT STAPLER 10 [place] [address] iCMP Social Work 04/14/20 03/24/23 Brenda Gomez MD [address] [place] [address] [place] [address] [email or web address] Assigned Provider 10/19/20 06/19/22 Tariq Yang MD [address] [place] [address] [place] [address] [email or web address] Insurance Assigned Provider 06/19/22 08/28/22 Brenda Gomez MD [address] [place] [address] [place] [address] [email or web address] Assigned Provider 08/28/22 01/22/23 Lis Long, FLAVIA [address] [place] [address] [email or web address] [facility] Technician 11/11/22 11/28/22 documented as of this encounter Additional Source Comments The information contained in this document represents components of the legal health record. It is not the complete legal health record.[facility]
--- OUTSIDE RECORDS SUMMARY | 2025-01-28 19:51 | XMS_ITS | Encounter Summary ---
Author Organization [facility] Address [address] [place] [address] Phone Care Team Providers Care Surveyor Helper Rod Name Role Phone Jo Galan Primary Care Provider [phone] Tariq Yang MD Unavailable [phone] Catalina Borden SEAL MIXER Unavailable dadalabar Brenda Gomez MD Unavailable [phone] Unknown, Unknown Primary Care Provider Lis Lobo WAGON WASHER Primary Care Pro vider Tariq Yang MD Unavailable [phone] Brenda Gomez MD Unavailable [phone] Lis Long RN Unavailable Naa Colindres MD Primary Care Provider + [phone] Encounter Details Date Type Department Care Team (Latest Contact Info) Description 07/31/2020 Ancillary Orders Virtual Department 30 [place] [address] Piter Kendrick DO [address] [place] [address] [email or web address] Cervical radiculopathy Social History Tobacco Use Types [...] 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 Not on file Not on file documented as of this encounter Plan of Treatment Upcoming Encounters Date Type Department Care Team (Late st Contact Info) Description 04/15/2025 2:00 PM EST Office Visit [facility] Neurology [address] [place] [address] Sundar Vázquez MD [address] [place] [address], 2nd [place] [address] [email or web address] 05/06/2025 9:00 AM EST Office Visit [facility] Rheumatology [address] [place] [address] Nancy Baptiste MD [address] [place] [address], [address] [place] [address] [email or web address] documented as of this encounter Visit Diagnoses Diagnosis Cervical radiculopathy Brachial neuritis or radiculitis nos documented in this encounter Care Teams Surveyor Helper Rod Relationship Specialty Start Date End Date Jo Galan PA [address] [place] [address] [email or web address] PCP - General 09/20/18 01/21/22 Unknown, Lucita, PCP - General 01/22/22 01/26/22 Lis Mcdonald NP [address] [place] [address] [place] [address] [email or web address] PCP - General Family Medicine 01/27/22 08/15/23 Naa Colindres MD [address] [place] [address] [email or web address] PCP - General Family Medicine 08/16/23 Tariq Yang MD [address] [place] [address] [email or web address] Insurance Assigned Provider 03/22/20 10/19/20 Catalina Borden LCSW [address] [place] [address] iCMP Social Work 04/14/20 03/24/23 Brenda Gomez MD [address] [place] [address] [place] [address] [email or web address] Insurance Assigned Provider 10/19/20 06/19/22 Tariq Yang MD [address] [place] [address] [email or web address] Insurance Assigned Provider 06/19/22 08/28/22 Brenda Gomez MD [address] [place] [address] [place] [address] [email or web address] Insurance Assigned Provider 08/28/22 01/22/23 Lis Long, RN [address] [place] [address] iCMP Decision Science Analyst 11/11/22 11/28/22 documented as of this encounter Additional Source Comments The information contained in this document represents components of the legal health record. It is not the complete legal health record.[facility]
--- OUTSIDE RECORDS SUMMARY | 2025-01-28 19:51 | XMS_ITS | Encounter Summary ---
Author Organization [facility] Address [address] [facility] [address] [place] [address] Phone Care Team Providers Care Regulatory Compliance Engineer Name Role Phone Jo Galan Primary Care Provider [phone] Catalina Borden DIRECTOR TELECOMMUNICATIONS Unavailable [email or web address] Brenda Gomez MD Unavailable [phone] Unknown, Unknown Primary Care Provider Lis Lobo NP Primary Care Pro vider Tariq Yang MD Unavailable [phone] Brenda Gomez MD Unavailable [phone] Lis Long RN Unavailable Naa Colindres MD Primary Care Provider + [phone] Encounter Details Date Type Department Care Team (Latest Contact Info) Description 11/21/2020 Transcribe Orders Virtual Department 30 [place] [address] Lis Mcdonald NP 31 [place] [address] [email or web address] Pain of upper abdomen (Primary [...] 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 Not on file Not on file documented as of this encounter Plan of Treatment Upcoming Encounters Date Type Department Care Team (Late st Contact Info) Description 04/15/2025 2:00 PM EST Office Visit [facility] Neurology [address] [place] [address] Sundar Vázquez MD [address] [place] [address], 2nd [place] [address] [email or web address] 05/06/2025 9:00 AM EST Office Visit [facility] Rheumatology [address] [place] [address] Nancy Baptiste MD [address] [place] [address], [address] [place] [address] [email or web address] documented as of this encounter Visit Diagnoses Diagnosis Pain of upper abdomen- Primary documented in this encounter Care Teams Regulatory Compliance Engineer Relationship Specialty Start Date End Date Jo Galan PA [address] [place] [address] [email or web address] PCP - General 09/20/18 01/21/22 Unknown, Lucita, PCP - General 01/22/22 01/26/22 Lis Mcdonald NP [address] [place] [address] [place] [address] [email or web address] PCP - General Family Medicine 01/27/22 08/15/23 Naa Colindres MD [address] [place] [address] PCP - General Family Medicine 08/16/23 Catalina Borden, [address] [address] [email or web address] [facility] Social Work 04/14/20 03/24/23 Brenda Gomez MD [address] [place] [address] [place] [address] [email or web address] Insurance Assigned Provider 10/19/20 06/19/22 Tariq Yang MD [address] [place] [address] Insurance Assigned Provider 06/19/22 08/28/22 Brenda Gomez MD [address] [place] [address] [place] [address] [email or web address] Insurance Assigned Provider 08/28/22 01/22/23 Lis Long, FLAVIA [address] [place] [address] iCM Mobile Marketing Manager 11/11/22 11/28/22 documented as of this encounter Additional Source Comments The information contained in this document represents components of the legal health record. It is not the complete legal health record.[facility]
--- OUTSIDE RECORDS SUMMARY | 2025-01-28 19:51 | XMS_ITS | Encounter Summary ---
Author Organization [facility] Address [address] [place] [address] Phone Care Team Providers Care Forklift Mechanic Name Role Phone Catalina Borden APICULTURIST Unavailable [email or web address] Brenda Gomez MD Unavailable [phone] Lis Mcdonald NP Primary Care Pro vider Tariq Yang MD Unavailable [phone] Brenda Gomez MD Unavailable [phone] Lis Long RN Unavailable Naa Colindres MD Primary Care Provider + [phone] Encounter Details Date Type Department Care Team (Latest Contact Info) Description 03/17/2022 Transcribe Orders [facility] Laboratory [address] [address] Annmarie Paul PA-C [address], 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 Not on file Not on file documented as of this encounter Plan of Treatment Upcoming Encounters Date Type Department Care Team (Late st Contact Info) Description 04/15/2025 2:00 PM EST Office Visit [facility] Neurology [address] [place] [address] Sundar Vázquez MD [address] [place] [address], 2nd [place] [address] [email or web address] 05/06/2025 9:00 AM EST Office Visit [facility] Rheumatology [address] [place] [address] Nancy Baptiste MD [address] [place] [address], [address] [place] [address] [email or web address] documented as of this encounter Results * TSH (03/17/2022 9:55 AM EDT) [facility] TSH 3.27 0.27 - 4.20 uIU/mL [facility] Blood 03/17/2022 9:55 AM EDT 03/17/2022 9:59 AM EDT us Annmarie Paul PA-C LAB BLOOD ORDERABLES Final Resu lt [facility] [address] [place] [address] * Lipase (03/17/2022 9:55 AM EDT) LIPASE 27 16 - 63 U/L [facility] Blood 03/17/2022 9:55 AM EDT 03/17/2022 9:59 AM EDT us Annmarie Paul PA-C LAB BLOOD ORDERABLES Final Resu lt Performing Organization Address City/[facility]/ZIP Co de Phone Number [address] [address] * C-Reactive Protein (03/17/2022 9:55 AM EDT) C REACTIVE PROTEIN <3.0 0.0 - 4.0 mg/L [facility] Blood 03/17/2022 9:55 AM EDT 03/17/2022 9:59 AM EDT us Annmarie Paul PA-C LAB BLOOD ORDERABLES Final Resu lt Performing Organization Address [facility]/ZIP Co de Phone Number [address] [address] * (ABNORMAL) Comprehensive metabolic panel (03/17/2022 9:55 AM EDT) SODIUM 139 133 - 146 mmol/L [facility] POTASSIUM 4.3 3.3 - 5.1 mmol/L [facility] CHLORIDE 106 96 - 108 mmol/L [facility] CO2 19(L) 21 - 35 mmol/L [facility] BUN 14 6 - 19 mg/dL [facility] CREATININE 0.60 0.5 - 1.5 mg/dL [facility] GLUCOSE 90 70 - 99 mg/dL [facility] ALBUMIN 4.2 3.9 - 4.8 g/dL [facility] TOTAL PROTEIN 7.0 6.5 - 8.0 g/dL [facility] CALCIUM 9.4 8.4 - 10.3 mg/dL [facility] ALKALINE PHOSPHATASE 57 39 - 117 U/L [facility] TOTAL BILIRUBIN 0.2 0.0 - 1.2 mg/dL [facility] AST 21 0 - 37 U/L [facility] ALT 22 0 - 40 U/L [facility] GLOBULIN 2.8 1 - 4.8 g/dL [facility] EGFR 118 >59 mL/min/1.7 3m2 [facility] Comment:Estimated glomerular filtration rate calculated using the CKD-EPI refit equation. ANION GAP 18 10 - 20 mmol/L [facility] Blood 03/17/2022 9:55 AM EDT 03/17/2022 9:59 AM EDT us Annmarie Paul PA-C LAB BLOOD ORDERABLES Final Resu lt Performing Organization Address City[facility]/ZIP Co de Phone Number [address] [address] * (ABNORMAL) CBC (03/17/2022 9:55 AM EDT) WBC 12.57(H) 4.00 - 11.00 K/uL [facility] RBC 4.79 3.72 - 5.30 M/uL [facility] HGB 15.0 10.6 - 15.5 g/dL [facility] HCT 44.9 32.0 - 45.0 % [facility] PLT 332 140 - 430 K/uL [facility] MCV 93.7 78.0 - 97.0 fL [facility] MCH 31.3 25.0 - 33.0 pg [facility] MCHC 33.4 32.0 - 36.0 g/dL [facility] RDW 13.8 11.0 - 16.0 % [facility] MPV 12.8 8.4 - 12.8 fl [facility] Blood 03/17/2022 9:55 AM EDT 03/17/2022 9:59 AM EDT us Annmarie Paul PA-C LAB BLOOD ORDERABLES Final Resu lt Performing Organization Address [facility]/ZIP Co de Phone Number [address] [address] * Immunoglobulin A (03/17/2022 9:55 AM EDT) IgA 195 70 - 400 mg/dL [facility] Blood 03/17/2022 9:55 AM EDT 03/17/2022 9:59 AM EDT us Annmarie Paul PA-C LAB BLOOD ORDERABLES Final Resu lt Performing Organization Address [facility]/ZIP Co de Phone Number [facility] [address] [place] [address] * Tissue transglutaminase IgA (03/17/2022 9:55 AM EDT) TTG IGA ANTIBODY <1.2 <4.0 (Negative) U/mL [facility] Blood 03/17/2022 9:55 AM EDT 03/17/2022 9:59 AM EDT us Annmarie Paul PA-C LAB BLOOD ORDERABLES Final Resu lt [facility] [address] [place] [address] documented in this encounter Visit Diagnoses Diagnosis Rectal bleeding- Primary Hemorrhage of rectum and anus Constipation, unspecified constipation type Abdominal pain, left upper quadrant documented in this encounter Care Teams Forklift Mechanic Relationship Specialty Start Date End Date Lis Mcdonald NP [address] [place], [place] [email or web address] PCP - General Family Medicine 01/27/22 08/15/23 Naa Colindres MD [address] [place], [place] PCP - General Family Medicine 08/16/23 Catalina Borden LCSW 10 [place] [address] iCMP Social Work 04/14/20 03/24/23 Brenda Gomez MD [address] [place] [address] [place] [address] [email or web address] Insurance Assigned Provider 10/19/20 06/19/22 Tariq Yang MD [address] [place] [address] [email or web address] Insurance Assigned Provider 06/19/22 08/28/22 Brenda Gomez MD [address] [place] [address] [place] [address] [email or web address] Insurance Assigned Provider 08/28/22 01/22/23 Lis Long RN [address] [place] [address] [email or web address] iCMP Salesperson Flowers 11/11/22 11/28/22 documented as of this encounter Additional Source Comments The information contained in this document represents components of the legal health record. It is not the complete legal health record.[facility]
--- OUTSIDE RECORDS SUMMARY | 2025-01-28 19:51 | XMS_ITS | Encounter Summary ---
Author Organization [facility] Address [address] [place] [address] Phone Care Team Providers Care Cryolite Recovery Operator Name Role Phone Jo Galan Primary Care Provider [phone] Catalina Borden TRAUMA PROGRAM MANAGER Unavailable [email or web address] Brenda Gomez MD Unavailable [phone] Unknown, Unknown Primary Care Provider Lis Lobo CASINO DUTY MANAGER Primary Care Pro vider Tariq Yang MD Unavailable [phone] Brenda Gomez MD Unavailable [phone] Lis Long RN Unavailable Naa Colindres MD Primary Care Provider + [phone] Reason for Referral * MRI/CAT Scan - Closed Specialty Diagnoses / Procedures Referred By Michael t Referred To Contact Radiology Diagnoses Radiculopathy, cervical region Procedures MRI Thoracic Spine Piter Kendrick DO Phone: tel: fax: mailto:[email or web address] Referral ID Status Reason Start Date Expiration Date Visits Re quested Visits Authorized [id number] Closed 10/15/2021 10/15/2022 1 1 * MRI/CAT Scan - Closed Specialty Diagnoses / Procedures Referred By Michael dubon Referred To Contact Radiology Diagnoses Radiculopathy, cervical region Procedures MRI Cervical Spine Piter Kendrick DO Phone: tel: fax: [email or web address]:[email or web address] Referral ID Status Reason Start Date Expiration Date Visits Re quested Visits Authorized [id number] Closed 10/15/2021 10/15/2022 1 1 Encounter Details Date Type Department Care Team (Latest Contact Info) Description 10/08/2021 Transcribe Orders Virtual Department [address] [place] [address] Piter Kendrick DO [address] [place] [address] [email or web address] Radiculopathy, cervical region (Primary Dx) Social History [...] 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 file Not on file documented as of this encounter Plan of Treatment Upcoming Encounters Date Type Department Care Team (Late st Contact Info) Description 04/15/2025 2:00 PM EST Office Visit [facility] Neurology [address] [place] [address] Sundar Vázquez MD [address] [phone] [email or web address] 05/06/2025 9:00 AM EST Office Visit [facility] Rheumatology [address] [place] [address] Nancy Baptiste MD 22 [facility], [address] [place] [address] [email or web address] Scheduled Orders Name Type Priority Associated Diagnoses [...] nos documented in this encounter Care Teams Cryolite Recovery Operator Relationship Specialty Start Date End Date Jo Galan PA [address] [place] [address] [email or web address] PCP - General 09/20/18 01/21/22 Unknown, Lucita, PCP - General 01/22/22 01/26/22 Lis Mcdonald NP [address] [place] [address] [email or web address] PCP - General Family Medicine 01/27/22 08/15/23 Naa Colindres MD [address] [place] [address] [email or web address] PCP - General Family Medicine 08/16/23 Catalina Borden LCSW [address] [place] [address] [email or web address] iCMP Social Work 04/14/20 03/24/23 Brenda Gomez MD [address] [place] [address] [place] [address] [email or web address] Insurance Assigned Provider 10/19/20 06/19/22 Tariq Yang MD [address] [place] [address] [email or web address] Insurance Assigned Provider 06/19/22 08/28/22 Brenda Gomez MD [address] [place] [address] [place] [address] [email or web address] Insurance Assigned Provider 08/28/22 01/22/23 Lis Long, FLAVIA [address] [place] [address] iCMP Prestressed Concrete Laborer 11/11/22 11/28/22 documented as of this encounter Additional Source Comments The information contained in this document represents components of the legal health record. It is not the complete legal health record.[facility]
--- OUTSIDE RECORDS SUMMARY | 2025-01-28 19:51 | XMS_ITS | Encounter Summary ---
Author Organization [facility] Address [address] [address] Phone Care Team Providers Care Maintenance Of Way Foreman Name Role Phone Catalina Borden FREELANCE PROGRAMMER/APP DEVELOPER Unavailable [email or web address] Brenda Gomez MD Unavailable [phone] Lis Mcdonald NP Primary Care Pro vider Tariq Yang MD Unavailable [phone] Brenda Gomez MD Unavailable [phone] Lis Long RN Unavailable Naa Colindres MD Primary Care Provider + [phone] Encounter Details Date Type Department Care Team (Late st Contact Info) Description 05/21/2022 Transcribe Orders [facility] Neurology [address] [place] [address] Lis Mcdonald NP 31 [place] [address] [email or web address] Social History Tobacco Use Types Packs/Day Years [...] 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 Not on file documented as of this encounter Functional Status * Calculated C-SSRS Risk Score (Lifetime/Recent) Answer Date of Assessment Author No Risk Indicated 05/21/2022 11:34 AM Nadja Ratliff RN * [place] Suicide Severity Rating Scale (Screener/Recent Self-Report) Question [...] Description 04/15/2025 2:00 PM EST Office Visit [facility] Neurology [address] [place] [address] Sundar Vázquez MD [address] [place] [address], 2nd [place] [address] 05/06/2025 9:00 AM EST Office Visit [facility] Rheumatology [address] [place] [address] Nancy Baptiste MD [address] [place] [address], [address] [place] [address] documented as of this encounter Visit Diagnoses Not on filedocumented in this encounter Care Teams Maintenance Of Way Foreman Relationship Specialty Start Date End Date Lis Mcdonald NP [address] [place] [address] [email or web address] PCP - General Family Medicine 01/27/22 08/15/23 Naa Colindres MD [address] [place] [address] PCP - General Family Medicine 08/16/23 Catalina Borden, FREELANCE PROGRAMMER/APP DEVELOPER [address] [place] [address] [email or web address] iCMP Social Work 04/14/20 03/24/23 Brenda Gomez MD [address] [place] [address] [place] [address] [email or web address] Insurance Assigned Provider 10/19/20 06/19/22 Tariq Yang MD [address] [place] [address] Insurance Assigned Provider 06/19/22 08/28/22 Brenda Gomez MD [address] [place] [address] [place] [address] [email or web address] Insurance Assigned Provider 08/28/22 01/22/23 Lis Long, RN [address] [place] [address] iCM Flat Sorter Processor 11/11/22 11/28/22 documented as of this encounter Additional Source Comments The information contained in this document represents components of the legal health record. It is not the complete legal health record.[facility]
--- OUTSIDE RECORDS SUMMARY | 2025-01-28 19:51 | XMS_ITS | Encounter Summary ---
Author Organization [facility] Address [address] [address] Phone Care Team Providers Care Manga Artist Name Role Phone Lis Mcdonald NP Primary Care Pro vider Naa Colindres MD Primary Care Provider [phone] Encounter Details Date Type Department Care Team (Late st Contact Info) Description 08/02/2023 Procedure Pass OR Admitting Dept - Virtual Department 30 [place] [address] Social History Tobacco Use Types Packs/Day Years [...] Office Visit [facility] Neurology [address] [place] [address] Sundar Vázquez MD [address] [place] [address], 2nd [place] [address] 05/06/2025 9:00 AM EST Office Visit [facility] Rheumatology 22 [place] [address] Nancy Baptiste MD [address] [place] [address], [address] [place] [address] documented as of this encounter Visit Diagnoses Not on filedocumented in this encounter Care Teams Manga Artist Relationship Specialty Start Date End Date Lis Mcdonald NP 31 [place] [address] [email or web address] PCP - General Family Medicine 01/27/22 08/15/23 Naa Colindres MD 70 [place] [address] PCP - General Family Medicine 08/16/23 documented as of this encounter Additional Source Comments The information contained in this document represents components of the legal health record. It is not the complete legal health record.[facility]
--- OUTSIDE RECORDS SUMMARY | 2025-01-28 19:51 | XMS_ITS | Encounter Summary ---
Author Organization [employer] Address [address] [facility] [address] 7[address] [place] [address] Care Team Providers Care Lawn Care Professional Name Role Phone Naa Colindres MD Primary Care Provider [phone] Encounter Details Date Type Department Care Team [...] Description 02/16/2025 9:20 AM EDT Office Visit [facility] MEDICAL [address] [place] [address] Naa Colindres MD 70 [place] [address] 04/02/2025 10:30 AM EST Office [facility] MEDICAL 73 [place] [address] Jodi Miller MD 73 [place] [address] documented as of this encounter Visit Diagnoses Not on filedocumented in this encounter Additional Health Concerns Assessment Noted Time PHQ-9 Depression Total Score: 24 023 10:06 AM EDT documented as of this encounter Care Teams Lawn Care Professional Relationship Specialty Start Date End Date Naa Colindres MD 70 [place] [address] PCP - General Family Medicine 09/03/22 documented as of this encounter
--- OUTSIDE RECORDS SUMMARY | 2025-01-28 19:51 | XMS_ITS | Encounter Summary ---
Author Organization [facility] Address [address] [place] [address] Phone Care Team Providers Care Employment Counselor Name Role Phone Catalina Borden RV SERVICER Unavailable [email or web address] Brenda Gomez MD Unavailable [phone] Lis Mcdonald BAND SCROLL SAW OPERATOR Primary Care Pro vider Tariq Yang MD Unavailable [phone] Brenda Gomez MD Unavailable [phone] Lis Long RN Unavailable Naa Colindres MD Primary Care Provider + [phone] Encounter Details Date Type Department Care Team (Latest Contact Info) Description 04/14/2022 Transcribe Orders Virtual Department 30 [place] [address] Piter Kendrick, DO [address] [place] [address] [email or web address] Left hip pain (Primary Dx) Social History [...] 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 file Not on file documented as of this encounter Plan of Treatment Upcoming Encounters Date Type Department Care Team (Late st Contact Info) Description 04/15/2025 2:00 PM EST Office Visit [facility] Neurology [address] [place] [address] [place] [address] Sundar Vázquez MD [address] [place] [address], 2nd [place] [address] 05/06/2025 9:00 AM EST Office Visit [facility] Rheumatology [address] [place] [address] Nancy Baptiste MD [address] [place] [address], [address] [place] [address] [email or web address] documented as of this encounter Visit Diagnoses Diagnosis Left hip pain- Primary Pain in joint, pelvic region and thigh documented in this encounter Care Teams Employment Counselor Relationship Specialty Start Date End Date Lis Mcdonald NP [address] [place] [address] [email or web address] PCP - General Family Medicine 01/27/22 08/15/23 Naa Colindres MD [address] [place] [address] PCP - General Family Medicine 08/16/23 Catalina Borden, RV SERVICER [address] [place] [address] [email or web address] iCMP Social Work 04/14/20 03/24/23 Brenda Gomez MD [address] [place] [address] [place] [address] [email or web address] Insurance Assigned Provider 10/19/20 06/19/22 Tariq Yang MD [address] [place] [address] [place] [address] [email or web address] Insurance Assigned Provider 06/19/22 08/28/22 Brenda Gomez MD [address] [place] [address] [place] [address] [email or web address] Assigned Provider 08/28/22 01/22/23 Lis Long, RN [address] [place] [address] [email or web address] [facility] Doughnut Maker 11/11/22 11/28/22 documented as of this encounter Additional Source Comments The information contained in this document represents components of the legal health record. It is not the complete legal health record.[facility]
--- OUTSIDE RECORDS SUMMARY | 2025-01-28 19:51 | XMS_ITS | Encounter Summary ---
Author Organization [facility] Address [address] [place] [address] Phone Care Team Providers Care Gamemaster Name Role Phone Catalina Borden BAKERY TEAM LEADER Unavailable [email or web address] Brenda Gomez MD Unavailable [phone] Lis Mcdonald GROUP MARKETING VP Primary Care Pro vider Tariq Yang MD Unavailable [phone] Brenda Gomez MD Unavailable [phone] Lis Long RN Unavailable Naa Colindres MD Primary Care Provider + [phone] Encounter Details Date Type Department Care Team (Late st Contact Info) Description 05/19/2022 Procedure Pass [facility], Ct Scan - 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 on file Not on file documented as of this encounter Functional Status * Calculated C-SSRS Risk Score (Lifetime/Recent) Answer Date of Assessment Author No Risk Indicated 05/21/2022 11:34 AM Nadja Ratliff RN * [place] Suicide Severity Rating Scale (Screener/Recent Self-Report) Question [...] Description 04/15/2025 2:00 PM EST Office Visit [facility] Neurology [address] [place] [address] Sundar Vázquez MD [address] [place] [address], 2nd [place] [address] [email or web address] 05/06/2025 9:00 AM EST Office Visit [facility] Rheumatology [address] [place] [address] Nancy Baptiste MD [address] [place] [address], [address] [place] [address] documented as of this encounter Visit Diagnoses Not on filedocumented in this encounter Care Teams Gamemaster Relationship Specialty Start Date End Date Lis Mcdonald NP [address] [place] [address] [email or web address] PCP - General Family Medicine 01/27/22 08/15/23 Naa Colindres MD 70 [place] [address] PCP - General Family Medicine 08/16/23 Catalina Borden LCSW [address] [place] [address] [email or web address] iCMP Social Work 04/14/20 03/24/23 Brenda Gomez MD [address] [place] [address] [place] [address] [email or web address] Insurance Assigned Provider 10/19/20 06/19/22 Tariq Yang MD [address] [place] [address] [place] [address] [email or web address] Insurance Assigned Provider 06/19/22 08/28/22 Brenda Gomez MD [address] [place] [address] [place] [address] [email or web address] Insurance Assigned Provider 08/28/22 01/22/23 Lis Long, FLAVIA [address] [place] [address] [email or web address] iCM [employer]quisitions Logistics Analyst 11/11/22 11/28/22 documented as of this encounter Additional Source Comments The information contained in this document represents components of the legal health record. It is not the complete legal health record.[facility]
--- OUTSIDE RECORDS SUMMARY | 2025-01-28 19:51 | XMS_ITS | Encounter Summary ---
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 Not on file documented as of this encounter Plan of Treatment Upcoming Encounters Date Type Department Care Team (Late st Contact Info) Description 04/15/2025 2:00 PM EST Office Visit [facility] Neurology [address] [place] [address] Sundar Vázquez MD [address] [place] [address], 2nd [place] [address] 05/06/2025 9:00 AM EST Office Visit [facility] Rheumatology 22 [place] [address] Nancy Baptiste MD [address] [place] [address], [address] [place] [address] documented as of this encounter Visit Diagnoses Not on filedocumented in this encounter Care Teams Wiring Technician Relationship Specialty Start Date End Date Lis Mcdonald NP 31 [place] [address] [email or web address] PCP - General Family Medicine 01/27/22 08/15/23 Naa Colindres MD 70 [place] [address] PCP - General Family Medicine 08/16/23 documented as of this encounter Additional Source Comments The information contained in this document represents components of the legal health record. It is not the complete legal health record.[facility]
--- OUTSIDE RECORDS SUMMARY | 2025-01-28 19:51 | XMS_ITS | Encounter Summary ---
Author Organization [facility] Address [address] [place] [address] [place] [address] Phone Care Team Providers Care Mixer Helper Name Role Phone Jo Galan Primary Care Provider [phone] Tariq Yang MD Unavailable [phone] Catalina Borden PHYSICIAN SPECIALIST Unavailable [email or web address] Brenda Gomez MD Unavailable [phone] Unknown, Unknown Primary Care Provider Lis Lobo NP Primary Care Pro vider Tariq Yang MD Unavailable [phone] Brenda Gomez MD Unavailable [phone] Lis Long RN Unavailable Naa Colindres MD Primary Care Provider + [phone] Encounter Details Date Type Department Care Team (Late st Contact Info) Description 06/19/2020 Transcribe Orders Virtual Department 30 [place] [address] Alma Delia Marks, JUSTINE [address] [facility] [place] [address] Travel within last 14 days (Primary Dx) [...] 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 Not on file Not on file documented as of this encounter Plan of Treatment Upcoming Encounters Date Type Department Care Team (Late st Contact Info) Description 04/15/2025 2:00 PM EST Office Visit [facility] Neurology 22 [place] [address] Sundar Vázquez MD [address] [place] [address], 2nd [place] [address] [email or web address] 05/06/2025 9:00 AM EST Office Visit [facility] Rheumatology 22 [place] [address] Nancy Baptiste MD [address] [place] [address], [address] [place] [address] [email or web address] documented as of this encounter Results * COVID-19 PCR Order (06/20/2020 7:50 AM EST) COVID Testing Status Specimen received in analyzing lab. Results should be available within 24 to 48 hrs. [facility] Symptomatic? NO [facility] 06/20/2020 7:50 AM EST 06/20/2020 10:26 AM EST us Alma Delia Marks ROOFING PLANT SUPERVISOR BODY FLUIDS AND STOOLS ORDER CHEKO Final Result [facility] [address] [place] [address] [facility] [address] [place] [address] documented in this encounter Visit Diagnoses Diagnosis Travel within last 14 days- Primary documented in this encounter Care Teams Mixer Helper Relationship Specialty Start Date End Date Jo Galan PA [address] [place] [address] [place] [email or web address] PCP - General 09/20/18 01/21/22 Unknown, Lucita, PCP - General 01/22/22 01/26/22 Lis Mcdonald NP [address] [place] [address] [email or web address] PCP - General Family Medicine 01/27/22 08/15/23 Naa Colindres MD [address] [place] [address] PCP - General Family Medicine 08/16/23 Tariq Yagn MD [address] [place] [address] [place] [address] Insurance Assigned Provider 03/22/20 10/19/20 Catalina Borden, [address] [address] [email or web address] iCMP Social Work 04/14/20 03/24/23 Brenda Gomez MD [address] [place] [address] [place] [address] [email or web address] Insurance Assigned Provider 10/19/20 06/19/22 Tariq Yang MD [address] [place], [place] [address] [address] [email or web address] Insurance Assigned Provider 06/19/22 08/28/22 Brenda Gomez MD [address] [place] [address] [place] [address] [email or web address] Insurance Assigned Provider 08/28/22 01/22/23 Lis Long RN [address] [place] [address] [email or web address] iCMP Data Warehousing Architect 11/11/22 11/28/22 documented as of this encounter Additional Source Comments The information contained in this document represents components of the legal health record. It is not the complete legal health record.[facility]
--- OUTSIDE RECORDS SUMMARY | 2025-01-28 19:51 | XMS_ITS | Encounter Summary ---
Author Organization [facility] Address [address] [place] [address] Phone Care Team Providers Care Customer Complaint Service Supervisor Name Role Phone Tariq Yang MD Primary Care Provider [phone] Tariq Yang MD Unavailable + Taina Patel PA Primary Care Provider Jo Galan Primary Care Provider [phone] Janneth Waller DO Unavailable + [phone] Tariq Yang MD Unavailable + Catalina Borden FISHERY BIOLOGIST Unavailable [email or web address] Brenda Gomez MD Unavailable + Unknown, Unknown Primary Care Provider Lis Lobo NP Primary Care Pro vider Tariq Yang MD Unavailable + Brenda Gomez MD Unavailable +[phone] Lis Long RN Unavailable Naa Colindres MD Primary Care Provider [phone] Encounter Details Date Type Department Care Team (Late st Contact Info) Description 02/28/2018 Ancillary Orders Virtual Department 30 [place] [address] Kendrick Piter C, DO [address] [place] [address] [email or web address] 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 Not on file Not on file documented as of this encounter Plan of Treatment Upcoming Encounters Date Type Department Care Team (Late st Contact Info) Description 04/15/2025 2:00 PM EST Office Visit [facility] Neurology [address] [place] [address] Sundar Vázquez MD [address] [place] [address], 2nd [place] [address] 05/06/2025 9:00 AM EST Office Visit [facility] Rheumatology [address] [place] [address] [place] [address] Nancy Baptiste MD [address] [place] [address], [address] [place] [address] documented as of this encounter Results * MRI CERVICAL SPINE (NEURO) FOCUS WITHOUT CONTRAST (04/20/2018 10:51 AM EST) Anatomical Region Laterality Modality C-spine Magnetic Resonan ce 04/20/2018 12:0 6 PM EST Impressions 04/21/2018 10:24 PM EST Multilevel mild predominantly bony degenerative changes. No evidence of nerve impingement. No high-grade spinal canal stenosis. POS - [id number] Edited by: Lashay Barr on 04/20/2018 1:17 [...] No high-grade spinal canal stenosis. POS - [id number] Edited by: Lashay Barr on 04/20/2018 1:17 [...] walking documented in this encounter Care Teams Customer Complaint Service Supervisor Relationship Specialty Start Date End Date Tariq Yang MD [address] [place] [address] [place] [address] [email or web address] PCP - General Internal Medicine 05/30/17 06/01/18 Taina Patel PA [address] [place] [address] [place], [place] PCP - General Unknown Provider Specialty 06/02/18 09/19/18 Jo Galan PA [address] [place] [address] [place] [address] [email or web address] PCP - General 09/20/18 01/21/22 Lucita, MD Lucita PCP - General 01/22/22 01/26/22 Lis Mcdonald NP [address] [place] [address] [place] [address] [email or web address] PCP - General Family Medicine 01/27/22 08/15/23 Naa Colindres MD [address] [place] [address] [email or web address] PCP - General Family Medicine 08/16/23 Tariq Yang MD [address] [place] [address] [email or web address] Insurance Assigned Provider 09/17/17 10/20/19 Janneth Waller DO [address] [place] [address] [place] [address] Insurance Assigned Provider 10/20/19 03/22/20 Tariq Yang MD [address] [place] [address] [email or web address] Insurance Assigned Provider 03/22/20 10/19/20 Catalina Borden LCSW [address] [place] [address] [email or web address] iCMP Social Work 04/14/20 03/24/23 Brenda Gomez MD [address] [place] [address] [place] [address] [email or web address] Insurance Assigned Provider 10/19/20 06/19/22 Tariq Yang MD [address] [place], [place] [address] [address] [email or web address] Insurance Assigned Provider 06/19/22 08/28/22 Brenda Gomez MD [address] [place] [address] [place] [address] [email or web address] Insurance Assigned Provider 08/28/22 01/22/23 Lis Long, FLAVIA [address] [place] [address] [email or web address] iCM Nursery Technician 11/11/22 11/28/22 documented as of this encounter Additional Source Comments The information contained in this document represents components of the legal health record. It is not the complete legal health record.[facility]
--- OUTSIDE RECORDS SUMMARY | 2025-01-28 19:51 | XMS_ITS | Encounter Summary ---
Author Organization [facility], Address [address] [place] [address] Phone Care Team Providers Care Rotary Swaging Machine Operator Name Role Phone Naa Colindres MD Primary Care Provider [phone] Encounter Details Date Type Department Care Team (Late st Contact Info) Description 03/02/2023 Documentation Only [facility], [facility] Dr Jane [facility] [address] [place] [phone] Jeffery Tyler MD [address] [place] [address] [place] [phone] Social History Tobacco Use Types Packs/Day Years [...] on filedocumented in this encounter Care Teams Rotary Swaging Machine Operator Relationship Specialty Start Date End Date Naa Colindres MD [address] [place] [address] PCP - General Family Medicine 03/17/23 documented as of this encounter
--- OUTSIDE RECORDS SUMMARY | 2025-01-28 19:51 | XMS_ITS | Encounter Summary ---
Author Organization [facility] Address [address] [place] [address] Phone Care Team Providers Care Rv Servicer Name Role Phone Jo Galan Primary Care Provider [phone] Tariq Yang MD Unavailable +[phone] Catalina Borden SALON ASSISTANT Unavailable [email or web address] Brenda Gomez MD Unavailable [phone] Unknown, Unknown Primary Care Provider Lis Lobo SAP INTEGRATION ARCHITECT Primary Care Pro vider Tariq Yang MD Unavailable [phone] Brenda Gomez MD Unavailable [phone] Lis Long RN Unavailable Naa Colindres MD Primary Care Provider + [phone] Encounter Details Date Type Department Care Team (Latest Contact Info) Description 07/30/2020 Ancillary Orders Virtual Department [address] [place] [address] Piter Kendrick, DO [address] [place] [address] [email or web address] Cervical radiculitis; Lumbar radiculopathy Social History Tobacco [...] 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 Not on file Not on file documented as of this encounter Plan of Treatment Upcoming Encounters Date Type Department Care Team (Late st Contact Info) Description 04/15/2025 2:00 PM EST Office Visit [facility] Neurology [address] [place] [address] [place] [address] Sundar Vázquez MD [address] [place] [address], 2nd [place] [address] [email or web address] 05/06/2025 9:00 AM EST Office Visit [facility] Rheumatology [address] [place] [address] [place] [address] Nancy Baptiste MD [address] [place] [address], [address] [place] [address] [email or web address] documented as of this encounter Visit Diagnoses Diagnosis Cervical radiculitis Brachial neuritis or radiculitis nos Lumbar radiculopathy Thoracic or lumbosacral neuritis or radiculitis, unspecified documented in this encounter Care Teams Rv Servicer Relationship Specialty Start Date End Date Jo Galan PA [address] [place] [address] [email or web address] PCP - General 09/20/18 01/21/22 Unknown, Lucita, PCP - General 01/22/22 01/26/22 Lis Mcdonald JUSTINE [address] [place] [address] [email or web address] PCP - General Family Medicine 01/27/22 08/15/23 Naa Colindres MD [address] [place] [address] [email or web address] PCP - General Family Medicine 08/16/23 Tariq Yang MD [address] [place] [address] [email or web address] Insurance Assigned Provider 03/22/20 10/19/20 Catalina Borden LCSW [address] [place] [address] [email or web address] iCMP Social Work 04/14/20 03/24/23 Brenda Gomez MD [address] [place] [address] [place] [address] [email or web address] Assigned Provider 10/19/20 06/19/22 Tariq Yang MD [address] [place] [address] [email or web address] Insurance Assigned Provider 06/19/22 08/28/22 Brenda Gomez MD [address] [place] [address] [place] [address] [email or web address] Assigned Provider 08/28/22 01/22/23 Lis Long RN [address] [place] [email or web address] iCMP Nut Picker 11/11/22 11/28/22 documented as of this encounter Additional Source Comments The information contained in this document represents components of the legal health record. It is not the complete legal health record.[facility]
--- OUTSIDE RECORDS SUMMARY | 2025-01-28 19:51 | XMS_ITS | Encounter Summary ---
Author Organization [facility] Address [address] [place] [address] Phone Care Team Providers Care Director Of Accounts Payable Name Role Phone Jo Galan Primary Care Provider [phone] Tariq Yang MD Unavailable +[phone] Catalina Borden C.O.D. 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 Not on file Not on file documented as of this encounter Plan of Treatment Upcoming Encounters Date Type Department Care Team (Late st Contact Info) Description 04/15/2025 2:00 PM EST Office Visit [facility] Neurology [address] [place] [address] [place] [address] Sundar Vázquez MD [address] [place] [address], 2nd [place] [address] [email or web address] 05/06/2025 9:00 AM EST Office Visit [facility] Rheumatology [address] [place] [address] [place] [address] Nancy Baptiste MD [address] [place] [address], [address] [place] [address] [email or web address] documented as of this encounter Visit Diagnoses Not on filedocumented in this encounter Care Teams Director Of Accounts Payable Relationship Specialty Start Date End Date Jo Galan PA [address] [place] [address] [email or web address] PCP - General 09/20/18 01/21/22 Unknown, Lucita, PCP - General 01/22/22 01/26/22 Lis Mcdonald NP [address] [place] [address] [place] [address] [email or web address] PCP - General Family Medicine 01/27/22 08/15/23 Naa Colindres MD [address] [place] [address] PCP - General Family Medicine 08/16/23 Tariq Yang MD [address] [place] [address] [email or web address] Insurance Assigned Provider 03/22/20 10/19/20 Catalina Borden LCSW [address] [place] [address] iCMP Social Work 04/14/20 03/24/23 Brenda Gomez MD [address] [place] [address] [place] [address] [email or web address] Insurance Assigned Provider 10/19/20 06/19/22 Tariq Yang MD [address] [place] [address] [email or web address] Insurance Assigned Provider 06/19/22 08/28/22 Brenda Gomez MD [address] [place] [address] [place] [address] [email or web address] Insurance Assigned Provider 08/28/22 01/22/23 Lis Long, RN [address] [place] [address] iCMP Senior Software Analyst 6/29/23 7/16/23 documented as of this encounter Additional Source Comments The information contained in this document represents components of the legal health record. It is not the complete legal health record.[facility]
--- OUTSIDE RECORDS SUMMARY | 2025-01-28 19:51 | XMS_ITS | Encounter Summary ---
Author Organization [facility] Address [address] [place] [address] Phone Care Team Providers Care Chemist Pharmaceutical Name Role Phone Jo Galan Primary Care Provider [phone] Catalina Borden MIS SPECIALIST Unavailable [email or web address] Brenda Gomez MD Unavailable [phone] Unknown, Unknown Primary Care Provider Lis Lobo AUTOMOBILE WASHER STEAM Primary Care Pro vider Tariq Yang MD Unavailable [phone] Brenda Gomez MD Unavailable [phone] Lis Long RN Unavailable Naa Colindres MD Primary Care Provider + [phone] Encounter Details Date Type Department Care Team (Late st Contact Info) Description 10/08/2021 Procedure Pass [address] [place] [address] Social History Tobacco Use Types Packs/Day Years [...] 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 Not on file Not on file documented as of this encounter Plan of Treatment Upcoming Encounters Date Type Department Care Team (Late st Contact Info) Description 04/15/2025 2:00 PM EST Office Visit [facility] Neurology [address] [place] [address] Sundar Vázquez MD [address] [place] [address], 2nd [place] [address] 05/06/2025 9:00 AM EST Office Visit [facility] Rheumatology [address] [place] [address] Nancy Baptiste MD [address] [place] [address], [address] [place] [address] [email or web address] documented as of this encounter Visit Diagnoses Not on filedocumented in this encounter Care Teams Chemist Pharmaceutical Relationship Specialty Start Date End Date Jo Galan PA [address] [place] [address] [email or web address] PCP - General 09/20/18 01/21/22 Unknown, Lucita, PCP - General 01/22/22 01/26/22 Lis Mcdonald NP [address] [place] [address] [email or web address] PCP - General Family Medicine 01/27/22 08/15/23 Naa Colindres MD [address] [place] [address] [email or web address] PCP - General Family Medicine 08/16/23 Catalina Borden LCSW [address] [place] [address] [email or web address] iCMP Social Work 04/14/20 03/24/23 Brenda Gomez MD [address] [place] [address] [place] [address] [email or web address] Insurance Assigned Provider 10/19/20 06/19/22 Tariq Yang MD [address] [place] [address] [email or web address] Insurance Assigned Provider 06/19/22 08/28/22 Brenda Gomez MD [address] [place] [address] [place] [address] [email or web address] Insurance Assigned Provider 08/28/22 01/22/23 Lis Long RN [address] [place] [address] iCMP Ticket Attendant 11/11/22 11/28/22 documented as of this encounter Additional Source Comments The information contained in this document represents components of the legal health record. It is not the complete legal health record.[facility]
--- OUTSIDE RECORDS SUMMARY | 2025-01-28 19:51 | XMS_ITS | Clinical Summary ---
Author Organization [employer] Address [address] [place] [address] 7t [place] [address] Care Team Providers Care Mine Manager Name Role Phone Naa Colindres MD Primary Care Provider [phone] Allergies Active Allergy Reactions Criticality Noted Date [...] 59 mL 11 03/03/20 23 Active rizatriptan MUSIC JOURNALIST (Maxalt-MUSIC JOURNALIST) 10 MG disintegrating tabletIndications :Migraine without aura [...] 150 capsule 12/13/19 25 Active HYDROcodone-aceta minophen ([place]oy) 5-325 MG tablet Take 2 tablets by [...] is needed to be re-faxed over to [facility]. Will send another message to referrals to [...] & Plan: Continue close follow-up with treating call center assistant as scheduled. Assessment & Plan (03/12/2024 9:19 PM EDT): Emphasized importance of getting any flares addressed right away d/t risk of infection/scarring and pt plans to go to [facility] tomorrow as can't get in immediately with her treating call center assistant. Also she will followup with her pharmacy [...] suggested her warm pool therapy [facility] in [place] versus local [employer] versus local health club. [...] car trouble. Plans to be seen in [facility] tomorrow for re evaluation of her back pain and also hidradenitis s. Flare, not sure if needs inner thigh areas drained again prior to being able to f/up with her call center assistant. Encouraged to discuss pain management dry cleaning counter clerk consult with her PCP if indicated; patient [...] Encounters Date Type Department Care Team Description 01/28/2025 Orders Only [facility] Information Management [address] [place] [address] Naa Colindres MD 01/28/[address] [address] Ophelia Hurley LPN ER Follow-up 01/25/2025 2:00 PM EDT Office Visit [facility] MEDICAL [address] [place] [address] Jodi Miller MD Class 2 severe obesity due to excess calories with serious comorbidity and body mass index (BMI) of 36.0 to 36.9 in adult ([facility]) (Primary Dx); BMI 38.0-38.9,adult 01/25/2025 Results Follow-Up [address] [address] Naa Colindres MD D-Dimer, Quantitative [[id number]], Hemoglobin A1c 758816, Lipid Panel, Standard [address] 01/23/2025 11:20 AM EDT Office Visit [address] [address] Naa Colindres MD Class 2 severe obesity due to excess calories with serious comorbidity and body mass index (BMI) of 38.0 to 38.9 in adult ([facility]) (Primary Dx); Localized swelling of left lower leg 01/23/2025 Travel 12/31/2024 Telephone [facility] MEDICAL [address] [place] [address] Ophelia Hurley LPN Rash 12/31/2024 Refill [facility] [address] [place] [address] Ashly Diamond MD Chronic right-sided low back pain with right-sided sciatica 12/26/2024 Patient Outreach [facility] Department [address] [phone] Reji Cedillo 12/19/2024 Patient Outreach Count Includes [facility] () Department [address] [place] [phone] Reji Cedillo c3 care management 12/14/2024 Telephone [facility] MEDICAL [address] [place] [address] Naa Colindres MD VNA 12/12/2024 Patient Outreach [facility] () Department [address] [place] [phone] Reji Cedillo 12/12/2024 Patient Outreach [facility] () Department [address] [place] [phone] Reji Cedillo care management 12/11/2024 Refill [facility] [address] [place] [address] Danny Freeman NP Mood disorder ([facility]) (Primary Dx) 11/12/2024 3:30 PM EDT Clinical Support [facility] NUTRITION [address] [place] [address] Class 2 severe obesity due to excess calories with serious comorbidity and body mass index (BMI) of 38.0 to 38.9 in adult (CMS/HCC) 11/12/2024 Travel 11/09/2024 Refill [facility] MEDICAL [address] [place] [address] Naa Colindres MD PTSD (post-traumatic stress disorder) [...] the past 12 months, has t he [employer], gas, oil or water company threatened to [...] Description 02/16/2025 9:20 AM EDT Office Visit [facility] MEDICAL [address] [place] [address] Naa Colindres MD [address] [place] [address] 04/02/2025 10:30 AM EST Office Visit [facility] MEDICAL [address] [place] [address] Jodi Miller MD [address] [place] [address] Health Maintenance Due Date Last Done Comments [...] Screening Completed 12/09/2022 HIV Screening Completed 09/21/2023, 12/2023, 12/09/2022 HIB Vaccines Aged Out No [...] Procedure Name Priority Date/Time Associated Diagnosis Comments CT ABDOMEN PELVIS W CONTRAST Routine 01/26/2025 9:[address] ANGIOGRAM CHEST INTERPRETATION Routine 01/26/2025 9:21 AM EDT ECG 12-LEAD Routine 01/25/2025 9:23 AM EDT COMPREHENSIVE METABOLIC PANEL Routine 01/25/2025 9:23 AM EDT US LOWER EXTREMITY VEIN LEFT Routine 01/25/2025 9:20 AM EDT LIPID PANEL, STANDARD Routine 01/24/2025 11:04 AM EDT Class 2 severe obesity due to excess calories with serious comorbidity and body mass index (BMI) of 38.0 to 38.9 in adult ([facility]) HEMOGLOBIN A1C Routine 01/24/2025 11:04 AM EDT Class 2 severe obesity due to excess calories with serious comorbidity and body mass index (BMI) of 38.0 to 38.9 in adult ([facility]) D-DIMER, QUANTITATIVE Routine 01/24/2025 11:04 AM EDT Localized swelling of left lower leg AMB REFERRAL TO OPHTHALMOLOGY Routine 10/30/2024 Dry eye syndrome of bilateral lacrimal glands HIV 1/2 ANTIGEN/ANTIBODY, FOURTH GENERATION W/RFL Routine 09/21/2023 9:58 AM EDT from Last 3 Months or Most Recently Relevant to Health Maintenance Results * CT Abdomen Pelvis w/ Contrast (01/26/2025 9:22 AM EDT) Anatomical Region Laterality Modality Body, Pelvis, Abdomen Computed T omography us Naa Colindres MD IMG CT PROCEDURES Final Result * CT angiogram chest interpretation (01/26/2025 9:21 AM EDT) Anatomical Region Laterality Modality Computed Tomogra phy us Naa Colindres MD IMG CT PROCEDURES Final Result * ECG 12 lead (01/25/2025 9:23 AM EDT) us Naa Colindres MD ECG ORDERABLES Final Result * Comprehensive Metabolic Panel (01/25/2025 9:23 AM EDT) Blood Venous blood specimen / Unknown us Naa Colindres MD LAB BLOOD ORDERABLES Final Res ult * US LOWER EXTREMITY VEIN LEFT (01/25/2025 9:20 AM EDT) Anatomical Region Laterality Modality Ultrasound us Naa Colindres MD IMG US PROCEDURES Final Result * (ABNORMAL) D-Dimer, Quantitative [[id number]] (01/24/2025 11:04 AM EDT) D-Dimer, Quantitative 0.96(H) 0.00 - 0.49 mg/L FEU [facility] 1 Comment: According to the assay multi line claims adjuster's published package insert, a normal (<0.50 mg/L FEU) D-dimer result in conjunction with a non-high clinical probability assessment, excludes deep vein thrombosis (DVT) and pulmonary embolism (PE) with high sensitivity. D-dimer values increase with age and this can make VTE exclusion of an older population difficult. To address this, the [employer], based on best available [...] Narrative Resulting Agency Comment Performed at: - [facility] [id number] Water Pollution Control Technician: Sunshine Cardozo MD, Phone: [phone] Naa Colindres MD LAB BLOOD ORDERABLES Final Res ult [facility] 1 * Hemoglobin A1c 724307 (01/24/2025 11:04 AM EDT) [facility] Hemoglobin A1c 5.6 4.8 - 5.6 % [facility] 1 Comment: Prediabetes: 5.7 - 6.4 Diabetes: >6.4 Glycemic control for adults with diabetes: <7.0 Blood Venous blood specimen / Unknown 01/24/2025 11:04 AM EDT 01/24/2025 Narrative Resulting Agency Comment Performed at: [facility] [id number] Water Pollution Control Technician: Sunshine Cardozo MD, Phone: [phone] us Naa Colindres MD LAB BLOOD ORDERABLES Final Res ult [facility] 1 * (ABNORMAL) Lipid Panel, Standard 79326 (01/24/2025 11:04 AM EDT) Cholesterol, Total 209(H) [...] Resulting Agency Comment Performed at: 01 - [facility] [id number] Water Pollution Control Technician: Sunshine Cardozo MD, Phone: [phone] Naa Colindres MD LAB BLOOD ORDERABLES Final Res ult Performing Organization Address City/[facility]/ZIP Co de Phone Number [facility] 1 * Referral to Ophthalmology (10/30/2024) Naa Colindres MD OUTPATIENT REFERRAL ORDERABLES Final Result * HIV-1/2 Antigen and Antibodies, Fourth Generation, with Reflexes (09/21/2023 9:58 AM EDT) Blood Venous blood specimen / Unknown Naa Colindres MD LAB BLOOD ORDERABLES Final Res ult from Last 3 Months or Most Recently Relevant to Health Maintenance Insurance [facility] C3 Care Teams Mine Manager Relationship Specialty Start Date End Date Naa Colindres MD [address] [place] [address] PCP - General Family Medicine 09/03/22
--- OUTSIDE RECORDS SUMMARY | 2025-01-28 19:51 | XMS_ITS | Encounter Summary ---
Author Organization [facility] Address [address] [place] [address] Phone Care Team Providers Care Waiter/Waitress Third Class Name Role Phone Jo Galan Primary Care Provider [phone] Tariq Yang MD Unavailable [phone] Catalina Borden SERVICE TRANSFORMER REPAIR SUPERVISOR Unavailable [email or web address] Brenda Gomez MD Unavailable [phone] Unknown, Unknown Primary Care Provider Lis Lobo NP Primary Care Pro vider Tariq Yang MD Unavailable [phone] Brenda Gomez MD Unavailable [phone] Lis Long RN Unavailable Naa Colindres MD Primary Care Provider + [phone] Encounter Details Date Type Department Care Team (Late st Contact Info) Description 06/16/2020 Ancillary Orders Virtual Department [address] [place] [address] Milena Armendariz NP [address] [place] [phone] [email or web address] Pain in thoracic spine; Cervicalgia Social History [...] 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 Not on file Not on file documented as of this encounter Plan of Treatment Upcoming Encounters Date Type Department Care Team (Late st Contact Info) Description 04/15/2025 2:00 PM EST Office Visit [facility] Neurology [address] [place] [address] [place] [address] Sundar Vázquez MD [address] [place] [address], [address] [place] [address] [email or web address] 05/06/2025 9:00 AM EST Office Visit [facility] Rheumatology [address] [place] [address] [place] [address] Nancy Baptiste MD [address] [place] [address], [address] [place] [address] [email or web address] documented as [...] othersource of pain detected. us Milena Armendariz LIGHT COIL WINDER IMG XR SPINE Final Result * XR [...] pain is detected. us Milena Sanz Kala LIGHT COIL WINDER IMG XR SPINE Final Result documented in this encounter Visit Diagnoses Diagnosis Pain in thoracic spine Cervicalgia Cervicalgia Pain in thoracic spine documented in this encounter Care Teams Waiter/Waitress Third Class Relationship Specialty Start Date End Date Jo Galan PA [address] [place] [address] [email or web address] PCP - General 09/20/18 01/21/22 Unknown, Lucita, PCP - General 01/22/22 01/26/22 Lis Mcdonald NP [address] [place] [address] [email or web address] PCP - General Family Medicine 01/27/22 08/15/23 Naa Colindres MD [address] [place] [address] PCP - General Family Medicine 08/16/23 Tariq Yang MD [address] [place] [address] Insurance Assigned Provider 03/22/20 10/19/20 Catalina Borden, SERVICE TRANSFORMER REPAIR SUPERVISOR [address] [place] [address] iCMP Social Work 04/14/20 03/24/23 Brenda Gomez MD [address] [place] [address] Dr. [place], [place] [email or web address] Insurance Assigned Provider 10/19/20 06/19/22 Tariq Yang MD [address] [place] [address] [place] [address] [email or web address] Insurance Assigned Provider 06/19/22 08/28/22 Brenda Gomez MD [address] [place] [address] [place] [address] [email or web address] Insurance Assigned Provider 08/28/22 01/22/23 Lis Long RN [address] [place] [address] iCMP Irrigation Service Technician 11/11/22 11/28/22 documented as of this encounter Additional Source Comments The information contained in this document represents components of the legal health record. It is not the complete legal health record.[facility]
--- OUTSIDE RECORDS SUMMARY | 2025-01-28 19:51 | XMS_ITS | Encounter Summary ---
Author Organization [facility] Address [address] [place] [address] Phone Care Team Providers Care Housing Inspectors Name Role Phone Tariq Yang MD Unavailable [phone] Taina Patel PA Primary Care Provider Jo Galan Primary Care Provider [phone] Janneth Waller DO Unavailable [phone] Tariq Yang MD Unavailable + Catalina Borden GALLEY HAND Unavailable dadalabtiffany Brenda Gomez MD Unavailable [phone] Unknown, Unknown Primary Care Provider Lis Lobo BULL DRIVER Primary Care Pro vider Tariq Yang MD Unavailable + Brenda Gomez MD Unavailable [phone] Lis Long RN Unavailable Naa Colindres MD Primary Care Provider + [phone] Encounter Details Date Type Department Care Team (Late st Contact Info) Description 09/19/2018 Procedure Pass OR Admitting Dept - Virtual Department 30 [place] [address] Social History Tobacco Use Types Packs/Day Years [...] 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 Not on file Not on file documented as of this encounter Plan of Treatment Upcoming Encounters Date Type Department Care Team (Late st Contact Info) Description 04/15/2025 2:00 PM EST Office Visit [facility] Neurology [address] [place] [address] [place] [address] Sundar Vázquez MD [address] [place] [address], 2nd [place] [address] [email or web address] 05/06/2025 9:00 AM EST Office Visit [facility] Rheumatology [address] [place] [address] [place] [address] Nancy Baptiste MD [address] [place] [address], [address] [place] [address] [email or web address] documented as of this encounter Visit Diagnoses Not on filedocumented in this encounter Care Teams Housing Inspectors Relationship Specialty Start Date End Date Taina Patel PA [address] [place] [address] PCP - General Unknown Provider Specialty 06/02/18 09/19/18 Jo Galan PA [address] [place] [address] [email or web address] PCP - General 09/20/18 01/21/22 Unknown, Unknown, PCP - General 01/22/22 01/26/22 Lis Mcdonald NP [address] [place] [address] [email or web address] PCP - General Family Medicine 01/27/22 08/15/23 Naa Colindres MD [address] [place] [address] [email or web address] PCP - General Family Medicine 08/16/23 Tariq Yang MD [address] [place] [address] [email or web address] Insurance Assigned Provider 09/17/17 10/20/19 Janneth Waller DO [address] [place] [address] [place] [address] Insurance Assigned Provider 10/20/19 03/22/20 Tariq Yang MD [address] [place] [address] Insurance Assigned Provider 03/22/20 10/19/20 Catalina Borden, [address] [address] [email or web address] iCMP Social Work 04/14/20 03/24/23 Brenda Gomez MD [address] [place] [address] [place] [address] [email or web address] Insurance Assigned Provider 10/19/20 06/19/22 Tariq Yang MD [address] [place] [address] [email or web address] Insurance Assigned Provider 06/19/22 08/28/22 Brenda Gomez MD [address] [place] [address] [place] [address] [email or web address] Insurance Assigned Provider 08/28/22 01/22/23 Lis Long RN [address] [place] [address] [email or web address] iCMP Customs And Border Protection Officer 11/11/22 11/28/22 documented as of this encounter Additional Source Comments The information contained in this document represents components of the legal health record. It is not the complete legal health record.[facility]
--- OUTSIDE RECORDS SUMMARY | 2025-01-28 19:51 | XMS_ITS | Encounter Summary ---
Author Organization [employer] Address 75 [facility] 7t [place] [address] Care Team Providers Care Lithoplate Maker Name Role Phone Naa Colindres MD Primary Care Provider [phone] Reason for Visit * Reason Onset Date Comments Labs Only 01/25/2025 Encounter Details Date Type Department Care Team (Late st Contact Info) Description 01/25/2025 Results Follow-Up [facility] MEDICAL [address] [place] [address] Naa Cloindres MD 70 [place] [address] D-Dimer, Quantitative [[id number]], Hemoglobin A1c 676050, Lipid Panel, Standard 11776 Social History Tobacco Use Types Packs/Day Years [...] encounter Miscellaneous Notes * Telephone Encounter - Ophelia Hurley LPN - 01/28/2025 9:24 AM EDT Called pt - no answer - looking to see if she has had the ultrasound yet. Also requested ER notes. documented in this encounter Plan of Treatment Upcoming Encounters Date Type Department Care Team (Late st Contact Info) Description 02/16/2025 9:20 AM EDT Office Visit [facility] MEDICAL 70 [place] [address] Naa Colindres MD 70 [place] [address] 04/02/2025 10:30 AM EST Office Visit [facility] MEDICAL 73 [place] [address] Jodi Miller MD 73 [place] [address] documented as of this encounter Visit Diagnoses Not on filedocumented in this encounter Additional Health Concerns Assessment Noted Time PHQ-9 Depression Total Score: 24 023 10:06 AM EDT documented as of this encounter Care Teams Lithoplate Maker Relationship Specialty Start Date End Date Naa Colindres MD [address] [place], [place] PCP - General Family Medicine 09/03/22 documented as of this encounter
--- OUTSIDE RECORDS SUMMARY | 2025-01-28 19:51 | XMS_ITS | Encounter Summary ---
Author Organization [facility] Address [address] [place] [address] [place] [address] Phone Care Team Providers Care Force Dispatcher Name Role Phone Catalina Borden SHOE SINGER Unavailable dadalabtiffany Brenda Gomez MD Unavailable [phone] Lis Mcdonald NEW AUTOS DELIVERY DRIVER Primary Care Pro vider Tariq Yang MD Unavailable [phone] Brenda Gomez MD Unavailable [phone] Lis Long RN Unavailable Naa Colindres MD Primary Care Provider + [phone] Encounter Details Date Type Department Care Team (Late st Contact Info) Description 03/05/2022 Transcribe Orders [facility] [address] [place] [address] Quinton Morales MD 22 [facility], [address] [place], [place] [phone] [email or web address] Social History Tobacco Use Types Packs/Day Years [...] 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 on file Not on file documented as of this encounter Plan of Treatment Upcoming Encounters Date Type Department Care Team (Late st Contact Info) Description 04/15/2025 2:00 PM EST Office Visit [facility] Neurology [address] [place] [address] Sundar Vázquez MD [address] [place] [address], 2nd [place] [address] 05/06/2025 9:00 AM EST Office Visit [facility] Rheumatology [address] [place] [address] Nancy Baptiste MD [address] [place] [address], [address] [place] [address] documented as of this encounter Visit Diagnoses Not on filedocumented in this encounter Care Teams Force Dispatcher Relationship Specialty Start Date End Date Lis Mcdonald NP [address] [place] [address] [email or web address] PCP - General Family Medicine 01/27/22 08/15/23 Naa Colindres MD [address] [place] [address] PCP - General Family Medicine 08/16/23 Catalina Borden, SHOE SINGER [address] [place] [address] [email or web address] iCMP Social Work 04/14/20 03/24/23 Brenda Gomez MD [address] [place] [address] [place] [address] [email or web address] Insurance Assigned Provider 10/19/20 06/19/22 Tariq Yang MD [address] [place] [address] [place] [address] [email or web address] Insurance Assigned Provider 06/19/22 08/28/22 Brenda Gomez MD [address] [place] [address] [place] [address] [email or web address] Insurance Assigned Provider 08/28/22 01/22/23 Lis Long, RN [address] [place] [address] [email or web address] Inspector Aligning 11/11/22 11/28/22 documented as of this encounter Additional Source Comments The information contained in this document represents components of the legal health record. It is not the complete legal health record.[facility]
--- OUTSIDE RECORDS SUMMARY | 2025-01-28 19:52 | XMS_ITS | Encounter Summary ---
Author Organization [facility] Address [address] [place] [address] Phone Care Team Providers Care Pad Assembler Name Role Phone AsherCatalina potts Masood RADIO INSTALLER AUTOMOBILE Unavailable ndelabar Lis Mcdonald NP Primary Care Pro vider Tariq Yang MD Unavailable [phone] Brenda Gomez MD Unavailable [phone] Lis Long RN Unavailable Naa Colindres MD Primary Care Provider [phone] Reason for Referral * MRI/CAT Scan - Closed Specialty Diagnoses / Procedures Referred By Contac t Referred To Contact Radiology Diagnoses Difficulty in walking, not elsewhere classified Procedures MRI Thoracic Spine Piter Kendrick DO Phone: tel: fax: [email or web address] Referral ID Status Reason Start Date Expiration Date Visits Re quested Visits Authorized [id number] Closed 07/20/2022 10/15/2022 1 1 Encounter Details Date Type Department Care Team (Latest Contact Info) Description 07/20/2022 Transcribe Orders Virtual Department [address] [place] [address] Kendrick Piter Lenora, DO [address] [place] [address] [email or web address] Difficulty in walking, not elsewhere classified (Primary [...] 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 file Not on file documented as of this encounter Plan of Treatment Upcoming Encounters Date Type Department Care Team (Late st Contact Info) Description 04/15/2025 2:00 PM EST Office Visit [facility] Neurology [address] [place] [address] Sundar Vázquez MD [address] [place] [address], 2nd [place] [address] 05/06/2025 9:00 AM EST Office Visit [facility] Rheumatology [address] [place] [address] Nancy Baptiste MD [address] [place] [address], [address] [place] [address] documented as of this encounter Results * [...] classified documented in this encounter Care Teams Pad Assembler Relationship Specialty Start Date End Date Lis Mcdonald NP [address] [place] [address] [email or web address] PCP - General Family Medicine 01/27/22 08/15/23 Naa Colindres MD [address] [place] [address] PCP - General Family Medicine 08/16/23 Catalina Borden LCSW [address] [place] [address] [facility] Social Work 04/14/20 03/24/23 Tariq Yang MD [address] [place] [address] Insurance Assigned Provider 06/19/22 08/28/22 Brenda Gomez MD [address] [place] [address] [place] [address] [email or web address] Insurance Assigned Provider 08/28/22 01/22/23 Lis Long RN [address] [place] [address] iCMP Automatic Pinsetter Adjuster 11/11/22 11/28/22 documented as of this encounter Additional Source Comments The information contained in this document represents components of the legal health record. It is not the complete legal health record.[facility]
--- OUTSIDE RECORDS SUMMARY | 2025-01-28 19:52 | XMS_ITS | Encounter Summary ---
Author Organization [facility] Address [address] [place] [address] Phone Care Team Providers Care Physical Geographer Name Role Phone Catalina Borden ADVERTISING AGENT Unavailable [email or web address] Lis Mcdonald NP Primary Care Pro vider Tariq Yang MD Unavailable [phone] Brenda Gomez MD Unavailable [phone] Lis Long RN Unavailable Naa Colindres MD Primary Care Provider [phone] Encounter Details Date Type Department Care Team (Late st Contact Info) Description 07/20/2022 Procedure Pass [address] [place] [address] Social History Tobacco Use Types Packs/Day Years [...] 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 Not on file Not on file documented as of this encounter Plan of Treatment Upcoming Encounters Date Type Department Care Team (Late st Contact Info) Description 04/15/2025 2:00 PM EST Office Visit [facility] Neurology [address] [place] [address] Sundar Vázquez MD [address] [place] [address], 2nd [place] [address] 05/06/2025 9:00 AM EST Office Visit [facility] Rheumatology 22 [place] [address] Nancy Baptiste MD [address] [place] [address], [address] [place] [address] documented as of this encounter Visit Diagnoses Not on filedocumented in this encounter Care Teams Physical Geographer Relationship Specialty Start Date End Date Lis Mcdonald NP [address] [place] [address] [email or web address] PCP - General Family Medicine 01/27/22 08/15/23 Naa Colindres MD [address] [place] [address] PCP - General Family Medicine 08/16/23 Catalina Borden, [address] [address] iCMP Social Work 04/14/20 03/24/23 Tariq Yang MD [address] [place] [address] Insurance Assigned Provider 06/19/22 08/28/22 Brenda Gomez MD [address] [place] [address] [place] [address] [email or web address] Insurance Assigned Provider 08/28/22 01/22/23 Lis Long RN [address] [place] [address] [email or web address] iCMP Supply Assistant 11/11/22 11/28/22 documented as of this encounter Additional Source Comments The information contained in this document represents components of the legal health record. It is not the complete legal health record.[facility]
--- OUTSIDE RECORDS SUMMARY | 2025-01-28 19:52 | XMS_ITS | Encounter Summary ---
Author Organization [facility], Address [address] [place] [address] Phone Care Team Providers Care Healthcare Account Manager Name Role Phone Naa Colindres MD Primary Care Provider [phone] Encounter Details Date Type Department Care Team (Late st Contact Info) Description 09/26/2023 Documentation Only [facility], [address] [place] [address] Collette Stacy [address] [place] [phone] Social History Tobacco Use Types Packs/Day Years [...] on filedocumented in this encounter Care Teams Healthcare Account Manager Relationship Specialty Start Date End Date Naa Colindres MD [address] [place] [address] PCP - General Family Medicine 03/17/23 documented as of this encounter
--- OUTSIDE RECORDS SUMMARY | 2025-01-28 19:52 | XMS_ITS | Encounter Summary ---
Author Organization [facility], Address [address] [place] [address] Phone Care Team Providers Care Whey Department Operator Name Role Phone Naa Colindres MD Primary Care Provider [phone] Encounter Details Date Type Department Care Team (Late st Contact Info) Description 12/10/2022 Documentation Only [facility], [facility] Dr Jane [facility] [address] [place] [phone] Jeffery [place] MD [address] [place] [address] [place] [phone] Social History Tobacco Use Types Packs/Day Years [...] on filedocumented in this encounter Care Teams Whey Department Operator Relationship Specialty Start Date End Date Naa Colindres MD [address] [place] [address] PCP - General Family Medicine 03/17/23 documented as of this encounter
--- OUTSIDE RECORDS SUMMARY | 2025-01-28 19:52 | XMS_ITS | Encounter Summary ---
Author Organization [facility] Address [address] [address] Phone Care Team Providers Care Employee Development Director Name Role Phone Catalina Borden ADVERTISING INTERNSHIP Unavailable [email or web address] Lis Mcdonald NP Primary Care Pro vider Brenda Gomez MD Unavailable [phone] Lis Long RN Unavailable Naa Colindres MD Primary Care Provider + [phone] Encounter Details Date Type Department Care Team (Late st Contact Info) Description 08/30/2022 Transcribe Orders [facility] [address] [place] [address] Lis Mcdonald NP [address] [place] [address] [email or web address] Social History Tobacco Use Types Packs/Day [...] 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 Not on file Not on file documented as of this encounter Plan of Treatment Upcoming Encounters Date Type Department Care Team (Late st Contact Info) Description 04/15/2025 2:00 PM EST Office Visit [facility] Neurology [address] [place] [address] Sundar Vázquez MD [address] [place] [address], 2nd [place] [address] 05/06/2025 9:00 AM EST Office Visit [facility] Rheumatology [address] [place] [address] Nancy Baptiste MD [address] [place] [address], [address] [place] [address] documented as of this encounter Visit Diagnoses Not on filedocumented in this encounter Care Teams Employee Development Director Relationship Specialty Start Date End Date Lis Mcdonald NP [address] [place] [address] [email or web address] PCP - General Family Medicine 01/27/22 08/15/23 Naa Colindres MD [address] [place] [address] PCP - General Family Medicine 08/16/23 Catailna Borden, [address] [address] [facility] Social Work 04/14/20 03/24/23 Brenda Gomez MD [address] [place] [address] [email or web address] Insurance Assigned Provider 08/28/22 01/22/23 Lis Long RN [address] [place] [address] [email or web address] iCMP Reeling And Tubing Machine Operator 11/11/22 11/28/22 documented as of this encounter Additional Source Comments The information contained in this document represents components of the legal health record. It is not the complete legal health record.[facility]
--- OUTSIDE RECORDS SUMMARY | 2025-01-28 19:52 | XMS_ITS | Encounter Summary ---
Author Organization [employer] Address [address] [facility] [address] 7t [place] [address] Care Team Providers Care Applications Processor Name Role Phone Naa Colindres MD Primary Care Provider [phone] [employer] Encounter Details Date Type Department Care Team (Late st Contact Info) Description 09/23/2023 Orders Only [facility] [address] [place] [address] Naa Colindres MD [address] [place] [address] Social History Tobacco Use Types Packs/Day Years [...] Description 02/16/2025 9:20 AM EDT Office Visit [facility] MEDICAL 70 [place] [address] Naa Colindres MD 70 [place] [address] 04/02/2025 10:30 AM EST Office Visit [facility] MEDICAL [address] [place] [address] Jodi Miller MD [address] [place] [address] documented as of this encounter Procedures Procedure [...] documented as of this encounter Care Teams Applications Processor Relationship Specialty Start Date End Date Naa Colindres MD 70 [place] [address] PCP - General Family Medicine 09/03/22 Reji Cedillo 12/12/24 12/26/24 documented as of this encounter
--- OUTSIDE RECORDS SUMMARY | 2025-01-28 19:52 | XMS_ITS | Encounter Summary ---
Author Organization [facility], Address [address] [place] [address] Phone Care Team Providers Care Alteration Inspector Name Role Phone Naa Colindres MD Primary Care Provider [phone] Encounter Details Date Type Department Care Team (Late st Contact Info) Description 09/22/2023 Documentation Only [facility], [address] [place] [address] Collette Stacy [address] [place] [phone] Social History Tobacco Use Types Packs/Day Years [...] on filedocumented in this encounter Care Teams Alteration Inspector Relationship Specialty Start Date End Date Naa Colindres MD [address] [place] [address] PCP - General Family Medicine 03/17/23 documented as of this encounter
--- OUTSIDE RECORDS SUMMARY | 2025-01-28 19:52 | XMS_ITS | Encounter Summary ---
Author Organization [employer] Address 75 [facility] 7t [place] [address] Care Team Providers Care County Program Technician Name Role Phone Naa Colindres MD Primary Care Provider [phone] Reji Cedillo Encounter Details Date Type Department Care Team (Late st Contact Info) Description 09/29/2023 Orders Only [facility] MED[facility] [address] [place] [address] [facility] 70 [place] [address] Chronic low back pain with right-sided sciatica, [...] Description 02/16/2025 9:20 AM EDT [facility] MED[facility] [address] [place] [address] Naa Colindres MD 70 [place] [address] 04/02/2025 10:30 AM EST Office Visit [facility] MEDICAL 73 [place] [address] Jodi Miller MD [address] [place] [address] documented as of this encounter Visit Diagnoses Diagnosis Chronic low back pain with right-sided sciatica, unspecified back pain laterality Nausea and vomiting, unspecified vomiting type Gastroesophageal reflux disease without esophagitis Esophageal reflux documented in this encounter Additional Health Concerns Assessment Noted Time PHQ-9 Depression Total Score: 24 023 10:06 AM EDT documented as of this encounter Care Teams County Program Technician Relationship Specialty Start Date End Date Naa Colindres MD 70 [place] [address] PCP - General Family Medicine 09/03/22 Reji Cedillo 12/12/24 12/26/24 documented as of this encounter
--- OUTSIDE RECORDS SUMMARY | 2025-01-28 19:52 | XMS_ITS | Encounter Summary ---
Author Organization [facility], Address [address] [place] [address] Phone Care Team Providers Care Railroad Carman Name Role Phone Naa Colindres MD Primary Care Provider [phone] Encounter Details Date Type Department Care Team (Late st Contact Info) Description 12/15/2022 Documentation Only [facility], [facility] [address] Jane [facility] [address] [place] [phone] Jeffery [place] MD [address] [place] [address] [place] [phone] Social History Tobacco Use Types Packs/Day Years [...] on filedocumented in this encounter Care Teams Railroad Carman Relationship Specialty Start Date End Date Naa Colindres MD [address] [place] [address] PCP - General Family Medicine 03/17/23 documented as of this encounter
--- OUTSIDE RECORDS SUMMARY | 2025-01-28 19:52 | XMS_ITS | Encounter Summary ---
Author Organization [employer] Address [address] [facility] [address] 7t [place] [address] Care Team Providers Care Boom Truck Driver Name Role Phone Naa Colindres MD Primary Care Provider [phone] DavicheriReji gaming Encounter Details Date Type Department Care Team (Late st Contact Info) Description 05/21/2024 Orders Only [facility] [address] [place] [address] Naa Colindres MD 70 [place] [address] Social History Tobacco Use Types Packs/Day Years [...] Description 02/16/2025 9:20 AM EDT Office Visit [facility] MEDICAL [address] [place] [address] Naa Colindres MD 70 [place] [address] 04/02/2025 10:30 AM EST Office Visit [facility] MEDICAL 73 [place] [address] Jodi Miller MD [address] [place] [address] documented as of this encounter Procedures Procedure [...] documented as of this encounter Care Teams Boom Truck Driver Relationship Specialty Start Date End Date Naa Colindres MD 70 [place] [address] PCP - General Family Medicine 09/03/22 Reji Cedillo 12/12/24 12/26/24 documented as of this encounter
--- OUTSIDE RECORDS SUMMARY | 2025-01-28 19:52 | XMS_ITS | Encounter Summary ---
Author Organization [facility] Address [address] [place] [address] Phone Care Team Providers Care Crane Mechanic Name Role Phone Tariq Yang MD Unavailable + Jo Galan Primary Care Provider [phone] Janneth Waller DO Unavailable + Tariq Yang MD Unavailable + Catalina Borden BOOTMAKER HAND Unavailable [email or web address] Brenda Gomez MD Unavailable + Unknown, Unknown Primary Care Provider Lis Lobo NP Primary Care Pro vider + Tariq Yang MD Unavailable + Brenda Gomez MD Unavailable +[phone] Lis Long RN Unavailable Naa Colindres MD Primary Care Provider + [phone] Reason for Referral * MRI/CAT Scan - Closed Specialty Diagnoses / Procedures Referred By Contfranklin t Referred To Contact Radiology Diagnoses Intervertebral disc disorders with radiculopathy, lumbar region Procedures MRI Lumbar Spine Piter Kendrick DO Phone: tel: fax: [email or web address] Referral ID Status Reason Start Date Expiration Date Visits Re quested Visits Authorized [id number] Closed 01/24/2019 01/25/2020 1 1 Encounter Details Date Type Department Care Team (Latest Contact Info) Description 01/31/2019 Ancillary Orders Virtual Department [address] [place] [address] Piter Kendrick DO [address] [place] [address] [email or web address] Intervertebral disc disorders with radiculopathy, lumbar region [...] 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 Not on file Not on file documented as of this encounter Plan of Treatment Upcoming Encounters Date Type Department Care Team (Late st Contact Info) Description 04/15/2025 2:00 PM EST Office Visit [facility] Neurology [address] [place] [address] Sundar Vázquez MD [address] [place] [address], 2nd [place] [address] 05/06/2025 9:00 AM EST Office Visit [facility] Rheumatology [address] [place] [address] Nancy Baptiste MD [address] [place] [address], [address] [place] [address] [email or web address] Scheduled Orders Name Type Priority Associated Diagnoses Orde r Schedule MRI Lumbar Spine Imaging Routine Intervertebral disc disorders with radiculopathy, lumbar region 1 Occurrences starting 01/31/2019 until 05/02/2019 documented as of this encounter Visit Diagnoses Diagnosis Intervertebral disc disorders with radiculopathy, lumbar region documented in this encounter Care Teams Crane Mechanic Relationship Specialty Start Date End Date Jo Galan PA [address] [place] [address] [email or web address] PCP - General 09/20/18 01/21/22 Unknown, Unknown, PCP - General 01/22/22 01/26/22 Lis Mcdonald NP [address] [place] [address] [email or web address] PCP - General Family Medicine 01/27/22 08/15/23 Naa Colindres MD [address] [place] [address] [email or web address] PCP - General Family Medicine 08/16/23 Tariq Yang MD [address] [place] [address] [email or web address] Insurance Assigned Provider 09/17/17 10/20/19 Janneth Waller DO [address] [place] [address] [place] [address] Insurance Assigned Provider 10/20/19 03/22/20 Tariq Yang MD [address] [place] [address] [email or web address] Insurance Assigned Provider 03/22/20 10/19/20 Catalina Borden LCSW [address] [place] [address] [email or web address] iCMP Social Work 04/14/20 03/24/23 Brenda Gomez MD [address] [place] [address] Dr[place], [place] [email or web address] Insurance Assigned Provider 10/19/20 06/19/22 Tariq Yang MD [address] [place] [address] [email or web address] Insurance Assigned Provider 06/19/22 08/28/22 Brenda Gomez MD [address] [place] [address] [place] [address] [email or web address] Insurance Assigned Provider 08/28/22 01/22/23 Lis Long RN [address] [place] [address] iC[employer] Medicine Man 11/11/22 11/28/22 documented as of this encounter Additional Source Comments The information contained in this document represents components of the legal health record. It is not the complete legal health record.[facility]
--- OUTSIDE RECORDS SUMMARY | 2025-01-28 19:52 | XMS_ITS | Encounter Summary ---
Author Organization [employer] Address [address] 7t [place] [address] Care Team Providers Care Lining Repairer Name Role Phone Naa Colindres MD Primary Care Provider [phone] DavicheriReji gaming Encounter Details Date Type Department Care Team (Late st Contact Info) Description 09/26/2023 Orders Only [place] [facility] [address] [place] [address] Naa Colindres MD 70 [place] [address] Social History Tobacco Use Types Packs/Day Years [...] Description 02/16/2025 9:20 AM EDT Office Visit [facility] MEDICAL 70 [place] [address] Naa Colindres MD 70 [place] [address] 04/02/2025 10:30 AM EST Office Visit [facility] MEDICAL [address] [place] [address] Jodi Miller MD [address] [place] [address] documented as of this encounter Procedures Procedure [...] documented as of this encounter Care Teams Lining Repairer Relationship Specialty Start Date End Date Naa Colindres MD 70 [place] [address] PCP - General Family Medicine 09/03/22 Reji Cedillo 12/12/24 12/26/24 documented as of this encounter
--- OUTSIDE RECORDS SUMMARY | 2025-01-28 19:52 | XMS_ITS | Clinical Summary ---
Author Organization [facility], Address [address] [place] [address] Phone Care Team Providers Care Journeyman Powerhouse Operator Name Role Phone Naa Colindres MD Primary Care Provider [phone] Allergies Active Allergy Reactions Criticality Noted Date Comments Penicillins Hives Medium 04/24/2017 Tramadol GI intolerance Low 06/17/2017 Other reaction(s): GI Upset Medications Cholecalciferol (Vitamin D3) 1.25 MG (73035 UT) capsule Take by mouth Acti ve [...] history exists Insurance Medicaid [place] Care Teams Journeyman Powerhouse Operator Relationship Specialty Start Date End Date Naa Colindres MD [address] [place] [address] PCP - General Family Medicine 03/17/23
--- OUTSIDE RECORDS SUMMARY | 2025-01-28 19:52 | XMS_ITS | Encounter Summary ---
Author Organization [facility], Address [address] [place] [address] Phone Care Team Providers Care Diesel Service Technician Name Role Phone Naa Colindres MD Primary Care Provider [phone] Encounter Details Date Type Department Care Team (Late st Contact Info) Description 09/26/2023 Documentation Only [facility], [address] [place] [address] Collette Stacy [address] [place] [phone] Social History Tobacco Use Types Packs/Day Years [...] on filedocumented in this encounter Care Teams Diesel Service Technician Relationship Specialty Start Date End Date Naa Colindres MD [address] [place] [address] PCP - General Family Medicine 03/17/23 documented as of this encounter
--- OUTSIDE RECORDS SUMMARY | 2025-01-28 19:52 | XMS_ITS | Encounter Summary ---
Author Organization [facility] [place], Address [address] [place] [address] Phone Care Team Providers Care Associate Consulting Engineer Name Role Phone Naa Colindres MD Primary Care Provider [phone] Encounter Details Date Type Department Care Team (Late st Contact Info) Description 12/13/2022 Documentation Only [facility], [facility] Dr Jane [facility] [address] [place] [phone] Jeffery Tyler MD [address] [place] [address] [place] [phone] Social History Tobacco Use Types Packs/Day Years [...] on filedocumented in this encounter Care Teams Associate Consulting Engineer Relationship Specialty Start Date End Date aNa Colindres MD [address] [place] [address] PCP - General Family Medicine 03/17/23 documented as of this encounter
--- OUTSIDE RECORDS SUMMARY | 2025-01-28 19:52 | XMS_ITS | Encounter Summary ---
Author Organization [employer] Address [address] [facility] [address] [address] 7t [place] [address] Care Team Providers Care Finance Teacher Name Role Phone Naa Colindres MD Primary Care Provider [phone] Encounter Details Date Type Department Care Team (Late st Contact Info) Description 01/28/2025 Orders Only [place] [facility] [address] [place] [address] Naa Colindres MD [address] [place] [address] Social History Tobacco Use Types Packs/Day Years [...] AM EDT Office Visit [facility] MEDICAL [address] [place] [address] Naa Colindres MD [address] [place] [address] 04/02/2025 10:30 AM EST Office Visit [facility] MEDICAL [address] [place] [address] Jodi Miller MD 73 [place] [address] documented as of this encounter Procedures Procedure Name Priority Date/Time Associated Diagnosis Comments CT ABDOMEN PELVIS W CONTRAST Routine 01/26/2025 9:[address] ANGIOGRAM CHEST INTERPRETATION Routine 01/26/2025 9:21 AM EDT ECG 12-LEAD Routine 01/25/2025 9:23 AM EDT COMPREHENSIVE METABOLIC PANEL Routine 01/25/2025 9:23 AM EDT US LOWER EXTREMITY VEIN LEFT Routine 01/25/2025 9:20 AM EDT documented in this encounter Results * CT Abdomen Pelvis w/ Contrast (01/26/2025 9:22 AM EDT) Anatomical Region Laterality Modality Body, Pelvis, Abdomen Computed T omography us Naa Colindres MD IMG CT PROCEDURES Final Result * CT angiogram chest interpretation (01/26/2025 9:21 AM EDT) Anatomical Region Laterality Modality Computed Tomogra phy us Naa Colindres MD IMG CT PROCEDURES Final Result * ECG 12 lead (01/25/2025 9:23 AM EDT) Naa Colindres MD ECG ORDERABLES Final Result * Comprehensive Metabolic Panel (01/25/2025 9:23 AM EDT) Blood Venous blood specimen / Unknown us Naa Colindres MD LAB BLOOD ORDERABLES Final Res ult * US LOWER EXTREMITY VEIN LEFT (01/25/2025 9:20 AM EDT) Anatomical Region Laterality Modality Ultrasound Naa Colindres MD IMG US PROCEDURES Final Result documented in this encounter Visit Diagnoses Not on filedocumented in this encounter Additional Health Concerns Assessment Noted Time PHQ-9 Depression Total Score: 24 023 10:06 AM EDT documented as of this encounter Care Teams Finance Teacher Relationship Specialty Start Date End Date Naa Colindres MD [address] [place] [address] PCP - General Family Medicine 09/03/22 documented as of this encounter
--- OUTSIDE RECORDS SUMMARY | 2025-01-28 19:52 | XMS_ITS | Encounter Summary ---
Author Organization [facility] [place], Address [address] [place] [address] Phone Care Team Providers Care Stonecutter Hand Name Role Phone Naa Colindres MD Primary Care Provider [phone] Encounter Details Date Type Department Care Team (Late st Contact Info) Description 09/27/2023 Documentation Only [facility], [address] [place] [address] Collette Stacy [address] [place] [phone] Social History Tobacco Use Types Packs/Day Years [...] on filedocumented in this encounter Care Teams Stonecutter Hand Relationship Specialty Start Date End Date Naa Colindres MD [address] [place] [address] PCP - General Family Medicine 03/17/23 documented as of this encounter
--- OUTSIDE RECORDS SUMMARY | 2025-01-28 19:52 | XMS_ITS | Encounter Summary ---
Author Organization [facility] Address [address] [place] [address] Phone Care Team Providers Care Vehicle Care Specialist Name Role Phone Catalina Borden HEALTH INFORMATION SPECIALIST Unavailable [email or web address] Brenda Gomez MD Unavailable [phone] Lis Mcdonald BODS DEVELOPER Primary Care Pro vider Tariq Yang MD Unavailable [phone] Brenda Gomez MD Unavailable [phone] Lis Long RN Unavailable Naa Colindres MD Primary Care Provider [phone] Encounter Details Date Type Department Care Team (Late st Contact Info) Description 05/21/2022 Procedure Pass [facility] [address] [place] [address] Social History Tobacco Use Types Packs/Day Years [...] 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 Not on file Not on file documented as of this encounter Functional Status * Calculated C-SSRS Risk Score (Lifetime/Recent) Answer Date of Assessment Author No Risk Indicated 05/21/2022 11:34 AM Nadja Ratliff RN * [place] Suicide Severity Rating Scale (Screener/Recent Self-Report) Question [...] Description 04/15/2025 2:00 PM EST Office Visit [facility] Neurology [address] [place] [address] Sundar Vázquez MD [address] [place] [address], 2nd [place] [address] [email or web address] 05/06/2025 9:00 AM EST Office Visit [facility] Rheumatology [address] [place] [address] Nancy Baptiste MD [address] [place] [address], [address] [place] [address] documented as of this encounter Visit Diagnoses Not on filedocumented in this encounter Care Teams Vehicle Care Specialist Relationship Specialty Start Date End Date Lis Mcdonald NP [address] [place] [phone] [email or web address] PCP - General Family Medicine 01/27/22 08/15/23 Naa Colindres MD [address] [place] [address] [email or web address] PCP - General Family Medicine 08/16/23 Catalina Borden HEALTH INFORMATION SPECIALIST [address] [place] [phone] [email or web address] iCMP Social Work 04/14/20 03/24/23 Brenda Gomez MD [address] [place] [address] [place] [address] [email or web address] Assigned Provider 10/19/20 06/19/22 Tariq Yang MD [address] [place] [address] [email or web address] Insurance Assigned Provider 06/19/22 08/28/22 Brenda Gomez MD [address] [place] [address] [place] [address] [email or web address] Assigned Provider 08/28/22 01/22/23 Lis Long, FLAVIA [address] [place] [address] [email or web address] iCMP Facilities Flight Check Pilot 11/11/22 11/28/22 documented as of this encounter Additional Source Comments The information contained in this document represents components of the legal health record. It is not the complete legal health record.[facility]
--- OUTSIDE RECORDS SUMMARY | 2025-01-28 19:52 | XMS_ITS | Encounter Summary ---
Author Organization [employer] Address [address] [facility] [address] 7t [place] [address] Care Team Providers Care Vehicle Delivery Worker Name Role Phone Naa Colindres MD Primary Care Provider [phone] DavicheriReji gaming Encounter Details Date Type Department Care Team (Late st Contact Info) Description 09/22/2023 Orders Only [place] [facility] [address] [place] [address] Naa Colindres MD 70 [place] [address] Social History Tobacco Use Types Packs/Day Years [...] Description 02/16/2025 9:20 AM EDT Office Visit [facility] MED[facility] 70 [place] [address] Naa Colindres MD 70 [place] [address] 04/02/2025 10:30 AM EST Office Visit [facility] MEDICAL 73 [place] [address] Jodi iMller MD 73 [place] [address] documented as of this encounter Procedures Procedure [...] Blood Venous blood specimen / Unknown Result [facility] Naa Colindres MD LAB BLOOD ORDERABLES Final Res ult * Microalbumin, Random Urine w/Creatinine (09/21/2023 10:32 AM EDT) Urine (Urine, Random) Result [facility] Naa Colindres MD LAB URINE ORDERABLES Final Res ult * PTH, INTACT (09/21/2023 10:31 AM EDT) Result [facility] Naa Colindres MD LAB BLOOD ORDERABLES Final Res ult * HIV-1/2 Antigen and Antibodies, Fourth Generation, with Reflexes (09/21/2023 9:58 AM EDT) Blood Venous blood specimen / Unknown Result [facility] Naa Colindres MD LAB BLOOD ORDERABLES Final Res ult * Hepatitis C Ab (09/21/2023 9:57 AM EDT) Blood Result [facility] Naa Colindres MD LAB BLOOD ORDERABLES Final Res ult * CBC auto differential (09/21/2023 9:56 AM EDT) Blood Venous blood specimen / Unknown Result [facility] us Naa Colindres MD LAB BLOOD ORDERABLES Final Res ult documented in this encounter Visit Diagnoses Not on filedocumented in this encounter Additional Health Concerns Assessment Noted Time PHQ-9 Depression Total Score: 24 05/2 023 10:06 AM EDT documented as of this encounter Care Teams Vehicle Delivery Worker Relationship Specialty Start Date End Date Naa Colindres MD [address] [place] [address] PCP - General Family Medicine 09/03/22 Reji Cedillo 12/12/24 12/26/24 documented as of this encounter
--- OUTSIDE RECORDS SUMMARY | 2025-01-28 19:52 | XMS_ITS | Encounter Summary ---
Author Organization [employer] Address [address] [facility] 7t [place] [address] Care Team Providers Care Film Inspector Name Role Phone Naa Colindres MD Primary Care Provider [phone] NguyenReji Reason for Visit * Reason Onset Date Comments Med Refill 05/13/2024 Encounter Details Date Type Department Care Team (Late st Contact Info) Description 05/13/2024 Refill [place] [facility] MEDICAL [address] [place] [address] Naa Colindres MD [address] [place] [address] Alopecia areata, unspecified; Hidradenitis suppurativa; Mood disorder [...] Description 02/16/2025 9:20 AM EDT Office Visit [place] [facility] MEDICAL [address] [place] [address] Naa Colindres MD 70 [place] [address] 04/02/2025 10:30 AM EST Office Visit [facility] MEDICAL [address] [place] [address] Jodi Miller MD [address] [place] [address] documented as of this encounter Visit Diagnoses [...] documented as of this encounter Care Teams Film Inspector Relationship Specialty Start Date End Date Naa Colindres MD 70 [place] [address] PCP - General Family Medicine 09/03/22 Reji Cedillo 12/12/24 12/26/24 documented as of this encounter
--- OUTSIDE RECORDS SUMMARY | 2025-01-28 19:52 | XMS_ITS | Encounter Summary ---
Author Organization [facility] [place], Address [address] [place] [address] Phone Care Team Providers Care Party Plan Salesperson Name Role Phone Naa Colindres MD Primary Care Provider [phone] Encounter Details Date Type Department Care Team (Late st Contact Info) Description 09/26/2023 Documentation Only [facility], [address] [place] [address] Collette Stacy [address] [place] [phone] Social History Tobacco Use Types Packs/Day Years [...] on filedocumented in this encounter Care Teams Party Plan Salesperson Relationship Specialty Start Date End Date Naa Colindres MD [address] [place] [address] PCP - General Family Medicine 03/17/23 documented as of this encounter
--- OUTSIDE RECORDS SUMMARY | 2025-01-28 19:52 | XMS_ITS | Encounter Summary ---
Author Organization [facility] [place], Address [address] [place] [address] Phone Care Team Providers Care Mastic Sprayer Name Role Phone Naa Colindres MD Primary Care Provider [phone] Encounter Details Date Type Department Care Team (Late st Contact Info) Description 12/13/2022 Documentation Only [facility], [facility] Dr Jane [facility] [address] [place] [phone] Jeffery Tyler MD [address] [place] [address] [place] [phone] Social History Tobacco Use Types Packs/Day Years [...] on filedocumented in this encounter Care Teams Mastic Sprayer Relationship Specialty Start Date End Date Naa Colindres MD [address] [place] [address] PCP - General Family Medicine 03/17/23 documented as of this encounter
--- OUTSIDE RECORDS SUMMARY | 2025-01-28 19:52 | XMS_ITS | Encounter Summary ---
Author Organization [employer] Address [address] [facility] [address] 7t [place] [address] Care Team Providers Care Filler Room Attendant Name Role Phone Naa Colinders MD Primary Care Provider [phone] DavicheriReji gaming Encounter Details Date Type Department Care Team (Late st Contact Info) Description 09/29/2023 Orders Only [facility] MEDICAL [address] [place] [address] Naa Colindres MD 70 [place] [address] Foreign body in right foot, subsequent encounter [...] Description 02/16/2025 9:20 AM EDT Office Visit [facility] MEDICAL [address] [place] [address] Naa Colindres MD 70 [place] [address] 04/02/2025 10:30 AM EST Office Visit [facility] MEDICAL [address] [place] [address] Jodi Miller MD 73 [place] [address] documented as of this encounter Visit Diagnoses Diagnosis Foreign body in right foot, subsequent encounter documented in this encounter Additional Health Concerns Assessment Noted Time PHQ-9 Depression Total Score: 24 023 10:06 AM EDT documented as of this encounter Care Teams Filler Room Attendant Relationship Specialty Start Date End Date Naa Colindres MD [address] [place] [address] PCP - General Family Medicine 09/03/22 Reji Cedillo 12/12/24 12/26/24 documented as of this encounter
--- OUTSIDE RECORDS SUMMARY | 2025-01-28 19:52 | XMS_ITS | Encounter Summary ---
Author Organization [facility] Address [address] [address] Phone Care Team Providers Care Rd Mechanical Engineer Name Role Phone AsherCatalina potts Masood RADIO TIME SALES SUPERVISOR Unavailable [email or web address] Lis Mcdonald NP Primary Care Pro vider Brenda Gomez MD Unavailable [phone] Lis Long RN Unavailable Naa Colindres MD Primary Care Provider [phone] Encounter Details Date Type Department Care Team (Late st Contact Info) Description 11/05/2022 Procedure Pass [facility] Admitting Dept Virtual Department [address] [place] [address] Social History Tobacco Use Types Packs/Day Years [...] Description 04/15/2025 2:00 PM EST Office Visit [facility] Neurology [address] [place] [address] Sundar Vázquez MD [address] [place] [address], 2nd [place] [address] 05/06/2025 9:00 AM EST Office Visit [facility] Rheumatology [address] [place] [address] Nancy Baptiste MD [address] [place] [address], [address] [place] [address] [email or web address] documented as of this encounter Visit Diagnoses Not on filedocumented in this encounter Care Teams Rd Mechanical Engineer Relationship Specialty Start Date End Date Lis Mcdonald NP [address] [place] [address] [email or web address] PCP - General Family Medicine 01/27/22 08/15/23 Naa Colindres MD [address] [place] [address] PCP - General Family Medicine 08/16/23 Catalina Borden, RADIO TIME SALES SUPERVISOR [address] [place] [address] iCMP Social Work 04/14/20 03/24/23 Brenda Gomez MD [address] [place] [address] [place] [address] [email or web address] [email or web address] Provider 08/28/22 01/22/23 Lis Long RN [address] [place] [address] [email or web address] [facility] Machine Tender Cork Gasket 11/11/22 11/28/22 documented as of this encounter Additional Source Comments The information contained in this document represents components of the legal health record. It is not the complete legal health record.[facility]
--- OUTSIDE RECORDS SUMMARY | 2025-01-28 19:52 | XMS_ITS | Encounter Summary ---
Author Organization [facility] Address [address] [place] [address] [place] [address] Phone Care Team Providers Care Digital Marketing Coordinator Name Role Phone Jo Galan Primary Care Provider [phone] Tariq Yang MD Unavailable +[phone] Catalina Borden FOUNDATION RELATIONS MANAGER Unavailable [email or web address] Brenda Gomez MD Unavailable [phone] Unknown, Unknown Primary Care Provider Lis Lobo NP Primary Care Pro vider Tariq Yang MD Unavailable [phone] Brenda Gomez MD Unavailable [phone] Lis Logn RN Unavailable Naa Colindres MD Primary Care Provider + [phone] Encounter Details Date Type Department Care Team (Latest Contact Info) Description 06/03/2020 Transcribe Orders [facility] [address] [place] [phone] Claudia Richardson PA [address] [facility] [address] [place] [address] [email or web address] Suppurative hidradenitis (Primary Dx) Social History Tobacco [...] 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 Not on file Not on file Not on file documented as of this encounter Plan of Treatment Upcoming Encounters Date Type Department Care Team (Late st Contact Info) Description 04/15/2025 2:00 PM EST Office Visit [facility] Neurology [address] [place] [address] [place] [address] Sundar Vázquez MD [address] [place] [address], 2nd [place] [address] [email or web address] 05/06/2025 9:00 AM EST Office Visit [facility] Rheumatology [address] [place] [address] [place] [address] Nancy Baptiste MD [address] [place] [address], [address] [place] [address] [email or web address] documented as of this encounter Results * Quantiferon-TB Gold (06/09/2020 9:22 AM EST) [facility] QuantiFERON-TB Gold Negative Negative [facility] Comment: (NOTE) No [...] MED/PATH [facility]PERIOR Mitogen minus Nil >10.00 IU/mL [facility] MED/PATH [place] Nil Result 0.02 IU/mL [facility] MED/PATH [place] Blood 06/09/2020 9:22 AM EST 06/09/2020 9:29 AM EST us Claudia [facility] BLOOD ORDERABLES Final R esult [facility] MED/PATH [place] [address] [place] [address] * (ABNORMAL) Comprehensive metabolic panel (06/03/2020 10:02 AM EST) SODIUM 141 133 - 146 mmol/L [facility] POTASSIUM 4.3 3.3 - 5.1 mmol/L [facility] CHLORIDE 107 96 - 108 mmol/L [facility] CO2 26 21 - 35 mmol/L [facility] BUN 10 6 - 19 mg/dL [facility] CREATININE 0.60 0.5 - 1.5 mg/dL [facility] GLUCOSE 105(H) 70 - 99 mg/dL [facility] ALBUMIN 3.6(L) 3.9 - 4.8 g/dL [facility] TOTAL PROTEIN 6.7 6.5 - 8.0 g/dL [facility] CALCIUM 9.3 8.4 - 10.3 mg/dL [facility] ALKALINE PHOSPHATASE 58 39 - 117 U/L [facility] TOTAL BILIRUBIN 0.2 0.0 - 1.2 mg/dL [facility] AST 25 0 - 37 U/L [facility] ALT 19 0 - 40 U/L [facility] GLOBULIN 3.1 1 - 4.8 g/dL [facility] EGFR 118 >59 mL/min/1.7 3m2 [facility] Comment:Estimated glomerular filtration rate calculated using the CKD-EPI equation. ANION GAP 12 10 - 20 mmol/L [facility] Blood 06/03/2020 10:0 2 AM EST 06/03/2020 10:05 AM EST us Claudia [facility] BLOOD ORDERABLES Final R esult [facility] [address] [place] [address] * (ABNORMAL) CBC and differential (06/03/2020 10:02 AM EST) WBC 13.95(H) 4.00 - 11.00 K/uL [facility] Comment:Note Reference Range updates to all CBC and Differential results. RBC 4.28 3.72 - 5.30 M/uL [facility] HGB 13.7 10.6 - 15.5 g/dL [facility] Comment:Note updated Referen ce Ranges for all CBC and Differential results. HCT 40.8 32.0 - 45.0 % [facility] PLT 296 140 - 430 K/uL [facility] MCV 95.3 78.0 - 97.0 fL [facility] MCH 32.0 25.0 - 33.0 pg [facility] MCHC 33.6 32.0 - 36.0 g/dL [facility] RDW 13.3 11.0 - 16.0 % [facility] MPV 12.5 8.4 - 12.8 fl [facility] NRBC 0.00 0 /100 WBCs [facility] ABSOLUTE NRBC 0.00 0 K/uL [facility] DIFF METHOD Auto [facility] NEUTS 70.7 43.0 - 75.0 % [facility] LYMPHS 19.7 18.2 - 47.4 % [facility] MONOS 5.4 4.00 - 11.00 % [facility] EOS 3.6 0.0 - 8.0 % [facility] BASOS 0.4 0.0 - 2.0 % [facility] Granulocytes, immature (%) 0.2 0.0 - 0.9 % [facility] ABSOLUTE NEUTS 9.86(H) 1.80 - 7.70 K/uL [facility] ABSOLUTE LYMPHS 2.75 1.00 - 3.10 K/uL [facility] ABSOLUTE MONOS 0.75 0.20 - 0.80 K/uL [facility] ABSOLUTE EOS 0.50 0.00 - 0.80 K/uL [facility] ABSOLUTE BASOS 0.06 0.00 - 0.09 K/uL [facility] Granulocytes, immature 0.03 0.00 - 0.05 K/uL [facility] Blood 06/03/2020 10:0 2 AM EST 06/03/2020 10:05 AM EST Claudia [facility] BLOOD ORDERABLES Final R esult Performing Organization Address City/[facility]/ZIP Co de Phone Number [address] [address] * Hepatitis B core antibody, total (06/03/2020 10:02 AM EST) HEP B CORE AB, TOT NON-REACTI VE NON-REACTI VE [facility] Blood 06/03/2020 10:0 2 AM EST 06/03/2020 10:05 AM EST Claudia [facility] LAB BLOOD ORDERABLES Final R esult Performing Organization Address [facility]/ZIP Co de Phone Number [address] [address] * HEPATITIS A ANTIBODY, TOTAL (06/03/2020 10:02 AM EST) HAV TOTAL AB NON-REACTI VE NON-REACTI VE [facility] Blood 06/03/2020 10:0 2 AM EST 06/03/2020 10:05 AM EST Claudia [facility] BLOOD ORDERABLES Final R esult Performing Organization Address City/[facility]/ZIP Co de Phone Number [address] [address] * Hepatitis B surface antibody (06/03/2020 10:02 AM EST) HBV SURFACE ANTIBODY Negative [facility] Comment: Unvaccinated: Negative Vaccinated: Positive Blood 06/03/2020 10:0 2 AM EST 06/03/2020 10:05 AM EST Claudia [facility] BLOOD ORDERABLES Final R esult [address] [address] * Hepatitis B surface antigen (06/03/2020 10:02 AM EST) HBV SURFACE ANTIGEN NON-REACTI VE NON-REACTI VE [facility] Blood 06/03/2020 10:0 2 AM EST 06/03/2020 10:05 AM EST Claudia [facility] BLOOD ORDERABLES Final R esult Performing Organization Address City/[facility]/ZIP Co de Phone Number [address] [address] * Hepatitis C antibody, qualitative (06/03/2020 10:02 AM EST) HCV NON-REACTIV E NON-REACTI VE [facility] Blood 06/03/2020 10:0 2 AM EST 06/03/2020 10:05 AM EST Claudia [facility] BLOOD ORDERABLES Final R esult Performing Organization Address City/[facility] Co de Phone Number [address] [address] documented in this encounter Visit Diagnoses Diagnosis Suppurative hidradenitis- Primary Hidradenitis documented in this encounter Care Teams Digital Marketing Coordinator Relationship Specialty Start Date End Date Jo Galan PA [address] [place] [phone] [email or web address] PCP - General 09/20/18 01/21/22 Unknown, MD Lucita PCP - General 01/22/22 01/26/22 Lis Mcdonald NP [address] [place] [phone] [email or web address] PCP - General Family Medicine 01/27/22 08/15/23 Naa Colindres MD [address] [place] [address] [email or web address] PCP - General [facility] Medicine 08/16/23 Tariq Yang MD [address] [place] [phone] [email or web address] Insurance Assigned Provider 03/22/20 10/19/20 Catalina Borden, [address] [address] [email or web address] Work 04/14/20 03/24/23 Brenda Gomez MD [address] [place] [address] [place] [address] [email or web address] Assigned Provider 10/19/20 06/19/22 Tariq Yang MD [address] [place] [phone] [email or web address] Insurance Assigned Provider 06/19/22 08/28/22 Brenda Gomez MD [address] [place] [address] [place] [address] [email or web address] Insurance Assigned Provider 08/28/22 01/22/23 Lis Long RN [address] [place] [address] [email or web address] Master 11/11/22 11/28/22 documented as of this encounter Additional Source Comments The information contained in this document represents components of the legal health record. It is not the complete legal health record.[facility]
--- OUTSIDE RECORDS SUMMARY | 2025-01-28 19:52 | XMS_ITS | Encounter Summary ---
Author Organization [facility], Address [address] [place] [address] Phone Care Team Providers Care Hair Baler Name Role Phone Naa Colindres MD Primary Care Provider [phone] Encounter Details Date Type Department Care Team (Late st Contact Info) Description 09/22/2023 Documentation Only [facility], [address] [place] [address] Collette Stacy [address] [place] [phone] Social History Tobacco Use Types Packs/Day Years [...] on filedocumented in this encounter Care Teams Hair Baler Relationship Specialty Start Date End Date Naa Colindres MD [address] [place] [phone] PCP - General Family Medicine 03/17/23 documented as of this encounter
--- OUTSIDE RECORDS SUMMARY | 2025-01-28 19:52 | XMS_ITS | Encounter Summary ---
Author Organization [facility] Address [address] [place] [address] Phone Care Team Providers Care Certified Prosthetist Vice President Name Role Phone Catalina Borden CREDIT ADMINISTRATION MANAGER Unavailable [email or web address] Brenda Gomez MD Unavailable [phone] Lis Mcdonald CLOTHING SALES ASSISTANT Primary Care Pro vider Tariq Yang MD Unavailable [phone] Brenda Gomez MD Unavailable [phone] Lis Long RN Unavailable Naa Colindres MD Primary Care Provider [phone] Encounter Details Date Type Department Care Team (Late st Contact Info) Description 05/18/2022 Procedure Pass [facility], Ct Scan - [facility] [address] [place] [address] Social History Tobacco Use Types Packs/Day Years [...] 05/21/2022 11:34 AM Nadja Ratliff RN * [place] Suicide Severity Rating Scale (Screener/Recent Self-Report) Question [...] Description 04/15/2025 2:00 PM EST Office Visit [facility] Neurology [address] [place] [address] Sundar Vázquez MD [address] [place] [address], 2nd [place] [address] [email or web address] 05/06/2025 9:00 AM EST Office Visit [facility] Rheumatology [address] [place] [address] Nancy Baptiste MD [address] [place] [address], [address] [place] [address] documented as of this encounter Visit Diagnoses Not on filedocumented in this encounter Care Teams Certified Prosthetist Vice President Relationship Specialty Start Date End Date Lis Mcdonald NP [address] [place] [phone] [email or web address] PCP - General Family Medicine 01/27/22 08/15/23 Naa Colindres MD [address] [place] [address] PCP - General Family Medicine 08/16/23 Catalina Borden LCSW [address] [place] [email or web address] Work 04/14/20 03/24/23 Brenda Gomez MD [address] [place] [address] [place] [address] [email or web address] Insurance Assigned Provider 10/19/20 06/19/22 Tariq Yang MD [address] [place] [address] [place] [address] [email or web address] Insurance Assigned Provider 06/19/22 08/28/22 Brenda Goemz MD [address] [place] [address] [place] [address] [email or web address] Assigned Provider 08/28/22 01/22/23 Lis Long, FLAVIA [address] [place] [address] [email or web address] Satellite Television Installer 11/11/22 11/28/22 documented as of this encounter Additional Source Comments The information contained in this document represents components of the legal health record. It is not the complete legal health record.[facility]
--- OUTSIDE RECORDS SUMMARY | 2025-01-28 19:52 | XMS_ITS | Encounter Summary ---
Author Organization [facility], Address [address] [place] [address] Phone Care Team Providers Care Cardiology Consultant Name Role Phone Naa Colindres MD Primary Care Provider [phone] Encounter Details Date Type Department Care Team (Late st Contact Info) Description 12/10/2022 Documentation Only [facility], [facility] Dr Jane [facility] [address] [place] [phone] Jeffery Tyler MD [address] [place] [address] [place] [phone] Social History Tobacco Use Types Packs/Day Years [...] on filedocumented in this encounter Care Teams Cardiology Consultant Relationship Specialty Start Date End Date Naa Colindres MD [address] [place] [address] PCP - General Family Medicine 03/17/23 documented as of this encounter
--- OUTSIDE RECORDS SUMMARY | 2025-01-28 19:52 | XMS_ITS | Encounter Summary ---
Author Organization [facility], Address [address] [place] [address] Phone Care Team Providers Care Installation Tech Name Role Phone Naa Colindres MD Primary Care Provider Encounter Details Date Type Department Care Team (Late st Contact Info) Description 09/26/2023 Documentation Only [facility], [address] [place] [address] Collette Stacy [address] [place] [phone] Social History Tobacco Use Types Packs/Day Years [...] on filedocumented in this encounter Care Teams Installation Tech Relationship Specialty Start Date End Date Naa Colindres MD [address] [place] [address] PCP - General Family Medicine 03/17/23 documented as of this encounter
--- OUTSIDE RECORDS SUMMARY | 2025-01-28 19:52 | XMS_ITS | Encounter Summary ---
Author Organization [facility], Address [address] [place] [address] Phone Care Team Providers Care Roofing Contractor Name Role Phone Naa Colindres MD Primary Care Provider [phone] Encounter Details Date Type Department Care Team (Late st Contact Info) Description 09/22/2023 Documentation Only [facility], [address] [place] [address] Collette Stacy [address] [place] [phone] Social History Tobacco Use Types Packs/Day Years [...] on filedocumented in this encounter Care Teams Roofing Contractor Relationship Specialty Start Date End Date Naa Colindres MD [address] [place] [address] PCP - General Family Medicine 03/17/23 documented as of this encounter
--- OUTSIDE RECORDS SUMMARY | 2025-01-28 19:52 | XMS_ITS | Encounter Summary ---
Author Organization [employer] Address [address] [facility] [address] 7t [place] [address] Care Team Providers Care Bicycle Ii Assembler Name Role Phone Naa Colindres MD Primary Care Provider Reason for Visit * Reason Onset Date Comments ER Follow-up 01/28/2025 Encounter Details Date Type Department Care Team (Late st Contact Info) Description 01/28/2025 Telephone [facility] MED[facility] [address] [place] [address] Ophelia Hurley LPN ER Follow-up Social History Tobacco Use Types Packs/Day Years [...] Encounter - Ophelia Hurley LPN - 01/28/2025 8:30 AM EDT Portal message from pt: Yesterday I was at the [place] emergency room and today I'm in the [place] emergency room. Please request records documented in this encounter Plan of Treatment Upcoming Encounters Date Type Department Care Team (Late st Contact Info) Description 02/16/2025 9:20 AM EDT Office Visit [facility] MEDICAL [address] [place] [address] Naa Colindres MD [address] [place] [address] 04/02/2025 10:30 AM EST Office Visit [facility] MEDICAL [address] [place] [address] Jodi Miller MD [address] [place] [address] documented as of this encounter Visit Diagnoses Not on filedocumented in this encounter Additional Health Concerns Assessment Noted Time PHQ-9 Depression Total Score: 24 023 10:06 AM EDT documented as of this encounter Care Teams Bicycle Ii Assembler Relationship Specialty Start Date End Date Naa Colindres MD [address] [place] [address] PCP - General Family Medicine 09/03/22 documented as of this encounter
--- OUTSIDE RECORDS SUMMARY | 2025-01-28 19:52 | XMS_ITS | Encounter Summary ---
Author Organization [facility], Address [address] [place] [address] Phone Care Team Providers Care Loss Prevention And Safety Manager Name Role Phone Naa Colindres MD Primary Care Provider [phone] Encounter Details Date Type Department Care Team (Late st Contact Info) Description 12/16/2022 Documentation Only [facility], [facility] Dr Jane [facility] [address] [place] [phone] Jeffery Tyler MD [address] [place] [address] [place] [phone] Social History Tobacco Use Types Packs/Day Years [...] on filedocumented in this encounter Care Teams Loss Prevention And Safety Manager Relationship Specialty Start Date End Date Naa Colindres MD [address] [place] [address] PCP - General Family Medicine 03/17/23 documented as of this encounter
--- OUTSIDE RECORDS SUMMARY | 2025-01-28 19:52 | XMS_ITS | Encounter Summary ---
Author Organization [facility], Address [address] [place] [address] Phone Care Team Providers Care Booky Name Role Phone Naa Colindres MD Primary Care Provider [phone] Encounter Details Date Type Department Care Team (Late st Contact Info) Description 09/22/2023 Documentation Only [facility], [address] [place] [address] Collette Stacy [address] [place] [phone] Social History Tobacco Use Types Packs/Day Years [...] on filedocumented in this encounter Care Teams Booky Relationship Specialty Start Date End Date Naa Colindres MD [address] [place] [address] PCP - General Family Medicine 03/17/23 documented as of this encounter
== END 2025-01-28 14:57 | disposition home or self-care (01) ==
LOC: HO.HNS 14:23
PROVIDERS: PCP Family Medicine; Visit Provider Physician Assistant
DX: Z98.1 Arthrodesis status (principal)
CPT/HCPCS: 99024

== ENCOUNTER → 2025-01-28 14:23 | Outpatient (BNVA) | payer MEDICAID, SELFPAY | PROVIDERS: PCP Family Medicine; Visit Provider Physician Assistant | DX: Z98.1 Arthrodesis status (principal) | CPT/HCPCS: 99212 ==

== ENCOUNTER 2025-02-14 08:39 | Outpatient (REF) | payer MEDICAID, SELFPAY ==
--- NOTE | ~2025-02-14 | XR_ITS ---
Examination: 4 view lumbar spine TECHNIQUE: AP, and lateral: Flexion, neutral, and extension view x-rays of the lumbar spine. INDICATION: M51.369 - Other intervertebral disc degeneration, lumbar region Prior: October 15, 2024 FINDINGS: Posterior pedicle screws and rods are present at L4-5 with interbody spacer. There are 5 non-rib bearing lumbar segments. Vertebral body height and alignment is preserved. T12-L1: There is mild disc space narrowing and minute anterior osteophytes L1-L2: There is mild disc space narrowing and minute anterior osteophytes L2-L3: There is minimal disc space narrowing L3-L4: Unremarkable L4-L5: The level is surgically fused. There is no subsidence of interbody spacer. There is no lucency at the interface of hardware bone. There is subtle retrolisthesis without instability. L5-S1: Unremarkable XR/XR lumbar spine 4V min IMPRESSION: PLIF L4-5 with interbody spacer. No instability. Mild degenerative disc disease otherwise. Electronically signed by: Maxim Pedro MD 02/14/2025 10:15 AM EDT
--- OUTSIDE RECORDS SUMMARY | 2025-02-14 08:59 | XMS_ITS | Encounter Summary ---
Author Organization [facility], Address [address] [place] [address] Phone Care Team Providers Care Appliance Tester Name Role Phone Naa Colindres MD Primary Care Provider [phone] Encounter Details Date Type Department Care Team (Late st Contact Info) Description 12/10/2022 Documentation Only [facility], [facility] [place] [address] [facility] [address] [place] [phone] Jeffery Tyler MD [address] [place] [address] [place] [phone] Social History Tobacco Use Types Packs/Day Years [...] on filedocumented in this encounter Care Teams Appliance Tester Relationship Specialty Start Date End Date Naa Colindres MD [address] [place] [address] PCP - General Family Medicine 03/17/23 documented as of this encounter
--- OUTSIDE RECORDS SUMMARY | 2025-02-14 08:59 | XMS_ITS | Encounter Summary ---
Author Organization [employer] Address [address] [facility] 7t [place] [address] Care Team Providers Care Computer Graphic Designer Name Role Phone Naa Colindres MD Primary Care Provider [email or web address] Reason for Visit * Reason Comments Med Change Request Encounter Details Date Type Department Care Team (Late st Contact Info) Description 03/31/2023 Refill Ashley [facility] [address] [place] [address] Naa Colindres MD [address] [place] [address] Fibromyalgia Social History Tobacco Use Types Packs/Day [...] Description 02/16/2025 9:20 AM EDT Office Visit [facility] MEDICAL [address] [place] [address] Naa Colindres MD [address] [place] [address] 04/02/2025 10:30 AM EST Office Visit [facility] MEDICAL [address] [place] [address] Jodi Miller MD [address] [place] [address] documented as of this encounter Visit Diagnoses Diagnosis Fibromyalgia Unspecified myalgia and myositis documented in this encounter Additional Health Concerns Assessment Noted Time PHQ-9 Depression Total Score: 24 023 10:06 AM EDT documented as of this encounter Care Teams Computer Graphic Designer Relationship Specialty Start Date End Date Naa Colindres MD [address] [place] [address] PCP - General Family Medicine 09/03/22 Reji Cedillo 12/12/24 12/26/24 documented as of this encounter
--- OUTSIDE RECORDS SUMMARY | 2025-02-14 08:59 | XMS_ITS | Encounter Summary ---
Author Organization [facility], Address [address] [place] [address] Phone Care Team Providers Care Fiberglass Boat Finisher Name Role Phone Naa Colindres MD Primary Care Provider [phone] Encounter Details Date Type Department Care Team (Late st Contact Info) Description 12/08/2022 Documentation Only [facility], - Megan [address] [facility] [address] [place] [address] Lis Mcdonald, COFFIN MAKER [address] [place] [phone] Social History Tobacco Use Types Packs/Day Years [...] on filedocumented in this encounter Care Teams Fiberglass Boat Finisher Relationship Specialty Start Date End Date Naa Colindres MD [address] [place] [address] PCP - General Family Medicine 03/17/23 documented as of this encounter
--- OUTSIDE RECORDS SUMMARY | 2025-02-14 08:59 | XMS_ITS | Encounter Summary ---
Author Organization [facility], Address [address] [place] [address] Phone Care Team Providers Care Ticker Installer Name Role Phone Naa Colindres MD Primary Care Provider [phone] Encounter Details Date Type Department Care Team (Late st Contact Info) Description 12/09/2022 Documentation Only [facility], - Megan [address] [facility] [address] [place] [address] Lis Mcdonald, BRIQUETTE OPERATOR [address] [place] [phone] Social History Tobacco Use Types Packs/Day Years [...] on filedocumented in this encounter Care Teams Ticker Installer Relationship Specialty Start Date End Date Naa Colindres MD [address] [place] [address] PCP - General Family Medicine 03/17/23 documented as of this encounter
--- OUTSIDE RECORDS SUMMARY | 2025-02-14 08:59 | XMS_ITS | Encounter Summary ---
Author Organization [facility], Address [address] [place] [address] Phone Care Team Providers Care Portal Developer Name Role Phone Naa Colindres MD Primary Care Provider [phone] Encounter Details Date Type Department Care Team (Late st Contact Info) Description 12/09/2022 Documentation Only [facility], [facility] [place] [address] [facility] [place] [address] [place] [address] Jeffery Tyler MD [address] [place] [address] [place] [phone] Social History Tobacco Use Types Packs/Day Years [...] on filedocumented in this encounter Care Teams Portal Developer Relationship Specialty Start Date End Date Naa Colindres MD [address] [place] [address] PCP - General Family Medicine 03/17/23 documented as of this encounter
--- OUTSIDE RECORDS SUMMARY | 2025-02-14 08:59 | XMS_ITS | Encounter Summary ---
Author Organization [facility] [place], Address [address] [place] [address] Phone Care Team Providers Care Sheet Metal Foreman Name Role Phone Naa Colindres MD Primary Care Provider [phone] Encounter Details Date Type Department Care Team (Late st Contact Info) Description 12/10/2022 Documentation Only [facility], [facility] [place] [address] [facility] [address] [place] [phone] Jeffery Tyler MD [address] [place] [address] [place] [phone] Social History Tobacco Use Types Packs/Day Years [...] on filedocumented in this encounter Care Teams Sheet Metal Foreman Relationship Specialty Start Date End Date Naa Colindres MD [address] [place] [address] PCP - General Family Medicine 03/17/23 documented as of this encounter
--- OUTSIDE RECORDS SUMMARY | 2025-02-14 08:59 | XMS_ITS | Encounter Summary ---
Author Organization [facility] [place], Address [address] [place] [address] Phone Care Team Providers Care Neonatal Pediatric Nurse Name Role Phone Naa Colindres MD Primary Care Provider [phone] Encounter Details Date Type Department Care Team (Late st Contact Info) Description 12/10/2022 Documentation Only [facility], [facility] [place] [address] [facility] [address] [place] [phone] Jeffery Tyler MD [address] [place] [address] [place] [phone] Social History Tobacco Use Types Packs/Day Years [...] on filedocumented in this encounter Care Teams Neonatal Pediatric Nurse Relationship Specialty Start Date End Date Naa Colindres MD [address] [place] [address] PCP - General Family Medicine 03/17/23 documented as of this encounter
--- OUTSIDE RECORDS SUMMARY | 2025-02-14 09:00 | XMS_ITS | Encounter Summary ---
Author Organization [employer] Address [address] [facility] [address] [place] [address] Care Team Providers Care Expressive Art Therapist Name Role Phone Naa Colindres MD Primary Care Provider [phone] [employer] gaming Encounter Details Date Type Department Care Team (Late st Contact Info) Description 2024 Orders Only [place] [facility] [address] [place] [address] Naa Colindres MD [address] [place] [address] Social History Tobacco Use Types Packs/Day Years [...] 02/16/2025 9:20 AM EDT Office [facility] MEDICAL [address] [place] [address] Naa Colindres MD [address] [place] [address] 04/02/2025 10:30 AM EST Office Visit [facility] MEDICAL [address] [place] [address] Jodi Miller MD [address] [place] [address] documented as of this encounter Procedures Procedure [...] documented as of this encounter Care Teams Expressive Art Therapist Relationship Specialty Start Date End Date Naa Colindres MD [address] [place] [address] PCP - General Family Medicine 09/03/22 Reji Cedillo 12/12/24 12/26/24 documented as of this encounter
--- OUTSIDE RECORDS SUMMARY | 2025-02-14 09:00 | XMS_ITS | Encounter Summary ---
Author Organization [facility], Address [address] [place] [address] Phone Care Team Providers Care Hatchery Supervisor Name Role Phone Naa Colindres MD Primary Care Provider [phone] Encounter Details Date Type Department Care Team (Late st Contact Info) Description 12/09/2022 Documentation Only [facility], [facility] [place] [address] [facility] [address] [place] [address] Jeffery Tyler MD [address] [place] [address] [place] [phone] Social History Tobacco Use Types Packs/Day Years [...] on filedocumented in this encounter Care Teams Hatchery Supervisor Relationship Specialty Start Date End Date Naa Colindres MD [address] [place] [address] PCP - General Family Medicine 03/17/23 documented as of this encounter
--- OUTSIDE RECORDS SUMMARY | 2025-02-14 09:00 | XMS_ITS | Encounter Summary ---
Author Organization [facility], Address [address] [place] [address] Phone Care Team Providers Care Felt Pad Cutter Name Role Phone Naa Colindres MD Primary Care Provider [phone] Encounter Details Date Type Department Care Team (Late st Contact Info) Description 12/10/2022 Documentation Only [facility], [facility] [place] [address] [facility] [address] [place] [phone] Jeffery Tyler MD [address] [place] [address] [place] [phone] Social History Tobacco Use Types Packs/Day Years [...] on filedocumented in this encounter Care Teams Felt Pad Cutter Relationship Specialty Start Date End Date Naa Colindres MD [address] [place] [address] PCP - General Family Medicine 03/17/23 documented as of this encounter
--- OUTSIDE RECORDS SUMMARY | 2025-02-14 09:00 | XMS_ITS | Clinical Summary ---
Author Organization [facility] Address [address] [address] Phone Care Team Providers Care Silver Buffer Name Role Phone Naa Colindres MD Primary [...] bedtime. 30 tablet 10/03/19 25 Active rizatriptan (MAXALT-SPOUT LINER HELPER) 10 MG disintegrating tabletIndications: Intractable migraine without [...] (three) times a day. 120 capsule 10/03/19 Active lidocaine-prilocai ne (EMLA) cream Apply topically as needed (for surgical site). Apply to surgical derooing site 1 hour before procedure and cover with saran wrap 30 g 10/03/19 25 Active acetaminophen (TYLENOL) 500 MG tablet Take 2 tablets (1,000 mg total) by mouth every 8 (eight) hours as needed for pain (specific location in comments). 30 tablet 10/03/19 Active HYDROcodone-acetam inophen (NORCO) 5-325 mg per tablet Take 2 tablets by mouth every 6 (six) hours as needed. 10/06/19 Active galcanezumab-gnlm (EMGALITY SYRINGE) 120 mg/mL subcutaneous syringeIndications :Intractable migraine without aura and with status migrainosus Inject 1 mL (120 mg total) under the skin every 30 (thirty) days. 1 mL 10/16/19 Active HIBICLENS 4 % external liquid APPLY TOPICALLY DAILY. USE WASH DAILY IN SHOWER ON AREAS OF LESIONS 236 mL 12/13/19 Active tiZANidine (ZANAFLEX) 4 MG tablet Take 4 mg by mouth nightly at bedtime as needed. 12/11/19 Active Active Problems Problem Noted Date Diagnosed [...] of 38.0 to 38.9 in adult 01/03/2025 Assessment & Plan (01/29/2025 11:17 AM EDT): Continue diligent portion control particularly in view of gaining 2 pounds from 271 on 07/25/2024 up to 273 today. Limit concentrated sugars, saturated fats and calories in the diet. Keep well-hydrated. If unable to achieve expected goal consider formal dietary/nutritional support. Trochanteric bursitis of left hip 07/25/2024 Patchy [...] daily as prescribed. Follow-up with PCP and retail sales lead as scheduled Assessment & Plan (09/23/2023 7:35 AM EDT): Avoid late, large, spicy meals. Keep headboard elevated at 45 angle for nighttime. Carefully continue sucralfate 1 tablet 4 times daily and omeprazole 20 mg daily as prescribed. Follow-up with PCP and retail sales lead as scheduled Assessment & Plan (06/01/2022 10:38 [...] etc. Hidradenitis suppurativa 02/08/2022 Assessment & Plan (01/29/2025 11:20 AM EDT): Once reviewed with prescribing mixing machine attendant at [facility] and spine surgeon at [facility] restart Cosentyx 300 mg every 14 days & close follow-up as scheduled. Assessment & Plan (07/25/2024 3:01 PM EDT): Continue Cosentyx 300 mg every 14 days as prescribed by treating mixing machine attendant at [facility] & close follow-up as scheduled. Assessment & Plan (09/23/2023 7:31 AM EDT): Continue Cosentyx 300 mg every 14 days as prescribed by treating mixing machine attendant at [facility] & close follow-up as scheduled. Assessment & Plan (06/01/2022 10:38 AM EST): Continue close follow-up with treating mixing machine attendant as scheduled. 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 Due to her overwhelming headache, [...] suggested her warm pool therapy [facility] [place] versus [facility] versus [facility]. Due to her overwhelming headache, [...] suggested her warm pool therapy [facility] [place] versus [facility] versus [facility]. Due to her overwhelming headache, [...] suggested her warm pool therapy [facility] [place] versus [facility] versus [facility]. Due to her overwhelming headache, [...] suggested her warm pool therapy [facility] [place] versus [facility] versus [facility] Intractable migraine with aura without [...] ng/ml. Tobacco dependence 12/01/2020 Assessment & Plan (01/29/2025 11:16 AM EDT): I have spent at least [...] free telephonic service for cigarette smoking cessation: [id number] Assessment & Plan (07/25/2024 3:00 PM EDT): [...] free telephonic service for cigarette smoking cessation: -NOW Assessment & Plan (09/23/2023 7:27 AM EDT): [...] free telephonic service for cigarette smoking cessation: -NOW Assessment & Plan (06/01/2022 10:41 AM EST): [...] not believe repeat screening was done at PCP/[facility] [place]. We will add her to recall list [...] Visit [facility] [address] [place] [address] Natali Tillman, PT PT OASIS DISCHARGE NON VISIT/TELEPHONE 01/03/2025 2:30 PM EDT Office Visit [facility] Rheumatology [address] [place] [address] Nancy Baptiste MD Chronic right-sided low back [...] 11:30 AM EDT Home Care Visit [facility] [address] [place] [address] Natali Tillman, PT PT HOME VISIT 12/27/2024 11:30 AM EDT Home Care Visit [facility] [address] [place] [address] Natali Tillman, PT PT HOME VISIT 12/25/2024 2:30 PM EDT Home Care Visit [facility] [address] [place] [address] Natali Tillman, PT PT HOME VISIT 12/20/2024 10:00 AM EDT Home Care Visit [facility] [address] [place] [address] Natali Tillman, PT PT HOME VISIT 12/18/2024 2:00 PM EDT Home Care Visit [facility] [address] [place] [address] Natali Tillman, PT PT HOME VISIT 12/14/2024 1:00 AM EDT Home Care Visit [facility] [address] [place] [address] Gillian Demarco, PT PT HOME VISIT 12/13/2024 2:00 PM EDT Home Care Visit [facility] [address] [place] [phone] Gillian Demarco, PT PT OASIS START OF CARE (SOC) 12/13/2024 Plan of Care Documentation [facility] [address] [place] [phone] 12/13/2024 Home Care Visit [facility] [address] [place] [phone] Gillian Demarco, PT TELEPHONE ENCOUNTER 12/13/2024 Home Care Visit [facility] [address] [place] [phone] Gillian Demarco, PT TELEPHONE ENCOUNTER 12/12/2024 Orders Only [facility] [address] [place] [phone] Homehealth, Interface ProviderMD 12/11/2024 Refill [facility] [address] [phone] Silvina Nixon MD Medication Refill from Last 3 Months Immunizations Immunization Administration [...] Date Smoking Tobacco: Every Day Cigarettes 0.3 8.8 Started: 2016 Smokeless Tobacco: Never Alcohol Use [...] 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 Not on file [...] Description 04/15/2025 2:00 PM EST Office Visit [facility] Neurology [address] [place] [address] Sundar Vázquez MD [address] [place] [address], 2[address] [place] [address] 05/06/2025 9:00 AM EST Office Visit [facility] Rheumatology [address] [place] [address] Nancy Baptiste MD [address] [place] [address], [address] [place] [address] 06/11/2025 3:30 PM EST Office Visit [facility] [address] [facility] 1st [place] [address] Silvina Nixon MD [address] [place] [address] [email or web address] Health Maintenance Due Date Last Done Comments VALPROIC ACID (DEPAKENE) LEVEL 1984 DEPRESSION SCREENING 1996 PNEUMOCOCCAL VACCINES (0-49 years) (1 of 2 - PCV) 10/17/2003 MAMMOGRAM 2024 INFLUENZA VACCINE (#1) 2024 9, 04/25/2018, 05/04/2017, Additional history exists COVID-19 VACCINE ( season) 2025 06/02/2021, 10/23/2020, 10/02/2020 PAP SMEAR 02/17/2025 02/17/2022, 0206/2017, 06/17/2017 SMOKING [...] Name Priority Date/Time Associated Diagnosis Comments HEPATITIS C ANTIBODY, QUALITATIVE Routine 08/06/2024 2:09 PM EDT Vaginal irritation PAP TEST Routine 02/17/2022 12:00 AM EDT from Last 3 Months or Most Recently Relevant to Health Maintenance Results * Hepatitis C antibody, qualitative (08/06/2024 2:09 PM EDT) HCV NON-REACTIV E NON-REACTI VE [facility] Blood 08/06/2024 2:09 PM EDT 08/06/2024 2:13 PM EDT Aurea Graf [facility] BLOOD ORDERABLE S Final Result [address] [address] * Pap Smear (02/17/2022 12:00 AM EDT) 02/17/2022 02/18/2022 9:4 8 AM EDT Narrative SEE NARRATIVE - 02/24/2022 12:53 PM EDT [address] [address] Hospice Entrance Attendant: Chrystal Hartley MD 8TH GRADE MATHEMATICS TEACHER Cytology Report FINAL DIAGNOSIS A. PAP SMEAR [...] 52, 56, 58, 59, 66, 68) by Cirilo Kingman Onclarity HR-HPV analysis. Clinical correlation is advised. This HPV test was performed at [facility], [address] [place] [address]. This test has been FDA approved for [facility] cervical cytology specimens. The accuracy and precision of this test for all other specimen sources has been verified in the Cytopathology Laboratory of the [facility] and has not been cleared or approved by the U.S. Food and Drug Administration. Clinical correlation is advised. CLINICAL HISTORY Date of Last Menstrual Period: 01-31-2022 Other Clinical Conditions: Screening Pap SPECIMEN SOURCE A: PAP SMEAR (SUREPATH) CE Patient Name: WARREN BAIN : 1985 (Age: 36) Sex: F Institution: [facility] Location: [facility] Date of Collection: 02/17/2022 Date of Reported: 02/24/2022 12:53 Results to: Rinku Waterman MD Rinku Waterman MD CYTOLOGY ORDERABLES Final Result SEE NARRATIVE from Last 3 Months or Most Recently Relevant to Health Maintenance Insurance [facility] [address] [place] [address] [place] [address] C3 ACO Advance Directives For more information, please contact: [phone] (9AM - 5PM Yakelin/[facility], Tuesday-Tuesday) * Full Code (Latest Code Status on File) Date Activated Date Inactivated Comments 07/28/2023 1:27 PM Question Answer Comments Code Status Confirmed With: Patient * Full Code (Presumed) Date Activated Date Inactivated Comments 09/19/2018 6:01 PM 09/20/2018 3:00 PM * Full Code (Presumed) Date Activated Date Inactivated Comments 04/25/2017 6:46 PM 04/28/2017 5:50 PM Care Teams Silver Buffer Relationship Specialty Start Date End Date Naa Colindres MD [address] [place] [address] PCP - General Family Medicine 08/16/23 Additional Source Comments The information contained in this document represents components of the legal health record. It is not the complete legal health record.[facility]
--- OUTSIDE RECORDS SUMMARY | 2025-02-14 09:00 | XMS_ITS | Encounter Summary ---
Author Organization [employer] Address [address] 7[address] [place] [address] Care Team Providers Care Medical Equipment Repair Technician Name Role Phone Naa Colindres MD Primary Care Provider [phone] [employer]ji gaming Encounter Details Date Type Department Care Team (Late st Contact Info) Description 04/20/2023 Orders Only [facility] [address] [place] [address] Naa Colindres MD [address] [place] [address] Social History Tobacco Use Types Packs/Day Years [...] 9:20 AM EDT Office Visit [facility] MEDICAL [address] [place] [address] Naa Colindres MD 70 [place] [address] 04/02/2025 10:30 AM EST Office Visit [facility] MEDICAL [address] [place] [address] Jodi Miller MD 73 [place] [address] documented as of this encounter Procedures Procedure Name Priority Date/Time Associated Diagnosis Comments SURESWAB(R), VAGINOSIS/VAGINITIS PLUS Routine 06/23/2023 5:08 PM EST URINALYSIS, COMPLETE, WITH REFLEX TO CULTURE Routine 06/22/2023 2:[address] ABDOMEN PELVIS W CONTRAST Routine 04/03/2023 XR FOOT 3+ VIEWS RIGHT Routine 04/03/2023 documented in this encounter Results * SureSwab??, Vaginosis/Vaginitis Plus (06/23/2023 5:08 PM EST) Bacterial Vaginosis NEGATIVE (NEG) [facility] Comment: No bacterial vaginosis targets by PCR detected in this patient's sample. Note: This assay uses real time chief clinical dietitian-mediated amplification (TMA) for detection and quantification of ribosomal RNA from bacteria associated with bacterial vaginosis (BV), including Lactobacillus (L. gasseri, L. crispatus, and L. jensenii), Gardnerella vaginalis, and Atopobium vaginae. Gato Species Group NEGATIVE (NEG) [facility] Comment: No gato species group (C. albicans, C. tropicalis, C. parapsilosis, C. dubliniensis) targets by PCR detected in this patient's sample. Gato Glabrata NEGATIVE (NEG) [facility] Comment:No Gato glabrata targets by PCR detected in this patient's sample. Trichomonas Vaginalis NEGATIVE (NEG) [facility] Comment: No Trichomonas vaginalis targets by PCR detected in this patient's sample. Note: This assay uses real time chief clinical dietitian-mediated amplification (TMA) for detection and quantification of ribosomal RNA from organisms associated with Gato species group (C. albicans, C. tropicalis, C. parapsilosis, C. dubliniensis), Gato glabrata, and Trichomonas vaginalis. C.Trachomatis Amp Probe NEGATIVE (NEG) [facility] Comment: No Chlamydia Trachomatis RNA detected in this patient's sample (REFERENCE RANGE/NORMAL VALUE: NOT DETECTED) Note: This test uses chief clinical dietitian- mediated amplification method to detect rRNA from C. Trachomatis N.Gonorrhoeae Amp Probe NEGATIVE (NEG) [facility] Comment: No Neisseria Gonorrhoeae RNA detected in this patient's sample (REFERENCE RANGE/NORMAL VALUE: NOT DETECTED) NOTE: This test uses chief clinical dietitian-mediated amplification method to detect rRNA from N.Gonorrhoeae. [...] without risk of sexual abuse. Consult the [facility] if needed. Contact phone number . Therapeutic failure or success cannot be determined with the Aptima Combo2 assay since nucleic acid may persist following appropriate antimicrobial therapy. The Centers for Disease Control and Prevention (CDC) recommends confirmatory retesting using culture or a different nucleic acid amplification test when positive results occur, if indicated. Testing performed or reported by [facility], a Service of [facility], [address] [place] [address] [place] [address] Ulysses Cordova MD, Welfare Manager CLIA# [id number] 06/23/2023 5:08 PM EST 06/23/2023 7:14 PM EST [facility] LAB BODY FLUIDS AND STOOL S ORDERABLES Final Result [facility] [address] [place] [id number] * Urinalysis, Complete, with Reflex to Culture (06/22/2023 2:28 PM EST) Appear/Color LIGHT YELLOW [facility] Comment:CLEAR Sp. Hood 1.021 (1.002-1. 030) [facility] Urine PH 5.5 (5.0-8.0) [facility] Urine Albumin NEGATIVE (NEG) [facility] Urine Glucose NEGATIVE (NEG[facility] Urine Ketones NEGATIVE (NEG) [facility] Urine Bilirubin NEGATIVE (NEG) [facility] Urine Hemoglobn NEGATIVE (NEG) [facility] Urine Nitrite NEGATIVE (NEG) [facility] Urine Leukocyte NEGATIVE (NEG) [facility] Urobilinogen NORMAL (NORM) MG/DL [facility] Urine WBCs 1 (0-5) /HPF [facility] Urine RBCs 1 (0-3) /HPF [facility] Mucus SLIGHT /LPF [facility] Squamous Epith 3 (0-8) /HPF [facility] Clarity CLEAR (CLEAR) [facility] Culture Indication CULTURE NOT INDICATED [facility] Comment: Testing performed or reported by [facility], a Service of [facility], [address] [place] [address] Ulysses Cordova MD, Welfare Manager CLIA# [id number] 06/22/2023 2:28 PM EST 06/22/2023 2:30 PM EST [facility] URINE ORDERABLES Priscilla l Result [facility] [address] [place] [address] * XR Foot 3+ Views Right (04/03/2023) [...] documented as of this encounter Care Teams Medical Equipment Repair Technician Relationship Specialty Start Date End Date Naa Colindres MD [address] [facility] [place] [address] PCP - General Family Medicine 09/03/22 Reji Cedillo 12/12/24 12/26/24 documented as of this encounter
--- OUTSIDE RECORDS SUMMARY | 2025-02-14 09:00 | XMS_ITS | Encounter Summary ---
Author Organization [facility] Address [address] [place] [address] Phone Care Team Providers Care Road Machine Operator Name Role Phone Marciacarlos Catalina Masood CLINICAL DOCUMENTATION MANAGER Unavailable [email or web address] Lis Mcdonald NP Primary Care Pro vider Naa Colindres MD Primary Care Provider Encounter Details Date Type Department Care Team (Latest Contact Info) Description 01/24/2023 Transcribe Orders Virtual Department [address] [place] [address] Alex Oseguera MD [address] [place] [id number] [email or web address] Thoracic spine pain (Primary Dx) Social History [...] 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 Not on file Not on file documented as of this encounter Plan of Treatment Upcoming Encounters Date Type Department Care Team (Late st Contact Info) Description 04/15/2025 2:00 PM EST Office Visit [facility] Neurology [address] [place] [address] Sundar Vázquez MD [address] [place] [address], 2nd [place] [address] 05/06/2025 9:00 AM EST Office Visit [facility] Rheumatology [address] [place] [address] Nancy Baptiste MD [address] [place] [address], [address] [place] [address] 06/11/2025 3:30 PM EST Office Visit [facility] [address] [address] Silvina Nixon MD [address] [place] [address] [email or web address] documented as of this encounter Results * [...] MRI LUMBAR SPINE (NEURO) WITH AND WITHOUT [id number]; XR LUMBOSACRAL SPINE 2-3 VIEWS FINDINGS: ALIGNMENT: [...] spine documented in this encounter Care Teams Road Machine Operator Relationship Specialty Start Date End Date Lis Mcdonald NP [address] [place] [address] [email or web address] PCP - General Family Medicine 01/27/22 08/15/23 Naa Colindres MD [address] [place] [address] [email or web address] PCP - General Family Medicine 08/16/23 Catalina Borden, CLINICAL DOCUMENTATION MANAGER [address] [place] [address] [employer] Social Work 04/14/20 03/24/23 documented as of this encounter Additional Source Comments The information contained in this document represents components of the legal health record. It is not the complete legal health record.[facility]
--- OUTSIDE RECORDS SUMMARY | 2025-02-14 09:00 | XMS_ITS | Encounter Summary ---
Author Organization [facility] Address [address] [place] [address] Phone Care Team Providers Care Foreign Exchange Trader Name Role Phone Marciacarlos Catalina Masood KETTLE FIRER Unavailable [email or web address] Lis Mcdonald NP Primary Care Pro vider Brenda Gomez MD Unavailable [phone] Naa Colindres MD Primary Care Provider [phone] Encounter Details Date Type Department Care Team (Latest Contact Info) Description 01/06/2023 Transcribe Orders Virtual Department [address] [place] [address] Piter Kendrick, DO [address] [place] [address] [email or web address] Right shoulder pain, unspecified chronicity (Primary Dx) [...] 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 Not on file Not on file documented as of this encounter Plan of Treatment Upcoming Encounters Date Type Department Care Team (Late st Contact Info) Description 04/15/2025 2:00 PM EST Office Visit [facility] Neurology [address] [place] [address] Sundar Vázquez MD [address] [place] [address], 2nd [place] [address] 05/06/2025 9:00 AM EST Office Visit [facility] Rheumatology [address] [place] [address] [place] [address] Nancy Baptiste MD [address] [place] [address], [address] [place] [address] 06/11/2025 3:30 PM EST Office Visit [facility] [address] [address] Silvina Nixon MD [address] [place] [address] [email or web address] documented as of this encounter Results * [...] glenohumeral joint space narrowing with marginal spurring. us Piter Kendrick DO IMG XR UPPER EXTREMITY Final Result documented in this encounter Visit Diagnoses Diagnosis Right shoulder pain, unspecified chronicity- Primary documented in this encounter Care Teams Foreign Exchange Trader Relationship Specialty Start Date End Date Lis Mcdonald NP [address] [place] [address] [email or web address] PCP - General Family Medicine 01/27/22 08/15/23 Naa Colindres MD [address] [place] [address] PCP - General Family Medicine 08/16/23 Catalina Borden, KETTLE FIRER [address] [place] [address] iC[employer] Social Work 04/14/20 03/24/23 Brenda Gomez MD [address] [place] [address] [email or web address] Assigned Provider 08/28/22 01/22/23 documented as of this encounter Additional Source Comments The information contained in this document represents components of the legal health record. It is not the complete legal health record.[facility]
--- OUTSIDE RECORDS SUMMARY | 2025-02-14 09:00 | XMS_ITS | Encounter Summary ---
Author Organization [facility] Address [address] [place] [address] Phone Care Team Providers Care Mold Filler Name Role Phone Jo Galan Primary Care Provider [phone] Catalina Borden RESPOOLER Unavailable [email or web address] Brenda Gomez MD Unavailable [phone] Unknown, Unknown Primary Care Provider Lis Lobo MATERIAL CREW SUPERVISOR Primary Care Pro vider Tariq Yang MD Unavailable [phone] Brenda Gomez MD Unavailable [phone] Lis Long RN Unavailable Naa Colindres MD Primary Care Provider [phone] Encounter Details Date Type Department Care Team (Late st Contact Info) Description 02/03/2021 Procedure Pass [address] [place] [address] Social History Tobacco Use Types Packs/Day Years [...] 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 Not on file Not on file documented as of this encounter Plan of Treatment Upcoming Encounters Date Type Department Care Team (Late st Contact Info) Description 04/15/2025 2:00 PM EST Office Visit [facility] Neurology [address] [place] [address] Sundar Vázquez MD 22 [facility], 2nd [place] [address] 05/06/2025 9:00 AM EST Office Visit [facility] Rheumatology [address] [place] [address] Nancy Baptiste MD [address] [place] [address], [address] [place] [address] 06/11/2025 3:30 PM EST Office Visit [facility] [address] [address] Silvina Nixon MD [address] [place] [address] [email or web address] documented as of this encounter Visit Diagnoses Not on filedocumented in this encounter Care Teams Mold Filler Relationship Specialty Start Date End Date Jo Galan PA [address] [place] [address] [email or web address] PCP - General 09/20/18 01/21/22 Unknown, Lucita, PCP - General 01/22/22 01/26/22 Lis Mcdonald NP [address] [place] [address] [email or web address] PCP - General Family Medicine 01/27/22 08/15/23 Naa Colindres MD [address] [place] [address] [email or web address] PCP - General Family Medicine 08/16/23 Catalina Borden, RESPOOLER [address] [place] [address] iC[employer] Social Work 04/14/20 03/24/23 Brenda Gomez MD [address] [place] [address] [place] [address] [email or web address] [email or web address] Provider 10/19/20 06/19/22 Tariq Yang MD [address] [place] [address] Insurance Assigned Provider 06/19/22 08/28/22 Brenda Gomez MD [address] [place] [address] [place] [address] [email or web address] Assigned Provider 08/28/22 01/22/23 Lis Long, RN [address] [place] [address] iCMP Library Clerk [employer] 11/11/22 11/28/22 documented as of this encounter Additional Source Comments The information contained in this document represents components of the legal health record. It is not the complete legal health record.[facility]
--- OUTSIDE RECORDS SUMMARY | 2025-02-14 09:00 | XMS_ITS | Encounter Summary ---
Author Organization [facility], Address [address] [place] [address] Phone Care Team Providers Care Paving Contractor Name Role Phone Naa Colindres MD Primary Care Provider [phone] Encounter Details Date Type Department Care Team (Late st Contact Info) Description 12/09/2022 Documentation Only [facility], - [address] [facility] [address] [place] [address] Lis Mcdonald, PLUMBING SERVICE TECHNICIAN [address] [place] [phone] Social History Tobacco Use Types Packs/Day Years [...] on filedocumented in this encounter Care Teams Paving Contractor Relationship Specialty Start Date End Date Naa Colindres MD [address] [place] [address] PCP - General Family Medicine 03/17/23 documented as of this encounter
--- OUTSIDE RECORDS SUMMARY | 2025-02-14 09:00 | XMS_ITS | Encounter Summary ---
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 Not on file Not on file documented as of this encounter Plan of Treatment Upcoming Encounters Date Type Department Care Team (Late st Contact Info) Description 04/15/2025 2:00 PM EST Office Visit [facility] Neurology 22 [place] [address] Sundar Vázquez MD [address] [place] [address], 2nd [place] [address] [email or web address] 05/06/2025 9:00 AM EST Office Visit [facility] Rheumatology [address] [place] [address] Nancy Baptiste MD [address] [place] [address], [address] [place] [address] [email or web address] 06/11/2025 3:30 PM EST Office Visit [facility] [address] [address] Silvina Nixon MD [address] [place] [address] [email or web address] documented as of this encounter Visit Diagnoses Diagnosis Foreign body in right foot, subsequent encounter- Primary documented in this encounter Care Teams Pizza Chef Relationship Specialty Start Date End Date Lis Mcdonald NP [address] [place] [address] [place] [address] [email or web address] PCP - General Family Medicine 01/27/22 08/15/23 Naa Colindres MD [address] [place] [address] [email or web address] PCP - General Family Medicine 08/16/23 documented as of this encounter Additional Source Comments The information contained in this document represents components of the legal health record. It is not the complete legal health record.[facility]
--- OUTSIDE RECORDS SUMMARY | 2025-02-14 09:00 | XMS_ITS | Encounter Summary ---
Author Organization [employer] Address [address] [facility] 7t [place] [address] Care Team Providers Care Veterans' Counselor Name Role Phone Naa Colindres MD Primary Care Provider [phone] Reason for Visit * Reason Comments Med Refill Encounter Details Date Type Department Care Team (Late st Contact Info) Description 02/09/2025 Refill [facility] MED[facility] [address] [place] [address] Naa Colindres MD [address] [place] [address] PTSD (post-traumatic stress disorder) (Primary Dx) Social History Tobacco Use Types [...] Description 02/16/2025 9:20 AM EDT Office Visit [facility] MEDICAL [address] [place] [address] Naa Colindres MD 70 [place] [address] 04/02/2025 10:30 AM EST Office Visit [facility] MEDICAL [address] [place] [address] Jodi Miller MD [address] [place] [address] documented as of this encounter Visit Diagnoses Diagnosis PTSD (post-traumatic stress disorder)- Primary Posttraumatic stress disorder documented in this encounter Additional Health Concerns Assessment Noted Time PHQ-9 Depression Total Score: 24 023 10:06 AM EDT documented as of this encounter Care Teams Veterans' Counselor Relationship Specialty Start Date End Date Naa Colindres MD [address] [place] [address] PCP - General Family Medicine 09/03/22 documented as of this encounter
--- OUTSIDE RECORDS SUMMARY | 2025-02-14 09:00 | XMS_ITS | Encounter Summary ---
Author Organization [facility] Address [address] [place] [address] Phone Care Team Providers Care Locum Tenens Psychiatrist Name Role Phone Tariq Yang MD Primary Care Provider [phone] Tariq Yang MD Unavailable + Taina Patel Primary Care Provider Jo Galan Primary Care Provider [phone] Janneth Waller DO Unavailable +[phone] Tariq Yang MD Unavailable + Catalina Borden NOTEMAN Unavailable [email or web address] Brenda Gomez MD Unavailable +[phone] Unknown, Unknown Primary Care Provider Lis Lobo NP Primary Care Pro vider Tariq Yang MD Unavailable + Brenda Gomez MD Unavailable +[phone] Lis Long RN Unavailable Naa Colindres MD Primary Care Provider [phone] Encounter Details Date Type Department Care Team (Late st Contact Info) Description 05/30/2017 Ancillary Orders [facility], X-Ray - [address] [place] [address] Piter Kendrick, DO [address] [place] [address] [email or web address] Cervicalgia Social History Tobacco Use Types Packs/Day [...] Description 04/15/2025 2:00 PM EST Office Visit [facility] Neurology [address] [place] [address] Sundar Vázqeuz MD [address] [place] [address], 2nd [place] [address] 05/06/2025 9:00 AM EST Office Visit [facility] Rheumatology [address] [place] [address] Nancy Baptiste MD [address] [place] [address], [address] [place] [address] 06/11/2025 3:30 PM EST Office Visit [facility] [address] [facility] 1st [place] [address] Silvina Nixon MD [address] [place] [address] [email or web address] documented as of this encounter Results * XR CERVICAL SPINE 6 0R MORE VIEWS (05/30/2017 1:05 PM EST) Anatomical Region Laterality Modality C-spine Radiographic Nga ging 05/30/2017 1:32 PM EST Impressions 05/30/2017 1:33 PM EST No significant bony abnormality or evidence of instability. POS [id number] Narrative 05/30/2017 1:33 PM EST COMPARISON: None [...] bony abnormality or evidence of instability. POS [id number] Piter Cooley Aroldo DO IMG XR SPINE Final Result * XR LUMBOSACRAL SPINE MINIMUM 6 VIEWS, INCLUDES BENDING VIEWS (05/30/2017 1:03 PM EST) Anatomical Region Laterality Modality L-spine Radiographic Nga ging 05/30/2017 1:34 PM EST Impressions 05/30/2017 1:35 PM EST Minimal lower lumbar degenerative facet arthropathy without evidence of instability or other significant bony abnormality. POS [id number] Narrative 05/30/2017 1:35 PM EST COMPARISON: None [...] ofinstability or other significant bony abnormality. POS [id number] us Piter Kendrick DO IMG XR SPINE Final Result documented in this encounter Visit Diagnoses Diagnosis Cervicalgia Cervicalgia Cervicalgia documented in this encounter Care Teams Locum Tenens Psychiatrist Relationship Specialty Start Date End Date Tariq Yang MD [address] [place] [address] [email or web address] PCP - General Internal Medicine 05/30/17 06/01/18 Taina Patel PA [address] [place] [address] PCP - General Unknown Provider Specialty 06/02/18 09/19/18 Jo Galan PA [address] [place] [address] [email or web address] PCP - General 09/20/18 01/21/22 Unknown, Lucita, PCP - General 01/22/22 01/26/22 Lis Mcdonald NP [address] [place] [address] [email or web address] PCP - General Family Medicine 01/27/22 08/15/23 Naa Colindres MD [address] [place] [address] [place] [address] [email or web address] PCP - General Family Medicine 08/16/23 Tariq Yang MD [address] [place] [address] [place] [address] [email or web address] Insurance Assigned Provider 09/17/17 10/20/19 Janneth Waller DO [address] [place] [address] [place] [address] [email or web address] Insurance Assigned Provider 10/20/19 03/22/20 Tariq Yang MD [address] [place] [address] [email or web address] Insurance Assigned Provider 03/22/20 10/19/20 Catalina Borden, [address] [address] [email or web address] iCM Social Work 04/14/20 03/24/23 Brenda Gomez MD [address] [place] [address] [place] [address] [email or web address] Insurance Assigned Provider 10/19/20 06/19/22 Tariq Yang MD [address] [place] [address] [email or web address] Insurance Assigned Provider 06/19/22 08/28/22 Brenda Gomez MD [address] [place] [address] [place] [address] [email or web address] Insurance Assigned Provider 08/28/22 01/22/23 Lis Long, RN [address] [place] [address] [email or web address] [employer] Perinatal Educator 11/11/22 11/28/22 documented as of this encounter Additional Source Comments The information contained in this document represents components of the legal health record. It is not the complete legal health record.[facility]
--- OUTSIDE RECORDS SUMMARY | 2025-02-14 09:00 | XMS_ITS | Encounter Summary ---
Author Organization [facility] Address [address] [place] [address] Phone Care Team Providers Care Coupon And Bond Collection Clerk Name Role Phone Jo Galan Primary Care Provider [phone] Catalina Borden [employer] Unavailable [email or web address] Brenda Gomez MD Unavailable [phone] Unknown, Unknown Primary Care Provider Lis Lobo LIFE INSURANCE UNDERWRITER Primary Care Pro vider Tariq Yang MD Unavailable [phone] Brenda Gomez MD Unavailable [phone] Lis Long RN Unavailable Naa Colindres MD Primary Care Provider + [phone] Reason for Referral * MRI/CAT Scan - Closed Specialty Diagnoses / Procedures Referred By Contac t Referred To Contact Radiology Diagnoses Intervertebral disc disorder with radiculopathy of lumbar region Procedures MRI Lumbar Spine Piter Kendrick DO Phone: tel: fax: [email or web address] Referral ID Status Reason Start Date Expiration Date Visits Re quested Visits Authorized [id number] Closed 02/03/2021 11/20/2021 1 1 Encounter Details Date Type Department Care Team (Latest Contact Info) Description 02/03/2021 Transcribe Orders Virtual Department [address] [place] [address] Piter Kendrick, DO [address] [place] [address] [email or web address] Intervertebral disc disorder with radiculopathy of lumbar [...] 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 file Not on file Not on file documented as of this encounter Plan of Treatment Upcoming Encounters Date Type Department Care Team (Late st Contact Info) Description 04/15/2025 2:00 PM EST Office Visit [facility] Neurology [address] [place] [address] Sundar Vázquez MD [address] [place] [address], 2nd [place] [address] 05/06/2025 9:00 AM EST Office Visit [facility] Rheumatology [address] [place] [address] Nancy Baptiste MD [address] [place] [address], [address] [place] [address] 06/11/2025 3:30 PM EST Office Visit [facility] [address] [facility] 1st [place] [address] Silvina Nixon MD [address] [place] [address] [email or web address] documented as of this encounter [...] discherniation, canal or neural foraminal stenosis. us Piter Kendrick DO IMG MR XSPECIALTY Final Resu lt documented in this encounter Visit Diagnoses Diagnosis Intervertebral disc disorder with radiculopathy of lumbar region- Primary Intervertebral disc disorder with radiculopathy of lumbar region documented in this encounter Care Teams Coupon And Bond Collection Clerk Relationship Specialty Start Date End Date Jo Galan PA [address] [place] [address] [email or web address] PCP - General 09/20/18 01/21/22 Unknown, MD Lucita PCP - General 01/22/22 01/26/22 Lis Mcdonald NP [address] [place] [address] [email or web address] PCP - General Family Medicine 01/27/22 08/15/23 Naa Colindres MD [address] [place] [address] [email or web address] PCP - General Family Medicine 08/16/23 Catalina Borden LCSW [address] [place] [address] [email or web address] iCMP Social Work 04/14/20 03/24/23 Brenda Gomez MD [address] [place] [address] [place] [address] [email or web address] Insurance Assigned Provider 10/19/20 06/19/22 Tariq Yang MD [address] [place], [place] [address] [address] [email or web address] Insurance Assigned Provider 06/19/22 08/28/22 Brenda Gomez MD [address] [place] [address] [place] [address] [email or web address] Insurance Assigned Provider 08/28/22 01/22/23 Lis Long, FLAVIA [address] [place] [address] [email or web address] iCMP Zinc Chloride Operator 11/11/22 11/28/22 documented as of this encounter Additional Source Comments The information contained in this document represents components of the legal health record. It is not the complete legal health record.[facility]
--- OUTSIDE RECORDS SUMMARY | 2025-02-14 09:00 | XMS_ITS | Encounter Summary ---
Author Organization [facility], Address [address] [place] [address] Phone Care Team Providers Care Environment Friendly Landscape Designer Name Role Phone Naa Colindres MD Primary Care Provider [phone] Encounter Details Date Type Department Care Team (Late st Contact Info) Description 12/09/2022 Documentation Only [facility], [facility] [employer] [address] [facility] [address] [place] [address] Jeffery Tyler MD [address] [place] [address] [place] [id number] Social History Tobacco Use Types Packs/Day Years [...] on filedocumented in this encounter Care Teams Environment Friendly Landscape Designer Relationship Specialty Start Date End Date Naa Colindres MD [address] [place] [address] PCP - General Family Medicine 03/17/23 documented as of this encounter
--- OUTSIDE RECORDS SUMMARY | 2025-02-14 09:01 | XMS_ITS | Encounter Summary ---
Author Organization [facility] Address [address] [place] [address] Phone Care Team Providers Care Insurance Billing Clerk Name Role Phone Jo Galan Primary Care Provider [phone] Tariq Yang MD Unavailable [phone] Catalina Borden OVERLOCK OPERATOR Unavailable [email or web address] Brenda Gomez MD Unavailable [phone] Unknown, Unknown Primary Care Provider Lis Lobo NP Primary Care Pro vider Tariq Yang MD Unavailable [phone] Brenda Gomez MD Unavailable [phone] Lis Long RN Unavailable Naa Colindres MD Primary Care Provider + [phone] Encounter Details Date Type Department Care Team (Late st Contact Info) Description 06/16/2020 Ancillary Orders Virtual Department [address] [place] [address] Milena Armendariz NP [address] [place] [phone] [email or web address] Pain in thoracic spine; Cervicalgia Social History [...] 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 file Not on file Not on file documented as of this encounter Plan of Treatment Upcoming Encounters Date Type Department Care Team (Late st Contact Info) Description 04/15/2025 2:00 PM EST Office Visit [facility] Neurology [address] [place] [address] [place] [address] Sundar Vázquez MD [address] [place] [address], 2nd [place] [address] 05/06/2025 9:00 AM EST Office Visit [facility] Rheumatology [address] [place] [address] [place] [address] Nancy Baptiste MD [address] [place] [address], [address] [place] [address] 06/11/2025 3:30 PM EST Office Visit [facility] [address] [address] Silvina Nixon MD [address] [place] [address] [email or web address] documented as of this encounter Results * [...] compression deformity or othersource of pain detected. Milena Armendariz NP IMG XR SPINE Final Result * XR [...] of the pain is detected. us Milena Armendariz LAUNCH STEWARD IMG XR SPINE Final Result documented in this encounter Visit Diagnoses Diagnosis Pain in thoracic spine Cervicalgia Cervicalgia Pain in thoracic spine documented in this encounter Care Teams Insurance Billing Clerk Relationship Specialty Start Date End Date Jo Galan PA [address] [place] [address] [email or web address] PCP - General 09/20/18 01/21/22 Unknown, Lucita, PCP - General 01/22/22 01/26/22 Lis Mcdonald NP [address] [place] [address] [email or web address] PCP - General Family Medicine 01/27/22 08/15/23 Naa Colindres MD [address] [place] [address] [email or web address] PCP - General Family Medicine 08/16/23 Tariq Yang MD [address] [place] [address] Insurance Assigned Provider 03/22/20 10/19/20 Catalina Borden LCSW 10 [place] [address] [email or web address] iCMP Social Work 04/14/20 03/24/23 Brenda Gomez MD [address] [place] [address] [place] [address] [email or web address] Insurance Assigned Provider 10/19/20 06/19/22 Tariq Yang MD [address] [place] [address] [email or web address] Insurance Assigned Provider 06/19/22 08/28/22 Brenda Gomez MD [address] [place] [address] [place] [address] [email or web address] Assigned Provider 08/28/22 01/22/23 Lis Long RN [address] [place] [address] [email or web address] [facility] Insurance Commissioner 11/11/22 11/28/22 documented as of this encounter Additional Source Comments The information contained in this document represents components of the legal health record. It is not the complete legal health record.[facility]
--- OUTSIDE RECORDS SUMMARY | 2025-02-14 09:01 | XMS_ITS | Encounter Summary ---
Author Organization [facility] Address [address] [place] [address] Phone Care Team Providers Care Gym Attendant Name Role Phone Jo Galan Primary Care Provider [phone] Catalina Borden CERTIFIED MEDICATION TECHNICIAN Unavailable [email or web address] Brenda Gomez MD Unavailable [phone] Unknown, Unknown Primary Care Provider Lis Lobo INSIDE BARREL LATHE OPERATOR Primary Care Pro vider Tariq Yang MD Unavailable [phone] Brenda Gomez MD Unavailable [phone] Lis Long RN Unavailable Naa Colindres MD Primary Care Provider + [phone] Encounter Details Date Type Department Care Team (Late st Contact Info) Description 07/18/2021 Procedure Pass [facility], Ct Scan - [address] [id number] Social History Tobacco Use Types Packs/Day Years [...] 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 Not on file Not on file documented as of this encounter Functional Status * Calculated C-SSRS Risk Score (Lifetime/Recent) Answer Date of Assessment Author No Risk Indicated 07/18/2021 2:29 PM Nadja Jordan RN * [place] Suicide Severity Rating Scale (Screener/Recent Self-Report) Question [...] Description 04/15/2025 2:00 PM EST Office Visit [facility] Neurology [address] [place] [address] Sundar Vázquez MD [address] [place] [address], 2nd [place] [address] 05/06/2025 9:00 AM EST Office Visit [facility] Rheumatology [address] [place] [address] Nancy Baptiste MD [address] [place] [address], [address] [place] [address] 06/11/2025 3:30 PM EST Office Visit [facility] [address] [address] Silvina Nixon MD 221 [place] [address] [email or web address] documented as of this encounter Visit Diagnoses Not on filedocumented in this encounter Care Teams Gym Attendant Relationship Specialty Start Date End Date Jo Galan PA [address] [place] [address] [email or web address] PCP - General 09/20/18 01/21/22 Unknown, Unknown, MD PCP - General 01/22/22 01/26/22 Lis Mcdonald, JUSTINE [address] [place] [address] [email or web address] PCP - General Family Medicine 01/27/22 08/15/23 Naa Colindres MD [address] [place] [address] [email or web address] PCP - General Family Medicine 08/16/23 Catalina Borden, [address] [address] iCMP Social Work 04/14/20 03/24/23 Brenda Gomez MD [address] [place] [address] [place] [email or web address] Assigned Provider 10/19/20 06/19/22 Tariq Yang MD [address] [place] [address] [email or web address] Insurance Assigned Provider 06/19/22 08/28/22 Brenda Gomez MD [address] [place] [address] [place] [address] [email or web address] Assigned Provider 08/28/22 01/22/23 Lis Long RN [address] [place] [address] [email or web address] iCMP Station Baggage Porter 11/11/22 11/28/22 documented as of this encounter Additional Source Comments The information contained in this document represents components of the legal health record. It is not the complete legal health record.[facility]
--- OUTSIDE RECORDS SUMMARY | 2025-02-14 09:01 | XMS_ITS | Encounter Summary ---
Author Organization [facility] Address [address] [place] [address] Phone Care Team Providers Care Product Manager Financial Services Name Role Phone Tariq Yang MD Unavailable [phone] Taina Patel Primary Care Provider Jo Galan Primary Care Provider [phone] Janneth Waller DO Unavailable +[phone] Tariq Yang MD Unavailable + Catalina Borden TRAIN STATION AGENT Unavailable [email or web address] Brenda Gomez MD Unavailable [phone] Unknown, Unknown Primary Care Provider Lis Lobo COIN MACHINE MECHANIC Primary Care Pro vider Tariq Yang MD Unavailable + Brenda Gomez MD Unavailable [phone] Lis Long RN Unavailable Naa Colindres MD Primary Care Provider + [phone] Encounter Details Date Type Department Care Team (Late st Contact Info) Description 07/06/2018 Procedure Pass [facility], [address] [place] [address] Social History Tobacco Use Types Packs/Day Years [...] 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 Not on file Not on file documented as of this encounter Plan of Treatment Upcoming Encounters Date Type Department Care Team (Late st Contact Info) Description 04/15/2025 2:00 PM EST Office Visit [facility] Neurology [address] [place] [address] [place] [address] Sundar Vázquez MD [address] [place] [address], 2nd [place] [address] 05/06/2025 9:00 AM EST Office Visit [facility] Rheumatology [address] [place] [address] [place] [address] Nancy Baptiste MD [address] [place] [address], [address] [place] [address] 06/11/2025 3:30 PM EST Office Visit [facility] [address] [address] Silvina Nixon MD [address] [place] [address] [email or web address] documented as of this encounter Visit Diagnoses Not on filedocumented in this encounter Care Teams Product Manager Financial Services Relationship Specialty Start Date End Date Taina Patel PA [address] [place] [address] PCP - General Unknown Provider Specialty 06/02/18 09/19/18 Jo Galan PA [address] [place] [address] [email or web address] PCP - General 09/20/18 01/21/22 Unknown, MD Lucita PCP - General 01/22/22 01/26/22 Lis Mcdonald NP [address] [place] [address] [email or web address] PCP - General Family Medicine 01/27/22 08/15/23 Naa Colindres MD [address] [place] [address] [email or web address] PCP - General Family Medicine 08/16/23 Tariq Yang MD [address] [place] [address] [email or web address] Insurance Assigned Provider 09/17/17 10/20/19 Janneth Waller DO [address] [place], [place] [address], [place] Insurance Assigned Provider 10/20/19 03/22/20 Tariq Yang MD [address] [place] [address] [email or web address] Insurance Assigned Provider 03/22/20 10/19/20 Catalina Borden [address] [address] [email or web address] iCM Social Work 04/14/20 03/24/23 Brenda Gomez MD [address] [place] [address] [place] [address] [email or web address] Insurance Assigned Provider 10/19/20 06/19/22 Tariq Yang MD [address] [place] [address] [place] [address] [email or web address] Insurance Assigned Provider 06/19/22 08/28/22 Brenda Gomez MD [address] [place] [address] [place] [address] [email or web address] Insurance Assigned Provider 08/28/22 01/22/23 Lis Long, FLAVIA [address] [place] [address] [email or web address] [facility] Waste Reclaimer 11/11/22 11/28/22 documented as of this encounter Additional Source Comments The information contained in this document represents components of the legal health record. It is not the complete legal health record.[facility]
--- OUTSIDE RECORDS SUMMARY | 2025-02-14 09:01 | XMS_ITS | Encounter Summary ---
Author Organization [facility] Address [address] [place] [address] Phone Care Team Providers Care Logistics Research Engineer Name Role Phone Jo Galan Primary Care Provider [phone] Tariq Yang MD Unavailable +[phone] Catalina Borden LEATHER FITTER Unavailable dadalabtiffany Brenda Gomez MD Unavailable [phone] Unknown, Unknown Primary Care Provider Lis Lobo GRAVITY PROSPECTING OPERATOR Primary Care Pro vider Tariq Yang MD Unavailable +[phone] Brenda Gomez MD Unavailable [phone] Lis Long RN Unavailable Naa Colindres MD Primary Care Provider + [phone] Encounter Details Date Type Department Care Team (Late st Contact Info) Description 09/18/2020 Transcribe Orders [facility] 30 [place] [address] Brenda Gomez MD [address] [place], [place] [email or web address] Social History Tobacco Use Types Packs/Day Years [...] 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 Not on file Not on file documented as of this encounter Plan of Treatment Upcoming Encounters Date Type Department Care Team (Late st Contact Info) Description 04/15/2025 2:00 PM EST Office Visit [facility] Neurology [address] [place] [address] [place] [address] Sundar Vázquez MD [address] [place] [address], 2nd [place] [address] 05/06/2025 9:00 AM EST Office Visit [facility] Rheumatology [address] [place] [address] Nancy Baptiste MD [address] [place] [address], [address] [place] [address] 06/11/2025 3:30 PM EST Office Visit [facility] [address] [address] Silvina Nixon MD 221 [place] [address] [email or web address] documented as of this encounter Visit Diagnoses Not on filedocumented in this encounter Care Teams Logistics Research Engineer Relationship Specialty Start Date End Date Jo Galan PA [address] [place] [address] [email or web address] PCP - General 09/20/18 01/21/22 Unknown, Lucita, PCP - General 01/22/22 01/26/22 Lis Mcdonald NP [address] [place] [address] [email or web address] PCP - General Family Medicine 01/27/22 08/15/23 Naa Colindres MD [address] [place] [address] [email or web address] PCP - General Family Medicine 08/16/23 Tariq Yang MD [address] [place] [address] [email or web address] Insurance Assigned Provider 03/22/20 10/19/20 Catalina Borden, [address] [address] [email or web address] iCM Social Work 04/14/20 03/24/23 Brenda Gomez MD [address] [place] [address] [place] [address] [email or web address] Insurance Assigned Provider 10/19/20 06/19/22 Tariq Yang MD [address] [place] [address] [email or web address] Insurance Assigned Provider 06/19/22 08/28/22 Brenda Gomez MD [address] [place] [address] [place] [address] [email or web address] Insurance Assigned Provider 08/28/22 01/22/23 Lis Long RN [address] [place] [address] [email or web address] Bankruptcy Attorney 11/11/22 11/28/22 documented as of this encounter Additional Source Comments The information contained in this document represents components of the legal health record. It is not the complete legal health record.[facility]
--- OUTSIDE RECORDS SUMMARY | 2025-02-14 09:01 | XMS_ITS | Encounter Summary ---
Author Organization [facility] Address [address] [place] [address] [place] [address] Phone Care Team Providers Care Repairer General Name Role Phone Jo Galan Primary Care Provider [phone] Tariq Yang MD Unavailable +[phone] Catalina Borden DISPATCHER BUS AND TROLLEY Unavailable dadalabar Brenda Gomez MD Unavailable [phone] Unknown, Unknown Primary Care Provider Lis Lobo NP Primary Care Pro vider Tariq Yang MD Unavailable +[phone] Brenda Gomez MD Unavailable [phone] Lis Long RN Unavailable Naa Colindres MD Primary Care Provider + [phone] Encounter Details Date Type Department Care Team (Late st Contact Info) Description 06/19/2020 Transcribe Orders Virtual Department 30 [place] [address] Alma Delia Marks, JUSTINE [address] [place] [address] Travel within last 14 days (Primary Dx) [...] PM EST Office Visit [facility] Neurology 22 [place] [address] Sundar Vázquez MD [address] [place] [address], 2nd [place] [address] [email or web address] 05/06/2025 9:00 AM EST Office Visit [facility] Rheumatology 22 [place] [address] Nancy Baptiste MD [address] [place] [address], [address] [place] [address] 06/11/2025 3:30 PM EST Office Visit [facility] [address] [address] Silvina Nixon MD 221 [place] [address] [email or web address] documented as of this encounter Results * COVID-19 PCR Order (06/20/2020 7:50 AM EST) COVID Testing Status Specimen received in analyzing lab. Results should be available within 24 to 48 hrs. [facility] Symptomatic? NO [facility] 06/20/2020 7:50 AM EST 06/20/2020 10:26 AM EST Alma Delia Marks OPERATIONS LABEL CLERK BODY FLUIDS AND STOOLS ORDER CHEKO Final Result [facility] 30 [place] [address] [facility] [address] [place] [address] documented in this encounter Visit Diagnoses Diagnosis Travel within last 14 days- Primary documented in this encounter Care Teams Repairer General Relationship Specialty Start Date End Date Jo Galan PA [address] [place] [address] [email or web address] PCP - General 09/20/18 01/21/22 Unknown, Lucita, PCP - General 01/22/22 01/26/22 Lis Mcdonald NP [address] [place] [address] [email or web address] PCP - General Family Medicine 01/27/22 08/15/23 Naa Colindres MD [address] [place] [address] PCP - General Family Medicine 08/16/23 Tariq Yang MD [address] [place] [address] Insurance Assigned Provider 03/22/20 10/19/20 Catalina Borden, DISPATCHER BUS AND TROLLEY 10 [place] [address] iCMP Social Work 04/14/20 03/24/23 Brenda Gomez MD [address] [place] [address] [place] [address] [email or web address] Insurance Assigned Provider 10/19/20 06/19/22 Tariq Yang MD [address] [place] [address] [place] [address] [email or web address] Insurance Assigned Provider 06/19/22 08/28/22 Brenda Gomez MD [address] [place] [address] [place] [address] [email or web address] Assigned Provider 08/28/22 01/22/23 Lis Long, RN [address] [place] [address] [email or web address] iCMP Completions Engineer 11/11/22 11/28/22 documented as of this encounter Additional Source Comments The information contained in this document represents components of the legal health record. It is not the complete legal health record.[facility]
--- OUTSIDE RECORDS SUMMARY | 2025-02-14 09:01 | XMS_ITS | Encounter Summary ---
Author Organization [facility] Address [address] [place] [address] Phone Care Team Providers Care Manager Philosophy Name Role Phone Tariq Yang MD Unavailable [phone] Taina Patel PA Primary Care Provider Jo Galan Primary Care Provider [phone] Janneth Waller DO Unavailable [phone] Tariq Yang MD Unavailable + Catalina Borden MARKETING PROGRAMS SPECIALIST Unavailable dadalabtiffany Brenda Gomez MD Unavailable +[phone] Unknown, Unknown Primary Care Provider Lis Lobo CLINICAL INFORMATICS DIRECTOR Primary Care Pro vider Tariq Yang MD Unavailable + Brenda Gomez MD Unavailable [phone] Lis Long RN Unavailable Naa Colindres MD Primary Care Provider + [phone] Encounter Details Date Type Department Care Team (Late st Contact Info) Description 09/19/2018 Procedure Pass [place] Admitting Dept - Virtual Department 30 [place] [address] Social History Tobacco Use Types Packs/Day Years [...] 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 on file Not on file documented as of this encounter Plan of Treatment Upcoming Encounters Date Type Department Care Team (Late st Contact Info) Description 04/15/2025 2:00 PM EST Office Visit [facility] Neurology [address] [place] [address] Sundar Vázquez MD [address] [place] [address], 2nd [place] [address] 05/06/2025 9:00 AM EST Office Visit [facility] Rheumatology [address] [place] [address] [place] [address] Nancy Baptiste MD [address] [place] [address], [address] [place] [address] 06/11/2025 3:30 PM EST Office Visit [facility] [address] [address] Silvina Nixon MD 221 [place] [address] [email or web address] documented as of this encounter Visit Diagnoses Not on filedocumented in this encounter Care Teams Manager Philosophy Relationship Specialty Start Date End Date Taina Patel PA [address] [place] [address] PCP - General Unknown Provider Specialty 06/02/18 09/19/18 Jo aGlan PA [address] [place] [address] [email or web address] PCP - General 09/20/18 01/21/22 Unknown, MD Lucita PCP - General 01/22/22 01/26/22 Lis Mcdonald NP [address] [place] [address] [email or web address] PCP - General Family Medicine 01/27/22 08/15/23 Naa Colindres MD [address] [place] [address] [email or web address] PCP - General Family Medicine 08/16/23 Tariq Yang MD [address] [place] [address] [email or web address] Insurance Assigned Provider 09/17/17 10/20/19 Janneth Waller DO [address] [place], [place] [address]Raine [place], [place] Insurance Assigned Provider 10/20/19 03/22/20 Tariq Yang MD [address] [place] [address] [email or web address] Insurance Assigned Provider 03/22/20 10/19/20 Catalina Borden [address] [address] [email or web address] iCM Social Work 04/14/20 03/24/23 Brenda Gomez MD [address] [place] [address] [place] [address] [email or web address] Insurance Assigned Provider 10/19/20 06/19/22 Tariq Yang MD [address] [place] [address] [place] [address] [email or web address] Insurance Assigned Provider 06/19/22 08/28/22 Brenda Gomez MD [address] [place] [address] [place] [address] [email or web address] Insurance Assigned Provider 08/28/22 01/22/23 Lis Long, FLAVIA [address] [place] [address] [email or web address] [facility] Arbor Press Operator 11/11/22 11/28/22 documented as of this encounter Additional Source Comments The information contained in this document represents components of the legal health record. It is not the complete legal health record.[facility]
--- OUTSIDE RECORDS SUMMARY | 2025-02-14 09:01 | XMS_ITS | Encounter Summary ---
Author Organization [facility] Address [address] [place] [address] [place] [address] Phone Care Team Providers Care Data Network Architect Name Role Phone Catalina Borden COOKER LOADER Unavailable [email or web address] Brenda Gomez MD Unavailable [phone] Lis Mcdonald NEON PUMPER Primary Care Pro vider Tariq Yang MD Unavailable [phone] Brenda Gomez MD Unavailable [phone] Lis Long RN Unavailable Naa Colindres MD Primary Care Provider + [phone] Encounter Details Date Type Department Care Team (Late st Contact Info) Description 03/05/2022 Transcribe Orders [facility] [address] [place] [address] Quinton Morales MD 22 [facility], [address] [place], [place] [phone] [email or web address] Social History Tobacco Use Types Packs/Day Years [...] 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 Not on file Not on file documented as of this encounter Plan of Treatment Upcoming Encounters Date Type Department Care Team (Late st Contact Info) Description 04/15/2025 2:00 PM EST Office Visit [facility] Neurology 22 [place] [address] Sundar Vázquez MD [address] [place] [address], 2nd [place] [address] 05/06/2025 9:00 AM EST Office Visit [facility] Rheumatology [address] [place] [address] Nancy Baptiste MD [address] [place] [address], [address] [place] [address] 06/11/2025 3:30 PM EST Office Visit [facility] [address] [address] Silvina Nixon MD 221 [place] [address] [email or web address] documented as of this encounter Visit Diagnoses Not on filedocumented in this encounter Care Teams Data Network Architect Relationship Specialty Start Date End Date Lis Mcdonald NP [address] [place] [address] [place] [address] [email or web address] PCP - General Family Medicine 01/27/22 08/15/23 Naa Colindres MD [address] [place] [address] PCP - General Family Medicine 08/16/23 Catalina Borden, COOKER LOADER 10 [place] [address] [email or web address] [facility] Social Work 04/14/20 03/24/23 Brenda Gomez MD [address] [place] [address] [place] [address] [email or web address] Insurance Assigned Provider 10/19/20 06/19/22 Tariq Yang MD [address] [place] [address] Insurance Assigned Provider 06/19/22 08/28/22 Brenda Gomez MD [address] [place] [address] [place] [address] [email or web address] Insurance Assigned Provider 08/28/22 01/22/23 Lis Long RN [address] [place] [address] [facility] Set Up Machinist 11/11/22 11/28/22 documented as of this encounter Additional Source Comments The information contained in this document represents components of the legal health record. It is not the complete legal health record.[facility]
--- OUTSIDE RECORDS SUMMARY | 2025-02-14 09:01 | XMS_ITS | Encounter Summary ---
Author Organization 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 Not on file Not on file documented as of this encounter Plan of Treatment Upcoming Encounters Date Type Department Care Team (Late st Contact Info) Description 04/15/2025 2:00 PM EST Office Visit [facility] Neurology [address] [place] [address] Sundar Vázquez MD 22 [facility], 2nd [place] [address] 05/06/2025 9:00 AM EST Office Visit [facility] Rheumatology [address] [place] [address] Nancy Baptiste MD [address] [place] [address], [address] [place] [address] 06/11/2025 3:30 PM EST Office Visit [facility] [address] [address] Silvina Nixon MD 221 [place] [address] [email or web address] documented as of this encounter Visit Diagnoses Not on filedocumented in this encounter Care Teams Gold Miner Relationship Specialty Start Date End Date Lis Mcdonald NP 31 [place] [address] [email or web address] PCP - General Family Medicine 01/27/22 08/15/23 Naa Colindres MD [address] [place] [address] PCP - General Family Medicine 08/16/23 documented as of this encounter Additional Source Comments The information contained in this document represents components of the legal health record. It is not the complete legal health record.[facility]
--- OUTSIDE RECORDS SUMMARY | 2025-02-14 09:01 | XMS_ITS | Encounter Summary ---
Author Organization [facility] Address [address] [place] [address] Phone Care Team Providers Care Refining Supervisor Name Role Phone Tariq Yang MD Primary Care Provider [phone] Tariq Yang MD Unavailable + Taina Patel Primary Care Provider Jo Galan Primary Care Provider [phone] Janneth Waller DO Unavailable + [phone] Tariq Yang MD Unavailable + Catalina Borden PUBLIC MESSAGE SERVICE SUPERVISOR Unavailable [email or web address] Brenda Gomez MD Unavailable + Unknown, Unknown Primary Care Provider Lis Lobo NP Primary Care Pro vider Tariq Yang MD Unavailable + Brenda Gomez MD Unavailable +[phone] Lis Long RN Unavailable Naa Colindres MD Primary Care Provider [phone] Encounter Details Date Type Department Care Team (Late st Contact Info) Description 02/28/2018 Procedure Pass [facility], [address] [place] [address] Social History Tobacco Use Types Packs/Day Years [...] 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 on file Not on file documented as of this encounter Plan of Treatment Upcoming Encounters Date Type Department Care Team (Late st Contact Info) Description 04/15/2025 2:00 PM EST Office Visit [facility] Neurology [address] [place] [address] [place] [address] Sundar Vázquez MD [address] [place] [address], 2nd [place] [address] 05/06/2025 9:00 AM EST Office Visit [facility] Rheumatology [address] [place] [address] [place] [address] Nancy Baptiste MD [address] [place] [address], [address] [place] [address] 06/11/2025 3:30 PM EST Office Visit [facility] [address] [address] Silvina Nixon MD 221 [place] [address] [email or web address] documented as of this encounter Visit Diagnoses Not on filedocumented in this encounter Care Teams Refining Supervisor Relationship Specialty Start Date End Date Tariq Yang MD [address] [place] [address] [email or web address] PCP - General Internal Medicine 05/30/17 06/01/18 Taina Patel PA [address] [place] [address] PCP - General Unknown Provider Specialty 06/02/18 09/19/18 Jo Galan PA [address] [place] [address] [email or web address] PCP - General 09/20/18 01/21/22 Unknown, MD Lucita PCP - General 01/22/22 01/26/22 Lis Mcdonald NP [address] [place] [address] [place], [place] [email or web address] PCP - General Family Medicine 01/27/22 08/15/23 Naa Colindres MD [address] [place] [address] [email or web address] PCP - General Family Medicine 08/16/23 Tariq Yang MD [address] [place] [address] [email or web address] Insurance Assigned Provider 09/17/17 10/20/19 Janneth Waller DO [address] [place], [place] [address] [place] [address] Insurance Assigned Provider 10/20/19 03/22/20 Tariq Yang MD [address] [place] [address] [email or web address] Insurance Assigned Provider 03/22/20 10/19/20 Catalina Borden LCSW [address] [place] [address] [email or web address] iCMP Social Work 04/14/20 03/24/23 Brenda Gomez MD [address] [place] [address] [place] [address] [email or web address] Insurance Assigned Provider 10/19/20 06/19/22 Tariq Yang MD [address] [place] [address] [email or web address] Insurance Assigned Provider 06/19/22 08/28/22 Brenda Gomez MD [address] [place] [address] [place] [address] [email or web address] Insurance Assigned Provider 08/28/22 01/22/23 Lis Long RN [address] [place] [address] [email or web address] iCMP Cabin Worker 11/11/22 11/28/22 documented as of this encounter Additional Source Comments The information contained in this document represents components of the legal health record. It is not the complete legal health record.[facility]
--- OUTSIDE RECORDS SUMMARY | 2025-02-14 09:01 | XMS_ITS | Encounter Summary ---
Author Organization [facility] Address [address] [place] [address] Phone Care Team Providers Care Computer Aided Design Operator Name Role Phone Jo Galan Primary Care Provider [phone] Catalina Borden BUSINESS SUPPORT COORDINATOR Unavailable [email or web address] Brenda Gomez MD Unavailable [phone] Unknown, Unknown Primary Care Provider Lis Lobo RCP Primary Care Pro vider Tariq Yang MD Unavailable [phone] Brenda Goemz MD Unavailable [phone] Lis Long RN Unavailable Naa Colindres MD Primary Care Provider + [phone] Encounter Details Date Type Department Care Team (Late st Contact Info) Description 10/08/2021 Procedure Pass [address] [place] [address] Social History Tobacco Use Types Packs/Day Years [...] 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 Not on file Not on file documented as of this encounter Plan of Treatment Upcoming Encounters Date Type Department Care Team (Late st Contact Info) Description 04/15/2025 2:00 PM EST Office Visit [facility] Neurology 22 [place] [address] Sundar Vázquez MD 22 [facility], 2nd [place] [address] 05/06/2025 9:00 AM EST Office Visit [facility] Rheumatology 22 [place] [address] Nancy Baptiste MD [address] [place] [address], [address] [place] [address] 06/11/2025 3:30 PM EST Office Visit [facility] [address] [address] Silvina Nixon MD 221 [place] [address] [email or web address] documented as of this encounter Visit Diagnoses Not on filedocumented in this encounter Care Teams Computer Aided Design Operator Relationship Specialty Start Date End Date Jo Galan PA [address] [place] [address] [email or web address] PCP - General 09/20/18 01/21/22 Unknown, Lucita, PCP - General 01/22/22 01/26/22 Lis Mcdonald NP [address] [place] [address] [email or web address] PCP - General Family Medicine 01/27/22 08/15/23 Naa Colindres MD [address] [place] [address] [email or web address] PCP - General Family Medicine 08/16/23 Catalina Borden, BUSINESS SUPPORT COORDINATOR 10 [place] [address] iCMP Social Work 04/14/20 03/24/23 Brenda Gomez MD [address] [place] [address] [place] [address] [email or web address] Insurance Assigned Provider 10/19/20 06/19/22 Tariq Yang MD [address] [place] [address] Insurance Assigned Provider 06/19/22 08/28/22 Brenda Gomez MD [address] [place] [address] [place] [address] [email or web address] Insurance Assigned Provider 08/28/22 01/22/23 Lis Long, RN [address] [place] [address] iCMP Hospital Orderly 11/11/22 11/28/22 documented as of this encounter Additional Source Comments The information contained in this document represents components of the legal health record. It is not the complete legal health record.[facility]
--- OUTSIDE RECORDS SUMMARY | 2025-02-14 09:01 | XMS_ITS | Encounter Summary ---
Author Organization [employer] Address [address] [facility] 7t [place] [address] Care Team Providers Care Environmental Studies Faculty Member Name Role Phone Naa Colindres MD Primary Care Provider [phone] Reason for Visit * Reason Onset Date Comments Labs Only 01/25/2025 Encounter Details Date Type Department Care Team (Late st Contact Info) Description 01/25/2025 Results Follow-Up [place] [facility] MED[facility] [address] [place] [address] Naa Colindres MD [address] [place] [address] D-Dimer, Quantitative [[id number]], Hemoglobin A1c 335034, Lipid Panel, Standard 43137 Social History Tobacco Use Types Packs/Day Years [...] EDT Office Visit [facility] MEDICAL [address] [place] [address] Naa Colindres MD [address] [place], [place] 04/02/2025 10:30 AM EST Office Visit [facility] MEDICAL [address] [place] [address] Jodi Miller MD [address] [place] [address] documented as of this encounter Visit Diagnoses Not on filedocumented in this encounter Additional Health Concerns Assessment Noted Time PHQ-9 Depression Total Score: 24 023 10:06 AM EDT documented as of this encounter Care Teams Environmental Studies Faculty Member Relationship Specialty Start Date End Date Naa Colindres MD [address] [place], [place] PCP - General Family Medicine 09/03/22 documented as of this encounter
--- OUTSIDE RECORDS SUMMARY | 2025-02-14 09:01 | XMS_ITS | Encounter Summary ---
Author Organization [facility] Address [address] [place] [address] Phone Care Team Providers Care Rn Intake Name Role Phone Tariq Yang MD Primary Care Provider [phone] Tariq Yang MD Unavailable + Taina Patel Primary Care Provider Jo Galan Primary Care Provider +[phone] Janneth Waller DO Unavailable + 30 Tariq Yang MD Unavailable + Catalian Borden INSTRUCTOR PSYCHIATRIC AIDE Unavailable [email or web address] Brenda Gomez MD Unavailable + Unknown, Unknown Primary Care Provider Lis Lobo NP Primary Care Pro vider Tariq Yang MD Unavailable + Brenda Gomez MD Unavailable +14 Lis Long RN Unavailable Naa Colindres MD Primary Care Provider [phone] Encounter Details Date Type Department Care Team (Late st Contact Info) Description 10/20/2017 Procedure Pass [facility], [facility] - [address] [place] [address] Social History Tobacco Use Types Packs/Day Years [...] 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 Not on file Not on file documented as of this encounter Plan of Treatment Upcoming Encounters Date Type Department Care Team (Late st Contact Info) Description 04/15/2025 2:00 PM EST Office Visit [facility] Neurology [address] [place] [address] [place] [address] Sundar Vázquez MD [address] [place] [address], 2nd [place] [address] 05/06/2025 9:00 AM EST Office Visit [facility] Rheumatology [address] [place] [address] [place] [address] Nancy Baptiste MD [address] [place] [address], [address] [place] [address] 06/11/2025 3:30 PM EST Office Visit [facility] [address] [address] Silvina Nixon MD [address] [place] [address] [email or web address] documented as of this encounter Visit Diagnoses Not on filedocumented in this encounter Care Teams Rn Intake Relationship Specialty Start Date End Date Tariq Yang MD [address] [place] [address] [email or web address] PCP - General Internal Medicine 05/30/17 06/01/18 Taina Patel PA [address] [place] [address] PCP - General Unknown Provider Specialty 06/02/18 09/19/18 Jo Galan PA [address] [place] [address] [email or web address] PCP - General 09/20/18 01/21/22 Unknown, MD Lucita PCP - General 01/22/22 01/26/22 Lis Mcdonald NP [address] [place] [address] Family [place], [email or web address] PCP - General Family Medicine 01/27/22 08/15/23 Naa Colindres MD [address] [place] [address] [email or web address] PCP - General Family Medicine 08/16/23 Tariq Yang MD [address] [place] [address] [email or web address] Insurance Assigned Provider 09/17/17 10/20/19 Janneth Waller DO [address] [place], [place] [address] [address] Insurance Assigned Provider 10/20/19 03/22/20 Tariq Yang MD [address] [place] [phone] [email or web address] Insurance Assigned Provider 03/22/20 10/19/20 Catalina Borden LCSW [address] [place] [address] [email or web address] [employer] Social Work 04/14/20 03/24/23 Brenda Gomez MD [address] [place] [address] [place] [address] [email or web address] Insurance Assigned Provider 10/19/20 06/19/22 Tariq Yang MD [address] [place] [address] [email or web address] Insurance Assigned Provider 06/19/22 08/28/22 Brenda Gomez MD [address] [place] [address] [place] [address] [email or web address] Insurance Assigned Provider 08/28/22 01/22/23 Lis Long RN [address] [place] [address] [email or web address] [employer] Industrial Truck Mechanic 11/11/22 11/28/22 documented as of this encounter Additional Source Comments The information contained in this document represents components of the legal health record. It is not the complete legal health record.[facility]
--- OUTSIDE RECORDS SUMMARY | 2025-02-14 09:01 | XMS_ITS | Encounter Summary ---
Author Organization [facility] Address [address] [place] [address] Phone Care Team Providers Care Lumber Tying Machine Operator Name Role Phone Tariq Yang MD Unavailable +[phone] Taina Patel PA Primary Care Provider Jo Galan Primary Care Provider [phone] Janneth Waller DO Unavailable +[phone] Tariq Yang MD Unavailable + Catalina Borden DIRECTOR OF EMPLOYER SERVICES Unavailable [email or web address] Brenda Gomez MD Unavailable +[phone] Unknown, Unknown Primary Care Provider Lis Lobo OIL PUMP STATION OPERATOR CHIEF Primary Care Pro vider Tariq Yang MD Unavailable + Brenda Gomez MD Unavailable [phone] Lis Long RN Unavailable Naa Colindres MD Primary Care Provider [phone] Encounter Details Date Type Department Care Team (Latest Contact Info) Description 06/02/2018 Transcribe Orders [address] [place] [address] Claudia Richardson PA [address] [facility] [address] [place] [address] [email or web address] Hidradenitis suppurativa (Primary Dx) Social History Tobacco [...] 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 on file Not on file documented as of this encounter Plan of Treatment Upcoming Encounters Date Type Department Care Team (Late st Contact Info) Description 04/15/2025 2:00 PM EST Office Visit [facility] Neurology [address] [place] [address] Sundar Vázquez MD [address] [place] [address], 2nd [place] [address] 05/06/2025 9:00 AM EST Office Visit [facility] Rheumatology 22 [place] [address] Nancy Baptiste MD [address] [facility], [address] [place] [address] 06/11/2025 3:30 PM EST Office Visit [facility] [address] [address] Silvina Nixon MD 221 [place] [address] [email or web address] documented as of this encounter Results * (ABNORMAL) Comprehensive metabolic panel (06/02/2018 11:26 AM EST) SODIUM 141 133 - 146 mmol/L [facility] POTASSIUM 4.7 3.3 - 5.1 mmol/L [facility] CHLORIDE 105 96 - 108 mmol/L [facility] CO2 25 21 - 35 mmol/L [facility] BUN 17 6 - 19 mg/dL [facility] CREATININE 0.80 0.5 - 1.5 mg/dL [facility] GLUCOSE 95 70 - 99 mg/dL [facility] ALBUMIN 3.7(L) 3.9 - 4.8 g/dL [facility] TOTAL PROTEIN 6.4(L) 6.5 - 8.0 g/dL [facility] CALCIUM 9.5 8.4 - 10.3 mg/dL [facility] ALKALINE PHOSPHATASE 47 39 - 117 U/L [facility] TOTAL BILIRUBIN <0.2 0.0 - 1.2 mg/dL [facility] AST 15 0 - 37 U/L [facility] ALT 15 0 - 40 U/L [facility] GLOBULIN 2.7 1 - 4.8 g/dL [facility] EGFR 97 >59 mL/min/1.7 3m2 [facility] Comment:If patient is black, multiply result by 1.159. Estimated glomerular filtration rate calculated using the CKD-EPI equation. ANION GAP 16 10 - 20 mmol/L [facility] Blood 06/02/2018 11:2 6 AM EST 06/02/2018 11:31 AM EST us Claudia [facility] LAB BLOOD ORDERABLES Final R esult [facility] [address] [place] [address] * (ABNORMAL) CBC and differential (06/02/2018 11:26 AM EST) WBC 8.48 3.40 - 11.20 K/uL [facility] RBC 4.30 3.80 - 4.80 M/uL [facility] HGB 13.4 12.0 - 15.0 g/dL [facility] HCT 39.8 36.0 - 46.0 % [facility] PLT 260 130 - 400 K/uL [facility] MCV 92.6 79.0 - 98.0 fL [facility] MCH 31.2 27.0 - 34.8 pg [facility] MCHC 33.7 31.5 - 36.0 g/dL [facility] RDW 13.2 10.8 - 14.6 % [facility] MPV 12.5(H) 9.4 - 12.4 fl [facility] NRBC 0.00 0.00 /100 WBCs [facility] ABSOLUTE NRBC 0.00 0.00 K/uL [facility] DIFF METHOD Auto [facility] NEUTS 57.3 45.30 - 77.70 % [facility] LYMPHS 30.1 12.30 - 39.70 % [facility] MONOS 6.6 4.10 - 12.80 % [facility] EOS 5.0 0 - 7.2 % [facility] BASOS 0.6 0 - 2.80 % [facility] Granulocytes, immature (%) 0.4 0.0 - 0.9 % [facility] ABSOLUTE NEUTS 4.87 1.40 - 7.70 K/uL [facility] ABSOLUTE LYMPHS 2.55 0.60 - 3.20 K/uL [facility] ABSOLUTE MONOS 0.56 0.11 - 0.59 K/uL [facility] ABSOLUTE EOS 0.42 0.01 - 0.50 K/uL [facility] ABSOLUTE BASOS 0.05 0.00 - 0.08 K/uL [facility] Granulocytes, immature 0.03 0.00 - 0.05 K/uL [facility] Blood 06/02/2018 11:2 6 AM EST 06/02/2018 11:31 AM EST us Claudia [facility] LAB BLOOD ORDERABLES Final R esult [facility] [address] [place] [address] * Hepatitis A antibody, total (06/02/2018 11:26 AM EST) HAV TOTAL AB Negative Negative [facility] Blood 06/02/2018 11:2 6 AM EST 06/02/2018 11:31 AM EST us Claudia [facility] LAB BLOOD ORDERABLES Final R esult Performing Organization Address [facility] Co de Phone Number [address] [address] * Hepatitis B surface antibody (06/02/2018 11:26 AM EST) HBV SURFACE ANTIBODY Negative [facility] Comment: Unvaccinated: Negative Vaccinated: Positive Blood 06/02/2018 11:2 6 AM EST 06/02/2018 11:31 AM EST us Claudia [facility] LAB BLOOD ORDERABLES Final R esult Performing Organization Address [facility] de Phone Number [address] [address] * Hepatitis B core antibody, total (06/02/2018 11:26 AM EST) HEP B CORE AB, TOT Negative Negative [facility] Blood 06/02/2018 11:2 6 AM EST 06/02/2018 11:31 AM EST Claudia [facility] LAB BLOOD ORDERABLES Final R esult Performing Organization Address [facility] Co de Phone Number [address] [address] * Hepatitis C antibody, qualitative (06/02/2018 11:26 AM EST) HCV Negative Negative [facility] Comment: This is a screening test and should be confirmed with molecular testing Blood 06/02/2018 11:2 6 AM EST 06/02/2018 11:31 AM EST us Claudia [facility] LAB BLOOD ORDERABLES Final R esult Performing Organization Address City/[facility]/ZIP Co de Phone Number [address] [address] * Hepatitis B surface antigen (06/02/2018 11:26 AM EST) HBV SURFACE ANTIGEN Negative Negative [facility] Blood 06/02/2018 11:2 6 AM EST 06/02/2018 11:31 AM EST Claudia [facility] LAB BLOOD ORDERABLES Final R esult [address] [address] documented in this encounter Visit Diagnoses Diagnosis Hidradenitis suppurativa- Primary Hidradenitis documented in this encounter Care Teams Lumber Tying Machine Operator Relationship Specialty Start Date End Date Taina Patel PA [address] [place] [address] PCP - General Unknown Provider Specialty 06/02/18 09/19/18 Jo Galan PA [address] [place] [address] [email or web address] PCP - General 09/20/18 01/21/22 Unknown, Lucita, PCP - General 01/22/22 01/26/22 Lis Mcdonald NP [address] [place] [address] [email or web address] PCP - General Family Medicine 01/27/22 08/15/23 Naa Colindres MD [address] [place] [address] [email or web address] PCP - General Family Medicine 08/16/23 Tariq Yang MD [address] [place] [address] [email or web address] Insurance Assigned Provider 09/17/17 10/20/19 Janneth Waller DO [address] [place] [address] [place] [address] [email or web address] Insurance Assigned Provider 10/20/19 03/22/20 Tariq Yang MD [address] [place] [address] [email or web address] Insurance Assigned Provider 03/22/20 10/19/20 Catalina Borden LCSW [address] [place] [phone] [email or web address] [employer] Social Work 04/14/20 03/24/23 Brenda Gomez MD [address] [place] [address] [place] [address] [email or web address] Insurance Assigned Provider 10/19/20 06/19/22 Tariq Yang MD [address] [place] [address] [email or web address] Insurance Assigned Provider 06/19/22 08/28/22 Brenda Gomez MD [address] [place] [address] [place] [address] [email or web address] Insurance Assigned Provider 08/28/22 01/22/23 Lis Long RN [address] [place] [address] [email or web address] [employer] Word Processing Specialist 11/11/22 11/28/22 documented as of this encounter Additional Source Comments The information contained in this document represents components of the legal health record. It is not the complete legal health record.[facility]
--- OUTSIDE RECORDS SUMMARY | 2025-02-14 09:01 | XMS_ITS | Encounter Summary ---
Author Organization [facility] Address [address] [place] [address] Phone Care Team Providers Care Wood Grinder Operator Name Role Phone Tariq Yang MD Primary Care Provider [phone] Tariq Yang MD Unavailable + Taina Patel PA Primary Care Provider Jo Galan Primary Care Provider +82 Janneth Waller DO Unavailable + 61 Tariq Yang MD Unavailable + Catalina Borden PRENATAL TEACHER Unavailable [email or web address] Brenda Gomez MD Unavailable + Unknown, Unknown Primary Care Provider Lis Lobo SKEIN BANDER Primary Care Pro vider Tariq Yang MD Unavailable + Brenda Gomez MD Unavailable +76 Lis Long RN Unavailable Naa Colindres MD Primary Care Provider [phone] Encounter Details Date Type Department Care Team (Latest Contact Info) Description 10/20/2017 Ancillary Orders Virtual Department [address] [place] [address] KendrickPiter, DO [address] [place] [address] [email or web address]) Lumbar radiculopathy Social History Tobacco Use Types [...] 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 file Not on file Not on file documented as of this encounter Plan of Treatment Upcoming Encounters Date Type Department Care Team (Late st Contact Info) Description 04/15/2025 2:00 PM EST Office Visit [facility] Neurology [address] [place] [address] Sundar Vázquez MD [address] [place] [address], [address] [place] [address] 05/06/2025 9:00 AM EST Office Visit [facility] Rheumatology [address] [place] [address] Nancy Baptiste MD [address] [place] [address], [address] [place] [address] 06/11/2025 3:30 PM EST Office Visit [facility] [address] [address] Silvina Nixon MD 221 [place] [address] [email or web address] documented as of this encounter Results * MRI LUMBAR SPINE (NEURO) WITHOUT CONTRAST (11/04/2017 2:19 PM EDT) Anatomical Region Laterality Modality L-spine Magnetic Resonan ce 11/04/2017 3:10 PM EDT Impressions 11/04/2017 3:19 PM EDT 1. Right subarticular disc extrusion at L4-L5. POS - [id number] Narrative 11/04/2017 3:19 PM EDT EXAM: MRI [...] subarticular disc extrusion at L4-L5. POS - [id number] Piter Kendrick DO IMG MR XSPECIALTY Final Resu lt documented in this encounter Visit Diagnoses Diagnosis Lumbar radiculopathy Thoracic or lumbosacral neuritis or radiculitis, unspecified Lumbar radiculopathy Thoracic or lumbosacral neuritis or radiculitis, unspecified documented in this encounter Care Teams Wood Grinder Operator Relationship Specialty Start Date End Date Tariq Yang MD [address] [place] [address] PCP - General Internal Medicine 05/30/17 06/01/18 Taina Patel PA [address] [place] [address] PCP - General Unknown Provider Specialty 06/02/18 09/19/18 Jo Galan PA [address] [place] [address] [email or web address] PCP - General 09/20/18 01/21/22 Unknown, Lucita, PCP - General 01/22/22 01/26/22 Lis Mcdonald NP [address] [place] [address] Medicine [place], [place] [email or web address] PCP - General Family Medicine 01/27/22 08/15/23 Naa Colindres MD [address] [place] [address] [email or web address] PCP - General Family Medicine 08/16/23 Tariq Yang MD [address] [place] [address] [email or web address] Insurance Assigned Provider 09/17/17 10/20/19 Janneth Waller DO [address] [place] [address] Insurance Assigned Provider 10/20/19 03/22/20 Tariq Yang MD [address] [place] [address] [email or web address] Insurance Assigned Provider 03/22/20 10/19/20 Catalina Borden LCSW [address] [place] [address] [email or web address] [employer] Social Work 04/14/20 03/24/23 Brenda Gomez MD [address] [place] [address] [place] [address] [email or web address] Insurance Assigned Provider 10/19/20 06/19/22 Tariq Yang MD [address] [place] [address] [email or web address] Insurance Assigned Provider 06/19/22 08/28/22 Brenda Gomez MD [address] [place] [address] [place] [address] [email or web address] Insurance Assigned Provider 08/28/22 01/22/23 Lis Long, RN [address] [place] [address] [email or web address] [facility] Forestry Patrolman 11/11/22 11/28/22 documented as of this encounter Additional Source Comments The information contained in this document represents components of the legal health record. It is not the complete legal health record.[facility]
--- OUTSIDE RECORDS SUMMARY | 2025-02-14 09:01 | XMS_ITS | Clinical Summary ---
Author Organization [employer] Address [address] [place] [address] 7t [place] [address] Care Team Providers Care Dairy Quality Assurance Officer Name Role Phone Naa Colindres MD Primary Care Provider [phone] Allergies Active Allergy Reactions Criticality Noted Date [...] 59 mL 11 03/03/20 23 Active rizatriptan ABSTRACT CHECKER (Maxalt-ABSTRACT CHECKER) 10 MG disintegrating tabletIndications :Migraine without aura [...] DAY. 48 mL 1 09/04/19 25 Active gabapentin (Neurontin) 300 MG capsuleIndication s:Mood disorder (CMS/HCC) TAKE 1 CAPSULE BY MOUTH 3 TIMES A DAY CAN INCREASE MORNING AND EVENING DOSES TO 2 CAPS IF NEEDED 150 capsule 12/13/19 25 Active HYDROcodone-aceta minophen ([place]) 5-325 MG tablet Take 2 tablets by mouth every 6 (six) hours if needed. 10/06/19 25 Active phentermine 15 MG capsuleIndication s:Class 2 severe obesity due to excess calories with serious comorbidity and body mass index (BMI) of 36.0 to 36.9 in adult,BMI 38.0-38.9,adult Take 1 capsule (15 mg) by mouth before breakfast. 30 capsule 2 01/26/20 25 2024 Active doxepin (SINEquan) 10 MG capsuleIndication s:PTSD (post-traumatic stress disorder) Take 1 capsule (10 mg) by mouth at bedtime. To help stay asleep 90 capsule 02/12/20 25 2024 Active pseudoephedrine (Sudafed) 30 MG tabletIndications :Congestion of paranasal sinus Take 1 tablet (30 mg) by mouth every 4 (four) hours if needed for congestion for up to 10 days. 30 tablet 05/14/20 24 2024 Discontinued doxepin (SINEquan) 10 MG capsuleIndication s:PTSD (post-traumatic stress disorder) TAKE 1 CAPSULE (10 MG) BY MOUTH AT BEDTIME. TO HELP STAY ASLEEP 90 capsule 11/10/19 25 2024 Discontinued cyclobenzaprine (Flexeril) 5 MG tabletIndications [...] is needed to be re-faxed over to [facility]. Will send another message to referrals to refax this order and notify patient when this has been done, ok to leave . Reviewed constipation can be common SE of [...] & Plan: Continue close follow-up with treating bee robber as scheduled. Assessment & Plan (03/12/2024 9:19 PM EDT): Emphasized importance of getting any flares addressed right away d/t risk of infection/scarring and pt plans to go to [place] [facility] tomorrow as can't get in immediately with her treating bee robber. Also she will followup with her pharmacy [...] suggested her warm pool therapy [facility] in [place] versus local [facility] versus local health club. Due to her [...] trouble. Plans to be seen in [place] ER tomorrow for re evaluation of her back pain and also hidradenitis s. Flare, not sure if needs inner thigh areas drained again prior to being able to f/up with her bee robber. 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 Referred pain. Vitamin D insufficiency 01/22/20222 05/2022 Overview (09/03/2022): Last Assessment & Plan: Found [...] Encounters Date Type Department Care Team Description 02/09/[address] [address] Naa Colindres MD PTSD (post-traumatic stress disorder) (Primary Dx) 01/28/2025 Orders Only [facility] Information Management [address] [place] [address] Naa Colindres MD 01/28/[address] [address] Ophelia Hurley LPN ER Follow-up 01/25/2025 2:00 PM EDT Office Visit [address] [address] Jodi Miller MD Class 2 severe obesity due to excess calories with serious comorbidity and body mass index (BMI) of 36.0 to 36.9 in adult ([facility]) (Primary Dx); BMI 38.0-38.9,adult 01/25/2025 Results Follow-Up [address] [address] Naa Colindres MD D-Dimer, Quantitative [[id number]], Hemoglobin A1c 859015, Lipid Panel, Standard [id number] 01/23/2025 11:20 AM EDT Office Visit [address] [address] Naa Colindres MD Class 2 severe obesity due to excess calories with serious comorbidity and body mass index (BMI) of 38.0 to 38.9 in adult ([facility]) (Primary Dx); Localized swelling of left lower leg 01/23/2025 Travel 12/31/[address] [address] Ophelia Hurley LPN Rash 12/31/2024 Refill [place] [facility] [address] [place] [address] Ashly Diamond MD Chronic right-sided low back pain with right-sided sciatica 12/26/2024 [facility] [address] [phone] Reji Cedillo 12/19/2024 Patient Outreach [facility] [address] [phone] Reji Cedillo c3 care management 12/14/2024 Telephone [facility] [address] [place] [address] Naa Colindres MD VNA 12/12/2024 Patient Outreach [facility] () Department [address] [place] [phone] Reji Cedillo 12/12/2024 Patient Outreach [facility] () Department [address] [place] [phone] Reji Cedillo c3 care management 12/11/2024 Refill [facility] [address] [place] [address] Danny Freeamn NP Mood disorder (CMS/HCC) (Primary Dx) from Last 3 Months Immunizations [...] [facility] [address] [place] [address] Naa Colindres MD [address] [place] [address] 04/02/2025 10:30 AM EST Office Visit [facility] [address] [place] [address] Jodi Miller MD [address] [place] [address] Health Maintenance Due Date Last Done Comments [...] (BMI) of 38.0 to 38.9 in adult ([facility]/HCC) HEMOGLOBIN A1C Routine 01/24/2025 11:04 AM EDT Class 2 severe obesity due to excess calories with serious comorbidity and body mass index (BMI) of 38.0 to 38.9 in adult (CMS/HCC) D-DIMER, QUANTITATIVE Routine 01/24/2025 11:04 AM EDT Localized swelling of left lower leg HIV 1/2 ANTIGEN/ANTIBODY, FOURTH GENERATION W/RFL Routine [...] PROCEDURES Final Result * (ABNORMAL) D-Dimer, Quantitative [[id number]] (01/24/2025 11:04 AM EDT) D-Dimer, Quantitative 0.96(H) 0.00 - 0.49 mg/L FEU [facility] 1 Comment: According to the assay tool marker's published package insert, a normal (<0.50 mg/L FEU) D-dimer result in conjunction with a non-high clinical probability assessment, excludes deep vein thrombosis (DVT) and pulmonary embolism (PE) with high sensitivity. D-dimer values increase with age and this can make VTE exclusion of an older population difficult. To address this, the [employer], based on best available [...] Narrative Resulting Agency Comment Performed at: - [address] [id number] Moisture Conditioner Operator: Sunshine Cardozo MD, Phone: [phone] Naa Colindres MD LAB BLOOD ORDERABLES Final Res ult [facility] 1 * Hemoglobin A1c 802386 (01/24/2025 11:04 AM EDT) Hemoglobin A1c 5.6 4.8 - 5.6 % [facility] 1 Comment: Prediabetes: 5.7 - 6.4 Diabetes: >6.4 Glycemic control for adults with diabetes: <7.0 Blood Venous blood specimen / Unknown 01/24/2025 11:04 AM EDT 01/24/2025 Narrative Resulting Agency Comment Performed at: - [facility] [id number] Moisture Conditioner Operator: Sunshine Cardozo MD, Phone: [phone] Naa Colindres MD LAB BLOOD ORDERABLES Final Res ult Performing Organization Address City[facility]/ZIP Co de Phone Number [facility] 1 * (ABNORMAL) Lipid Panel, Standard [id number] (01/24/2025 11:04 AM EDT) Cholesterol, Total 209(H) [...] Resulting Agency Comment Performed at: - [facility] [address] [id number] Moisture Conditioner Operator: Sunshine Cardozo MD, Phone: [phone] us Naa Colindres MD LAB BLOOD ORDERABLES Final Res ult [facility] 1 * HIV-1/2 Antigen and Antibodies, Fourth Generation, with Reflexes (09/21/2023 9:58 AM EDT) Blood Venous blood specimen / Unknown us Naa Colindres MD LAB BLOOD ORDERABLES Final Res ult from Last 3 Months or Most Recently Relevant to Health Maintenance Insurance Care Teams Dairy Quality Assurance Officer Relationship Specialty Start Date End Date Naa Colindres MD [address] [place] [address] PCP - General Family Medicine 09/03/22
--- OUTSIDE RECORDS SUMMARY | 2025-02-14 09:01 | XMS_ITS | Encounter Summary ---
Author Organization [facility] Address [address] [place] [address] Phone Care Team Providers Care Wind Farm Support Specialist Name Role Phone Tariq Yang MD Primary Care Provider [phone] Tariq Yang MD Unavailable + Taina Patel PA Primary Care Provider Jo Galan Primary Care Provider [phone] Janneth Waller DO Unavailable + [phone] Tariq Yang MD Unavailable + Catalina Borden UNIVERSITY ARCHIVIST Unavailable [email or web address] Brenda Gomez MD Unavailable + Unknown, Unknown Primary Care Provider Lis Lobo NP Primary Care Pro vider Tariq Yang MD Unavailable + Brenda Gomez MD Unavailable +[phone] Lis Long RN Unavailable Naa Colindres MD Primary Care Provider [phone] Encounter Details Date Type Department Care Team (Late st Contact Info) Description 02/28/2018 Ancillary Orders Virtual Department [address] [place] [address] Piter Kendrick, DO [address] [place] [address] [email or web address] Neck pain; Paresthesia; Gait instability; Difficulty walking [...] 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 Not on file Not on file documented as of this encounter Plan of Treatment Upcoming Encounters Date Type Department Care Team (Late st Contact Info) Description 04/15/2025 2:00 PM EST Office Visit [facility] Neurology [address] [place] [address] Sundar Vázquez MD [address] [place] [address], 2nd [place] [address] 05/06/2025 9:00 AM EST Office Visit [facility] Rheumatology [address] [place] [address] Nancy Baptiste MD [address] [place] [address], [address] [place] [address] 06/11/2025 3:30 PM EST Office Visit [facility] [address] [address] Silvina Nixon MD [address] [place] [address] [email or web address] documented as of this encounter Results * MRI CERVICAL SPINE (NEURO) FOCUS WITHOUT CONTRAST (04/20/2018 10:51 AM EST) Anatomical Region Laterality Modality C-spine Magnetic Resonan ce 04/20/2018 12:0 6 PM EST Impressions 04/21/2018 10:24 PM EST Multilevel mild predominantly bony degenerative changes. No evidence of nerve impingement. No high-grade spinal canal stenosis. POS - [id number] Edited by: Lashay Barr on 04/20/2018 1:17 [...] No high-grade spinal canal stenosis. POS - [id number] Edited by: Lashay Barr on 04/20/2018 1:17 PM us Piter Kendrick DO IMG MR XSPECIALTY Final Resu lt documented in this encounter Visit Diagnoses Diagnosis Neck pain Cervicalgia Paresthesia Disturbance of skin sensation Gait instability Abnormality of gait Difficulty walking Difficulty in walking Neck pain Cervicalgia Paresthesia Disturbance of skin sensation Gait instability Abnormality of gait Difficulty walking Difficulty in walking documented in this encounter Care Teams Wind Farm Support Specialist Relationship Specialty Start Date End Date Tariq Yang MD [address] [place] [address] [email or web address] PCP - General Internal Medicine 05/30/17 06/01/18 Taina Patel PA [address] [place] [phone] PCP - General Unknown Provider Specialty 06/02/18 09/19/18 Jo Galan PA [address] [place] [address] [email or web address] PCP - General 09/20/18 01/21/22 Unknown, MD Lucita PCP - General 01/22/22 01/26/22 Lis Mcdonald NP [address] [place] [phone] [email or web address] PCP - General Family Medicine 01/27/22 08/15/23 Naa Colindres MD [address] [place] [address] [email or web address] PCP - General Family Medicine 08/16/23 Tariq Yang MD [address] [place] [phone] Insurance Assigned Provider 09/17/17 10/20/19 Janneth Waller DO [address] [place] [address] [place] [address] [email or web address] Insurance Assigned Provider 10/20/19 03/22/20 Tariq Yang MD [address] [place] [phone] Insurance Assigned Provider 03/22/20 10/19/20 Catalina Borden LCSW [address] [place] [phone] [email or web address] iCM Social Work 04/14/20 03/24/23 Brenda Gomez MD [address] [place] [address] [place] [address] [email or web address] Insurance Assigned Provider 10/19/20 06/19/22 Tariq Yang MD [address] [place] [address] [email or web address] Insurance Assigned Provider 06/19/22 08/28/22 Brenda Gomez MD [address] [place] [address] [place] [address] [email or web address] Insurance Assigned Provider 08/28/22 01/22/23 Lis Long, FLAVIA [address] [place] [address] [email or web address] iCMP Clinic Office Manager 11/11/22 11/28/22 documented as of this encounter Additional Source Comments The information contained in this document represents components of the legal health record. It is not the complete legal health record.[facility]
--- OUTSIDE RECORDS SUMMARY | 2025-02-14 09:01 | XMS_ITS | Encounter Summary ---
Author Organization [facility] Address [address] [place] [address] Phone Care Team Providers Care Rn Occupational Name Role Phone Jo Galan Primary Care Provider [phone] Tariq Yang MD Unavailable [phone] Catalina Borden MAT PACKER Unavailable dadalabar Brenda Gomez MD Unavailable [phone] Unknown, Unknown Primary Care Provider Lis Lobo CONSULTANT Primary Care Pro vider Tariq Yang MD Unavailable +[phone] Brenda Gomez MD Unavailable [phone] Lis Long RN Unavailable Naa Colindres MD Primary Care Provider + [phone] Encounter Details Date Type Department Care Team (Latest Contact Info) Description 07/30/2020 Ancillary Orders Virtual Department 30 [place] [address] Piter Kendrick, DO [address] [place] [address] [email or web address] Cervical radiculitis; Lumbar radiculopathy Social History Tobacco [...] 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 Not on file Not on file documented as of this encounter Plan of Treatment Upcoming Encounters Date Type Department Care Team (Late st Contact Info) Description 04/15/2025 2:00 PM EST Office Visit [facility] Neurology [address] [place] [address] [place] [address] Sundar Vázquez MD [address] [place] [address], 2[address] [place] [address] 05/06/2025 9:00 AM EST Office Visit [facility] Rheumatology [address] [place] [address] [place] [address] Nancy Baptiste MD [address] [place] [address], [address] [place] [address] 06/11/2025 3:30 PM EST Office Visit [facility] [address] [address] Silvina Nixon MD [address] [place] [address] [email or web address] documented as of this encounter Visit Diagnoses Diagnosis Cervical radiculitis Brachial neuritis or radiculitis nos Lumbar radiculopathy Thoracic or lumbosacral neuritis or radiculitis, unspecified documented in this encounter Care Teams Rn Occupational Relationship Specialty Start Date End Date Jo Galan PA [address] [place] [address] [email or web address] PCP - General 09/20/18 01/21/22 Unknown, MD Lucita PCP - General 01/22/22 01/26/22 Lis Mcdonald NP [address] [place] [address] [email or web address] PCP - General Family Medicine 01/27/22 08/15/23 Naa Colindres MD [address] [place] [address] PCP - General Family Medicine 08/16/23 Tariq Yang MD [address] [place] [address] [email or web address] Insurance Assigned Provider 03/22/20 10/19/20 Catalina Borden, [address] [address] iCM Social Work 04/14/20 03/24/23 Brenda [place] [address] [email or web address] Insurance Assigned Provider 10/19/20 06/19/22 Tariq Yang MD [address] [place] [address] [email or web address] Insurance Assigned Provider 06/19/22 08/28/22 Brenda Gomez MD [address] [place] [address] [place] [address] [email or web address] Insurance Assigned Provider 08/28/22 01/22/23 Lis Long RN [address] [place] [address] [email or web address] iCMP Metal Miner 11/11/22 11/28/22 documented as of this encounter Additional Source Comments The information contained in this document represents components of the legal health record. It is not the complete legal health record.[facility]
--- OUTSIDE RECORDS SUMMARY | 2025-02-14 09:01 | XMS_ITS | Encounter Summary ---
Author Organization [facility] Address [address] [facility] [address] [place] [address] Phone Care Team Providers Care Union Contract Representative Name Role Phone Jo Galan Primary Care Provider [phone] Catalina Borden CORPSMAN Unavailable dadalabtiffany Brenda Gomez MD Unavailable [phone] Unknown, Unknown Primary Care Provider Lis Lobo NP Primary Care Pro vider Tariq Yang MD Unavailable [phone] Brenda Gomez MD Unavailable [phone] Lis Long RN Unavailable Naa Colindres MD Primary Care Provider + [phone] Encounter Details Date Type Department Care Team (Latest Contact Info) Description 11/21/2020 Transcribe Orders Virtual Department 30 [place] [address] Lis Mcdonald NP [address] [place] [address] 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 Not on file Not on file documented as of this encounter Plan of Treatment Upcoming Encounters Date Type Department Care Team (Late st Contact Info) Description 04/15/2025 2:00 PM EST Office Visit [facility] Neurology [address] [place] [address] Sundar Vázquez MD [address] [place] [address], 2nd [place] [address] 05/06/2025 9:00 AM EST Office Visit [facility] Rheumatology [address] [place] [address] Nancy Baptiste MD [address] [place] [address], [address] [place] [address] 06/11/2025 3:30 PM EST Office Visit [facility] [address] [address] Silvina Nixon MD [address] [place] [address] [email or web address] documented as of this encounter Visit Diagnoses Diagnosis Pain of upper abdomen- Primary documented in this encounter Care Teams Union Contract Representative Relationship Specialty Start Date End Date Jo Galan PA [address] [place] [address] [email or web address] PCP - General 09/20/18 01/21/22 Lucita Landrum MD PCP - General 01/22/22 01/26/22 Lis Mcdonald NP [address] [place] [address] [email or web address] PCP - General Family Medicine 01/27/22 08/15/23 Naa Colindres MD [address] [place] [address] [email or web address] PCP - General Family Medicine 08/16/23 Catalina Borden LCSW [address] [place] [address] iCMP Social Work 04/14/20 03/24/23 Brenda Gomez MD [address] [place] [address] [place] [address] [email or web address] Insurance Assigned Provider 10/19/20 06/19/22 Tariq Yang MD [address] [place] [address] [email or web address] Insurance Assigned Provider 06/19/22 08/28/22 Brenda Gomez MD [address] [place] [address] [place] [address] [email or web address] Insurance Assigned Provider 08/28/22 01/22/23 Lis Long, RN [address] [place] [address] iCMP Drain Cleaner 11/11/22 11/28/22 documented as of this encounter Additional Source Comments The information contained in this document represents components of the legal health record. It is not the complete legal health record.[facility]
--- OUTSIDE RECORDS SUMMARY | 2025-02-14 09:01 | XMS_ITS | Encounter Summary ---
Author Organization [facility] Address [address] [place] [address] Phone Care Team Providers Care Infrastructure Project Manager Name Role Phone Tariq Yang MD Unavailable + Taina Patel PA Primary Care Provider Jo Galan Primary Care Provider [phone] Janneth Waller DO Unavailable + [phone] Tariq Yang MD Unavailable + Catalina Borden HADOOP INFRASTRUCTURE ARCHITECT Unavailable [email or web address] Brenda Gomez MD Unavailable + Unknown, Unknown Primary Care Provider Lis Lobo BULL GANG WORKER Primary Care Pro vider + Tariq Yang MD Unavailable + Brenda Gomez MD Unavailable +[phone] Lis Long RN Unavailable Naa Colindres MD Primary Care Provider + [phone] Reason for Referral * MRI/CAT Scan - Closed Specialty Diagnoses / Procedures Referred By Contac t Referred To Contact Radiology Diagnoses Chronic right-sided low back pain without sciatica Procedures MRI Lumbar Spine Lakhwinder Cole MD Phone: tel: [email or web address]:[email or web address] Referral ID Status Reason Start Date Expiration Date Visits Re quested Visits Authorized [id number] Closed 07/05/2018 07/05/2019 1 1 Encounter Details Date Type Department Care Team ([facility] Contact Info) Description 07/06/2018 Ancillary Orders Virtual Department 30 [place] [address] Lakhwinder Cole MD [address] [place] [address] [email or web address] Chronic right-sided low back pain without sciatica [...] 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 on file Not on file documented as of this encounter Plan of Treatment Upcoming Encounters Date Type Department Care Team (Late Contact Info) Description 04/15/2025 2:00 PM EST Office Visit [facility] Neurology [address] [place] [address] Sundar Vázquez MD [address] [place] [address], 2nd [place] [address] [email or web address] 05/06/2025 9:00 AM EST Office Visit [facility] Rheumatology [address] [place] [address] Nancy Baptiste MD [address] [place] [address], [address] [place] [address] 06/11/2025 3:30 PM EST Office Visit [facility] [address] [facility] 1st [place] [address] Silvina Nixon MD 221 [place] [address] [email or web address] documented as of this [...] canal or neural foraminal stenosis. POS - [id number] Edited by: Lashay Barr on 07/17/2018 1:41 [...] signal. The colon terminates at the inferior H9nmgka. Facet joints are normal in alignment. No [...] of canal orneural foraminal stenosis. POS - [id number] Edited by: Lashay Barr on 07/17/2018 1:41 PM Lakhwinder Cole MD IMG MR XSPECIALTY Final R esult documented in this encounter Visit Diagnoses Diagnosis Chronic right-sided low back pain without sciatica Chronic right-sided low back pain without sciatica documented in this encounter Care Teams Infrastructure Project Manager Relationship Specialty Start Date End Date Taina Patel PA [address] [place] [address] PCP - General Unknown Provider Specialty 06/02/18 09/19/18 Jo Galan PA [address] [place] [address] [email or web address] PCP - General 09/20/18 01/21/22 Lucita, MD Lucita PCP - General 01/22/22 01/26/22 Lis Mcdonald NP [address] [place] [address] [place] [address] [email or web address] PCP - General Family Medicine 01/27/22 08/15/23 Naa Colindres MD [address] [place] [address] [email or web address] PCP - General Family Medicine 08/16/23 Tariq Yang MD [address] [place] [phone] Insurance Assigned Provider 09/17/17 10/20/19 Janneth Waller DO [address] [place] [phone] Insurance Assigned Provider 10/20/19 03/22/20 Tariq Yang MD [address] [place] [phone] Insurance Assigned Provider 03/22/20 10/19/20 Catalina Borden, [address] [address] [email or web address] [employer] Social Work 04/14/20 03/24/23 Brenda Gomez MD [address] [place] [address] [place] [address] [email or web address] Insurance Assigned Provider 10/19/20 06/19/22 Tariq Yang MD [address] [place] [address] [email or web address] Insurance Assigned Provider 06/19/22 08/28/22 Brenda Gomez MD [address] [place] [address] [place] [address] [email or web address] Insurance Assigned Provider 08/28/22 01/22/23 Lis Long RN [address] [place] [address] [email or web address] iCMP Joint Maker Machine 11/11/22 11/28/22 documented as of this encounter Additional Source Comments The information contained in this document represents components of the legal health record. It is not the complete legal health record.[facility]
--- OUTSIDE RECORDS SUMMARY | 2025-02-14 09:01 | XMS_ITS | Encounter Summary ---
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 Not on file Not on file documented as of this encounter Plan of Treatment Upcoming Encounters Date Type Department Care Team (Late st Contact Info) Description 04/15/2025 2:00 PM EST Office Visit [facility] Neurology [address] [place] [address] Sundar Vázquez MD [address] [facility], 2nd [place] [address] 05/06/2025 9:00 AM EST Office Visit [facility] Rheumatology [address] [place] [address] Nancy Baptiste MD [address] [place] [address], [address] [place] [address] 06/11/2025 3:30 PM EST Office Visit [facility] [address] [address] Silvina Nixon MD 221 [place] [address] [email or web address] documented as of this encounter Visit Diagnoses Not on filedocumented in this encounter Care Teams Review Rn Relationship Specialty Start Date End Date Lis Mcdonald NP [address] [place] [address] [email or web address] PCP - General Family Medicine 01/27/22 08/15/23 Naa Colindres MD [address] [place] [address] PCP - General Family Medicine 08/16/23 documented as of this encounter Additional Source Comments The information contained in this document represents components of the legal health record. It is not the complete legal health record.[facility]
--- OUTSIDE RECORDS SUMMARY | 2025-02-14 09:01 | XMS_ITS | Encounter Summary ---
Author Organization [facility] Address [address] [place] [address] Phone Care Team Providers Care Tile Trimmer Name Role Phone Jo Galan Primary Care Provider [phone] Tariq Yang MD Unavailable +[phone] Catalina Borden SERVER ADMINISTRATOR Unavailable [email or web address] Brenda Gomez MD Unavailable [phone] Unknown, Unknown Primary Care Provider Lis Lobo REGISTERED PUBLIC HEALTH NURSE Primary Care Pro vider Tariq Yang MD Unavailable +[phone] Brenda Gomez MD Unavailable [phone] Lis Long RN Unavailable Naa Colindres MD Primary Care Provider + [phone] Encounter Details Date Type Department Care Team (Latest Contact Info) Description 07/31/2020 Ancillary Orders Virtual Department 30 [place] [address] Piter Kendrick DO [address] [place] [address] [email or web address] Cervical radiculopathy Social History Tobacco Use Types [...] 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 Not on file Not on file documented as of this encounter Plan of Treatment Upcoming Encounters Date Type Department Care Team (Late st Contact Info) Description 04/15/2025 2:00 PM EST Office Visit [facility] Neurology [address] [place] [address] Sundar Vázquez MD [address] [place] [address], 2nd [place] [address] 05/06/2025 9:00 AM EST Office Visit [facility] Rheumatology [address] [place] [address] Nancy Baptiste MD [address] [place] [address], [address] [place] [address] 06/11/2025 3:30 PM EST Office Visit [facility] [address] [address] Silvina Nixon MD 221 [place] [address] [email or web address] documented as of this encounter Visit Diagnoses Diagnosis Cervical radiculopathy Brachial neuritis or radiculitis nos documented in this encounter Care Teams Tile Trimmer Relationship Specialty Start Date End Date Jo Galan PA [address] [place] [address] [email or web address] PCP - General 09/20/18 01/21/22 Unknown, Lucita, PCP - General 01/22/22 01/26/22 Lis Mcdonald NP [address] [place] [address] [email or web address] PCP - General Family Medicine 01/27/22 08/15/23 Naa Colindres MD [address] [place] [address] [email or web address] PCP - General Family Medicine 08/16/23 Tariq Yang MD [address] [place] [address] [email or web address] Insurance Assigned Provider 03/22/20 10/19/20 Catalina Borden, [address] [address] [email or web address] [facility] Social Work 04/14/20 03/24/23 Brenda Gomez MD [address] [place] [address] [place] [address] [email or web address] Insurance Assigned Provider 10/19/20 06/19/22 Tariq Yang MD [address] [place] [address] [email or web address] Insurance Assigned Provider 06/19/22 08/28/22 Brenda Gomez MD [address] [place] [address] [place] [address] [email or web address] Insurance Assigned Provider 08/28/22 01/22/23 Lis Long RN [address] [place] [address] [email or web address] iCMP Air Hoist Operator 11/11/22 11/28/22 documented as of this encounter Additional Source Comments The information contained in this document represents components of the legal health record. It is not the complete legal health record.[facility]
--- OUTSIDE RECORDS SUMMARY | 2025-02-14 09:01 | XMS_ITS | Encounter Summary ---
Author Organization [facility] Address [address] [place] [address] Phone Care Team Providers Care Clinical Nutrition Manager Name Role Phone Jo Galan Primary Care Provider [phone] Catalina Borden COREMAKER Unavailable [email or web address] Brenda Gomez MD Unavailable [phone] Unknown, Unknown Primary Care Provider Lis Lobo CHANNELER OUTSOLE Primary Care Pro vider Tariq Yang MD Unavailable [phone] Brenda Gomez MD Unavailable [phone] Lis Long RN Unavailable Naa Colindres MD Primary Care Provider + [phone] Reason for Referral * MRI/CAT Scan - Closed Specialty Diagnoses / Procedures Referred By Michael t Referred To Contact Radiology Diagnoses Radiculopathy, cervical region Procedures MRI Thoracic Spine Piter Kendrick DO Phone: tel: fax: mailto:[email or web address] Referral ID Status Reason Start Date Expiration Date Visits Re quested Visits Authorized [id number] Closed 10/15/2021 10/15/2022 1 1 * MRI/CAT Scan - Closed Specialty Diagnoses / Procedures Referred By Michael dubon Referred To Contact Radiology Diagnoses Radiculopathy, cervical region Procedures MRI Cervical Spine Piter Kendrick DO Phone: tel: fax: mailto:[email or web address] Referral ID Status Reason Start Date Expiration Date Visits Re quested Visits Authorized [id number] Closed 10/15/2021 10/15/2022 1 1 Encounter Details Date Type Department Care Team (Latest Contact Info) Description 10/08/2021 Transcribe Orders Virtual Department 30 [place] [address] Piter Kendrick DO [address] [place] [address] [email or web address] Radiculopathy, cervical region (Primary Dx) Social History [...] 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 Not on file Not on file documented as of this encounter Plan of Treatment Upcoming Encounters Date Type Department Care Team (Late st Contact Info) Description 04/15/2025 2:00 PM EST Office Visit [facility] Neurology 22 [place] [address] Sundar Vázquez MD [address] [id number] 05/06/2025 9:00 AM EST Office Visit [facility] Rheumatology [address] [place] [address] Nancy Baptiste MD 22 [facility], [address] [place] [address] 06/11/2025 3:30 PM EST Office Visit [facility] [address] [facility] 1st [place] [address] Silvina Nixon MD 221 [place] [address] [email or web address] Scheduled Orders Name Type Priority Associated Diagnoses [...] nos documented in this encounter Care Teams Clinical Nutrition Manager Relationship Specialty Start Date End Date Jo Galan PA [address] [place] [address] [email or web address] PCP - General 09/20/18 01/21/22 Unknown, Unknown, PCP - General 01/22/22 01/26/22 Lis Mcdonaldth, JUSTINE [address] [place] [address] [email or web address] PCP - General Family Medicine 01/27/22 08/15/23 Naa Colindres MD [address] [place] [address] PCP - General Family Medicine 08/16/23 Catalina Borden LCSW [address] [place] [address] [email or web address] iCMP Social Work 04/14/20 03/24/23 Brenda Gomez MD [address] [place] [address] [place] [address] [email or web address] Insurance Assigned Provider 10/19/20 06/19/22 Tariq Yang MD [address] [place] [address] Insurance Assigned Provider 06/19/22 08/28/22 Brenda Gomez MD [address] [place] [address] [place] [address] [email or web address] Insurance Assigned Provider 08/28/22 01/22/23 Lis Long, FLAVIA [address] [place] [address] iCMP Plsql Developer 11/11/22 11/28/22 documented as of this encounter Additional Source Comments The information contained in this document represents components of the legal health record. It is not the complete legal health record.[facility]
--- OUTSIDE RECORDS SUMMARY | 2025-02-14 09:02 | XMS_ITS | Encounter Summary ---
Author Organization [facility], Address [address] [place] [address] Phone Care Team Providers Care Flight Communications Operator Name Role Phone Naa Colindres MD Primary Care Provider [phone] Encounter Details Date Type Department Care Team (Late st Contact Info) Description 03/02/2023 Documentation Only [facility], [facility] Center Line [address] [facility] [address] [place] [phone] Jeffery Tyler MD [address] [place] [address] [place] [phone] Social History Tobacco Use Types Packs/Day Years [...] on filedocumented in this encounter Care Teams Flight Communications Operator Relationship Specialty Start Date End Date Naa Colindres MD [address] [place] [address] PCP - General Family Medicine 03/17/23 documented as of this encounter
--- OUTSIDE RECORDS SUMMARY | 2025-02-14 09:02 | XMS_ITS | Encounter Summary ---
Author Organization [facility] Address [address] [address] Phone Care Team Providers Care Firestopper Installer Name Role Phone Catalina Borden GLASSINE MACHINE TENDER Unavailable [email or web address] Brenda Gomez MD Unavailable [phone] Lis Mcdonald NP Primary Care Pro vider Tariq Yang MD Unavailable [phone] Brenda Gomez MD Unavailable [phone] Lis Long RN Unavailable Naa Colindres MD Primary Care Provider + [phone] Encounter Details Date Type Department Care Team (Late st Contact Info) Description 05/21/2022 Transcribe Orders [facility] Neurology [address] [place] [address] Lis Mcdonald NP [address] [place] [address] [email or web address] Social History Tobacco Use Types Packs/Day Years [...] 05/21/2022 11:34 AM Nadja Ratliff RN * [place] Suicide Severity Rating Scale (Screener/Recent Self-Report) Question [...] PM EST Office Visit [facility] Neurology 22 [place] [address] Sundar Vázquez MD [address] [place] [address], 2nd [place] [address] 05/06/2025 9:00 AM EST Office Visit [facility] Rheumatology [address] [place] [address] Nancy Baptiste MD [address] [place] [address], [address] [place] [address] 06/11/2025 3:30 PM EST Office Visit [facility] [address] [address] Silvina Nixon MD 221 [place] [address] [email or web address] documented as of this encounter Visit Diagnoses Not on filedocumented in this encounter Care Teams Firestopper Installer Relationship Specialty Start Date End Date Lis Mcdonald NP [address] [place] [address] [email or web address] PCP - General Family Medicine 01/27/22 08/15/23 Naa Colindres MD [address] [place] [address] PCP - General Family Medicine 08/16/23 Catalina Borden LCSW [address] [place] [address] [email or web address] iCMP Social Work 04/14/20 03/24/23 Brenda Gomez MD [address] [place] [address] [place] [address] [email or web address] Insurance Assigned Provider 10/19/20 06/19/22 Tariq Yang MD [address] [place] [address] [email or web address] Insurance Assigned Provider 06/19/22 08/28/22 Brenda Gomez MD [address] [place] [address] [place] [address] [email or web address] Insurance Assigned Provider 08/28/22 01/22/23 Lis Long, FLAVIA [address] [place] [address] [email or web address] iCMP Battery Installer 11/11/22 11/28/22 documented as of this encounter Additional Source Comments The information contained in this document represents components of the legal health record. It is not the complete legal health record.[facility]
--- OUTSIDE RECORDS SUMMARY | 2025-02-14 09:02 | XMS_ITS | Encounter Summary ---
Author Organization [facility] Address [address] [place] [address] Phone Care Team Providers Care Trapeze Performer Name Role Phone Catalina Borden FIELD MARKETING DIRECTOR Unavailable [email or web address] Brenda Gomez MD Unavailable [phone] Lis Mcdonald AUTO CLUB SAFETY PROGRAM COORDINATOR Primary Care Pro vider Tariq Yang MD Unavailable [phone] Brenda Gomez MD Unavailable [phone] Lis Long RN Unavailable Naa Colindres MD Primary Care Provider + [phone] Encounter Details Date Type Department Care Team (Late st Contact Info) Description 05/21/2022 Procedure Pass [facility] 30 [place] [address] Social History Tobacco Use Types Packs/Day Years [...] 05/21/2022 11:34 AM Nadja Ratliff RN * [place] Suicide Severity Rating Scale (Screener/Recent Self-Report) Question [...] [facility] Neurology [address] [place] [address] Sundar Vázquez MD [address] [place] [address], 2nd [place] [address] 05/06/2025 9:00 AM EST Office Visit [facility] Rheumatology [address] [place] [address] Nancy Baptiste MD [address] [place] [address], [address] [place] [address] 06/11/2025 3:30 PM EST Office Visit [facility] [address] [address] Silvina Nixon MD 221 [place] [address] [email or web address] documented as of this encounter Visit Diagnoses Not on filedocumented in this encounter Care Teams Trapeze Performer Relationship Specialty Start Date End Date Lis Mcdonald NP [address] [place] [address] [email or web address] PCP - General Family Medicine 01/27/22 08/15/23 Naa Colindres MD [address] [place] [address] PCP - General Family Medicine 08/16/23 Catalina Borden LCSW [address] [place] [address] [email or web address] [facility] Social Work 04/14/20 03/24/23 Brenda Gomez MD [address] [place] [address] [place] [address] [email or web address] Insurance Assigned Provider 10/19/20 06/19/22 Tariq Yang MD [address] [place] [address] [email or web address] Insurance Assigned Provider 06/19/22 08/28/22 Brenda Gomez MD [address] [place] [address] [place] [address] [email or web address] Insurance Assigned Provider 08/28/22 01/22/23 Lsi Long, FLAVIA [address] [place] [address] [address] Counsellor 11/11/22 11/28/22 documented as of this encounter Additional Source Comments The information contained in this document represents components of the legal health record. It is not the complete legal health record.[facility]
--- OUTSIDE RECORDS SUMMARY | 2025-02-14 09:02 | XMS_ITS | Encounter Summary ---
Author Organization [facility], Address [address] [place] [address] Phone Care Team Providers Care Primary Health Care Nurse Name Role Phone Naa Colindres MD Primary Care Provider [phone] Encounter Details Date Type Department Care Team (Late st Contact Info) Description 12/10/2022 Documentation Only [facility], [facility] [place] [address] [facility] [address] [place] [phone] Jeffery Tyler MD [address] [place] [address] [place] [phone] Social History Tobacco Use Types Packs/Day Years [...] on filedocumented in this encounter Care Teams Primary Health Care Nurse Relationship Specialty Start Date End Date Naa Colindres MD [address] [place] [address] PCP - General Family Medicine 03/17/23 documented as of this encounter
--- OUTSIDE RECORDS SUMMARY | 2025-02-14 09:02 | XMS_ITS | Encounter Summary ---
Author Organization [facility] Address [address] [address] Phone Care Team Providers Care Test Lab Technician Name Role Phone Catalina Borden CHAIR UPHOLSTERER Unavailable 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 on file Not on file documented as of this encounter Plan of Treatment Upcoming Encounters Date Type Department Care Team (Late st Contact Info) Description 04/15/2025 2:00 PM EST Office Visit [facility] Neurology [address] [place] [address] Sundar Vázquez MD 22 [facility], 2nd [place] [address] 05/06/2025 9:00 AM EST Office Visit [facility] Rheumatology [address] [place] [address] Nancy Baptiste MD [address] [place] [address], [address] [place] [address] 06/11/2025 3:30 PM EST Office Visit [facility] [address] [address] Silvina Nixon MD 221 [place] [address] [email or web address] documented as of this encounter Visit Diagnoses Not on filedocumented in this encounter Care Teams Test Lab Technician Relationship Specialty Start Date End Date Lis Mcdonald NP [address] [place] [address] [email or web address] PCP - General Family Medicine 01/27/22 08/15/23 Naa Colindres MD [address] [place] [address] [email or web address] PCP - General Family Medicine 08/16/23 Catalina Borden LCSW 10 [place] [address] [email or web address] iCMP Social Work 04/14/20 03/24/23 Brenda Gomez MD [address] [place] [address] [place] [address] [email or web address] Assigned Provider 08/28/22 01/22/23 Lis Long RN 10 [place] [address] [email or web address] Accounts Payable Administrator 11/11/22 11/28/22 documented as of this encounter Additional Source Comments The information contained in this document represents components of the legal health record. It is not the complete legal health record.[facility]
--- OUTSIDE RECORDS SUMMARY | 2025-02-14 09:02 | XMS_ITS | Encounter Summary ---
Author Organization [facility], Address [address] [place] [address] Phone Care Team Providers Care Diesel Engine Mechanic Name Role Phone Naa Colindres MD Primary Care Provider [phone] Encounter Details Date Type Department Care Team (Late st Contact Info) Description 09/22/2023 Documentation Only [facility], [address] [place] [address] Collette Stacy [address] [place] [phone] Social History Tobacco Use Types Packs/Day Years [...] filedocumented in this encounter Care Teams Diesel Engine Mechanic Relationship Specialty Start Date End Date Naa Colindres MD [address] [place] [address] PCP - General Family Medicine 03/17/23 documented as of this encounter
--- OUTSIDE RECORDS SUMMARY | 2025-02-14 09:02 | XMS_ITS | Encounter Summary ---
Author Organization [facility] [place], Address [address] [place] [address] Phone Care Team Providers Care Tooling Specialist Name Role Phone Naa Colindres MD Primary Care Provider [phone] Encounter Details Date Type Department Care Team (Late st Contact Info) Description 09/27/2023 Documentation Only [facility] [place], [address] [place] [address] Collette Stacy [address] [place] [phone] Social History Tobacco Use Types Packs/Day Years [...] on filedocumented in this encounter Care Teams Tooling Specialist Relationship Specialty Start Date End Date Naa Colindres MD [address] [place] [address] PCP - General Family Medicine 03/17/23 documented as of this encounter
--- OUTSIDE RECORDS SUMMARY | 2025-02-14 09:02 | XMS_ITS | Encounter Summary ---
Author Organization [facility] Address [address] [place] [address] Phone Care Team Providers Care Blade Grinder Name Role Phone Catalina Borden BAKERY TEAM LEADER Unavailable [email or web address] Brenda Gomez MD Unavailable [phone] Lis Mcdonald NP Primary Care Pro vider Tariq Yang MD Unavailable [phone] Brenda Gomez MD Unavailable [phone] Lis Long RN Unavailable Naa Colindres MD Primary Care Provider [phone] Encounter Details Date Type Department Care Team (Latest Contact Info) Description 03/17/2022 Transcribe Orders [facility] Laboratory [address] [address] Annmarie Paul PA-C [address], 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 Not on file Not on file documented as of this encounter Plan of Treatment Upcoming Encounters Date Type Department Care Team (Late st Contact Info) Description 04/15/2025 2:00 PM EST Office Visit [facility] Neurology [address] [place] [address] Sundar Vázquez MD [address] [place] [address], 2nd [place] [address] [email or web address] 05/06/2025 9:00 AM EST Office Visit [facility] Rheumatology [address] [place] [address] Nancy Baptiste MD [address] [place] [address], [address] [place] [address] 06/11/2025 3:30 PM EST Office Visit [facility] 221 [facility] 1[address] [place] [address] Silvina Nixon MD 221 [place] [address] [email or web address] documented as of this encounter Results * TSH (03/17/2022 9:55 AM EDT) TSH 3.27 0.27 - 4.20 uIU/mL [facility] Blood 03/17/2022 9:55 AM EDT 03/17/2022 9:59 AM EDT us Annmarie Paul PA-C LAB BLOOD ORDERABLES Final Resu lt Performing Organization Address City/[facility]/ZIP Co de Phone Number [address] [address] * Lipase (03/17/2022 9:55 AM EDT) LIPASE 27 16 - 63 U/L [facility] Blood 03/17/2022 9:55 AM EDT 03/17/2022 9:59 AM EDT us Annmarie Paul PA-C LAB BLOOD ORDERABLES Final Resu lt Performing Organization Address [facility]/ZIP Co de Phone Number [address] [address] * C-Reactive Protein (03/17/2022 9:55 AM EDT) C REACTIVE PROTEIN <3.0 0.0 - 4.0 mg/L [facility] Blood 03/17/2022 9:55 AM EDT 03/17/2022 9:59 AM EDT us Annmarie Paul PA-C LAB BLOOD ORDERABLES Final Resu lt Performing Organization Address [facility]/ZIP Co de Phone Number [address] [address] * (ABNORMAL) Comprehensive metabolic panel (03/17/2022 9:55 AM EDT) SODIUM 139 133 - 146 mmol/L [facility] POTASSIUM 4.3 3.3 - 5.1 mmol/L [facility] CHLORIDE 106 96 - 108 mmol/L [facility] CO2 19(L) 21 - 35 mmol/L [facility] BUN 14 6 - 19 mg/dL [facility] CREATININE 0.60 0.5 - 1.5 mg/dL [facility] GLUCOSE 90 70 - 99 mg/dL [facility] ALBUMIN 4.2 3.9 - 4.8 g/dL [facility] TOTAL PROTEIN 7.0 6.5 - 8.0 g/dL [facility] CALCIUM 9.4 8.4 - 10.3 mg/dL [facility] ALKALINE PHOSPHATASE 57 39 - 117 U/L [facility] TOTAL BILIRUBIN 0.2 0.0 - 1.2 mg/dL [facility] AST 21 0 - 37 U/L [facility] ALT 22 0 - 40 U/L [facility] GLOBULIN 2.8 1 - 4.8 g/dL [facility] EGFR 118 >59 mL/min/1.7 3m2 [facility] Comment:Estimated glomerular filtration rate calculated using the CKD-EPI refit equation. ANION GAP 18 10 - 20 mmol/L [facility] Blood 03/17/2022 9:55 AM EDT 03/17/2022 9:59 AM EDT us Annmarie Paul PA-C LAB BLOOD ORDERABLES Final Resu lt Performing Organization Address City/State/[facility] Co de Phone Number [address] [address] * (ABNORMAL) CBC (03/17/2022 9:55 AM EDT) WBC 12.57(H) 4.00 - 11.00 K/uL [facility] RBC 4.79 3.72 - 5.30 M/uL [facility] HGB 15.0 10.6 - 15.5 g/dL [facility] HCT 44.9 32.0 - 45.0 % [facility] PLT 332 140 - 430 K/uL [facility] MCV 93.7 78.0 - 97.0 fL [facility] MCH 31.3 25.0 - 33.0 pg [facility] MCHC 33.4 32.0 - 36.0 g/dL [facility] RDW 13.8 11.0 - 16.0 % [facility] MPV 12.8 8.4 - 12.8 fl [facility] Blood 03/17/2022 9:55 AM EDT 03/17/2022 9:59 AM EDT us Annmarie Paul PA-C LAB BLOOD ORDERABLES Final Resu lt [address] [address] * Immunoglobulin A (03/17/2022 9:55 AM EDT) IgA 195 70 - 400 mg/dL [facility] Blood 03/17/2022 9:55 AM EDT 03/17/2022 9:59 AM EDT Annmarie Paul PA-C LAB BLOOD ORDERABLES Final Resu lt Performing Organization Address [facility] Co de Phone Number [address] [address] * Tissue transglutaminase IgA (03/17/2022 9:55 AM EDT) TTG IGA ANTIBODY <1.2 <4.0 (Negative) U/mL [facility] Blood 03/17/2022 9:55 AM EDT 03/17/2022 9:59 AM EDT Annmarie Paul PA-C LAB BLOOD ORDERABLES Final Resu lt Performing Organization Address City/[facility] Co de Phone Number [facility] [address] [place] [address] documented in this encounter Visit Diagnoses Diagnosis Rectal bleeding- Primary Hemorrhage of rectum and anus Constipation, unspecified constipation type Abdominal pain, left upper quadrant documented in this encounter Care Teams Blade Grinder Relationship Specialty Start Date End Date Lis Mcdonald NP [address] [place] [address] [email or web address] PCP - General Family Medicine 01/27/22 08/15/23 Naa Colindres MD [address] [place] [address] PCP - General Family Medicine 08/16/23 Catalina Borden LCSW [address] [place] [address] [email or web address] iCMP Social Work 04/14/20 03/24/23 Brenda Gomez MD [address] [place] [address] [place]. [place], [place] [email or web address] Insurance Assigned Provider 10/19/20 06/19/22 Tariq Yang MD [address] [place] [address] [email or web address] Assigned Provider 06/19/22 08/28/22 Brenda Gomez MD [address] [place] [address] [place] [address] [email or web address] Insurance Assigned Provider 08/28/22 01/22/23 Lis Long, FLAVIA [address] [place] [address] [facility] Instructor Technical Training 11/11/22 11/28/22 documented as of this encounter Additional Source Comments The information contained in this document represents components of the legal health record. It is not the complete legal health record.[facility]
--- OUTSIDE RECORDS SUMMARY | 2025-02-14 09:02 | XMS_ITS | Encounter Summary ---
Author Organization [facility], Address [address] [place] [address] Phone Care Team Providers Care Field Merchandiser Name Role Phone Naa Colindres MD Primary Care Provider [phone] Encounter Details Date Type Department Care Team (Late st Contact Info) Description 12/15/2022 Documentation Only [facility], [facility] [place] [address] [facility] [address] [place] [phone] Jeffery Tyler MD [address] [place] [address] [place] [phone] Social History Tobacco Use Types Packs/Day Years [...] on filedocumented in this encounter Care Teams Field Merchandiser Relationship Specialty Start Date End Date Naa Colindres MD [address] [place] [address] PCP - General Family Medicine 03/17/23 documented as of this encounter
--- OUTSIDE RECORDS SUMMARY | 2025-02-14 09:02 | XMS_ITS | Encounter Summary ---
Author Organization [facility] [place], Address [address] [place] [address] Phone Care Team Providers Care Drug Abuse Technician Name Role Phone Naa Colindres MD Primary Care Provider [phone] Encounter Details Date Type Department Care Team (Late st Contact Info) Description 12/10/2022 Documentation Only [facility], [facility] [address] [facility] [address] [place] [phone] Jeffery Tyler MD [address] [place] [address] [place] [phone] Social History Tobacco Use Types Packs/Day Years [...] on filedocumented in this encounter Care Teams Drug Abuse Technician Relationship Specialty Start Date End Date Naa Colindres MD [address] [place] [address] PCP - General Family Medicine 03/17/23 documented as of this encounter
--- OUTSIDE RECORDS SUMMARY | 2025-02-14 09:02 | XMS_ITS | Encounter Summary ---
Author Organization [facility] Address [address] [place] [address] Phone Care Team Providers Care Broom Handle Dipper Name Role Phone Catalina Borden DISCHARGE SPECIALIST Unavailable [email or web address] Brenda Gomez MD Unavailable [phone] Lis Mcdonald [employer]ER[employer] CONSULTANT Primary Care Pro vider Tariq Yang MD Unavailable [phone] Brenda Gomez MD Unavailable [phone] Lis Long RN Unavailable Naa Colindres MD Primary Care Provider [phone] Encounter Details Date Type Department Care Team (Late st Contact Info) Description 05/18/2022 Procedure [facility], Ct Scan - [facility] [address] [place] [address] Social History Tobacco Use Types Packs/Day Years [...] 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 Not on file Not on file documented as of this encounter Functional Status * Calculated C-SSRS Risk Score (Lifetime/Recent) Answer Date of Assessment Author No Risk Indicated 05/21/2022 11:34 AM Nadja Ratliff RN * [place] Suicide Severity Rating Scale (Screener/Recent Self-Report) Question [...] 04/15/2025 2:00 PM EST Office Visit [facility] Neurology [address] [place] [address] Sundar Vázquez MD [address] [place] [address], 2nd [place] [address] 05/06/2025 9:00 AM EST Office Visit [facility] Rheumatology [address] [place] [address] Nancy Baptiste MD [address] [place] [address], [address] [place] [address] 06/11/2025 3:30 PM EST Office Visit [facility] [address] [address] Silvina Nixon MD 221 [place] [address] [email or web address] documented as of this encounter Visit Diagnoses Not on filedocumented in this encounter Care Teams Broom Handle Dipper Relationship Specialty Start Date End Date Lis Mcdonald NP [address] [place] [address] [email or web address] PCP - General Family Medicine 01/27/22 08/15/23 Naa Colindres MD [address] [place] [address] PCP - General Family Medicine 08/16/23 Catalina Borden LCSW [address] [place] [address] iCMP Social Work 04/14/20 03/24/23 Brenda Gomez MD [address] [place] [address] [place] [address] [email or web address] Insurance Assigned Provider 10/19/20 06/19/22 Tariq Yang MD [address] [place] [address] [email or web address] Insurance Assigned Provider 06/19/22 08/28/22 Brenda Gomez MD [address] [place] [address] [place] [address] [email or web address] Insurance Assigned Provider 08/28/22 01/22/23 Lis Long, FLAVIA [address] [place] [address] iCMP Fire Control System Installer 11/11/22 11/28/22 documented as of this encounter Additional Source Comments The information contained in this document represents components of the legal health record. It is not the complete legal health record.[facility]
--- OUTSIDE RECORDS SUMMARY | 2025-02-14 09:02 | XMS_ITS | Encounter Summary ---
Author Organization [facility] Address [address] [place] [address] Phone Care Team Providers Care Cloud Services Architect Name Role Phone Catalina Borden WINDOW SHADE RING SEWER Unavailable [email or web address] Brenda Gomez MD Unavailable [phone] Lis Mcdonald SENIOR MEDICAL TECHNOLOGIST Primary Care Pro vider Tariq Yang MD Unavailable [phone] Brenda Gomez MD Unavailable [phone] Lis Long RN Unavailable Naa Colindres MD Primary Care Provider [phone] Encounter Details Date Type Department Care Team (Latest Contact Info) Description 04/14/2022 Transcribe Orders Virtual Department 30 [place] [address] Piter Kendrick, DO [address] [place] [address] [email or web address] Left hip pain (Primary Dx) Social History [...] 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 Not on file Not on file documented as of this encounter Plan of Treatment Upcoming Encounters Date Type Department Care Team (Late st Contact Info) Description 04/15/2025 2:00 PM EST Office Visit [facility] Neurology [address] [place] [address] [place] [address] Sundar Vázquez MD [address] [place] [address], 2nd [place] [address] [email or web address] 05/06/2025 9:00 AM EST Office Visit [facility] Rheumatology [address] [place] [address] [place] [address] Nancy Baptiste MD [address] [place] [address], [address] [place] [address] [email or web address] 06/11/2025 3:30 PM EST Office Visit [facility] [address] [address] Silvina Nixon MD 221 [place] [address] [email or web address] documented as of this encounter Visit Diagnoses Diagnosis Left hip pain- Primary Pain in joint, pelvic region and thigh documented in this encounter Care Teams Cloud Services Architect Relationship Specialty Start Date End Date Lis Mcdonald NP [address] [place] [address] [place] [address] [email or web address] PCP - General Family Medicine 01/27/22 08/15/23 Naa Colindres MD [address] [place] [address] PCP - General Family Medicine 08/16/23 Catalina Borden, WINDOW SHADE RING SEWER [address] [place] [address] [email or web address] iCMP Social Work 04/14/20 03/24/23 Brenda Gomez MD [address] [place] [address] [place] [address] [email or web address] Insurance Assigned Provider 10/19/20 06/19/22 Tariq Yang MD [address] [place] [address] [email or web address] Insurance Assigned Provider 06/19/22 08/28/22 Brenda Gomez MD [address] [place] [address] [place] [address] [email or web address] Insurance Assigned Provider 08/28/22 01/22/23 Lis Long RN [address] [place] [address] [address] [address] Techn[facility] 11/11/22 11/28/22 documented as of this encounter Additional Source Comments The information contained in this document represents components of the legal health record. It is not the complete legal health record.[facility]
--- OUTSIDE RECORDS SUMMARY | 2025-02-14 09:02 | XMS_ITS | Encounter Summary ---
Author Organization [facility], Address [address] [place] [address] Phone Care Team Providers Care Chalk Extruding Machine Operator Name Role Phone Naa Colindres MD Primary Care Provider [phone] Encounter Details Date Type Department Care Team (Late st Contact Info) Description 09/22/2023 Documentation Only [facility], [address] [place] [address] Collette Stacy [address] [place] [phone] Social History Tobacco Use Types Packs/Day Years [...] on filedocumented in this encounter Care Teams Chalk Extruding Machine Operator Relationship Specialty Start Date End Date Naa Colindres MD [address] [place] [address] PCP - General Family Medicine 03/17/23 documented as of this encounter
--- OUTSIDE RECORDS SUMMARY | 2025-02-14 09:02 | XMS_ITS | Encounter Summary ---
Author Organization [facility] [place], Address [address] [place] [address] Phone Care Team Providers Care Skein Bleacher Name Role Phone Naa Colindres MD Primary Care Provider [phone] Encounter Details Date Type Department Care Team (Late st Contact Info) Description 09/26/2023 Documentation Only [facility], [address] [place] [address] Collette Stacy [address] [place] [phone] Social History Tobacco Use Types Packs/Day Years [...] on filedocumented in this encounter Care Teams Skein Bleacher Relationship Specialty Start Date End Date Naa Colindres MD [address] [place] [address] PCP - General Family Medicine 03/17/23 documented as of this encounter
--- OUTSIDE RECORDS SUMMARY | 2025-02-14 09:02 | XMS_ITS | Encounter Summary ---
Author Organization [facility] [place], Address [address] [place] [address] Phone Care Team Providers Care Religion Department Chair Name Role Phone Naa Colindres MD Primary Care Provider [phone] Encounter Details Date Type Department Care Team (Late st Contact Info) Description 12/16/2022 Documentation Only [facility], [facility] [place] [address] [facility] [address] [place] [phone] Jeffery Tyler MD [address] [place] [address] [place] [phone] Social History Tobacco Use Types Packs/Day Years [...] on filedocumented in this encounter Care Teams Religion Department Chair Relationship Specialty Start Date End Date Naa Colindres MD [address] [place] [address] PCP - General Family Medicine 03/17/23 documented as of this encounter
--- OUTSIDE RECORDS SUMMARY | 2025-02-14 09:02 | XMS_ITS | Encounter Summary ---
Author Organization [facility] [place], Address [address] [place] [address] Phone Care Team Providers Care Wire Twisting Machine Operator Name Role Phone Naa Colindres MD Primary Care Provider [phone] Encounter Details Date Type Department Care Team (Late st Contact Info) Description 09/26/2023 Documentation Only [facility], [address] [place] [address] Collette Stacy [address] [place] [phone] Social History Tobacco Use Types Packs/Day Years [...] on filedocumented in this encounter Care Teams Wire Twisting Machine Operator Relationship Specialty Start Date End Date Naa Colindres MD [address] [place] [address] PCP - General Family Medicine 03/17/23 documented as of this encounter
--- OUTSIDE RECORDS SUMMARY | 2025-02-14 09:02 | XMS_ITS | Encounter Summary ---
Author Organization [facility] Address [address] [place] [address] Phone Care Team Providers Care Financial Accounting Manager Name Role Phone AsherCatalina potts Masood GUM SCORING MACHINE OPERATOR Unavailable [email or web address] Lis Mcdonald NP Primary Care Pro vider Tariq Yang MD Unavailable [phone] Brenda Gomez MD Unavailable [phone] Lis Long RN Unavailable Naa Colindres MD Primary Care Provider [phone] Reason for Referral * MRI/CAT Scan - Closed Specialty Diagnoses / Procedures Referred By Contac t Referred To Contact Radiology Diagnoses Difficulty in walking, not elsewhere classified Procedures MRI Thoracic Spine Piter Kendrick DO Phone: tel: fax: [email or web address] Referral ID Status Reason Start Date Expiration Date Visits Re quested Visits Authorized [id number] Closed 07/20/2022 10/15/2022 1 1 Encounter Details Date Type Department Care Team (Latest Contact Info) Description 07/20/2022 Transcribe Orders Virtual Department 30 [place] [address] Piter Kendrick, DO [address] [place] [address] [email or web address] Difficulty in walking, not elsewhere classified (Primary [...] 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 file Not on file documented as of this encounter Plan of Treatment Upcoming Encounters Date Type Department Care Team (Late st Contact Info) Description 04/15/2025 2:00 PM EST Office Visit [facility] Neurology [address] [place] [address] Sundar Vázquez MD [address] [place] [address], 2nd [place] [address] 05/06/2025 9:00 AM EST Office Visit [facility] Rheumatology [address] [place] [address] Nancy Baptiste MD [address] [place] [address], [address] [place] [address] 06/11/2025 3:30 PM EST Office Visit [facility] [address] [address] Silvina Nixon MD 221 [place] [address] [email or web address] documented as of this [...] classified documented in this encounter Care Teams Financial Accounting Manager Relationship Specialty Start Date End Date Lis Mcdonald NP [address] [place] [address] [email or web address] PCP - General Family Medicine 01/27/22 08/15/23 Naa Colindres MD [address] [place] [address] [email or web address] PCP - General Family Medicine 08/16/23 Catalina Borden, [address] [address] [email or web address] iCMP Social Work 04/14/20 03/24/23 Tariq Yang MD [address] [place] [address] [email or web address] Insurance Assigned Provider 06/19/22 08/28/22 Brenda Gomez MD [address] [place] [address] [place] [address] [email or web address] Insurance Assigned Provider 08/28/22 01/22/23 Lis Long RN [address] [place] [address] [email or web address] iCMP Brand Sales Manager 11/11/22 11/28/22 documented as of this encounter Additional Source Comments The information contained in this document represents components of the legal health record. It is not the complete legal health record.[facility]
--- OUTSIDE RECORDS SUMMARY | 2025-02-14 09:02 | XMS_ITS | Encounter Summary ---
Author Organization [facility], Address [address] [place] [address] Phone Care Team Providers Care Auditor/Quality Name Role Phone Naa Colindres MD Primary Care Provider [phone] Encounter Details Date Type Department Care Team (Late st Contact Info) Description 09/22/2023 Documentation Only [facility], [address] [place] [address] Collette Stacy [address] [place] [phone] Social History Tobacco Use Types Packs/Day Years [...] on filedocumented in this encounter Care Teams Auditor/Quality Relationship Specialty Start Date End Date Naa Colindres MD [address] [place] [address] PCP - General Family Medicine 03/17/23 documented as of this encounter
--- OUTSIDE RECORDS SUMMARY | 2025-02-14 09:02 | XMS_ITS | Encounter Summary ---
Author Organization [facility], Address [address] [place] [address] Phone Care Team Providers Care Hospital Chaplain Name Role Phone Naa Colindres MD Primary Care Provider [phone] Encounter Details Date Type Department Care Team (Late st Contact Info) Description 12/13/2022 Documentation Only [facility], [facility] [place] [address] [facility] [address] [place] [phone] Jeffery Tyler MD [address] [place] [address] [place] [phone] Social History Tobacco Use Types Packs/Day Years [...] filedocumented in this encounter Care Teams Hospital Chaplain Relationship Specialty Start Date End Date Naa Colindres MD [address] [place] [address] PCP - General Family Medicine 03/17/23 documented as of this encounter
--- OUTSIDE RECORDS SUMMARY | 2025-02-14 09:02 | XMS_ITS | Encounter Summary ---
Author Organization [facility] Address [address] [place] [address] Phone Care Team Providers Care Motor Vehicle Compliance Analyst Name Role Phone Catalina Borden LOOM DOFFER Unavailable [email or web address] Brenda Gomez MD Unavailable [phone] Lis Mcdonald HIDE SALTER Primary Care Pro vider Tariq Yang MD Unavailable [phone] Brenda Gomez MD Unavailable [phone] Lis Long RN Unavailable Naa Colindres MD Primary Care Provider [phone] Encounter Details Date Type Department Care Team (Late st Contact Info) Description 05/19/2022 Procedure Pass [facility], Ct Scan - [facility] [address] [place] [address] Social History Tobacco Use Types Packs/Day Years [...] 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 Wish to be (Past 1 Month) No 023 11:34 AM Nadja Prais RN 2. Non-Specific Active Suici nohemi Thoughts (Past 1 Month) No 05/21/2022 11:34 AM Sa pineda Paris RN 6. Suicidal Behavior (Lifetime) No 11:34 AM Nadja Paris RN documented as of this encounter Plan of Treatment Upcoming Encounters Date Type Department Care Team (Late st Contact Info) Description 04/15/2025 2:00 PM EST Office Visit [facility] Neurology [address] [place] [address] Sundar Vázquez MD [address] [place] [address], 2nd [place] [address] 05/06/2025 9:00 AM EST Office Visit [facility] Rheumatology [address] [place] [address] Nancy Baptiste MD [address] [place] [address], [address] [place] [address] 06/11/2025 3:30 PM EST Office Visit [facility] [address] [address] Silvina Nixon MD 221 [place] [address] [email or web address] documented as of this encounter Visit Diagnoses Not on filedocumented in this encounter Care Teams Motor Vehicle Compliance Analyst Relationship Specialty Start Date End Date Lis Mcdonald NP [address] [place] [address] [email or web address] PCP - General Family Medicine 01/27/22 08/15/23 Naa Colindres MD [address] [place] [address] PCP - General Family Medicine 08/16/23 Catalina Borden LCSW [address] [place] [address] iCMP Social Work 04/14/20 03/24/23 Brenda Gomez MD [address] [place] [address] [place] [address] [email or web address] Insurance Assigned Provider 10/19/20 06/19/22 Tariq Yang MD [address] [place] [address] [email or web address] Insurance Assigned Provider 06/19/22 08/28/22 Brenda Gomez MD [address] [place] [address] [place] [address] [email or web address] Insurance Assigned Provider 08/28/22 01/22/23 Lis Long, FLAVIA [address] [place] [address] iCMP Motel Keeper 11/11/22 11/28/22 documented as of this encounter Additional Source Comments The information contained in this document represents components of the legal health record. It is not the complete legal health record.[facility]
--- OUTSIDE RECORDS SUMMARY | 2025-02-14 09:02 | XMS_ITS | Encounter Summary ---
Author Organization [employer] Address [address] 7t [place] [address] Care Team Providers Care Information Systems Security Specialist Name Role Phone Naa Colindres MD Primary Care Provider [phone] [employer] Encounter Details Date Type Department Care Team (Late st Contact Info) Description 09/22/2023 Orders Only [facility] [address] [place] [address] Naa Colindres MD 70 [place] [address] Social History Tobacco Use Types Packs/Day Years [...] AM EDT Office Visit [facility] MEDICAL 70 [place] [address] Naa Colindres MD 70 [place] [address] 04/02/2025 10:30 AM EST Office Visit [facility] MEDICAL 73 [place] [address] Jodi Miller MD 73 [place] [address] documented as of this encounter Procedures Procedure [...] Blood Venous blood specimen / Unknown Result [facility] Naa Colindres MD LAB BLOOD ORDERABLES Final Res ult * Microalbumin, Random Urine w/Creatinine (09/21/2023 10:32 AM EDT) Urine (Urine, Random) Result [facility] Naa Colindres MD LAB URINE ORDERABLES Final Res ult * PTH, INTACT (09/21/2023 10:31 AM EDT) Result [facility] Naa Colindres MD LAB BLOOD ORDERABLES Final Res ult * HIV-1/2 Antigen and Antibodies, Fourth Generation, with Reflexes (09/21/2023 9:58 AM EDT) Blood Venous blood specimen / Unknown Result [facility] Naa Colindres MD LAB BLOOD ORDERABLES Final Res ult * Hepatitis C Ab (09/21/2023 9:57 AM EDT) Blood Result [facility] Naa Colindres MD LAB BLOOD ORDERABLES Final Res ult * CBC auto differential (09/21/2023 9:56 AM EDT) Blood Venous blood specimen / Unknown Result [facility] Naa Colindres MD LAB BLOOD ORDERABLES Final Res ult documented in this encounter Visit Diagnoses Not on filedocumented in this encounter Additional Health Concerns Assessment Noted Time PHQ-9 Depression Total Score: 24 05/2 023 10:06 AM EDT documented as of this encounter Care Teams Information Systems Security Specialist Relationship Specialty Start Date End Date Naa Colindres MD 70 [place] [address] PCP - General Family Medicine 09/03/22 Reji Ced[place] 12/12/24 12/26/24 documented as of this encounter
--- OUTSIDE RECORDS SUMMARY | 2025-02-14 09:02 | XMS_ITS | Encounter Summary ---
Author Organization [facility] Address [address] [address] Phone Care Team Providers Care Melter Supervisor Open Hearth Furnace Name Role Phone Catalina Borden KENO DEALER Unavailable [email or web address] Brenda Gomez MD Unavailable [phone] Lis Mcdonald NP Primary Care Pro vider Tariq Yang MD Unavailable [phone] Brenda Gomez MD Unavailable [phone] Lis Long RN Unavailable Naa Colindres MD Primary Care Provider [phone] Encounter Details Date Type Department Care Team (Latest Contact Info) Description 04/20/2022 Transcribe Orders Virtual Department 30 [place] [address] Lis Mcdonald NP [address] [place] [address] [email or web address] Chronic cough (Primary Dx) Social History [...] 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 [address] [address] Silvina Nixon MD 221 [place] [address] [email or web address] documented as of this encounter Results * Pulmonary Function Test Reason for Exam: Cough; Type of PFT Test: Spirometry with bronchodilator, DLCO, Lung Volumes; Performing Location: [facility] (09/02/2022 7:47 AM EDT) FEV1 3.04 [...] is 99% on room air. Lis Mcdonald NP PFT ORDERABLES F inal Result documented in this encounter Visit Diagnoses Diagnosis Chronic cough- Primary Cough Chronic cough Cough documented in this encounter Care Teams Melter Supervisor [employer] Hearth Furnace Relationship Specialty Start Date End Date Lis Mcdonald NP [address] [place] [address] [email or web address] PCP - General Family Medicine 01/27/22 08/15/23 Naa Colindres MD [address] [place] [address] [email or web address] PCP - General Family Medicine 08/16/23 Catalina Borden KENO DEALER [address] [place] [address] [email or web address] iCMP Social Work 04/14/20 03/24/23 Brenda Gomez MD [address] [place] [address] [place] [address] [email or web address] Insurance Assigned Provider 10/19/20 06/19/22 Tariq Yang MD [address] [place] [address] [email or web address] Insurance Assigned Provider 06/19/22 08/28/22 Brenda Gomez MD [address] [place] [address] [place] [address] [email or web address] Insurance Assigned Provider 08/28/22 01/22/23 Lis Long, RN [address] [place] [address] iCMP Steel Rule Die Maker 11/11/22 11/28/22 documented as of this encounter Additional Source Comments The information contained in this document represents components of the legal health record. It is not the complete legal health record.[facility]
--- OUTSIDE RECORDS SUMMARY | 2025-02-14 09:02 | XMS_ITS | Encounter Summary ---
Author Organization [facility], Address [address] [place] [address] Phone Care Team Providers Care Braid Maker Name Role Phone Naa Colindres MD Primary Care Provider [phone] Encounter Details Date Type Department Care Team (Late st Contact Info) Description 09/22/2023 Documentation Only [facility], [address] [place] [address] Collette Stacy [address] [place] [phone] Social History Tobacco Use Types Packs/Day Years [...] on filedocumented in this encounter Care Teams Braid Maker Relationship Specialty Start Date End Date Naa Colindres MD [address] [place] [address] PCP - General Family Medicine 03/17/23 documented as of this encounter
--- OUTSIDE RECORDS SUMMARY | 2025-02-14 09:02 | XMS_ITS | Encounter Summary ---
Author Organization [facility], Address [address] [place] [address] Phone Care Team Providers Care Director Process Improvement Name Role Phone Naa Colindres MD Primary Care Provider Encounter Details Date Type Department Care Team (Late st Contact Info) Description 12/13/2022 Documentation Only [facility], [facility] [place] [address] [facility] [address] [place] [phone] Jeffery Tyler MD [address] [place] [address] [place] [phone] Social History Tobacco Use Types Packs/Day Years [...] filedocumented in this encounter Care Teams Director Process Improvement Relationship Specialty Start Date End Date Naa Colindres MD [address] [place] [address] PCP - General Family Medicine 03/17/23 documented as of this encounter
--- OUTSIDE RECORDS SUMMARY | 2025-02-14 09:02 | XMS_ITS | Encounter Summary ---
Author Organization [facility], Address [address] [place] [address] Phone Care Team Providers Care Drafting Layout Man Name Role Phone Naa Colindres MD Primary Care Provider [phone] Encounter Details Date Type Department Care Team (Late st Contact Info) Description 09/26/2023 Documentation Only [facility], [address] [place] [address] Collette Stacy [address] [place] [phone] Social History Tobacco Use Types Packs/Day Years [...] on filedocumented in this encounter Care Teams Drafting Layout Man Relationship Specialty Start Date End Date Naa Colindres MD [address] [place] [address] PCP - General Family Medicine 03/17/23 documented as of this encounter
--- OUTSIDE RECORDS SUMMARY | 2025-02-14 09:03 | XMS_ITS | Encounter Summary ---
Author Organization [employer] Address [address] [facility] 7t [place] [address] Care Team Providers Care Press Cutter Name Role Phone Naa Colindres MD Primary Care Provider [phone] NguyenReji Reason for Visit * Reason Onset Date Comments Med Refill 05/13/2024 Encounter Details Date Type Department Care Team (Late st Contact Info) Description 05/13/2024 Refill [place] [facility] MEDICAL 70 [place] [address] Naa Colindres MD 70 [place] [address] Alopecia areata, unspecified; Hidradenitis suppurativa; Mood disorder [...] Description 02/16/2025 9:20 AM EDT Office Visit [place] [facility] MEDICAL 70 [place] [address] Naa Colindres MD 70 [place] [address] 04/02/2025 10:30 AM EST Office Visit [facility] MEDICAL 73 [place] [address] Jodi Miller MD 73 [place] [address] documented as of this encounter Visit Diagnoses [...] documented as of this encounter Care Teams Press Cutter Relationship Specialty Start Date End Date Naa Colindres MD 70 [place] [address] PCP - General Family Medicine 09/03/22 Reji Ced[place] 12/12/24 12/26/24 documented as of this encounter
--- OUTSIDE RECORDS SUMMARY | 2025-02-14 09:03 | XMS_ITS | Encounter Summary ---
Author Organization [facility] Address [address] [address] Phone Care Team Providers Care Financial Operations Consultant Name Role Phone AsherCatalina potts Masood BOOKKEEPING MACHINE OPERATOR Unavailable [email or web address] Lis Mcdonald NP Primary Care Pro vider Brenda Gomez MD Unavailable [phone] Lis Lnog RN Unavailable Naa Colindres MD Primary Care Provider [phone] Encounter Details Date Type Department Care Team (Late st Contact Info) Description 11/05/2022 Procedure Pass [facility] Admitting Dept Virtual Department 30 [place] [address] Social History Tobacco Use Types Packs/Day Years [...] 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 Not on file Not on file documented as of this encounter Plan of Treatment Upcoming Encounters Date Type Department Care Team (Late st Contact Info) Description 04/15/2025 2:00 PM EST Office Visit [facility] Neurology [address] [place] [address] Sundar Vázquez MD [address] [place] [address], 2nd [place] [address] 05/06/2025 9:00 AM EST Office Visit [facility] Rheumatology [address] [place] [address] Nancy Baptiste MD [address] [place] [address], [address] [place] [address] 06/11/2025 3:30 PM EST Office Visit [facility] [address] [address] Silvina Nixon MD 221 [place] [address] [email or web address] documented as of this encounter Visit Diagnoses Not on filedocumented in this encounter Care Teams Financial Operations Consultant Relationship Specialty Start Date End Date Lsi Mcdonald NP [address] [place] [address] [email or web address] PCP - General Family Medicine 01/27/22 08/15/23 Naa Colindres MD [address] [place] [address] [email or web address] PCP - General Family Medicine 08/16/23 Catalina Borden BOOKKEEPING MACHINE OPERATOR [address] [place] [address] [email or web address] iCMP Social Work 04/14/20 03/24/23 Brenda Gomez MD [address] [place] [address] [place] [address] [email or web address] Insurance Assigned Provider 08/28/22 01/22/23 Lis Long RN [address] [place] [address] [email or web address] [facility] Envelope Adjuster 11/11/22 11/28/22 documented as of this encounter Additional Source Comments The information contained in this document represents components of the legal health record. It is not the complete legal health record.[facility]
--- OUTSIDE RECORDS SUMMARY | 2025-02-14 09:03 | XMS_ITS | Clinical Summary ---
Author Organization [facility], Address [address] [place] [address] Phone Care Team Providers Care Multi Operation Machine Operator Name Role Phone Naa Colindres MD Primary Care Provider [phone] Allergies Active Allergy Reactions Criticality Noted Date Comments Penicillins Hives Medium 04/24/2017 Tramadol GI intolerance Low 06/17/2017 Other reaction(s): GI Upset Medications Cholecalciferol (Vitamin D3) 1.25 MG (02902 UT) capsule Take by mouth Acti ve [...] history exists Insurance Medicaid [place] Care Teams Multi Operation Machine Operator Relationship Specialty Start Date End Date Naa Colindres MD [address] [place] [address] PCP - General Family Medicine 03/17/23
--- OUTSIDE RECORDS SUMMARY | 2025-02-14 09:03 | XMS_ITS | Encounter Summary ---
Author Organization [employer] Address [address] [address] 7t [place] [address] Care Team Providers Care Solid Propellant Processor Name Role Phone Naa Colindres MD Primary Care Provider [phone] DavicheriReji gaming Encounter Details Date Type Department Care Team (Late st Contact Info) Description 09/23/2023 Orders Only [place] [facility] [address] [place] [address] Naa Colindres MD 70 [place] [address] Social History Tobacco Use Types Packs/Day Years [...] Description 02/16/2025 9:20 AM EDT Office Visit [facility] MEDICAL [address] [place] [address] Naa Colindres MD 70 [place] [address] 04/02/2025 10:30 AM EST Office Visit [facility] MEDICAL 73 [place] [address] Jodi Miller MD 73 [place] [address] documented as of this encounter Procedures Procedure [...] documented as of this encounter Care Teams Solid Propellant Processor Relationship Specialty Start Date End Date Naa Colindres MD 70 [place] [address] PCP - General Family Medicine 09/03/22 Reji Ced[place] 12/12/24 12/26/24 documented as of this encounter
--- OUTSIDE RECORDS SUMMARY | 2025-02-14 09:03 | XMS_ITS | Encounter Summary ---
Author Organization [employer] Address [address] 7t [place] [address] Care Team Providers Care Sprayer Leather Name Role Phone Naa Colindres MD Primary Care Provider [phone] DavicheriReji gaming Encounter Details Date Type Department Care Team (Late st Contact Info) Description 05/21/2024 Orders Only [facility] [address] [place] [address] Naa Colindres MD [address] [place] [address] Social History Tobacco Use Types Packs/Day Years [...] AM EDT Office Visit [facility] MEDICAL 70 [place] [address] Naa Colindres MD [address] [place] [address] 04/02/2025 10:30 AM EST Office Visit [facility] MEDICAL 73 [place] [address] Jodi Miller MD 73 [place] [address] documented as of this encounter Procedures Procedure [...] documented as of this encounter Care Teams Sprayer Leather Relationship Specialty Start Date End Date Naa Colindres MD [address] [place] [address] PCP - General Family Medicine 09/03/22 Reji Cedillo 12/12/24 12/26/24 documented as of this encounter
--- OUTSIDE RECORDS SUMMARY | 2025-02-14 09:03 | XMS_ITS | Encounter Summary ---
Author Organization [facility] Address [address] [place] [address] [place] [address] Phone Care Team Providers Care Motor Installer Name Role Phone Jo Galan Primary Care Provider [phone] Tariq Yang MD Unavailable +[phone] Catalina Borden IRON MINER Unavailable dadalabar Brenda Gomez MD Unavailable [phone] Unknown, Unknown Primary Care Provider Lis Lobo NP Primary Care Pro vider Tariq Yang MD Unavailable [phone] Brenda Gomez MD Unavailable [phone] Lis Long RN Unavailable Naa Colindres MD Primary Care Provider + [phone] Encounter Details Date Type Department Care Team (Latest Contact Info) Description 06/03/2020 Transcribe Orders [facility] [address] [place] [phone] Claudia Richardson PA [address] [facility] [address] [place] [address] [email or web address] Suppurative hidradenitis (Primary Dx) Social History Tobacco [...] 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 Not on file Not on file documented as of this encounter Plan of Treatment Upcoming Encounters Date Type Department Care Team (Late st Contact Info) Description 04/15/2025 2:00 PM EST Office Visit [facility] Neurology [address] [place] [address] [place] [address] Sundar Vázquez MD [address] [place] [address], 2nd [place] [address] 05/06/2025 9:00 AM EST Office Visit [facility] Rheumatology [address] [place] [address] [place] [address] Nancy Baptiste MD [address] [place] [address], [address] [place] [address] 06/11/2025 3:30 PM EST Office Visit [facility] [address] [address] Silvina Nixon MD 221 [place] [address] [email or web address] documented as of this encounter Results * Quantiferon-TB Gold (06/09/2020 9:22 AM EST) QuantiFERON-TB Gold Negative Negative [facility] Comment: (NOTE) No interferon-gamma response to M. tuberculosis antigens was detected. Infection with M. tuberculosis is unlikely. A single negative result does not exclude infection with M. tuberculosis. In patients at high risk for M.tuberculosis infection, a second test should be considered in accordance with the 2017 ATS/IDSA/CDC Clinical Practice Guidelines for Diagnosis of Tuberculosis in Adults and Children [Lewinsohn MARYSE et. al. Clin. Infect. Dis. 2017;64(2):111-115]. The reference range for the 'TB1 Ag minus Nil Result' and 'TB2 Ag minus Nil Result' is an Interferon-gamma level <0.35 IU/mL. TB1 Ag minus Nil 0.00 IU/mL [facility] TB2 Ag minus Nil 0.00 IU/mL [facility] Mitogen minus Nil >10.00 IU/mL [facility] [place] Nil Result 0.02 IU/mL [facility] [place] Blood 06/09/2020 9:22 AM EST 06/09/2020 9:29 AM EST us Claudia [facility] LAB BLOOD ORDERABLES Final R esult [facility] [address] [place] [address] * (ABNORMAL) Comprehensive metabolic panel (06/03/2020 10:02 AM EST) SODIUM 141 133 - 146 mmol/L [facility] POTASSIUM 4.3 3.3 - 5.1 mmol/L [facility] CHLORIDE 107 96 - 108 mmol/L [facility] CO2 26 21 - 35 mmol/L [facility] BUN 10 6 - 19 mg/dL [facility] CREATININE 0.60 0.5 - 1.5 mg/dL [facility] GLUCOSE 105(H) 70 - 99 mg/dL [facility] ALBUMIN 3.6(L) 3.9 - 4.8 g/dL [facility] TOTAL PROTEIN 6.7 6.5 - 8.0 g/dL [facility] CALCIUM 9.3 8.4 - 10.3 mg/dL [facility] ALKALINE PHOSPHATASE 58 39 - 117 U/L [facility] TOTAL BILIRUBIN 0.2 0.0 - 1.2 mg/dL [facility] AST 25 0 - 37 U/L [facility] ALT 19 0 - 40 U/L [facility] GLOBULIN 3.1 1 - 4.8 g/dL [facility] EGFR 118 >59 mL/min/1.7 3m2 [facility] Comment:Estimated glomerular filtration rate calculated using the CKD-EPI equation. ANION GAP 12 10 - 20 mmol/L [facility] Blood 06/03/2020 10:0 2 AM EST 06/03/2020 10:05 AM EST us Claudia [facility] LAB BLOOD ORDERABLES Final R esult Performing Organization Address City/State/[facility] Co de Phone Number [facility] [address] [place] [address] * (ABNORMAL) CBC and differential (06/03/2020 10:02 AM EST) WBC 13.95(H) 4.00 - 11.00 K/uL [facility] Comment:Note Reference Range updates to all CBC and Differential results. RBC 4.28 3.72 - 5.30 M/uL [facility] HGB 13.7 10.6 - 15.5 g/dL [facility] Comment:Note updated Referen ce Ranges for all CBC and Differential results. HCT 40.8 32.0 - 45.0 % [facility] PLT 296 140 - 430 K/uL [facility] MCV 95.3 78.0 - 97.0 fL [facility] MCH 32.0 25.0 - 33.0 pg [facility] MCHC 33.6 32.0 - 36.0 g/dL [facility] RDW 13.3 11.0 - 16.0 % [facility] MPV 12.5 8.4 - 12.8 fl [facility] NRBC 0.00 0 /100 WBCs [facility] ABSOLUTE NRBC 0.00 0 K/uL [facility] DIFF METHOD Auto [facility] NEUTS 70.7 43.0 - 75.0 % [facility] LYMPHS 19.7 18.2 - 47.4 % [facility] MONOS 5.4 4.00 - 11.00 % [facility] EOS 3.6 0.0 - 8.0 % [facility] BASOS 0.4 0.0 - 2.0 % [facility] Granulocytes, immature (%) 0.2 0.0 - 0.9 % [facility] ABSOLUTE NEUTS 9.86(H) 1.80 - 7.70 K/uL [facility] ABSOLUTE LYMPHS 2.75 1.00 - 3.10 K/uL [facility] ABSOLUTE MONOS 0.75 0.20 - 0.80 K/uL [facility] ABSOLUTE EOS 0.50 0.00 - 0.80 K/uL [facility] ABSOLUTE BASOS 0.06 0.00 - 0.09 K/uL [facility] Granulocytes, immature 0.03 0.00 - 0.05 K/uL [facility] Blood 06/03/2020 10:0 2 AM EST 06/03/2020 10:05 AM EST Claudia [facility] BLOOD ORDERABLES Final R esult [address] [address] * Hepatitis B core antibody, total (06/03/2020 10:02 AM EST) HEP B CORE AB, TOT NON-REACTI VE NON-REACTI VE [facility] Blood 06/03/2020 10:0 2 AM EST 06/03/2020 10:05 AM EST Claudai [facility] BLOOD ORDERABLES Final R esult [address] [address] * HEPATITIS A ANTIBODY, TOTAL (06/03/2020 10:02 AM EST) HAV TOTAL AB NON-REACTI VE NON-REACTI VE [facility] Blood 06/03/2020 10:0 2 AM EST 06/03/2020 10:05 AM EST Claudia [facility] LAB BLOOD ORDERABLES Final R esult Performing Organization Address City/[facility]/ZIP Co de Phone Number [address] [address] * Hepatitis B surface antibody (06/03/2020 10:02 AM EST) HBV SURFACE ANTIBODY Negative [facility] Comment: Unvaccinated: Negative Vaccinated: Positive Blood 06/03/2020 10:0 2 AM EST 06/03/2020 10:05 AM EST Claudia [facility] BLOOD ORDERABLES Final R esult Performing Organization Address [facility] de Phone Number [address] [address] * Hepatitis B surface antigen (06/03/2020 10:02 AM EST) HBV SURFACE ANTIGEN NON-REACTI VE NON-REACTI VE [facility] Blood 06/03/2020 10:0 2 AM EST 06/03/2020 10:05 AM EST Claudia [facility] BLOOD ORDERABLES Final R esult Performing Organization Address City/[facility] Co de Phone Number [address] [address] * Hepatitis C antibody, qualitative (06/03/2020 10:02 AM EST) HCV NON-REACTIV E NON-REACTI VE [facility] Blood 06/03/2020 10:0 2 AM EST 06/03/2020 10:05 AM EST Claudia [facility] BLOOD ORDERABLES Final R esult Performing Organization Address City/[facility] Co de Phone Number [address] [address] documented in this encounter Visit Diagnoses Diagnosis Suppurative hidradenitis- Primary Hidradenitis documented in this encounter Care Teams Motor Installer Relationship Specialty Start Date End Date Jo Galan PA [address] [place] [address] [email or web address] PCP - General 09/20/18 01/21/22 Unknown, Unknown, PCP - General 01/22/22 01/26/22 Lis Mcdonald NP [address] [place] [address] [email or web address] PCP - General Family Medicine 01/27/22 08/15/23 Naa Colindres MD [address] [place] [address] [email or web address] PCP - General Family Medicine 08/16/23 Tariq Yang MD [address] [place] [phone] Insurance Assigned Provider 03/22/20 10/19/20 Catalina Borden, [address] [address] [email or web address] Social Work 04/14/20 03/24/23 Brenda Gomez MD [address] [place] [address] [place], [place] [email or web address] Insurance Assigned Provider 10/19/20 06/19/22 Tariq Yang MD [address] [place] [address] [email or web address] Insurance Assigned Provider 06/19/22 08/28/22 Brenda Gomez MD [address] [place] [address] [place] [address] [email or web address] Insurance Assigned Provider 08/28/22 01/22/23 Lis Long, FLAVIA [address] [place] [address] [email or web address] [facility] Shop Inspector 11/11/22 11/28/22 documented as of this encounter Additional Source Comments The information contained in this document represents components of the legal health record. It is not the complete legal health record.[facility]
--- OUTSIDE RECORDS SUMMARY | 2025-02-14 09:03 | XMS_ITS | Encounter Summary ---
Author Organization [employer] Address [address] [facility] 7t [place] [address] Care Team Providers Care Talent Development Director Name Role Phone Naa Colindres MD Primary Care Provider [phone] Reji Cedillo Encounter Details Date Type Department Care Team (Late st Contact Info) Description 09/29/2023 Orders Only [facility] MEDICAL 70 [place] [address] [facility] 70 [place] [address] Chronic low back pain with right-sided sciatica, [...] AM EDT Office Visit [facility] MEDICAL 70 [place] [address] Naa Colindres MD 70 [place] [address] 04/02/2025 10:30 AM EST Office Visit [facility] MEDICAL 73 [place] [address] Jodi Miller MD 73 [place] [address] documented as of this encounter Visit Diagnoses Diagnosis Chronic low back pain with right-sided sciatica, unspecified back pain laterality Nausea and vomiting, unspecified vomiting type Gastroesophageal reflux disease without esophagitis Esophageal reflux documented in this encounter Additional Health Concerns Assessment Noted Time PHQ-9 Depression Total Score: 24 023 10:06 AM EDT documented as of this encounter Care Teams Talent Development Director Relationship Specialty Start Date End Date Naa Colindres MD 70 [place] [address] PCP - General Family Medicine 09/03/22 Reji Cedillo 12/12/24 12/26/24 documented as of this encounter
--- OUTSIDE RECORDS SUMMARY | 2025-02-14 09:03 | XMS_ITS | Encounter Summary ---
Author Organization [employer] Address [address] 7t [place] [address] Care Team Providers Care Router Tender Name Role Phone Naa Colindres MD Primary Care Provider [phone] DavicheriReji gaming Encounter Details Date Type Department Care Team (Late st Contact Info) Description 09/26/2023 Orders Only [facility] 58 [place] [address] Naa Colindres MD 70 [place] [address] Social History Tobacco Use Types Packs/Day Years [...] EDT Office Visit [facility] MEDICAL 70 [place] [address] Naa Colindres MD 70 [place] [address] 04/02/2025 10:30 AM EST Office Visit [facility] MEDICAL 73 [place] [address] Jodi Miller MD 73 [place] [address] documented as of this encounter Procedures Procedure [...] documented as of this encounter Care Teams Router Tender Relationship Specialty Start Date End Date Naa Colindres MD 70 [place] [address] PCP - General Family Medicine 09/03/22 Reji Cedillo 12/12/24 12/26/24 documented as of this encounter
--- OUTSIDE RECORDS SUMMARY | 2025-02-14 09:03 | XMS_ITS | Encounter Summary ---
Author Organization [facility] Address [address] [place] [address] Phone Care Team Providers Care Loss Prevention Analyst Name Role Phone Catalina Borden VETERINARY SURGERY TECHNICIAN Unavailable [email or web address] Lis Mcdonald NP Primary Care Pro vider Tariq Yang MD Unavailable [phone] Brenda Gomez MD Unavailable [phone] Lis Long RN Unavailable Naa Colindres MD Primary Care Provider [phone] Encounter Details Date Type Department Care Team (Late st Contact Info) Description 07/20/2022 Procedure Pass [address] [place] [address] Social History Tobacco Use Types Packs/Day Years [...] 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 Not on file Not on file documented as of this encounter Plan of Treatment Upcoming Encounters Date Type Department Care Team (Late st Contact Info) Description 04/15/2025 2:00 PM EST Office Visit [facility] Neurology 22 [place] [address] Sundar Vázquez MD 22 [facility], 2nd [place] [address] 05/06/2025 9:00 AM EST Office Visit [facility] Rheumatology 22 [place] [address] Nancy Baptiste MD [address] [place] [address], [address] [place] [address] 06/11/2025 3:30 PM EST Office Visit [facility] [address] [address] Silvina Nixon MD 221 [place] [address] [email or web address] documented as of this encounter Visit Diagnoses Not on filedocumented in this encounter Care Teams Loss Prevention Analyst Relationship Specialty Start Date End Date Lis Mcdonald NP [address] [place] [address] [email or web address] PCP - General Family Medicine 01/27/22 08/15/23 Naa Colindres MD [address] [place] [address] PCP - General Family Medicine 08/16/23 Catalina Borden, [address] [address] [email or web address] Social Work 04/14/20 03/24/23 Tariq Yang MD [address] [place] [address] [email or web address] Insurance Assigned Provider 06/19/22 08/28/22 Brenda Gomez MD [address] [place] [address] [place] [address] [email or web address] Insurance Assigned Provider 08/28/22 01/22/23 Lis Long RN 10 [place] [address] [email or web address] [facility] 11/11/22 11/28/22 documented as of this encounter Additional Source Comments The information contained in this document represents components of the legal health record. It is not the complete legal health record.[facility]
--- OUTSIDE RECORDS SUMMARY | 2025-02-14 09:03 | XMS_ITS | Encounter Summary ---
Author Organization [employer] Address [address] 7t [place] [address] Care Team Providers Care Yeast Maker Name Role Phone Naa Colindres MD Primary Care Provider [phone] DavicheriReji gaming Encounter Details Date Type Department Care Team (Late st Contact Info) Description 09/29/2023 Orders Only [facility] MEDICAL [address] [place] [address] Naa Colindres MD 70 [place] [address] Foreign body in right foot, subsequent encounter [...] Visit [facility] MEDICAL 70 [place] [address] Naa Colindres MD 70 [place] [address] 04/02/2025 10:30 AM EST Office Visit [facility] MEDICAL 73 [place] [address] Jodi Miller MD 73 [place] [address] documented as of this encounter Visit Diagnoses Diagnosis Foreign body in right foot, subsequent encounter documented in this encounter Additional Health Concerns Assessment Noted Time PHQ-9 Depression Total Score: 24 023 10:06 AM EDT documented as of this encounter Care Teams Yeast Maker Relationship Specialty Start Date End Date Naa Colindres MD 70 [place] [address] PCP - General Family Medicine 09/03/22 Reji Cedillo 12/12/24 12/26/24 documented as of this encounter
--- OUTSIDE RECORDS SUMMARY | 2025-02-14 09:03 | XMS_ITS | Encounter Summary ---
Author Organization [facility], Address [address] [place] [address] Phone Care Team Providers Care Safety And Health Manager Name Role Phone Naa Colindres MD Primary Care Provider [phone] Encounter Details Date Type Department Care Team (Late st Contact Info) Description 09/26/2023 Documentation Only [facility], [address] [place] [address] Collette Stacy [address] [place] [phone] Social History Tobacco Use Types Packs/Day Years [...] on filedocumented in this encounter Care Teams Safety And Health Manager Relationship Specialty Start Date End Date Naa Colindres MD [address] [place] [address] PCP - General Family Medicine 03/17/23 documented as of this encounter
--- OUTSIDE RECORDS SUMMARY | 2025-02-14 09:03 | XMS_ITS | Encounter Summary ---
Author Organization [facility] Address [address] [place] [address] Phone Care Team Providers Care Federal Mediator Name Role Phone Tariq Yang MD Unavailable + Jo Galan Primary Care Provider [phone] Janneth Waller DO Unavailable + Tariq Yang MD Unavailable + Catalina Borden RESTAURANT CREW Unavailable [email or web address] Brenda Gomez MD Unavailable + Unknown, Unknown Primary Care Provider Lis Lobo NP Primary Care Pro vider + Tariq Yang MD Unavailable + Brenda Gomez MD Unavailable [phone] Lis Long RN Unavailable Naa Colindres MD Primary Care Provider [phone] Reason for Referral * MRI/CAT Scan - Closed Specialty Diagnoses / Procedures Referred By Contfranklin t Referred To Contact Radiology Diagnoses Intervertebral disc disorders with radiculopathy, lumbar region Procedures MRI Lumbar Spine Piter Kendrick DO Phone: tel: fax: [email or web address] Referral ID Status Reason Start Date Expiration Date Visits Re quested Visits Authorized [id number] Closed 01/24/2019 01/25/2020 1 1 Encounter Details Date Type Department Care Team (Latest Contact Info) Description 01/31/2019 Ancillary Orders Virtual Department [address] [place] [address] Piter Kendrick DO [address] [place] [address] [email or web address] Intervertebral disc disorders with radiculopathy, lumbar region [...] 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 on file Not on file documented as of this encounter Plan of Treatment Upcoming Encounters Date Type Department Care Team (Late st Contact Info) Description 04/15/2025 2:00 PM EST Office Visit [facility] Neurology 22 [place] [address] Sundar Vázquez MD [address] [place] [address], 2nd [place] [address] 05/06/2025 9:00 AM EST Office Visit [facility] Rheumatology [address] [place] [address] Nancy Baptiste MD [address] [place] [address], [address] [place] [address] 06/11/2025 3:30 PM EST Office Visit [facility] 221 [facility] 1st [place] [address] Silvina Nixon MD [address] [place] [address] [email or web address] Scheduled Orders Name Type Priority Associated Diagnoses Orde r Schedule MRI Lumbar Spine Imaging Routine Intervertebral disc disorders with radiculopathy, lumbar region 1 Occurrences starting 01/31/2019 until 05/02/2019 documented as of this encounter Visit Diagnoses Diagnosis Intervertebral disc disorders with radiculopathy, lumbar region documented in this encounter Care Teams Federal Mediator Relationship Specialty Start Date End Date Jo Galan PA [address] [place] [address] [email or web address] PCP - General 09/20/18 01/21/22 Unknown, Lucita, PCP - General 01/22/22 01/26/22 Lis Mcdonald NP [address] [place] [address] [email or web address] PCP - General Family Medicine 01/27/22 08/15/23 Naa Colindres MD [address] [place] [address] PCP - General Family Medicine 08/16/23 Tariq Yang MD [address] [place] [address] [email or web address] Insurance Assigned Provider 09/17/17 10/20/19 Janneth Waller DO [address] [place] [address] [place] [address] Insurance Assigned Provider 10/20/19 03/22/20 Tariq Yang MD [address] [place] [address] [email or web address] Insurance Assigned Provider 03/22/20 10/19/20 Catalina Borden, RESTAURANT CREW [address] [place] [address] [email or web address] iCMP Social Work 04/14/20 03/24/23 Brenda Gomez MD [address] [place] [address] [place] [address] [email or web address] Insurance Assigned Provider 10/19/20 06/19/22 Tariq Yang MD [address] [place] [address] [email or web address] Insurance Assigned Provider 06/19/22 08/28/22 Brenda Gomez MD [address] [place] [address] [place] [address] [email or web address] Insurance Assigned Provider 08/28/22 01/22/23 Lis Long, RN [address] [place] [address] [email or web address] [employer] [email or web address] Teacher 11/11/22 11/28/22 documented as of this encounter Additional Source Comments The information contained in this document represents components of the legal health record. It is not the complete legal health record.[facility]
--- OUTSIDE RECORDS SUMMARY | 2025-02-14 09:03 | XMS_ITS | Encounter Summary ---
Author Organization [employer] Address [address] 7t [place] [address] Care Team Providers Care Business Operations Specialist Name Role Phone Naa Colindres MD Primary Care Provider [phone] Encounter Details Date Type Department Care Team (Late st Contact Info) Description 01/28/2025 Orders Only [facility] [address] [place] [address] Naa Colindres MD 70 [place] [address] Social History Tobacco Use Types Packs/Day Years [...] Description 02/16/2025 9:20 AM EDT Office Visit [facility] MEDICAL 70 [place] [address] Naa Colindres MD 70 [place] [address] 04/02/2025 10:30 AM EST Office Visit [facility] MEDICAL 73 [place] [address] Jodi Miller MD 73 [place] [address] documented as of this encounter Procedures Procedure [...] documented as of this encounter Care Teams Business Operations Specialist Relationship Specialty Start Date End Date Naa Colindres MD 70 [place] [address] PCP - General Family Medicine 09/03/22 documented as of this encounter
== END 2025-02-14 08:40 | disposition home or self-care (01) ==
LOC: HO.HOSX 08:39
PROVIDERS: Visit Provider Physician Assistant
DX: M51.369 Other intervertebral disc degeneration, lumbar region without mention of lumbar back pain or lower extremity pain (principal); Z98.1 Arthrodesis status
CPT/HCPCS: 72110; 99212

== ENCOUNTER 2025-02-14 08:40 | Outpatient (AMB) | payer MEDICAID, SELFPAY ==
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
== END 2025-02-14 10:14 | disposition home or self-care (01) ==
LOC: HO.HNS 08:40
PROVIDERS: PCP Family Medicine; Visit Provider Physician Assistant
DX: Z98.1 Arthrodesis status (principal)
CPT/HCPCS: 99024

== ENCOUNTER → 2025-02-14 09:14 | Outpatient (BNV) | payer MEDICAID, SELFPAY | PROVIDERS: Visit Provider Radiology Diagnostic Radiology | DX: M43.26 Fusion of spine, lumbar region (principal) | CPT/HCPCS: 72110 ==